=== PATIENT | female | born 1930 | race Caucasian/White ===

== ENCOUNTER → 2016-10-16 | Outpatient (CLI) | payer MEDICARE, BC | LOC: MW.CHFP 08:00 | PROVIDERS: ATTEND Student in an Organized Health Care Education/Training Program | DX: Z51.81 Encounter for therapeutic drug level monitoring (principal); Z79.01 Long term (current) use of anticoagulants; I48.91 Unspecified atrial fibrillation | CPT/HCPCS: 85610; 99211 ==

== ENCOUNTER → 2016-10-18 | Outpatient (CLI) | payer MEDICARE, BC | LOC: MW.CHORTHO 08:00 | PROVIDERS: ATTEND Physician Assistant | DX: M17.0 Bilateral primary osteoarthritis of knee (principal) | CPT/HCPCS: 20610-50; G0463; J1040 ==

== ENCOUNTER → 2016-11-15 | Outpatient (CLI) | payer MEDICARE, BC | LOC: MW.CHFP 08:00 | PROVIDERS: ATTEND Student in an Organized Health Care Education/Training Program | DX: Z51.81 Encounter for therapeutic drug level monitoring (principal); Z79.01 Long term (current) use of anticoagulants; I48.91 Unspecified atrial fibrillation | CPT/HCPCS: 85610; 99211 ==

== ENCOUNTER → 2016-12-06 | Outpatient (CLI) | payer MEDICARE, BC | LOC: MW.CHFP 08:00 | PROVIDERS: ATTEND Student in an Organized Health Care Education/Training Program | DX: Z51.81 Encounter for therapeutic drug level monitoring (principal); Z79.01 Long term (current) use of anticoagulants; I48.91 Unspecified atrial fibrillation | CPT/HCPCS: 85610; 99211 ==

== ENCOUNTER → 2016-12-18 | Outpatient (CLI) | payer MEDICARE, BC | LOC: MW.CHFP 14:17 | PROVIDERS: ATTEND Internal Medicine | DX: I48.2 Chronic atrial fibrillation (principal); I10 Essential (primary) hypertension; I48.91 Unspecified atrial fibrillation; M19.049 Primary osteoarthritis, unspecified hand; M17.10 Unilateral primary osteoarthritis, unspecified knee | CPT/HCPCS: 36415; 80053; 80061; 80162; 99214 ==

== ENCOUNTER 2018-10-28 13:49 | Inpatient (IN) | payer MEDICARE, BC ==
[2018-10-28] MEDS ORDERED: Sodium Chloride 0.9% 2.5 ML Syringe FLUSH PRN (13:51)
[2018-10-28] MEDS ORDERED: Sodium Chloride 0.9% 10 ML Syringe FLUSH PRN (13:51)
--- NOTE | 2018-10-28 14:05 | EDM.PDOC ---
ED HPI GENERAL MEDICAL PROBLEM - General Chief Complaint: Respiratory Problem Stated Complaint: SHORTNESS OF BREATH Time Seen by Provider: 10/28/18 13:54 Source of Information: Reports: Patient History Limitations: Reports: No Limitations - History of Present Illness INITIAL COMMENTS - FREE TEXT/NARRATIVE: HISTORY AND PHYSICAL: History of present illness: Patient is an 88-year-old female who presents to the emergency room with complaints of shortness of breath. Patient states that a week ago she thought she had a virus and went and saw [facility]. At that time S[facility] did a chest x-ray which was unremarkable according to patient. Patient states that since then she has been getting better until yesterday she notices that she felt more short of breath and the cough had returned. She states that she went to [facility] again today who had sent her over here. She states she now has a cough and feels short of breath. Patient denies any fever, chills, headache, change in vision, syncope or near syncope. Denies any chest pain. Denies any abdominal pain, nausea, vomiting, diarrhea, constipation or dysuria. Has not noted any blood in urine or stool. Patient has been eating and drinking appropriately. Patient has a past medical history of atrial fibrillation, congestive heart failure and hypertension. Review of systems: As per history of present illness and below otherwise all systems reviewed and negative. Past medical history: As per history of present illness and as reviewed below otherwise noncontributory. Surgical history: As per history of present illness and as reviewed below otherwise noncontributory. Social history: See social history for further information Family history: As per history of present illness and as reviewed below otherwise noncontributory. Physical exam: General: Patient is alert, oriented, and in no acute distress. She is lying comfortably on exam table. HEENT: Atraumatic, normocephalic, pupils equal and reactive bilaterally, negative for conjunctival pallor or scleral icterus, mucous membranes moist, TMs normal bilaterally, throat clear, neck supple, nontender, trachea midline. No drooling or trismus noted. No meningeal signs. No hot potato voice noted. Lungs: Fine expiratory crackles heard throughout all lung dickinson. Breath sounds equal bilaterally, chest nontender. Heart: S1S2, irregular rate and rhythm with grade 3 systolic ejection murmur best heard at the right upper sternal border. Abdomen: Soft, nondistended, nontender. Negative for masses or hepatosplenomegaly. Negative for costovertebral tenderness. Pelvis: Stable nontender. Genitourinary: Deferred. Rectal: Deferred. Skin: Intact, warm, dry. No lesions or rashes noted. Extremities: Atraumatic, negative for cords or calf pain. Neurovascular unremarkable. Neuro: Awake, alert, oriented. Cranial nerves II through XII unremarkable. Cerebellum unremarkable. Motor and sensory unremarkable throughout. Exam nonfocal. Notes: Upon patient arrival her oxygen saturation is 81% on room air. Respiratory therapy did place her on 3 L per nasal cannula and she is now 91%. Patient is currently on 2 L nasal cannula and stating at 93%. On lab work, patient does have hyponatremia. Dr. Tena was consulted on this patient and will admit to observation. Discussed this with patient and she is agreeable to plan of care without any questions or concerns at this time. Diagnostics: CBC, CMP, troponin, BNP, EKG, 2 view chest, d-dimer Therapeutics: Saline lock, DuoNeb Impression: Hypoxia Hyponatremia Plan: 1. Admit to observation. Definitive disposition and diagnosis as appropriate pending reevaluation and review of above. - Related Data Allergies Allergy/AdvReac Type Severity Reaction Status Date / Time enalapril maleate Allergy Rash Verified 10/28/18 13:56 [From Vasotec] enalaprilat dihydrate Allergy Rash Verified 10/28/18 13:56 [From Vasotec] Home Meds: Home Meds ALPRAZolam [ALPRAZolam XR] 1 mg PO BEDTIME PRN 02/16/14 [History] Digoxin 0.125 mg PO DAILY 02/16/14 [History] Losartan [Cozaar] 100 mg PO DAILY 02/16/14 [History] Warfarin [Coumadin] 5 mg PO ASDIRECTED 02/16/14 [History] amLODIPine Besylate [Amlodipine Besylate] 10 mg PO DAILY 02/16/14 [History] Metoprolol Tartrate [Lopressor] 50 mg PO BID #60 tablet 04/02/14 [Rx] Potassium Chloride [Klor-Con M20] 20 meq PO DAILY #30 tab.er 04/02/14 [Rx] Furosemide 20 mg PO DAILY 06/07/18 [History] Occuvite 1 tab PO DAILY 10/28/18 [History] Past Medical History Cardiovascular History: Reports: Afib, Heart Failure, Hypertension - Infectious Disease History Infectious Disease History: Reports: Chicken Pox, Measles, Mumps - Past Surgical History GI Surgical History: Reports: Appendectomy Female Surgical History: Reports: Section Social & Family History - Family History Family Medical History: Noncontributory - Tobacco Use Smoking Status *Q: Never Smoker - Recreational Drug Use Recreational Drug Use: No ED ROS GENERAL - Review of Systems Review Of Systems: ROS reveals no pertinent complaints other than HPI. ED EXAM, GENERAL - Physical Exam Exam: See Below (see dictation) Course - Vital Signs Last Recorded V/S: Last Vital Signs Temp 96.2 F 10/28/18 13:53 Pulse 75 10/28/18 13:53 Resp 20 10/28/18 13:53 BP 151/61 H 10/28/18 13:53 Pulse Ox 94 L 10/28/18 14:43 - Orders/Labs/Meds Orders: Active Orders 24 hr Category Date Time Status Admission Status [Patient Status] [ADT] Stat ADT 10/28/18 15:39 Active EKG Documentation Completion [RC] STAT Care 10/28/18 13:51 Active Oxygen Therapy, ED [RC] ASDIRECTED Care 10/28/18 14:06 Active RT Aerosol Therapy [RC] ASDIRECTED Care 10/28/18 14:07 Active Sodium Chloride 0.9% [Saline Flush] Med 10/28/18 13:51 Active 10 ml FLUSH ASDIRECTED PRN Sodium Chloride 0.9% [Saline Flush] Med 10/28/18 13:51 Active 2.5 ml FLUSH ASDIRECTED PRN Saline Lock Insert [OM.PC] Stat Oth 10/28/18 13:51 Ordered Medication Orders Sodium Chloride (Saline Flush) 10 ml FLUSH ASDIRECTED PRN PRN Reason: Keep Vein Open Sodium Chloride (Saline Flush) 2.5 ml FLUSH ASDIRECTED PRN PRN Reason: Keep Vein Open Labs: Laboratory Tests 10/28/18 10/28/18 10/28/18 Range/Units 14:08 14:08 14:08 WBC 8.11 (4.0-11.0) K/uL RBC 5.19 (4.30-5.90) M/uL Hgb 15.8 (12.0-16.0) g/dL Hct 43.4 (36.0-46.0) % MCV 83.6 (80.0-98.0) fL MCH 30.4 (27.0-32.0) pg MCHC 36.4 (31.0-37.0) g/dL RDW Std Deviation 44.2 (28.0-62.0) fl RDW Coeff of Dg 15 (11.0-15.0) % Plt Count 219 (150-400) K/uL MPV 10.10 (7.40-12.00) fL Neut % (Auto) 64.8 (48.0-80.0) % Lymph % (Auto) 24.4 (16.0-40.0) % [place] % (Auto) 9.7 (0.0-15.0) % Eos % (Auto) 0.9 (0.0-7.0) % Baso % (Auto) 0.2 (0.0-1.5) % Neut # (Auto) 5.3 (1.4-5.7) K/uL Lymph # (Auto) 2.0 (0.6-2.4) K/uL [place] # (Auto) 0.8 (0.0-0.8) K/uL Eos # (Auto) 0.1 (0.0-0.7) K/uL Baso # (Auto) 0.0 (0.0-0.1) K/uL Nucleated RBC % 0.0 /100WBC Nucleated RBCs # 0 K/uL D-Dimer, Quantitative (0.0-0.50) mg/L FEU Sodium 117 L* (136-145) mmol/L Potassium 4.6 (3.5-5.1) mmol/L Chloride 85 L (98-107) mmol/L Carbon Dioxide 27.1 (21.0-32.0) mmol/L BUN 13 (7.0-18.0) mg/dL Creatinine 0.8 (0.6-1.0) mg/dL Est Cr Clr Drug Dosing 44.58 mL/min Estimated GFR (MDRD) > 60.0 ml/min Glucose 136 H (74-106) mg/dL Calcium 8.8 (8.5-10.1) mg/dL Total Bilirubin 1.0 (0.2-1.0) mg/dL AST 28 (15-37) IU/L ALT 26 (14-63) IU/L Alkaline Phosphatase 99 (46-116) U/L Troponin I < 0.050 (0.000-0.056) ng/mL B-Natriuretic Peptide 244 H (<100) PG/ML Total Protein 6.6 (6.4-8.2) g/dL Albumin 3.5 (3.4-5.0) g/dL Globulin 3.1 (2.6-4.0) g/dL Albumin/Globulin Ratio 1.1 (0.9-1.6) 10/28/18 Range/Units 14:08 WBC (4.0-11.0) K/uL RBC (4.30-5.90) M/uL Hgb (12.0-16.0) g/dL Hct (36.0-46.0) % MCV (80.0-98.0) fL MCH (27.0-32.0) pg MCHC (31.0-37.0) g/dL RDW Std Deviation (28.0-62.0) fl RDW Coeff of Dg (11.0-15.0) % Plt Count (150-400) K/uL MPV (7.40-12.00) fL Neut % (Auto) (48.0-80.0) % Lymph % (Auto) (16.0-40.0) % [place] % (Auto) (0.0-15.0) % Eos % (Auto) (0.0-7.0) % Baso % (Auto) (0.0-1.5) % Neut # (Auto) (1.4-5.7) K/uL Lymph # (Auto) (0.6-2.4) K/uL [place] # (Auto) (0.0-0.8) K/uL Eos # (Auto) (0.0-0.7) K/uL Baso # (Auto) (0.0-0.1) K/uL Nucleated RBC % /100WBC Nucleated RBCs # K/uL D-Dimer, Quantitative 0.43 (0.0-0.50) mg/L FEU Sodium (136-145) mmol/L Potassium (3.5-5.1) mmol/L Chloride (98-107) mmol/L Carbon Dioxide (21.0-32.0) mmol/L BUN (7.0-18.0) mg/dL Creatinine (0.6-1.0) mg/dL Est Cr Clr Drug Dosing mL/min Estimated GFR (MDRD) ml/min Glucose (74-106) mg/dL Calcium (8.5-10.1) mg/dL Total Bilirubin (0.2-1.0) mg/dL AST (15-37) IU/L ALT (14-63) IU/L Alkaline Phosphatase (46-116) U/L Troponin I (0.000-0.056) ng/mL B-Natriuretic Peptide (<100) PG/ML Total Protein (6.4-8.2) g/dL Albumin (3.4-5.0) g/dL Globulin (2.6-4.0) g/dL Albumin/Globulin Ratio (0.9-1.6) Meds: Medications Generic Name Dose Route Start Last Admin Trade Name Freq PRN Reason Stop Dose Admin Sodium Chloride 10 ml 10/28/18 13:51 Saline Flush FLUSH ASDIRECTED PRN Keep Vein Open Sodium Chloride 2.5 ml 10/28/18 13:51 Saline Flush FLUSH ASDIRECTED PRN Keep Vein Open Discontinued Medications Generic Name Dose Route Start Last Admin Trade Name Freq PRN Reason Stop Dose Admin Albuterol/Ipratropium 3 ml 10/28/18 14:07 10/28/18 14:42 Duoneb 3.0-0.5 Mg/3 Ml NEB 10/28/18 14:08 3 ml ONETIME ONE Administration Departure - Departure Time of Disposition: 15:42 Disposition: Refer to Observation Clinical Impression: Hypoxia, Hyponatremia - Discharge Information Referrals: PCP,Unknown [Primary Care Provider] - Forms: ED Department Discharge - My Orders Last 24 Hours: My Active Orders 10/28/18 13:51 EKG Documentation Completion [RC] STAT Sodium Chloride 0.9% [Saline Flush] 10 ml FLUSH ASDIRECTED PRN Sodium Chloride 0.9% [Saline Flush] 2.5 ml FLUSH ASDIRECTED PRN Saline Lock Insert [OM.PC] Stat 10/28/18 14:06 Oxygen Therapy, ED [RC] ASDIRECTED 10/28/18 14:07 RT Aerosol Therapy [RC] ASDIRECTED 10/28/18 15:39 Admission Status [Patient Status] [ADT] Stat - Assessment/Plan Last 24 Hours: My Active Orders 10/28/18 13:51 EKG Documentation Completion [RC] STAT Sodium Chloride 0.9% [Saline Flush] 10 ml FLUSH ASDIRECTED PRN Sodium Chloride 0.9% [Saline Flush] 2.5 ml FLUSH ASDIRECTED PRN Saline Lock Insert [OM.PC] Stat 10/28/18 14:06 Oxygen Therapy, ED [RC] ASDIRECTED 10/28/18 14:07 RT Aerosol Therapy [RC] ASDIRECTED 10/28/18 15:39 Admission Status [Patient Status] [ADT] Stat
[2018-10-28] MEDS ORDERED: Albuterol/Ipratropium 3.0-0.5 MG/3 ML Neb Soln NEB ONE (14:07)
[2018-10-28 15:08] LABS: CHLORIDE,CL 85 mmol/L (98-107)
--- NOTE | 2018-10-28 15:15 | CR ---
EXAMINATION: Two-view chest (PA and Lateral views). HISTORY: Shortness of breath. Comparison: 10/23/2018, 05/01/2010. FINDINGS: The trachea is midline. The cardiomediastinal silhouette is stable. Heart is borderline in size. There is stable volume loss, interstitial prominence, atelectasis, and hyperinflation. A trace right pleural effusion is not excluded. Osseous structures appear osteopenic. IMPRESSION: 1. Possible trace right pleural effusion. 2. Chronic interstitial prominence, scarring, and hyperinflation.
[2018-10-28 15:29] LABS: SODIUM,NA 117 mmol/L (136-145)
[2018-10-28] MEDS ORDERED: Albuterol/Ipratropium 3.0-0.5 MG/3 ML Neb Soln NEB PRN (17:44)
--- NOTE | 2018-10-28 17:53 | PCM.HP ---
<Elaine,Pily - Last Filed: 10/28/18 17:59> H&P History of Present Illness - General Date of Service: 10/28/18 Admit Problem/Dx: Admission Diagnosis/Problem Admission Diagnosis/Problem Hypoxia - History of Present Illness Initial Comments - Free Text/Narative: The patient is a 88 year old female with past medical history of CHF, Afib, and HTN who was sent from her PCP office to the ER for shortness of breath. The patient had been seen by her PCP on 10/23/18 for similar complaints and at that time her CXR was clear. She returned today with worsening shortness of breath and cough. In the ER, her oxygen saturation was 81% on RA, it improved to 95% with 3 L via NC. Patient denies fever/chills, chest pain, orthopnea, hx of asthma/COPD. She does have some lower extremity edema which she states is at her baseline. She had a echo done in May 2018 which showed an EF of 55-60%, severely dilated RA/LA, mild aortic stenosis, and mitral/tricuspid regurgitation. She reports she doesn't follow with a financial rep. She denies any headache, vision changes, abdominal pain, nausea/vomiting/diarrhea, or burning with urination. In the ER, work up found a hyponatremia of 117, elevated BNP of 244, negative troponin and a CXR that showed possible right pleural effusion with chronic interstitial prominence ,scarring, and hyperinflation. In the ER, she was given a duoneb treatment which she reports helped her breathing. She denies history of hyponatremia, and looking back through old labs she runs in the mid 130s. - Related Data Allergies/Adverse Reactions: Allergies Allergy/AdvReac Type Severity Reaction Status Date / Time enalapril maleate Allergy Rash Verified 10/28/18 13:56 [From Vasotec] enalaprilat dihydrate Allergy Rash Verified 10/28/18 13:56 [From Vasotec] Home Medications: Home Meds ALPRAZolam [ALPRAZolam XR] 0.5 - 1 mg PO BEDTIME PRN 02/16/14 [History] Digoxin 0.125 mg PO DAILY 02/16/14 [History] Losartan [Cozaar] 100 mg PO DAILY 02/16/14 [History] Warfarin [Coumadin] 5 mg PO ASDIRECTED 02/16/14 [History] amLODIPine Besylate [Amlodipine Besylate] 10 mg PO DAILY 02/16/14 [History] Metoprolol Tartrate [Lopressor] 50 mg PO BID #60 tablet 04/02/14 [Rx] Potassium Chloride [Klor-Con M20] 20 meq PO DAILY #30 tab.er 04/02/14 [Rx] Furosemide 20 mg PO DAILY 06/07/18 [History] Calcium Carbonate [Calcium] 600 mg PO DAILY 10/28/18 [History] Multivitamin [Daily Multiple Vitamin] 1 each PO DAILY 10/28/18 [History] Occuvite 1 tab PO DAILY 10/28/18 [History] Dorzolamide HCl 10/29/18 [History] Omeprazole 20 mg PO ACBREAKFAST 10/29/18 [History] Timolol Maleate 10/29/18 [History] Past Medical History Cardiovascular History: Reports: Afib, Heart Failure, Hypertension Respiratory History: Reports: None Gastrointestinal History: Reports: None Genitourinary History: Reports: None Musculoskeletal History: Reports: None Neurological History: Reports: None Psychiatric History: Reports: None Endocrine/Metabolic History: Reports: None Hematologic History: Reports: None Immunologic History: Reports: None Oncologic (Cancer) History: Reports: None Dermatologic History: Reports: None - Infectious Disease History Infectious Disease History: Reports: Chicken Pox, Measles, Mumps - Past Surgical History GI Surgical History: Reports: Appendectomy Female Surgical History: Reports: Section Social & Family History - Family History Family Medical History: Noncontributory - Tobacco Use Smoking Status *Q: Never Smoker - Recreational Drug Use Recreational Drug Use: No H&P Review of Systems - Review of Systems: Review Of Systems: See Below General: Reports: No Symptoms HEENT: Reports: No Symptoms Pulmonary: Reports: Shortness of Breath, Cough Cardiovascular: Reports: Dyspnea on Exertion, Edema. Denies: Chest Pain, Orthopnea Gastrointestinal: Reports: No Symptoms Genitourinary: Reports: No Symptoms Musculoskeletal: Reports: No Symptoms Skin: Reports: No Symptoms Psychiatric: Reports: No Symptoms Neurological: Reports: No Symptoms Hematologic/Lymphatic: Reports: No Symptoms Immunologic: Reports: No Symptoms Exam - Exam Exam: See Below - Vital Signs Vital Signs: Last Vital Signs Temp 96.2 F 10/28/18 13:53 Pulse 75 10/28/18 13:53 Resp 20 03/26/19 13:53 BP 151/61 H 10/28/18 13:53 Pulse Ox 94 L 10/28/18 14:43 Weight: 58.513 kg - Exam Quality Assessment: Supplemental Oxygen General: Alert, Oriented, Cooperative HEENT: Conjunctiva Clear, EOMI, Mucosa Moist & [place], Posterior Pharynx Clear, Pupils Equal, Pupils Reactive Neck: Supple, Trachea Midline Lungs: Normal Respiratory Effort, Wheezing Cardiovascular: Irregular Rhythm, Systolic Murmur GI/Abdominal Exam: Normal Bowel Sounds, Soft, Non-Tender, No Distention Extremities: Pedal Edema Skin: Warm, Dry Neurological: Cranial Nerves Intact Neuro Extensive - Mental Status: Alert, Oriented x3 Psychiatric: Alert, Normal Affect, Normal Mood - Patient Data Lab Results Last 24 hrs: Laboratory Results - last 24 hr 10/28/18 10/28/18 10/28/18 Range/Units 14:08 14:08 14:08 WBC 8.11 (4.0-11.0) K/uL RBC 5.19 (4.30-5.90) M/uL Hgb 15.8 (12.0-16.0) g/dL Hct 43.4 (36.0-46.0) % MCV 83.6 (80.0-98.0) fL MCH 30.4 (27.0-32.0) pg MCHC 36.4 (31.0-37.0) g/dL RDW Std Deviation 44.2 (28.0-62.0) fl RDW Coeff of Dg 15 (11.0-15.0) % Plt Count 219 (150-400) K/uL MPV 10.10 (7.40-12.00) fL Neut % (Auto) 64.8 (48.0-80.0) % Lymph % (Auto) 24.4 (16.0-40.0) % [place] % (Auto) 9.7 (0.0-15.0) % Eos % (Auto) 0.9 (0.0-7.0) % Baso % (Auto) 0.2 (0.0-1.5) % Neut # (Auto) 5.3 (1.4-5.7) K/uL Lymph # (Auto) 2.0 (0.6-2.4) K/uL [place] # (Auto) 0.8 (0.0-0.8) K/uL Eos # (Auto) 0.1 (0.0-0.7) K/uL Baso # (Auto) 0.0 (0.0-0.1) K/uL Nucleated RBC % 0.0 /100WBC Nucleated RBCs # 0 K/uL D-Dimer, Quantitative (0.0-0.50) mg/L FEU Sodium 117 L* (136-145) mmol/L Potassium 4.6 (3.5-5.1) mmol/L Chloride 85 L (98-107) mmol/L Carbon Dioxide 27.1 (21.0-32.0) mmol/L BUN 13 (7.0-18.0) mg/dL Creatinine 0.8 (0.6-1.0) mg/dL Est Cr Clr Drug Dosing 44.58 mL/min Estimated GFR (MDRD) > 60.0 ml/min Glucose 136 H (74-106) mg/dL Calcium 8.8 (8.5-10.1) mg/dL Total Bilirubin 1.0 (0.2-1.0) mg/dL AST 28 (15-37) IU/L ALT 26 (14-63) IU/L Alkaline Phosphatase 99 (46-116) U/L Troponin I < 0.050 (0.000-0.056) ng/mL B-Natriuretic Peptide 244 H (<100) PG/ML Total Protein 6.6 (6.4-8.2) g/dL Albumin 3.5 (3.4-5.0) g/dL Globulin 3.1 (2.6-4.0) g/dL Albumin/Globulin Ratio 1.1 (0.9-1.6) 10/28/18 Range/Units 14:08 WBC (4.0-11.0) K/uL RBC (4.30-5.90) M/uL Hgb (12.0-16.0) g/dL Hct (36.0-46.0) % MCV (80.0-98.0) fL MCH (27.0-32.0) pg MCHC (31.0-37.0) g/dL RDW Std Deviation (28.0-62.0) fl RDW Coeff of Dg (11.0-15.0) % Plt Count (150-400) K/uL MPV (7.40-12.00) fL Neut % (Auto) (48.0-80.0) % Lymph % (Auto) (16.0-40.0) % [place] % (Auto) (0.0-15.0) % Eos % (Auto) (0.0-7.0) % Baso % (Auto) (0.0-1.5) % Neut # (Auto) (1.4-5.7) K/uL Lymph # (Auto) (0.6-2.4) K/uL [place] # (Auto) (0.0-0.8) K/uL Eos # (Auto) (0.0-0.7) K/uL Baso # (Auto) (0.0-0.1) K/uL Nucleated RBC % /100WBC Nucleated RBCs # K/uL D-Dimer, Quantitative 0.43 (0.0-0.50) mg/L FEU Sodium (136-145) mmol/L Potassium (3.5-5.1) mmol/L Chloride (98-107) mmol/L Carbon Dioxide (21.0-32.0) mmol/L BUN (7.0-18.0) mg/dL Creatinine (0.6-1.0) mg/dL Est Cr Clr Drug Dosing mL/min Estimated GFR (MDRD) ml/min Glucose (74-106) mg/dL Calcium (8.5-10.1) mg/dL Total Bilirubin (0.2-1.0) mg/dL AST (15-37) IU/L ALT (14-63) IU/L Alkaline Phosphatase (46-116) U/L Troponin I (0.000-0.056) ng/mL B-Natriuretic Peptide (<100) PG/ML Total Protein (6.4-8.2) g/dL Albumin (3.4-5.0) g/dL Globulin (2.6-4.0) g/dL Albumin/Globulin Ratio (0.9-1.6) Result Diagrams: 10/28/18 14:08 10/28/18 14:08 - Problem List (1) Afib, Atrial fibrillation SNOMED Code(s): 44815083 ICD Code: I48.91 - UNSPECIFIED ATRIAL FIBRILLATION Status: Chronic (2) CHF, Congestive heart failure SNOMED Code(s): 86007106 ICD Code: I50.9 - HEART FAILURE, UNSPECIFIED Status: Chronic (3) Hyponatremia SNOMED Code(s): 03300577 ICD Code: E87.1 - HYPO-OSMOLALITY AND HYPONATREMIA Status: Acute (4) Hypoxia SNOMED Code(s): 744493175 ICD Code: R09.02 - HYPOXEMIA Status: Acute (5) Hypertension SNOMED Code(s): 36147258 ICD Code: I10 - ESSENTIAL (PRIMARY) HYPERTENSION Status: Acute Problem List Initiated/Reviewed/Updated: Yes Orders Last 24hrs: Active Orders 24 hr Category Date Time Status Admission Status [Patient Status] [ADT] Stat ADT 10/28/18 15:39 Active EKG Documentation Completion [RC] STAT Care 10/28/18 13:51 Active Height and Weight [RC] DAILY Care 10/28/18 17:44 Ordered Intake and Output Strict [RC] ASDIRECTED Care 10/28/18 17:44 Ordered Oxygen Therapy, ED [RC] ASDIRECTED Care 10/28/18 14:06 Active RT Aerosol Therapy [RC] ASDIRECTED Care 10/28/18 14:07 Active RT Aerosol Therapy [RC] ASDIRECTED Care 10/28/18 17:45 Ordered Vital Signs [RC] PER UNIT ROUTINE Care 10/28/18 17:44 Ordered Heart Healthy Diet [DIET] Diet 10/28/18 Dinner Ordered Albuterol/Ipratropium [DuoNeb 3.0-0.5 MG/3 ML] Med 10/28/18 17:44 Ordered 3 ml NEB Q6HRRT PRN Azithromycin [Zithromax] 250 mg Med 10/28/18 17:45 Ordered Sodium Chloride 0.9% [Normal Saline] 250 ml IV Q24H Sodium Chloride 0.9% @ 75 MLS/HR(1,000ml) Med 10/28/18 17:45 Ordered Sodium Chloride 0.9% [Normal Saline] 1,000 ml IV ASDIRECTED methylPREDNISolone Sod Succ [Solu-MEDROL] Med 10/28/18 17:45 Ordered 125 mg IVPUSH Q12H Saline Lock Insert [OM.PC] Stat Oth 10/28/18 13:51 Ordered Resuscitation Status Stat Resus Stat 10/28/18 17:44 Ordered Assessment/Plan Comment:: 1. Admit for observation 2. Code Status-DNR/DNI 3. Vitals per routine 4. I/Os strict 5. Diet-cardiac 6. DVT- patient on warfarin 7. Hypoxia with wheezing-possible COPD exacerbation- will give IV steriods, duonebs, and start on Azithromycin. Patient will need PFTs as an outpatient once feeling better. 8. Hyponatremia- will give normal saline at 75 cc/hr. Will monitor closely for signs of overload. Daily Weights and strict I/Os 9. Chronic conditions- Afib, CHF, HTN- watch on tele and continue home meds. <Alex Tena - Last Filed: 10/29/18 09:11> H&P History of Present Illness - General Admit Problem/Dx: Admission Diagnosis/Problem Admission Diagnosis/Problem Hypoxia - History of Present Illness Initial Comments - Free Text/Narative: I have examined the patient independently of Pily Henry MD, resident. I have discussed the case with her. I have reviewed and agree with the plan of care as outlined by her. Please see orders. Exam - Vital Signs Vital Signs: Last Vital Signs Temp 36.6 C 10/29/18 08:00 Pulse 91 10/29/18 08:00 Resp 18 10/29/18 08:00 BP 134/64 10/29/18 08:00 Pulse Ox 96 10/29/18 08:00 - Patient Data Lab Results Last 24 hrs: Laboratory Results - last 24 hr 10/28/18 10/28/18 10/28/18 Range/Units 14:08 14:08 14:08 WBC 8.11 (4.0-11.0) K/uL RBC 5.19 (4.30-5.90) M/uL Hgb 15.8 (12.0-16.0) g/dL Hct 43.4 (36.0-46.0) % MCV 83.6 (80.0-98.0) fL MCH 30.4 (27.0-32.0) pg MCHC 36.4 (31.0-37.0) g/dL RDW Std Deviation 44.2 (28.0-62.0) fl RDW Coeff of Dg 15 (11.0-15.0) % Plt Count 219 (150-400) K/uL MPV 10.10 (7.40-12.00) fL Neut % (Auto) 64.8 (48.0-80.0) % Lymph % (Auto) 24.4 (16.0-40.0) % [place] % (Auto) 9.7 (0.0-15.0) % Eos % (Auto) 0.9 (0.0-7.0) % Baso % (Auto) 0.2 (0.0-1.5) % Neut # (Auto) 5.3 (1.4-5.7) K/uL Lymph # (Auto) 2.0 (0.6-2.4) K/uL [place] # (Auto) 0.8 (0.0-0.8) K/uL Eos # (Auto) 0.1 (0.0-0.7) K/uL Baso # (Auto) 0.0 (0.0-0.1) K/uL Nucleated RBC % 0.0 /100WBC Nucleated RBCs # 0 K/uL INR D-Dimer, Quantitative (0.0-0.50) mg/L FEU Sodium 117 L* (136-145) mmol/L Potassium 4.6 (3.5-5.1) mmol/L Chloride 85 L (98-107) mmol/L Carbon Dioxide 27.1 (21.0-32.0) mmol/L BUN 13 (7.0-18.0) mg/dL Creatinine 0.8 (0.6-1.0) mg/dL Est Cr Clr Drug Dosing 44.58 mL/min Estimated GFR (MDRD) > 60.0 ml/min Glucose 136 H (74-106) mg/dL Calcium 8.8 (8.5-10.1) mg/dL Total Bilirubin 1.0 (0.2-1.0) mg/dL AST 28 (15-37) IU/L ALT 26 (14-63) IU/L Alkaline Phosphatase 99 (46-116) U/L Troponin I < 0.050 (0.000-0.056) ng/mL B-Natriuretic Peptide 244 H (<100) PG/ML Total Protein 6.6 (6.4-8.2) g/dL Albumin 3.5 (3.4-5.0) g/dL Globulin 3.1 (2.6-4.0) g/dL Albumin/Globulin Ratio 1.1 (0.9-1.6) 10/28/18 10/29/18 10/29/18 Range/Units 14:08 05:58 05:58 WBC 3.45 L (4.0-11.0) K/uL RBC 5.15 (4.30-5.90) M/uL Hgb 15.4 (12.0-16.0) g/dL Hct 42.6 (36.0-46.0) % MCV 82.7 (80.0-98.0) fL MCH 29.9 (27.0-32.0) pg MCHC 36.2 (31.0-37.0) g/dL RDW Std Deviation 42.5 (28.0-62.0) fl RDW Coeff of Dg 14 (11.0-15.0) % Plt Count 220 (150-400) K/uL MPV 9.60 (7.40-12.00) fL Neut % (Auto) 77.7 (48.0-80.0) % Lymph % (Auto) 20.0 (16.0-40.0) % [place] % (Auto) 2.3 (0.0-15.0) % Eos % (Auto) 0.0 (0.0-7.0) % Baso % (Auto) 0.0 (0.0-1.5) % Neut # (Auto) 2.7 (1.4-5.7) K/uL Lymph # (Auto) 0.7 (0.6-2.4) K/uL [place] # (Auto) 0.1 (0.0-0.8) K/uL Eos # (Auto) 0.0 (0.0-0.7) K/uL Baso # (Auto) 0.0 (0.0-0.1) K/uL Nucleated RBC % 0.0 /100WBC Nucleated RBCs # 0 K/uL INR D-Dimer, Quantitative 0.43 (0.0-0.50) mg/L FEU Sodium 121 L (136-145) mmol/L Potassium 4.2 (3.5-5.1) mmol/L Chloride 88 L (98-107) mmol/L Carbon Dioxide 24.2 (21.0-32.0) mmol/L BUN 13 (7.0-18.0) mg/dL Creatinine 0.7 (0.6-1.0) mg/dL Est Cr Clr Drug Dosing 50.95 mL/min Estimated GFR (MDRD) > 60.0 ml/min Glucose 189 H (74-106) mg/dL Calcium 8.9 (8.5-10.1) mg/dL Total Bilirubin (0.2-1.0) mg/dL AST (15-37) IU/L ALT (14-63) IU/L Alkaline Phosphatase (46-116) U/L Troponin I (0.000-0.056) ng/mL B-Natriuretic Peptide (<100) PG/ML Total Protein (6.4-8.2) g/dL Albumin (3.4-5.0) g/dL Globulin (2.6-4.0) g/dL Albumin/Globulin Ratio (0.9-1.6) 10/29/18 Range/Units 05:58 WBC (4.0-11.0) K/uL RBC (4.30-5.90) M/uL Hgb (12.0-16.0) g/dL Hct (36.0-46.0) % MCV (80.0-98.0) fL MCH (27.0-32.0) pg MCHC (31.0-37.0) g/dL RDW Std Deviation (28.0-62.0) fl RDW Coeff of Dg (11.0-15.0) % Plt Count (150-400) K/uL MPV (7.40-12.00) fL Neut % (Auto) (48.0-80.0) % Lymph % (Auto) (16.0-40.0) % [place] % (Auto) (0.0-15.0) % Eos % (Auto) (0.0-7.0) % Baso % (Auto) (0.0-1.5) % Neut # (Auto) (1.4-5.7) K/uL Lymph # (Auto) (0.6-2.4) K/uL [place] # (Auto) (0.0-0.8) K/uL Eos # (Auto) (0.0-0.7) K/uL Baso # (Auto) (0.0-0.1) K/uL Nucleated RBC % /100WBC Nucleated RBCs # K/uL INR 2.00 D-Dimer, Quantitative (0.0-0.50) mg/L FEU Sodium (136-145) mmol/L Potassium (3.5-5.1) mmol/L Chloride (98-107) mmol/L Carbon Dioxide (21.0-32.0) mmol/L BUN (7.0-18.0) mg/dL Creatinine (0.6-1.0) mg/dL Est Cr Clr Drug Dosing mL/min Estimated GFR (MDRD) ml/min Glucose (74-106) mg/dL Calcium (8.5-10.1) mg/dL Total Bilirubin (0.2-1.0) mg/dL AST (15-37) IU/L ALT (14-63) IU/L Alkaline Phosphatase (46-116) U/L Troponin I (0.000-0.056) ng/mL B-Natriuretic Peptide (<100) PG/ML Total Protein (6.4-8.2) g/dL Albumin (3.4-5.0) g/dL Globulin (2.6-4.0) g/dL Albumin/Globulin Ratio (0.9-1.6) Result Diagrams: 10/29/18 05:58 10/29/18 05:58 Orders Last 24hrs: Active Orders 24 hr Category Date Time Status Admission Status [Patient Status] [ADT] Stat ADT 10/28/18 15:39 Active EKG Documentation Completion [RC] STAT Care 10/28/18 13:51 Active Height and Weight [RC] DAILY Care 10/28/18 17:44 Active Intake and Output Strict [RC] Q12H Care 10/28/18 17:44 Active Oxygen Therapy, ED [RC] ASDIRECTED Care 10/28/18 14:06 Active RT Aerosol Therapy [RC] ASDIRECTED Care 10/28/18 14:07 Active RT Aerosol Therapy [RC] ASDIRECTED Care 10/28/18 17:45 Active Telemetry Monitoring [Cardiac Monitoring] [RC] Q8H Care 10/28/18 17:56 Active Vital Signs [RC] PER UNIT ROUTINE Care 10/28/18 17:44 Active Heart Healthy Diet [DIET] Diet 10/28/18 Dinner Active ALPRAZolam [Xanax] Med 10/28/18 18:00 Active 0.5 mg PO BEDTIME PRN Acetaminophen [Tylenol] Med 10/28/18 20:35 Active 650 mg PO Q4H PRN Albuterol/Ipratropium [DuoNeb 3.0-0.5 MG/3 ML] Med 10/28/18 17:44 Active 3 ml NEB Q6HRRT PRN Azithromycin [Zithromax] 250 mg Med 10/28/18 18:00 Active Sodium Chloride 0.9% [Normal Saline] 250 ml IV Q24H Beta-Carotene(A) w/C & E/Min [Prosight] Med 10/29/18 09:00 Active 1 tab PO DAILY Calcium Carbonate [Oyster Shell Calcium] Med 10/29/18 09:00 Active 500 mg PO DAILY Digoxin [Lanoxin] Med 10/29/18 09:00 Active 125 mcg PO DAILY Losartan [Cozaar] Med 10/29/18 09:00 Active 100 mg PO DAILY Metoprolol Tartrate [Lopressor] Med 10/28/18 19:30 Active 50 mg PO BID@0900,1800 Multivitamins [Tab-A-Celestine] Med 10/29/18 09:00 Active 1 tab PO DAILY Potassium Chloride [Klor-Con M20] Med 10/29/18 09:00 Active 20 meq PO DAILY Sodium Chloride 0.9% [Normal Saline] 1,000 ml Med 10/28/18 17:45 Active IV ASDIRECTED Sodium Chloride 0.9% [Saline Flush] Med 10/28/18 13:51 Active 10 ml FLUSH ASDIRECTED PRN Sodium Chloride 0.9% [Saline Flush] Med 10/28/18 13:51 Active 2.5 ml FLUSH ASDIRECTED PRN Warfarin [Coumadin] Med 10/29/18 14:00 Active 2.5 mg PO DAILY@1400 amLODIPine [Norvasc] Med 10/29/18 09:00 Active 10 mg PO DAILY guaiFENesin [Robitussin] Med 10/28/18 20:36 Active 200 mg PO Q4H PRN methylPREDNISolone Sod Succ [Solu-MEDROL] Med 10/28/18 17:45 Active 125 mg IVPUSH Q12H Saline Lock Insert [OM.PC] Stat Oth 10/28/18 13:51 Ordered Resuscitation Status Stat Resus Stat 10/28/18 17:44 Ordered Medication Orders Acetaminophen (Tylenol) 650 mg PO Q4H PRN PRN Reason: Pain (mild 1-3) Last Admin: 10/29/18 04:49 Dose: 650 mg Albuterol/Ipratropium (Duoneb 3.0-0.5 Mg/3 Ml) 3 ml NEB Q6HRRT PRN PRN Reason: Wheezing Alprazolam (Xanax) 0.5 mg PO BEDTIME PRN PRN Reason: Anxiety Amlodipine Besylate (Norvasc) 10 mg PO DAILY [facility] Calcium Carbonate/Glycine (Oyster Shell Calcium) 500 mg PO DAILY [facility] Digoxin (Lanoxin) 125 mcg PO DAILY [facility] Guaifenesin (Robitussin) 200 mg PO Q4H PRN PRN Reason: Cough Azithromycin 250 mg/ Sodium (Chloride) 250 mls @ 250 mls/hr IV Q24H [facility] Last Admin: 10/28/18 19:23 Dose: 250 mls/hr Sodium Chloride (Normal Saline) 1,000 mls @ 75 mls/hr IV ASDIRECTED [facility] Last Admin: 10/29/18 08:40 Dose: 75 mls/hr Infusion: 10/29/18 08:40 Dose: 75 mls/hr Admin: 10/28/18 19:22 Dose: 75 mls/hr Losartan Potassium (Cozaar) 100 mg PO DAILY [facility] Methylprednisolone Sodium Succinate (Solu-Medrol) 125 mg IVPUSH Q12H [facility] Last Admin: 10/29/18 04:50 Dose: 125 mg Admin: 10/28/18 19:58 Dose: 125 mg Metoprolol Tartrate (Lopressor) 50 mg PO BID@0900,1800 [facility] Last Admin: 10/28/18 19:57 Dose: 50 mg Multivitamins/Minerals (Prosight) 1 tab PO DAILY [facility] Multivitamins/Minerals/Vitamin C (Tab-A-Celestine) 1 tab PO DAILY [facility] Potassium Chloride (Klor-Con M20) 20 meq PO DAILY [facility] Sodium Chloride (Saline Flush) 10 ml FLUSH ASDIRECTED PRN PRN Reason: Keep Vein Open Sodium Chloride (Saline Flush) 2.5 ml FLUSH ASDIRECTED PRN PRN Reason: Keep Vein Open Warfarin Sodium (Coumadin) 2.5 mg PO DAILY@1400 JENN
[2018-10-28] MEDS: Sodium Chloride 0.9% 1,000 ML IV SCH (19:22)
[2018-10-28] MEDS: Azithromycin 250 MG in Sodium Chloride 0.9% 250 ML IV SCH (19:23)
[2018-10-28] MEDS: Metoprolol Tartrate 50 MG Tab PO SCH (19:57)
[2018-10-28] MEDS: methylPREDNISolone Sodium Succinate 125 MG/2 ML SDV IVPUSH SCH (19:58)
[2018-10-28] MEDS ORDERED: guaiFENesin 100 MG/5 ML Soln 10 ML UD Cup PO PRN (20:36)
[2018-10-29] MEDS: Acetaminophen 325 MG Tab PO PRN ×2 (04:49→12:14)
[2018-10-29] MEDS: methylPREDNISolone Sodium Succinate 125 MG/2 ML SDV IVPUSH SCH ×2 (04:50→18:29)
[2018-10-29 06:19] LABS: CHLORIDE,CL 88 mmol/L (98-107); SODIUM,NA 121 mmol/L (136-145)
[2018-10-29] MEDS: Sodium Chloride 0.9% 1,000 ML IV SCH (08:40)
[2018-10-29] MEDS ORDERED: Beta-Carotene (Vitamin A) w/Vitamin C & E plus Minerals Tab PO SCH (09:00)
[2018-10-29] MEDS: amLODIPine 5 MG Tab PO SCH (09:22)
[2018-10-29] MEDS: Digoxin 125 MCG Tab PO SCH (09:23)
[2018-10-29] MEDS: Potassium Chloride 20 MEQ Tab.ER PO SCH (09:25)
[2018-10-29] MEDS: Losartan 50 MG Tab PO SCH (09:25)
[2018-10-29] MEDS: Metoprolol Tartrate 50 MG Tab PO SCH ×2 (09:26→18:30)
[2018-10-29] MEDS: Multivitamin Tab PO SCH (09:27)
[2018-10-29] MEDS: Calcium Carbonate 500 MG Tablet PO SCH (09:27)
--- NOTE | 2018-10-29 10:03 | PCM.PN ---
<Pily Henry - Last Filed: 10/29/18 09:59> - General Info Date of Service: 10/29/18 Subjective Update: The patient is a 88 year old female who was admitted for hypoxia and hyponatremia. She is still requiring 2 L of oxygen but reports she is feeling better. Her sodium improved from 117-121. She denies chest pain, abdominal pain, or nausea/vomiting. - Review of Systems General: Reports: No Symptoms HEENT: Reports: No Symptoms Pulmonary: Reports: Shortness of Breath Cardiovascular: Reports: No Symptoms Gastrointestinal: Reports: No Symptoms Genitourinary: Reports: No Symptoms Musculoskeletal: Reports: No Symptoms Skin: Reports: No Symptoms Neurological: Reports: No Symptoms Psychiatric: Reports: No Symptoms - Patient Data Vitals - Most Recent: Last Vital Signs Temp 98 F 10/29/18 08:00 Pulse 88 10/29/18 09:26 Resp 18 10/29/18 08:00 BP 134/64 10/29/18 09:26 Pulse Ox 96 10/29/18 08:00 Weight - Most Recent: 60.963 kg I&O - Last 24 Hours: Intake & Output 10/28/18 10/29/18 10/29/18 22:59 06:59 14:59 Intake Total 600 Output Total 600 Balance 0 Lab Results Last 24 Hours: Laboratory Results - last 24 hr 10/28/18 10/28/18 10/28/18 Range/Units 14:08 14:08 14:08 WBC 8.11 (4.0-11.0) K/uL RBC 5.19 (4.30-5.90) M/uL Hgb 15.8 (12.0-16.0) g/dL Hct 43.4 (36.0-46.0) % MCV 83.6 (80.0-98.0) fL MCH 30.4 (27.0-32.0) pg MCHC 36.4 (31.0-37.0) g/dL RDW Std Deviation 44.2 (28.0-62.0) fl RDW Coeff of Dg 15 (11.0-15.0) % Plt Count 219 (150-400) K/uL MPV 10.10 (7.40-12.00) fL Neut % (Auto) 64.8 (48.0-80.0) % Lymph % (Auto) 24.4 (16.0-40.0) % [place] % (Auto) 9.7 (0.0-15.0) % Eos % (Auto) 0.9 (0.0-7.0) % Baso % (Auto) 0.2 (0.0-1.5) % Neut # (Auto) 5.3 (1.4-5.7) K/uL Lymph # (Auto) 2.0 (0.6-2.4) K/uL [place] # (Auto) 0.8 (0.0-0.8) K/uL Eos # (Auto) 0.1 (0.0-0.7) K/uL Baso # (Auto) 0.0 (0.0-0.1) K/uL Nucleated RBC % 0.0 /100WBC Nucleated RBCs # 0 K/uL INR D-Dimer, Quantitative (0.0-0.50) mg/L FEU Sodium 117 L* (136-145) mmol/L Potassium 4.6 (3.5-5.1) mmol/L Chloride 85 L (98-107) mmol/L Carbon Dioxide 27.1 (21.0-32.0) mmol/L BUN 13 (7.0-18.0) mg/dL Creatinine 0.8 (0.6-1.0) mg/dL Est Cr Clr Drug Dosing 44.58 mL/min Estimated GFR (MDRD) > 60.0 ml/min Glucose 136 H (74-106) mg/dL Calcium 8.8 (8.5-10.1) mg/dL Total Bilirubin 1.0 (0.2-1.0) mg/dL AST 28 (15-37) IU/L ALT 26 (14-63) IU/L Alkaline Phosphatase 99 (46-116) U/L Troponin I < 0.050 (0.000-0.056) ng/mL B-Natriuretic Peptide 244 H (<100) PG/ML Total Protein 6.6 (6.4-8.2) g/dL Albumin 3.5 (3.4-5.0) g/dL Globulin 3.1 (2.6-4.0) g/dL Albumin/Globulin Ratio 1.1 (0.9-1.6) 03/10/29/18 10/29/18 Range/Units 14:08 05:58 05:58 WBC 3.45 L (4.0-11.0) K/uL RBC 5.15 (4.30-5.90) M/uL Hgb 15.4 (12.0-16.0) g/dL Hct 42.6 (36.0-46.0) % MCV 82.7 (80.0-98.0) fL MCH 29.9 (27.0-32.0) pg MCHC 36.2 (31.0-37.0) g/dL RDW Std Deviation 42.5 (28.0-62.0) fl RDW Coeff of Dg 14 (11.0-15.0) % Plt Count 220 (150-400) K/uL MPV 9.60 (7.40-12.00) fL Neut % (Auto) 77.7 (48.0-80.0) % Lymph % (Auto) 20.0 (16.0-40.0) % [place] % (Auto) 2.3 (0.0-15.0) % Eos % (Auto) 0.0 (0.0-7.0) % Baso % (Auto) 0.0 (0.0-1.5) % Neut # (Auto) 2.7 (1.4-5.7) K/uL Lymph # (Auto) 0.7 (0.6-2.4) K/uL [place] # (Auto) 0.1 (0.0-0.8) K/uL Eos # (Auto) 0.0 (0.0-0.7) K/uL Baso # (Auto) 0.0 (0.0-0.1) K/uL Nucleated RBC % 0.0 /100WBC Nucleated RBCs # 0 K/uL INR D-Dimer, Quantitative 0.43 (0.0-0.50) mg/L FEU Sodium 121 L (136-145) mmol/L Potassium 4.2 (3.5-5.1) mmol/L Chloride 88 L (98-107) mmol/L Carbon Dioxide 24.2 (21.0-32.0) mmol/L BUN 13 (7.0-18.0) mg/dL Creatinine 0.7 (0.6-1.0) mg/dL Est Cr Clr Drug Dosing 50.95 mL/min Estimated GFR (MDRD) > 60.0 ml/min Glucose 189 H (74-106) mg/dL Calcium 8.9 (8.5-10.1) mg/dL Total Bilirubin (0.2-1.0) mg/dL AST (15-37) IU/L ALT (14-63) IU/L Alkaline Phosphatase (46-116) U/L Troponin I (0.000-0.056) ng/mL B-Natriuretic Peptide (<100) PG/ML Total Protein (6.4-8.2) g/dL Albumin (3.4-5.0) g/dL Globulin (2.6-4.0) g/dL Albumin/Globulin Ratio (0.9-1.6) 10/29/18 Range/Units 05:58 WBC (4.0-11.0) K/uL RBC (4.30-5.90) M/uL Hgb (12.0-16.0) g/dL Hct (36.0-46.0) % MCV (80.0-98.0) fL MCH (27.0-32.0) pg MCHC (31.0-37.0) g/dL RDW Std Deviation (28.0-62.0) fl RDW Coeff of Dg (11.0-15.0) % Plt Count (150-400) K/uL MPV (7.40-12.00) fL Neut % (Auto) (48.0-80.0) % Lymph % (Auto) (16.0-40.0) % [place] % (Auto) (0.0-15.0) % Eos % (Auto) (0.0-7.0) % Baso % (Auto) (0.0-1.5) % Neut # (Auto) (1.4-5.7) K/uL Lymph # (Auto) (0.6-2.4) K/uL [place] # (Auto) (0.0-0.8) K/uL Eos # (Auto) (0.0-0.7) K/uL Baso # (Auto) (0.0-0.1) K/uL Nucleated RBC % /100WBC Nucleated RBCs # K/uL INR 2.00 D-Dimer, Quantitative (0.0-0.50) mg/L FEU Sodium (136-145) mmol/L Potassium (3.5-5.1) mmol/L Chloride (98-107) mmol/L Carbon Dioxide (21.0-32.0) mmol/L BUN (7.0-18.0) mg/dL Creatinine (0.6-1.0) mg/dL Est Cr Clr Drug Dosing mL/min Estimated GFR (MDRD) ml/min Glucose (74-106) mg/dL Calcium (8.5-10.1) mg/dL Total Bilirubin (0.2-1.0) mg/dL AST (15-37) IU/L ALT (14-63) IU/L Alkaline Phosphatase (46-116) U/L Troponin I (0.000-0.056) ng/mL B-Natriuretic Peptide (<100) PG/ML Total Protein (6.4-8.2) g/dL Albumin (3.4-5.0) g/dL Globulin (2.6-4.0) g/dL Albumin/Globulin Ratio (0.9-1.6) Med Orders - Current: Current Medications Acetaminophen (Tylenol) 650 mg PO Q4H PRN PRN Reason: Pain (mild 1-3) Last Admin: 10/29/18 04:49 Dose: 650 mg Albuterol/Ipratropium (Duoneb 3.0-0.5 Mg/3 Ml) 3 ml NEB Q6HRRT PRN PRN Reason: Wheezing Alprazolam (Xanax) 0.5 mg PO BEDTIME PRN PRN Reason: Anxiety Amlodipine Besylate (Norvasc) 10 mg PO DAILY [facility] Last Admin: 10/29/18 09:22 Dose: 10 mg Calcium Carbonate/Glycine (Oyster Shell Calcium) 500 mg PO DAILY [facility] Last Admin: 10/29/18 09:27 Dose: 500 mg Digoxin (Lanoxin) 125 mcg PO DAILY [facility] Last Admin: 10/29/18 09:23 Dose: 125 mcg Guaifenesin (Robitussin) 200 mg PO Q4H PRN PRN Reason: Cough Azithromycin 250 mg/ Sodium (Chloride) 250 mls @ 250 mls/hr IV Q24H [facility] Last Admin: 10/28/18 19:23 Dose: 250 mls/hr Sodium Chloride (Normal Saline) 1,000 mls @ 75 mls/hr IV ASDIRECTED [facility] Last Admin: 10/29/18 08:40 Dose: 75 mls/hr Losartan Potassium (Cozaar) 100 mg PO DAILY [facility] Last Admin: 10/29/18 09:25 Dose: 100 mg Methylprednisolone Sodium Succinate (Solu-Medrol) 125 mg IVPUSH Q12H [facility] Last Admin: 10/29/18 04:50 Dose: 125 mg Metoprolol Tartrate (Lopressor) 50 mg PO BID@0900,1800 [facility] Last Admin: 10/29/18 09:26 Dose: 50 mg Multivitamins/Minerals (Prosight) 1 tab PO DAILY [facility] Multivitamins/Minerals/Vitamin C (Tab-A-Celestine) 1 tab PO DAILY [facility] Last Admin: 10/29/18 09:27 Dose: 1 tab Potassium Chloride (Klor-Con M20) 20 meq PO DAILY [facility] Last Admin: 10/29/18 09:25 Dose: 20 meq Sodium Chloride (Saline Flush) 10 ml FLUSH ASDIRECTED PRN PRN Reason: Keep Vein Open Sodium Chloride (Saline Flush) 2.5 ml FLUSH ASDIRECTED PRN PRN Reason: Keep Vein Open Warfarin Sodium (Coumadin) 2.5 mg PO DAILY@1400 [facility] Discontinued Medications Albuterol/Ipratropium (Duoneb 3.0-0.5 Mg/3 Ml) 3 ml NEB ONETIME ONE Stop: 10/28/18 14:08 Last Admin: 10/28/18 14:42 Dose: 3 ml - Exam Quality Assessment: Supplemental Oxygen General: Alert, Oriented, Cooperative Lungs: Clear to Auscultation, Normal Respiratory Effort (improved from yesterday ) Cardiovascular: Irregular Rhythm GI/Abdominal Exam: Normal Bowel Sounds, Soft, Non-Tender, No Distention Extremities: Pedal Edema (same as yesterday) Skin: Warm, Dry Neurological: No New Focal Deficit Psy/Mental Status: Alert, Normal Affect, Normal Mood - Problem List & Annotations (1) Afib, Atrial fibrillation SNOMED Code(s): 37570502 Code(s): I48.91 - UNSPECIFIED ATRIAL FIBRILLATION Status: Chronic Current Visit: No (2) CHF, Congestive heart failure SNOMED Code(s): 08275789 Code(s): I50.9 - HEART FAILURE, UNSPECIFIED Status: Chronic Current Visit : No (3) Hyponatremia SNOMED Code(s): 01957225 Code(s): E87.1 - HYPO-OSMOLALITY AND HYPONATREMIA Status: Acute Current Visit: No (4) Hypoxia SNOMED Code(s): 245503898 Code(s): R09.02 - HYPOXEMIA Status: Acute Current Visit: No (5) Hypertension SNOMED Code(s): 89171251 Code(s): I10 - ESSENTIAL (PRIMARY) HYPERTENSION Status: Acute Current Visit: No - Problem List Review Problem List Initiated/Reviewed/Updated: Yes - My Orders Last 24 Hours: My Active Orders 10/28/18 17:44 Height and Weight [RC] DAILY Intake and Output Strict [RC] Q12H Vital Signs [RC] PER UNIT ROUTINE Albuterol/Ipratropium [DuoNeb 3.0-0.5 MG/3 ML] 3 ml NEB Q6HRRT PRN Resuscitation Status Stat 10/28/18 17:45 RT Aerosol Therapy [RC] ASDIRECTED Sodium Chloride 0.9% [Normal Saline] 1,000 ml IV ASDIRECTED methylPREDNISolone Sod Succ [Solu-MEDROL] 125 mg IVPUSH Q12H 10/28/18 18:00 ALPRAZolam [Xanax] 0.5 mg PO BEDTIME PRN Azithromycin [Zithromax] 250 mg Sodium Chloride 0.9% [Normal Saline] 250 ml IV Q24H 10/28/18 19:30 Metoprolol Tartrate [Lopressor] 50 mg PO BID@0900,1800 10/28/18 Dinner Heart Healthy Diet [DIET] 10/29/18 09:00 Beta-Carotene(A) w/C & E/Min [Prosight] 1 tab PO DAILY Calcium Carbonate [Oyster Shell Calcium] 500 mg PO DAILY Digoxin [Lanoxin] 125 mcg PO DAILY Losartan [Cozaar] 100 mg PO DAILY Multivitamins [Tab-A-Celestine] 1 tab PO DAILY Potassium Chloride [Klor-Con M20] 20 meq PO DAILY amLODIPine [Norvasc] 10 mg PO DAILY 10/29/18 14:00 Warfarin [Coumadin] 2.5 mg PO DAILY@1400 - Plan Plan:: 1. Hypoxia with wheezing-possible COPD exacerbation- patient sounds better on exam this morning, continue IV steriods, duonebs, and Azithromycin. Patient will need PFTs as an outpatient once feeling better. 2. Hyponatremia- improved from 117 to 121. Continue normal saline at 75 cc/hr. Will monitor closely for signs of overload. Daily Weights and strict I/Os 3. Chronic conditions- Afib, CHF, HTN- watch on tele and continue home meds. <MallikaAlex marte - Last Filed: 10/29/18 17:22> - General Info Subjective Update: Continue with gentle correction of the hyponatremia. I have examined the patient independently of Pily Henry MD, resident. I have discussed the case with her. I have reviewed and agree with the plan of care as outlined by her. Please see orders. - Patient Data Vitals - Most Recent: Last Vital Signs Temp 36.2 C 10/29/18 15:50 Pulse 83 10/29/18 15:50 Resp 16 10/29/18 15:50 BP 154/72 H 10/29/18 15:50 Pulse Ox 97 10/29/18 15:50 I&O - Last 24 Hours: Intake & Output 10/29/18 10/29/18 10/29/18 06:59 14:59 22:59 Intake Total 600 Output Total 600 Balance 0 Lab Results Last 24 Hours: Laboratory Results - last 24 hr 10/29/18 10/29/18 10/29/18 Range/Units 05:58 05:58 05:58 WBC 3.45 L (4.0-11.0) K/uL RBC 5.15 (4.30-5.90) M/uL Hgb 15.4 (12.0-16.0) g/dL Hct 42.6 (36.0-46.0) % MCV 82.7 (80.0-98.0) fL MCH 29.9 (27.0-32.0) pg MCHC 36.2 (31.0-37.0) g/dL RDW Std Deviation 42.5 (28.0-62.0) fl RDW Coeff of Dg 14 (11.0-15.0) % Plt Count 220 (150-400) K/uL MPV 9.60 (7.40-12.00) fL Neut % (Auto) 77.7 (48.0-80.0) % Lymph % (Auto) 20.0 (16.0-40.0) % [place] % (Auto) 2.3 (0.0-15.0) % Eos % (Auto) 0.0 (0.0-7.0) % Baso % (Auto) 0.0 (0.0-1.5) % Neut # (Auto) 2.7 (1.4-5.7) K/uL Lymph # (Auto) 0.7 (0.6-2.4) K/uL [place] # (Auto) 0.1 (0.0-0.8) K/uL Eos # (Auto) 0.0 (0.0-0.7) K/uL Baso # (Auto) 0.0 (0.0-0.1) K/uL Nucleated RBC % 0.0 /100WBC Nucleated RBCs # 0 K/uL INR 2.00 Sodium 121 L (136-145) mmol/L Potassium 4.2 (3.5-5.1) mmol/L Chloride 88 L (98-107) mmol/L Carbon Dioxide 24.2 (21.0-32.0) mmol/L BUN 13 (7.0-18.0) mg/dL Creatinine 0.7 (0.6-1.0) mg/dL Est Cr Clr Drug Dosing 50.95 mL/min Estimated GFR (MDRD) > 60.0 ml/min Glucose 189 H (74-106) mg/dL Calcium 8.9 (8.5-10.1) mg/dL Med Orders - Current: Current Medications Acetaminophen (Tylenol) 650 mg PO Q4H PRN PRN Reason: Pain (mild 1-3) Last Admin: 10/29/18 12:14 Dose: 650 mg Albuterol/Ipratropium (Duoneb 3.0-0.5 Mg/3 Ml) 3 ml NEB Q6HRRT PRN PRN Reason: Wheezing Alprazolam (Xanax) 0.5 mg PO BEDTIME PRN PRN Reason: Anxiety Amlodipine Besylate (Norvasc) 10 mg PO DAILY [facility] Last Admin: 10/29/18 09:22 Dose: 10 mg Calcium Carbonate/Glycine (Oyster Shell Calcium) 500 mg PO DAILY [facility] Last Admin: 10/29/18 09:27 Dose: 500 mg Digoxin (Lanoxin) 125 mcg PO DAILY [facility] Last Admin: 10/29/18 09:23 Dose: 125 mcg Guaifenesin (Robitussin) 200 mg PO Q4H PRN PRN Reason: Cough Azithromycin 250 mg/ Sodium (Chloride) 250 mls @ 250 mls/hr IV Q24H [facility] Last Admin: 10/28/18 19:23 Dose: 250 mls/hr Sodium Chloride (Normal Saline) 1,000 mls @ 75 mls/hr IV ASDIRECTED [facility] Last Admin: 10/29/18 08:40 Dose: 75 mls/hr Losartan Potassium (Cozaar) 100 mg PO DAILY [facility] Last Admin: 10/29/18 09:25 Dose: 100 mg Methylprednisolone Sodium Succinate (Solu-Medrol) 125 mg IVPUSH Q12H [facility] Last Admin: 10/29/18 04:50 Dose: 125 mg Metoprolol Tartrate (Lopressor) 50 mg PO BID@0900,1800 [facility] Last Admin: 10/29/18 09:26 Dose: 50 mg Multivitamins/Minerals (Prosight) 1 tab PO DAILY@1800 [facility] Multivitamins/Minerals/Vitamin C (Tab-A-Celestine) 1 tab PO DAILY [facility] Last Admin: 10/29/18 09:27 Dose: 1 tab Potassium Chloride (Klor-Con M20) 20 meq PO DAILY [facility] Last Admin: 10/29/18 09:25 Dose: 20 meq Sodium Chloride (Saline Flush) 10 ml FLUSH ASDIRECTED PRN PRN Reason: Keep Vein Open Sodium Chloride (Saline Flush) 2.5 ml FLUSH ASDIRECTED PRN PRN Reason: Keep Vein Open Warfarin Sodium (Coumadin) 2.5 mg PO DAILY@1400 [facility] Last Admin: 10/29/18 15:14 Dose: 2.5 mg Discontinued Medications Albuterol/Ipratropium (Duoneb 3.0-0.5 Mg/3 Ml) 3 ml NEB ONETIME ONE Stop: 10/28/18 14:08 Last Admin: 10/28/18 14:42 Dose: 3 ml Multivitamins/Minerals (Prosight) 1 tab PO DAILY [facility] Last Admin: 10/29/18 16:50 Dose: Not Given - My Orders Last 24 Hours: My Active Orders 10/28/18 17:56 Telemetry Monitoring [Cardiac Monitoring] [RC] Q8H 10/28/18 20:35 Acetaminophen [Tylenol] 650 mg PO Q4H PRN 10/28/18 20:36 guaiFENesin [Robitussin] 200 mg PO Q4H PRN
[2018-10-29] MEDS: Warfarin 2.5 MG Tab PO SCH (15:14)
[2018-10-29] MEDS: Beta-Carotene (Vitamin A) w/Vitamin C & E plus Minerals Tab PO SCH (18:31)
[2018-10-29] MEDS: Azithromycin 250 MG in Sodium Chloride 0.9% 250 ML IV SCH (18:32)
[2018-10-29] MEDS: ALPRAZolam 0.5 MG Tab PO PRN (20:46)
[2018-10-30 05:19] LABS: CHLORIDE,CL 91 mmol/L (98-107); SODIUM,NA 124 mmol/L (136-145)
[2018-10-30] MEDS: methylPREDNISolone Sodium Succinate 125 MG/2 ML SDV IVPUSH SCH ×2 (06:45→17:44)
[2018-10-30] MEDS: Digoxin 125 MCG Tab PO SCH (08:38)
[2018-10-30] MEDS: Calcium Carbonate 500 MG Tablet PO SCH (08:38)
[2018-10-30] MEDS: Metoprolol Tartrate 50 MG Tab PO SCH ×2 (08:39→17:41)
[2018-10-30] MEDS: Losartan 50 MG Tab PO SCH (08:40)
[2018-10-30] MEDS: Multivitamin Tab PO SCH (08:40)
[2018-10-30] MEDS: amLODIPine 5 MG Tab PO SCH (08:41)
[2018-10-30] MEDS: Potassium Chloride 20 MEQ Tab.ER PO SCH (08:42)
--- NOTE | 2018-10-30 09:34 | PCM.PN ---
<Pily Henry - Last Filed: 10/30/18 09:36> - General Info Date of Service: 10/30/18 Subjective Update: Patient reports her breathing has improved. She is down to 1 L via NC and reports she doesn't get short of breath when walking to the bathroom anymore. Her legs are more edematous today. She denies problems eating or drinking. - Review of Systems General: Reports: No Symptoms HEENT: Reports: No Symptoms Pulmonary: Reports: No Symptoms Cardiovascular: Reports: Edema. Denies: Chest Pain Gastrointestinal: Reports: No Symptoms Genitourinary: Reports: No Symptoms Musculoskeletal: Reports: No Symptoms Skin: Reports: No Symptoms Neurological: Reports: No Symptoms Psychiatric: Reports: No Symptoms - Patient Data Vitals - Most Recent: Last Vital Signs Temp 97.2 F 10/30/18 08:00 Pulse 89 10/30/18 08:39 Resp 18 10/30/18 08:00 BP 163/72 H 10/30/18 08:41 Pulse Ox 94 L 10/30/18 08:00 Weight - Most Recent: 62.46 kg I&O - Last 24 Hours: Intake & Output 10/29/18 10/30/18 10/30/18 22:59 06:59 14:59 Intake Total 350 300 Output Total 450 1300 Balance -100 -1000 Lab Results Last 24 Hours: Laboratory Results - last 24 hr 10/30/18 10/30/18 Range/Units 04:43 04:43 WBC 10.50 (4.0-11.0) K/uL RBC 4.55 (4.30-5.90) M/uL Hgb 13.6 (12.0-16.0) g/dL Hct 37.7 (36.0-46.0) % MCV 82.9 (80.0-98.0) fL MCH 29.9 (27.0-32.0) pg MCHC 36.1 (31.0-37.0) g/dL RDW Std Deviation 43.7 (28.0-62.0) fl RDW Coeff of Dg 15 (11.0-15.0) % Plt Count 199 (150-400) K/uL MPV 9.50 (7.40-12.00) fL Neut % (Auto) 87.4 H (48.0-80.0) % Lymph % (Auto) 8.6 L (16.0-40.0) % [place] % (Auto) 4.0 (0.0-15.0) % Eos % (Auto) 0.0 (0.0-7.0) % Baso % (Auto) 0.0 (0.0-1.5) % Neut # (Auto) 9.2 H (1.4-5.7) K/uL Lymph # (Auto) 0.9 (0.6-2.4) K/uL [place] # (Auto) 0.4 (0.0-0.8) K/uL Eos # (Auto) 0.0 (0.0-0.7) K/uL Baso # (Auto) 0.0 (0.0-0.1) K/uL Nucleated RBC % 0.0 /100WBC Nucleated RBCs # 0 K/uL Sodium 124 L (136-145) mmol/L Potassium 4.1 (3.5-5.1) mmol/L Chloride 91 L (98-107) mmol/L Carbon Dioxide 26.2 (21.0-32.0) mmol/L BUN 16 (7.0-18.0) mg/dL Creatinine 0.7 (0.6-1.0) mg/dL Est Cr Clr Drug Dosing 50.95 mL/min Estimated GFR (MDRD) > 60.0 ml/min Glucose 145 H (74-106) mg/dL Calcium 8.6 (8.5-10.1) mg/dL Med Orders - Current: Current Medications Acetaminophen (Tylenol) 650 mg PO Q4H PRN PRN Reason: Pain (mild 1-3) Last Admin: 10/29/18 12:14 Dose: 650 mg Albuterol/Ipratropium (Duoneb 3.0-0.5 Mg/3 Ml) 3 ml NEB Q6HRRT PRN PRN Reason: Wheezing Last Admin: 10/29/18 18:03 Dose: 3 ml Alprazolam (Xanax) 0.5 mg PO BEDTIME PRN PRN Reason: Anxiety Last Admin: 10/29/18 20:46 Dose: 0.5 mg Amlodipine Besylate (Norvasc) 10 mg PO DAILY [facility] Last Admin: 10/30/18 08:41 Dose: 10 mg Calcium Carbonate/Glycine (Oyster Shell Calcium) 500 mg PO DAILY [facility] Last Admin: 10/30/18 08:38 Dose: 500 mg Digoxin (Lanoxin) 125 mcg PO DAILY [facility] Last Admin: 10/30/18 08:38 Dose: 125 mcg Guaifenesin (Robitussin) 200 mg PO Q4H PRN PRN Reason: Cough Azithromycin 250 mg/ Sodium (Chloride) 250 mls @ 250 mls/hr IV Q24H [facility] Last Admin: 10/29/18 18:32 Dose: 250 mls/hr Losartan Potassium (Cozaar) 100 mg PO DAILY [facility] Last Admin: 10/30/18 08:40 Dose: 100 mg Methylprednisolone Sodium Succinate (Solu-Medrol) 125 mg IVPUSH Q12H [facility] Last Admin: 10/30/18 06:45 Dose: 125 mg Metoprolol Tartrate (Lopressor) 50 mg PO BID@0900,1800 [facility] Last Admin: 10/30/18 08:39 Dose: 50 mg Multivitamins/Minerals (Prosight) 1 tab PO DAILY@1800 [facility] Last Admin: 10/29/18 18:31 Dose: 1 tab Multivitamins/Minerals/Vitamin C (Tab-A-Celestine) 1 tab PO DAILY [facility] Last Admin: 10/30/18 08:40 Dose: 1 tab Timolol Maleate 1 (Applic) 0 each EYEBOTH DAILY [facility] Potassium Chloride (Klor-Con M20) 20 meq PO DAILY [facility] Last Admin: 10/30/18 08:42 Dose: 20 meq Sodium Chloride (Saline Flush) 10 ml FLUSH ASDIRECTED PRN PRN Reason: Keep Vein Open Sodium Chloride (Saline Flush) 2.5 ml FLUSH ASDIRECTED PRN PRN Reason: Keep Vein Open Warfarin Sodium (Coumadin) 2.5 mg PO DAILY@1400 [facility] Last Admin: 10/29/18 15:14 Dose: 2.5 mg Discontinued Medications Albuterol/Ipratropium (Duoneb 3.0-0.5 Mg/3 Ml) 3 ml NEB ONETIME ONE Stop: 10/28/18 14:08 Last Admin: 10/28/18 14:42 Dose: 3 ml Sodium Chloride (Normal Saline) 1,000 mls @ 75 mls/hr IV ASDIRECTED [facility] Last Admin: 10/29/18 08:40 Dose: 75 mls/hr Multivitamins/Minerals (Prosight) 1 tab PO DAILY [facility] Last Admin: 10/29/18 16:50 Dose: Not Given - Exam General: Alert, Oriented, Cooperative HEENT: Pupils Equal, Pupils Reactive, EOMI, Mucous Membr. Moist/[place] Lungs: Clear to Auscultation, Normal Respiratory Effort Cardiovascular: Regular Rate, Irregular Rhythm GI/Abdominal Exam: Normal Bowel Sounds, Soft, Non-Tender, No Distention Extremities: Pedal Edema Skin: Warm, Dry, Intact Neurological: No New Focal Deficit Psy/Mental Status: Alert, Normal Affect, Normal Mood - Problem List & Annotations (1) Afib, Atrial fibrillation SNOMED Code(s): 73216214 Code(s): I48.91 - UNSPECIFIED ATRIAL FIBRILLATION Status: Chronic Current Visit: No (2) CHF, Congestive heart failure SNOMED Code(s): 80747160 Code(s): I50.9 - HEART FAILURE, UNSPECIFIED Status: Chronic Current Visit : No (3) Hyponatremia SNOMED Code(s): 77022978 Code(s): E87.1 - HYPO-OSMOLALITY AND HYPONATREMIA Status: Acute Current Visit: No (4) Hypoxia SNOMED Code(s): 374745792 Code(s): R09.02 - HYPOXEMIA Status: Acute Current Visit: No (5) Hypertension SNOMED Code(s): 21922198 Code(s): I10 - ESSENTIAL (PRIMARY) HYPERTENSION Status: Acute Current Visit: No - Problem List Review Problem List Initiated/Reviewed/Updated: Yes - My Orders Last 24 Hours: My Active Orders 10/29/18 09:00 Calcium Carbonate [Oyster Shell Calcium] 500 mg PO DAILY Digoxin [Lanoxin] 125 mcg PO DAILY Losartan [Cozaar] 100 mg PO DAILY Multivitamins [Tab-A-Celestine] 1 tab PO DAILY Potassium Chloride [Klor-Con M20] 20 meq PO DAILY amLODIPine [Norvasc] 10 mg PO DAILY 10/29/18 14:00 Warfarin [Coumadin] 2.5 mg PO DAILY@1400 10/29/18 15:53 Communication Order [RC] ROUTINE 10/29/18 18:00 Beta-Carotene(A) w/C & E/Min [Prosight] 1 tab PO DAILY@1800 10/30/18 09:00 Patient's Own Medication [Ptom] 0 each EYEBOTH DAILY 10/30/18 09:31 Patient Status [ADT] Routine 10/31/18 05:11 BASIC METABOLIC PANEL,BMP [CHEM] AM CBC WITH AUTO DIFF [HEME] AM 11/01/18 05:11 BASIC METABOLIC PANEL,BMP [CHEM] AM CBC WITH AUTO DIFF [HEME] AM - Plan Plan:: 1. Hypoxia with wheezing-possible COPD exacerbation- patient sounds better on exam this morning, continue IV steriods, duonebs, and Azithromycin. Patient will need PFTs as an outpatient once feeling better. 2. Hyponatremia- improved from 121 to 124. Will stop fluids as she has more edema in her legs today. 3. Chronic conditions- Afib, CHF, HTN- watch on tele and continue home meds. Will switch to inpatient status. <Alex Tena - Last Filed: 10/30/18 12:55> - General Info Subjective Update: I have examined the patient independently of Pily Henry MD, spanish medical interpreter. I have discussed the case with her. I have reviewed and agree with the plan of care as outlined by her. Please see orders. - Patient Data Vitals - Most Recent: Last Vital Signs Temp 36.0 C 10/30/18 11:42 Pulse 72 10/30/18 11:42 Resp 16 10/30/18 11:42 BP 129/64 10/30/18 11:42 Pulse Ox 96 10/30/18 11:42 I&O - Last 24 Hours: Intake & Output 10/29/18 10/30/18 10/30/18 22:59 06:59 14:59 Intake Total 698 114 3037 Output Total 450 1300 Balance -100 -1000 1558 Lab Results Last 24 Hours: Laboratory Results - last 24 hr 10/30/18 10/30/18 Range/Units 04:43 04:43 WBC 10.50 (4.0-11.0) K/uL RBC 4.55 (4.30-5.90) M/uL Hgb 13.6 (12.0-16.0) g/dL Hct 37.7 (36.0-46.0) % MCV 82.9 (80.0-98.0) fL MCH 29.9 (27.0-32.0) pg MCHC 36.1 (31.0-37.0) g/dL RDW Std Deviation 43.7 (28.0-62.0) fl RDW Coeff of Dg 15 (11.0-15.0) % Plt Count 199 (150-400) K/uL MPV 9.50 (7.40-12.00) fL Neut % (Auto) 87.4 H (48.0-80.0) % Lymph % (Auto) 8.6 L (16.0-40.0) % [place] % (Auto) 4.0 (0.0-15.0) % Eos % (Auto) 0.0 (0.0-7.0) % Baso % (Auto) 0.0 (0.0-1.5) % Neut # (Auto) 9.2 H (1.4-5.7) K/uL Lymph # (Auto) 0.9 (0.6-2.4) K/uL [place] # (Auto) 0.4 (0.0-0.8) K/uL Eos # (Auto) 0.0 (0.0-0.7) K/uL Baso # (Auto) 0.0 (0.0-0.1) K/uL Nucleated RBC % 0.0 /100WBC Nucleated RBCs # 0 K/uL Sodium 124 L (136-145) mmol/L Potassium 4.1 (3.5-5.1) mmol/L Chloride 91 L (98-107) mmol/L Carbon Dioxide 26.2 (21.0-32.0) mmol/L BUN 16 (7.0-18.0) mg/dL Creatinine 0.7 (0.6-1.0) mg/dL Est Cr Clr Drug Dosing 50.95 mL/min Estimated GFR (MDRD) > 60.0 ml/min Glucose 145 H (74-106) mg/dL Calcium 8.6 (8.5-10.1) mg/dL Med Orders - Current: Current Medications Acetaminophen (Tylenol) 650 mg PO Q4H PRN PRN Reason: Pain (mild 1-3) Last Admin: 10/29/18 12:14 Dose: 650 mg Albuterol/Ipratropium (Duoneb 3.0-0.5 Mg/3 Ml) 3 ml NEB Q6HRRT PRN PRN Reason: Wheezing Last Admin: 10/29/18 18:03 Dose: 3 ml Alprazolam (Xanax) 0.5 mg PO BEDTIME PRN PRN Reason: Anxiety Last Admin: 10/29/18 20:46 Dose: 0.5 mg Amlodipine Besylate (Norvasc) 10 mg PO DAILY [facility] Last Admin: 10/30/18 08:41 Dose: 10 mg Calcium Carbonate/Glycine (Oyster Shell Calcium) 500 mg PO DAILY [facility] Last Admin: 10/30/18 08:38 Dose: 500 mg Digoxin (Lanoxin) 125 mcg PO DAILY [facility] Last Admin: 10/30/18 08:38 Dose: 125 mcg Guaifenesin (Robitussin) 200 mg PO Q4H PRN PRN Reason: Cough Azithromycin 250 mg/ Sodium (Chloride) 250 mls @ 250 mls/hr IV Q24H [facility] Last Admin: 10/29/18 18:32 Dose: 250 mls/hr Losartan Potassium (Cozaar) 100 mg PO DAILY [facility] Last Admin: 10/30/18 08:40 Dose: 100 mg Methylprednisolone Sodium Succinate (Solu-Medrol) 125 mg IVPUSH Q12H [facility] Last Admin: 10/30/18 06:45 Dose: 125 mg Metoprolol Tartrate (Lopressor) 50 mg PO BID@0900,1800 [facility] Last Admin: 10/30/18 08:39 Dose: 50 mg Multivitamins/Minerals (Prosight) 1 tab PO DAILY@1800 [facility] Last Admin: 10/29/18 18:31 Dose: 1 tab Multivitamins/Minerals/Vitamin C (Tab-A-Celestine) 1 tab PO DAILY [facility] Last Admin: 10/30/18 08:40 Dose: 1 tab Timolol Maleate 1 (Applic) 0 each EYEBOTH DAILY [facility] Last Admin: 10/30/18 10:08 Dose: 1 each Potassium Chloride (Klor-Con M20) 20 meq PO DAILY [facility] Last Admin: 10/30/18 08:42 Dose: 20 meq Sodium Chloride (Saline Flush) 10 ml FLUSH ASDIRECTED PRN PRN Reason: Keep Vein Open Sodium Chloride (Saline Flush) 2.5 ml FLUSH ASDIRECTED PRN PRN Reason: Keep Vein Open Warfarin Sodium (Coumadin) 2.5 mg PO DAILY@1400 [facility] Last Admin: 10/29/18 15:14 Dose: 2.5 mg Discontinued Medications Albuterol/Ipratropium (Duoneb 3.0-0.5 Mg/3 Ml) 3 ml NEB ONETIME ONE Stop: 10/28/18 14:08 Last Admin: 10/28/18 14:42 Dose: 3 ml Sodium Chloride (Normal Saline) 1,000 mls @ 75 mls/hr IV ASDIRECTED [facility] Last Admin: 10/29/18 08:40 Dose: 75 mls/hr Multivitamins/Minerals (Prosight) 1 tab PO DAILY [facility] Last Admin: 10/29/18 16:50 Dose: Not Given
[2018-10-30] MEDS: TIMOLOL MALEATE EYEBOTH SCH (10:08)
[2018-10-30] MEDS: Warfarin 2.5 MG Tab PO SCH (14:17)
[2018-10-30] MEDS: Beta-Carotene (Vitamin A) w/Vitamin C & E plus Minerals Tab PO SCH (17:41)
[2018-10-30] MEDS: Azithromycin 250 MG in Sodium Chloride 0.9% 250 ML IV SCH (17:43)
[2018-10-30] MEDS: ALPRAZolam 0.5 MG Tab PO PRN (20:59)
[2018-10-31 05:22] LABS: CHLORIDE,CL 93 mmol/L (98-107); SODIUM,NA 126 mmol/L (136-145)
[2018-10-31] MEDS: methylPREDNISolone Sodium Succinate 125 MG/2 ML SDV IVPUSH SCH ×2 (05:48→09:45)
--- NOTE | 2018-10-31 08:16 | PCM.PN ---
<Pily Henry - Last Filed: 10/31/18 08:10> - General Info Date of Service: 10/31/18 Subjective Update: The patient reports improvement in breathing and is now on room air. Her hyponatremia is improving. Her edema in her legs is improving. She denies trouble eating, drinking, or going to the bathroom. She denies chest pain, shortness of breath, or abdominal pain. - Review of Systems General: Reports: No Symptoms HEENT: Reports: No Symptoms Pulmonary: Reports: No Symptoms Cardiovascular: Reports: Edema Gastrointestinal: Reports: No Symptoms Genitourinary: Reports: No Symptoms Musculoskeletal: Reports: No Symptoms Skin: Reports: No Symptoms Neurological: Reports: No Symptoms Psychiatric: Reports: No Symptoms - Patient Data Vitals - Most Recent: Last Vital Signs Temp 97.7 F 10/31/18 04:00 Pulse 79 10/31/18 04:00 Resp 16 10/31/18 04:00 BP 117/75 10/31/18 04:00 Pulse Ox 92 L 10/31/18 04:00 Weight - Most Recent: 58 kg I&O - Last 24 Hours: Intake & Output 10/30/18 10/31/18 10/31/18 22:59 06:59 14:59 Intake Total 790 1060 Output Total 500 1100 Balance 290 -40 Lab Results Last 24 Hours: Laboratory Results - last 24 hr 10/31/18 10/31/18 Range/Units 04:50 04:50 WBC 10.60 (4.0-11.0) K/uL RBC 4.87 (4.30-5.90) M/uL Hgb 14.9 (12.0-16.0) g/dL Hct 40.8 (36.0-46.0) % MCV 83.8 (80.0-98.0) fL MCH 30.6 (27.0-32.0) pg MCHC 36.5 (31.0-37.0) g/dL RDW Std Deviation 46.0 (28.0-62.0) fl RDW Coeff of Dg 15 (11.0-15.0) % Plt Count 230 (150-400) K/uL MPV 9.60 (7.40-12.00) fL Neut % (Auto) 89.3 H (48.0-80.0) % Lymph % (Auto) 6.5 L (16.0-40.0) % [place] % (Auto) 4.2 (0.0-15.0) % Eos % (Auto) 0.0 (0.0-7.0) % Baso % (Auto) 0.0 (0.0-1.5) % Neut # (Auto) 9.5 H (1.4-5.7) K/uL Lymph # (Auto) 0.7 (0.6-2.4) K/uL [place] # (Auto) 0.4 (0.0-0.8) K/uL Eos # (Auto) 0.0 (0.0-0.7) K/uL Baso # (Auto) 0.0 (0.0-0.1) K/uL Nucleated RBC % 0.0 /100WBC Nucleated RBCs # 0 K/uL Sodium 126 L (136-145) mmol/L Potassium 4.3 (3.5-5.1) mmol/L Chloride 93 L (98-107) mmol/L Carbon Dioxide 26.6 (21.0-32.0) mmol/L BUN 17 (7.0-18.0) mg/dL Creatinine 0.6 (0.6-1.0) mg/dL Est Cr Clr Drug Dosing 59.44 mL/min Estimated GFR (MDRD) > 60.0 ml/min Glucose 137 H (74-106) mg/dL Calcium 9.0 (8.5-10.1) mg/dL Med Orders - Current: Current Medications Acetaminophen (Tylenol) 650 mg PO Q4H PRN PRN Reason: Pain (mild 1-3) Last Admin: 10/29/18 12:14 Dose: 650 mg Albuterol/Ipratropium (Duoneb 3.0-0.5 Mg/3 Ml) 3 ml NEB Q6HRRT PRN PRN Reason: Wheezing Last Admin: 10/29/18 18:03 Dose: 3 ml Alprazolam (Xanax) 0.5 mg PO BEDTIME PRN PRN Reason: Anxiety Last Admin: 10/30/18 20:59 Dose: 0.5 mg Amlodipine Besylate (Norvasc) 10 mg PO DAILY [facility] Last Admin: 10/30/18 08:41 Dose: 10 mg Benzonatate (Tessalon Perles) 100 mg PO QID PRN PRN Reason: Cough Calcium Carbonate/Glycine (Oyster Shell Calcium) 500 mg PO DAILY [facility] Last Admin: 10/30/18 08:38 Dose: 500 mg Digoxin (Lanoxin) 125 mcg PO DAILY [facility] Last Admin: 10/30/18 08:38 Dose: 125 mcg Guaifenesin (Robitussin) 200 mg PO Q4H PRN PRN Reason: Cough Last Admin: 10/30/18 14:18 Dose: 200 mg Azithromycin 250 mg/ Sodium (Chloride) 250 mls @ 250 mls/hr IV Q24H [facility] Last Admin: 10/30/18 17:43 Dose: 250 mls/hr Losartan Potassium (Cozaar) 100 mg PO DAILY [facility] Last Admin: 10/30/18 08:40 Dose: 100 mg Methylprednisolone Sodium Succinate (Solu-Medrol) 125 mg IVPUSH Q12H [facility] Last Admin: 10/31/18 05:48 Dose: 125 mg Metoprolol Tartrate (Lopressor) 50 mg PO BID@0900,1800 [facility] Last Admin: 10/30/18 17:41 Dose: 50 mg Multivitamins/Minerals (Prosight) 1 tab PO DAILY@1800 [facility] Last Admin: 10/30/18 17:41 Dose: 1 tab Multivitamins/Minerals/Vitamin C (Tab-A-Celestine) 1 tab PO DAILY [facility] Last Admin: 10/30/18 08:40 Dose: 1 tab Timolol Maleate 1 (Applic) 0 each EYEBOTH DAILY [facility] Last Admin: 10/30/18 10:08 Dose: 1 each Potassium Chloride (Klor-Con M20) 20 meq PO DAILY [facility] Last Admin: 10/30/18 08:42 Dose: 20 meq Sodium Chloride (Saline Flush) 10 ml FLUSH ASDIRECTED PRN PRN Reason: Keep Vein Open Sodium Chloride (Saline Flush) 2.5 ml FLUSH ASDIRECTED PRN PRN Reason: Keep Vein Open Warfarin Sodium (Coumadin) 2.5 mg PO DAILY@1400 [facility] Last Admin: 10/30/18 14:17 Dose: 2.5 mg Discontinued Medications Albuterol/Ipratropium (Duoneb 3.0-0.5 Mg/3 Ml) 3 ml NEB ONETIME ONE Stop: 10/28/18 14:08 Last Admin: 10/28/18 14:42 Dose: 3 ml Sodium Chloride (Normal Saline) 1,000 mls @ 75 mls/hr IV ASDIRECTED [facility] Last Admin: 10/29/18 08:40 Dose: 75 mls/hr Multivitamins/Minerals (Prosight) 1 tab PO DAILY [facility] Last Admin: 10/29/18 16:50 Dose: Not Given - Exam General: Alert, Oriented, Cooperative Lungs: Clear to Auscultation, Normal Respiratory Effort Cardiovascular: Irregular Rhythm, Murmurs GI/Abdominal Exam: Normal Bowel Sounds, Soft, Non-Tender, No Distention Extremities: Pedal Edema (improved) Skin: Warm, Dry Neurological: No New Focal Deficit Psy/Mental Status: Alert, Normal Affect, Normal Mood - Problem List & Annotations (1) Afib, Atrial fibrillation SNOMED Code(s): 58322353 Code(s): I48.91 - UNSPECIFIED ATRIAL FIBRILLATION Status: Chronic Current Visit: No (2) CHF, Congestive heart failure SNOMED Code(s): 98667019 Code(s): I50.9 - HEART FAILURE, UNSPECIFIED Status: Chronic Current Visit : No (3) Hyponatremia SNOMED Code(s): 30179643 Code(s): E87.1 - HYPO-OSMOLALITY AND HYPONATREMIA Status: Acute Current Visit: No (4) Hypoxia SNOMED Code(s): 964760337 Code(s): R09.02 - HYPOXEMIA Status: Acute Current Visit: No (5) Hypertension SNOMED Code(s): 71132100 Code(s): I10 - ESSENTIAL (PRIMARY) HYPERTENSION Status: Acute Current Visit: No - Problem List Review Problem List Initiated/Reviewed/Updated: Yes - My Orders Last 24 Hours: My Active Orders 10/30/18 09:00 Patient's Own Medication [Ptom] 0 each EYEBOTH DAILY 10/30/18 09:31 Patient Status [ADT] Routine 10/30/18 14:19 Benzonatate [Tessalon Perles] 100 mg PO QID PRN 11/01/18 05:11 BASIC METABOLIC PANEL,BMP [CHEM] AM CBC WITH AUTO DIFF [HEME] AM - Plan Plan:: 1. Hypoxia with wheezing-possible COPD exacerbation- resolved, on room air, will space out IV steroids and continue duonebs, and Azithromycin. Patient will need PFTs as an outpatient once feeling better. 2. Hyponatremia- improved from 124 to 126. 3. Chronic conditions- Afib, CHF, HTN- watch on tele and continue home meds. <Alex Tena - Last Filed: 10/31/18 09:12> - General Info Subjective Update: I have examined the patient independently of Pily Henry MD, resident. I have discussed the case with her. I have reviewed and agree with the plan of care as outlined by her. Please see orders. - Patient Data Vitals - Most Recent: Last Vital Signs Temp 36.5 C 10/31/18 04:00 Pulse 79 10/31/18 04:00 Resp 16 10/31/18 04:00 BP 117/75 10/31/18 04:00 Pulse Ox 92 L 10/31/18 04:00 I&O - Last 24 Hours: Intake & Output 10/30/18 10/31/18 10/31/18 22:59 06:59 14:59 Intake Total 790 1060 Output Total 500 1100 Balance 290 -40 Lab Results Last 24 Hours: Laboratory Results - last 24 hr 10/31/18 10/31/18 Range/Units 04:50 04:50 WBC 10.60 (4.0-11.0) K/uL RBC 4.87 (4.30-5.90) M/uL Hgb 14.9 (12.0-16.0) g/dL Hct 40.8 (36.0-46.0) % MCV 83.8 (80.0-98.0) fL MCH 30.6 (27.0-32.0) pg MCHC 36.5 (31.0-37.0) g/dL RDW Std Deviation 46.0 (28.0-62.0) fl RDW Coeff of Dg 15 (11.0-15.0) % Plt Count 230 (150-400) K/uL MPV 9.60 (7.40-12.00) fL Neut % (Auto) 89.3 H (48.0-80.0) % Lymph % (Auto) 6.5 L (16.0-40.0) % [place] % (Auto) 4.2 (0.0-15.0) % Eos % (Auto) 0.0 (0.0-7.0) % Baso % (Auto) 0.0 (0.0-1.5) % Neut # (Auto) 9.5 H (1.4-5.7) K/uL Lymph # (Auto) 0.7 (0.6-2.4) K/uL [place] # (Auto) 0.4 (0.0-0.8) K/uL Eos # (Auto) 0.0 (0.0-0.7) K/uL Baso # (Auto) 0.0 (0.0-0.1) K/uL Nucleated RBC % 0.0 /100WBC Nucleated RBCs # 0 K/uL Sodium 126 L (136-145) mmol/L Potassium 4.3 (3.5-5.1) mmol/L Chloride 93 L (98-107) mmol/L Carbon Dioxide 26.6 (21.0-32.0) mmol/L BUN 17 (7.0-18.0) mg/dL Creatinine 0.6 (0.6-1.0) mg/dL Est Cr Clr Drug Dosing 59.44 mL/min Estimated GFR (MDRD) > 60.0 ml/min Glucose 137 H (74-106) mg/dL Calcium 9.0 (8.5-10.1) mg/dL Med Orders - Current: Current Medications Acetaminophen (Tylenol) 650 mg PO Q4H PRN PRN Reason: Pain (mild 1-3) Last Admin: 10/29/18 12:14 Dose: 650 mg Albuterol/Ipratropium (Duoneb 3.0-0.5 Mg/3 Ml) 3 ml NEB Q6HRRT PRN PRN Reason: Wheezing Last Admin: 10/29/18 18:03 Dose: 3 ml Alprazolam (Xanax) 0.5 mg PO BEDTIME PRN PRN Reason: Anxiety Last Admin: 10/30/18 20:59 Dose: 0.5 mg Amlodipine Besylate (Norvasc) 10 mg PO DAILY [facility] Last Admin: 10/30/18 08:41 Dose: 10 mg Benzonatate (Tessalon Perles) 100 mg PO QID PRN PRN Reason: Cough Calcium Carbonate/Glycine (Oyster Shell Calcium) 500 mg PO DAILY [facility] Last Admin: 10/30/18 08:38 Dose: 500 mg Digoxin (Lanoxin) 125 mcg PO DAILY [facility] Last Admin: 10/30/18 08:38 Dose: 125 mcg Guaifenesin (Robitussin) 200 mg PO Q4H PRN PRN Reason: Cough Last Admin: 10/30/18 14:18 Dose: 200 mg Azithromycin 250 mg/ Sodium (Chloride) 250 mls @ 250 mls/hr IV Q24H [facility] Last Admin: 10/30/18 17:43 Dose: 250 mls/hr Losartan Potassium (Cozaar) 100 mg PO DAILY [facility] Last Admin: 10/30/18 08:40 Dose: 100 mg Methylprednisolone Sodium Succinate (Solu-Medrol) 125 mg IVPUSH DAILY [facility] Metoprolol Tartrate (Lopressor) 50 mg PO BID@0900,1800 [facility] Last Admin: 10/30/18 17:41 Dose: 50 mg Multivitamins/Minerals (Prosight) 1 tab PO DAILY@1800 [facility] Last Admin: 10/30/18 17:41 Dose: 1 tab Multivitamins/Minerals/Vitamin C (Tab-A-Celestine) 1 tab PO DAILY [facility] Last Admin: 10/30/18 08:40 Dose: 1 tab Timolol Maleate 1 (Applic) 0 each EYEBOTH DAILY [facility] Last Admin: 10/30/18 10:08 Dose: 1 each Potassium Chloride (Klor-Con M20) 20 meq PO DAILY [facility] Last Admin: 10/30/18 08:42 Dose: 20 meq Sodium Chloride (Saline Flush) 10 ml FLUSH ASDIRECTED PRN PRN Reason: Keep Vein Open Sodium Chloride (Saline Flush) 2.5 ml FLUSH ASDIRECTED PRN PRN Reason: Keep Vein Open Warfarin Sodium (Coumadin) 2.5 mg PO DAILY@1400 [facility] Last Admin: 10/30/18 14:17 Dose: 2.5 mg Discontinued Medications Albuterol/Ipratropium (Duoneb 3.0-0.5 Mg/3 Ml) 3 ml NEB ONETIME ONE Stop: 10/28/18 14:08 Last Admin: 10/28/18 14:42 Dose: 3 ml Sodium Chloride (Normal Saline) 1,000 mls @ 75 mls/hr IV ASDIRECTED [facility] Last Admin: 10/29/18 08:40 Dose: 75 mls/hr Methylprednisolone Sodium Succinate (Solu-Medrol) 125 mg IVPUSH Q12H [facility] Last Admin: 10/31/18 05:48 Dose: 125 mg Multivitamins/Minerals (Prosight) 1 tab PO DAILY [facility] Last Admin: 10/29/18 16:50 Dose: Not Given - My Orders Last 24 Hours: My Active Orders 10/31/18 08:45 INR,PT,PROTHROMBIN TIME [COAG] Routine
[2018-10-31] MEDS: Digoxin 125 MCG Tab PO SCH (09:42)
[2018-10-31] MEDS: Multivitamin Tab PO SCH (09:43)
[2018-10-31] MEDS: Potassium Chloride 20 MEQ Tab.ER PO SCH (09:43)
[2018-10-31] MEDS: Metoprolol Tartrate 50 MG Tab PO SCH ×2 (09:44→18:28)
[2018-10-31] MEDS: amLODIPine 5 MG Tab PO SCH (09:44)
[2018-10-31] MEDS: Losartan 50 MG Tab PO SCH (09:44)
[2018-10-31] MEDS: Calcium Carbonate 500 MG Tablet PO SCH (09:46)
[2018-10-31] MEDS: TIMOLOL MALEATE EYEBOTH SCH (09:47)
[2018-10-31] MEDS: Warfarin 2.5 MG Tab PO SCH (13:44)
[2018-10-31] MEDS: Benzonatate 100 MG Cap PO PRN ×2 (13:48→21:03)
[2018-10-31] MEDS ORDERED: Glycerin Pediatric 1.2 GM Supp RECTAL PRN (18:00)
[2018-10-31] MEDS: Beta-Carotene (Vitamin A) w/Vitamin C & E plus Minerals Tab PO SCH (18:28)
[2018-10-31] MEDS: Azithromycin 250 MG in Sodium Chloride 0.9% 250 ML IV SCH (18:28)
[2018-10-31] MEDS: ALPRAZolam 0.5 MG Tab PO PRN (21:03)
[2018-11-01 06:33] LABS: CHLORIDE,CL 94 mmol/L (98-107); SODIUM,NA 127 mmol/L (136-145)
[2018-11-01] MEDS: methylPREDNISolone Sodium Succinate 125 MG/2 ML SDV IVPUSH SCH (09:17)
[2018-11-01] MEDS: TIMOLOL MALEATE EYEBOTH SCH (09:18)
--- NOTE | 2018-11-01 09:19 | PCM.DCSUM1 ---
<Pily Henry - Last Filed: 11/01/18 09:38> Discharge Summary - Hospital Course HPI Initial Comments: Admission Date: 10/28/18 Discharge Date: 11/01/18 Admission Diagnosis: 1. Hypoxia and wheezing possibly related to COPD exacerbation 2. Hyponatremia 3. Chronic conditions- CHF, Afib, and HTN Discharge Diagnosis: 1. Hypoxia and wheezing possibly related to COPD exacerbation- resolved 2. Hyponatremia-improved 3. Chronic conditions- CHF, Afib, and HTN, bilateral knee osteoarthritis 4. Weakness and deconditioning Procedures: None Consults: None Hospital Course: The patient is a 88 year old female with past medical history of CHF, Afib, HTN, and bilateral knee osteoarthritis who was originally seen in her PCP's office for shortness of breath and found to be satting at 81% on room air. She was taken to the ER, where she was placed on 3 L of oxygen and her oxygen saturation improved to 95%. Work up found hyponatremia of 117, no white count, kidney function within normal limits, negative troponin, elevated BNP of 244, and CXR showed possible pleural effusion on the right but chronic interstitial prominence, scarring and hyperinflation. She had an echo done in May 2018, which showed an EF of 55-60%. She was admitted to the medical surgical floor. For her hypoxia and wheezing she was treated like a COPD exacerbation with IV steroids that were spaced out over her stay, azithromycin, and duoneb treatments. She was encouraged to use the incentive spirometer while admitted. Over the course of her admission, she was weaned off oxygen and satting above 90% on room air. She will likely need PFTs as an outpatient. We will leave this up to the PCP at the patient's outpatient follow up appt. For her hyponatremia, she was given gently hydrated with normal saline due to her history of CHF and her sodium levels improved. After 2 days, the fluids were discontinued due to lower extremity swelling. Her sodium continued to improve on its own and by time of discharge it was up from 117 at admission to 127. She wore ana hose and elevated her feet and her edema improved. Her Lasix was held during admission. Her PCP should check a sodium level as an outpatient and he can decide to restart her lasix. The patient was kept on her other home meds for her chronic conditions and watched on telemetry without any significant events. By day of discharge the patient stated she was ready to go home but would feel more comfortable with a walker at home and home health. The patient used a walker while admitted for her bilateral knee osteoarthritis and weakness due to hospitalization. The patient would benefit for home health as she is homebound, is unsteady on her feet, and needs a walker to ambulate safely. She also has weakness and deconditioning due to her hospitalization. She will require PT for strengthening due to weakness from recent hospitalization and deconditioning to to disease process, gait instability and high fall risk. She will require OT for a home safety evaluation for functional safety in the home. She should have a RN monitor her lower extremity swelling and oxygen saturation. Dr. Sung will continue to follow the patient for home health once discharged from the hospital. Disposition: Home with home health Discharge Condition: vitals stable, tolerating oral diet, ambulating with walker , symptom improvement, hyponatremia-improved Discharge Instructions: usual diet as tolerated, activity as tolerated, use walker when ambulating, take medications as prescribe but hold lasix until seen by primary care, home health to follow. Symptoms to report to physician include fever/chills, chest pain, shortness of breath, abdominal pain, erythema , discharge/drainage, or not improving as expected. Discharge Medications: ALPRAZolam [ALPRAZolam XR] 0.5 - 1 mg PO BEDTIME PRN Digoxin 0.125 mg PO DAILY Losartan [Cozaar] 100 mg PO DAILY Warfarin [Coumadin] 5 mg PO ASDIRECTED amLODIPine Besylate [Amlodipine Besylate] 10 mg PO DAILY Metoprolol Tartrate [Lopressor] 50 mg PO BID Potassium Chloride [Klor-Con M20] 20 meq PO DAILY Calcium Carbonate [Calcium] 600 mg PO DAILY Multivitamin [Daily Multiple Vitamin] 1 each PO DAILY Occuvite 1 tab PO DAILY Dorzolamide HCl Omeprazole 20 mg PO ACBREAKFAST Timolol Maleate 1 applic EYEBOTH DAILY Azithromycin [Zithromax] 250 mg PO DAILY 2 Days predniSONE [Prednisone] 40 mg PO DAILY 2 Days Follow-up: 1. PCP- Dr. Sung- recheck sodium level, restart lasix as appropriate, possible outpatient PFTs at your discretion - Discharge Data Discharge Date: 11/01/18 Discharge Disposition: Home, W Home Health Agency 06 Condition: Stable - Discharge Diagnosis/Problem(s) (1) Afib, Atrial fibrillation SNOMED Code(s): 04256042 ICD Code: I48.91 - UNSPECIFIED ATRIAL FIBRILLATION Status: Chronic Current Visit: No (2) CHF, Congestive heart failure SNOMED Code(s): 67766937 ICD Code: I50.9 - HEART FAILURE, UNSPECIFIED Status: Chronic Current Visit: No (3) Hyponatremia SNOMED Code(s): 48898661 ICD Code: E87.1 - HYPO-OSMOLALITY AND HYPONATREMIA Status: Acute Current Visit: No (4) Hypoxia SNOMED Code(s): 045177536 ICD Code: R09.02 - HYPOXEMIA Status: Acute Current Visit: No (5) Hypertension SNOMED Code(s): 38346790 ICD Code: I10 - ESSENTIAL (PRIMARY) HYPERTENSION Status: Acute Current Visit: No - Patient Summary/Data Consults: Consultations 11/01/18 08:15 Consult to Home Health [CONS] Routine - Discharge Plan Prescriptions/Med Rec: Azithromycin [Zithromax] 250 mg PO DAILY 2 Days #2 tab predniSONE [Prednisone] 40 mg PO DAILY 2 Days #4 tablet Home Medications: Home Meds ALPRAZolam [ALPRAZolam XR] 0.5 - 1 mg PO BEDTIME PRN 02/16/14 [History] Digoxin 0.125 mg PO DAILY 02/16/14 [History] Losartan [Cozaar] 100 mg PO DAILY 02/16/14 [History] Warfarin [Coumadin] 5 mg PO ASDIRECTED 02/16/14 [History] amLODIPine Besylate [Amlodipine Besylate] 10 mg PO DAILY 02/16/14 [History] Metoprolol Tartrate [Lopressor] 50 mg PO BID #60 tablet 04/02/14 [Rx] Potassium Chloride [Klor-Con M20] 20 meq PO DAILY #30 tab.er 04/02/14 [Rx] Calcium Carbonate [Calcium] 600 mg PO DAILY 10/28/18 [History] Multivitamin [Daily Multiple Vitamin] 1 each PO DAILY 10/28/18 [History] Occuvite 1 tab PO DAILY 10/28/18 [History] Dorzolamide HCl 10/29/18 [History] Omeprazole 20 mg PO ACBREAKFAST 10/29/18 [History] Timolol Maleate 1 applic EYEBOTH DAILY 10/29/18 [History] Azithromycin [Zithromax] 250 mg PO DAILY 2 Days #2 tab 11/01/18 [Rx] predniSONE [Prednisone] 40 mg PO DAILY 2 Days #4 tablet 11/01/18 [Rx] Referrals: Mg Sung MD [Physician] - 11/05/18 9:00 am - Discharge Summary/Plan Comment DC Time >30 min.: No - Patient Data Vitals - Most Recent: Last Vital Signs Temp 97.7 F 11/01/18 07:57 Pulse 92 11/01/18 07:57 Resp 12 11/01/18 07:57 BP 142/71 H 11/01/18 07:57 Pulse Ox 91 L 11/01/18 07:57 Weight - Most Recent: 61.87 kg I&O - Last 24 hours: Intake & Output 10/31/18 11/01/18 11/01/18 22:59 06:59 14:59 Intake Total 2990 500 Output Total 1600 1000 Balance 1390 -500 Lab Results - Last 24 hrs: Laboratory Results - last 24 hr 10/31/18 11/01/18 11/01/18 Range/Units 08:45 06:01 06:01 WBC 9.94 (4.0-11.0) K/uL RBC 4.94 (4.30-5.90) M/uL Hgb 14.9 (12.0-16.0) g/dL Hct 41.6 (36.0-46.0) % MCV 84.2 (80.0-98.0) fL MCH 30.2 (27.0-32.0) pg MCHC 35.8 (31.0-37.0) g/dL RDW Std Deviation 46.7 (28.0-62.0) fl RDW Coeff of Dg 15 (11.0-15.0) % Plt Count 230 (150-400) K/uL MPV 9.50 (7.40-12.00) fL Neut % (Auto) 81.7 H (48.0-80.0) % Lymph % (Auto) 8.0 L (16.0-40.0) % Whitman % (Auto) 10.3 (0.0-15.0) % Eos % (Auto) 0.0 (0.0-7.0) % Baso % (Auto) 0.0 (0.0-1.5) % Neut # (Auto) 8.1 H (1.4-5.7) K/uL Lymph # (Auto) 0.8 (0.6-2.4) K/uL Whitman # (Auto) 1.0 H (0.0-0.8) K/uL Eos # (Auto) 0.0 (0.0-0.7) K/uL Baso # (Auto) 0.0 (0.0-0.1) K/uL Nucleated RBC % 0.0 /100WBC Nucleated RBCs # 0 K/uL INR 2.15 Sodium 127 L (136-145) mmol/L Potassium 4.4 (3.5-5.1) mmol/L Chloride 94 L (98-107) mmol/L Carbon Dioxide 28.6 (21.0-32.0) mmol/L BUN 24 H (7.0-18.0) mg/dL Creatinine 0.7 (0.6-1.0) mg/dL Est Cr Clr Drug Dosing 50.95 mL/min Estimated GFR (MDRD) > 60.0 ml/min Glucose 128 H (74-106) mg/dL Calcium 8.9 (8.5-10.1) mg/dL 11/01/18 Range/Units 07:48 WBC (4.0-11.0) K/uL RBC (4.30-5.90) M/uL Hgb (12.0-16.0) g/dL Hct (36.0-46.0) % MCV (80.0-98.0) fL MCH (27.0-32.0) pg MCHC (31.0-37.0) g/dL RDW Std Deviation (28.0-62.0) fl RDW Coeff of Dg (11.0-15.0) % Plt Count (150-400) K/uL MPV (7.40-12.00) fL Neut % (Auto) (48.0-80.0) % Lymph % (Auto) (16.0-40.0) % Whitman % (Auto) (0.0-15.0) % Eos % (Auto) (0.0-7.0) % Baso % (Auto) (0.0-1.5) % Neut # (Auto) (1.4-5.7) K/uL Lymph # (Auto) (0.6-2.4) K/uL Whitman # (Auto) (0.0-0.8) K/uL Eos # (Auto) (0.0-0.7) K/uL Baso # (Auto) (0.0-0.1) K/uL Nucleated RBC % /100WBC Nucleated RBCs # K/uL INR 2.66 Sodium (136-145) mmol/L Potassium (3.5-5.1) mmol/L Chloride (98-107) mmol/L Carbon Dioxide (21.0-32.0) mmol/L BUN (7.0-18.0) mg/dL Creatinine (0.6-1.0) mg/dL Est Cr Clr Drug Dosing mL/min Estimated GFR (MDRD) ml/min Glucose (74-106) mg/dL Calcium (8.5-10.1) mg/dL Med Orders - Current: Current Medications Acetaminophen (Tylenol) 650 mg PO Q4H PRN PRN Reason: Pain (mild 1-3) Last Admin: 10/29/18 12:14 Dose: 650 mg Albuterol/Ipratropium (Duoneb 3.0-0.5 Mg/3 Ml) 3 ml NEB Q6HRRT PRN PRN Reason: Wheezing Last Admin: 10/29/18 18:03 Dose: 3 ml Alprazolam (Xanax) 0.5 mg PO BEDTIME PRN PRN Reason: Anxiety Last Admin: 10/31/18 21:03 Dose: 0.5 mg Amlodipine Besylate (Norvasc) 10 mg PO DAILY [facility] Last Admin: 10/31/18 09:44 Dose: 10 mg Benzonatate (Tessalon Perles) 100 mg PO QID PRN PRN Reason: Cough Last Admin: 10/31/18 21:03 Dose: 100 mg Calcium Carbonate/Glycine (Oyster Shell Calcium) 500 mg PO DAILY [facility] Last Admin: 10/31/18 09:46 Dose: 500 mg Digoxin (Lanoxin) 125 mcg PO DAILY [facility] Last Admin: 10/31/18 09:42 Dose: 125 mcg Glycerin (Sani-Supp Pediatric) 1.5 gm RECTAL ONETIME PRN PRN Reason: Constipation Guaifenesin (Robitussin) 200 mg PO Q4H PRN PRN Reason: Cough Last Admin: 10/30/18 14:18 Dose: 200 mg Azithromycin 250 mg/ Sodium (Chloride) 250 mls @ 250 mls/hr IV Q24H [facility] Last Admin: 10/31/18 18:28 Dose: 250 mls/hr Losartan Potassium (Cozaar) 100 mg PO DAILY [facility] Last Admin: 10/31/18 09:44 Dose: 100 mg Methylprednisolone Sodium Succinate (Solu-Medrol) 125 mg IVPUSH DAILY [facility] Last Admin: 11/01/18 09:17 Dose: 125 mg Metoprolol Tartrate (Lopressor) 50 mg PO BID@0900,1800 [facility] Last Admin: 10/31/18 18:28 Dose: 50 mg Multivitamins/Minerals (Prosight) 1 tab PO DAILY@1800 [facility] Last Admin: 10/31/18 18:28 Dose: 1 tab Multivitamins/Minerals/Vitamin C (Tab-A-Celestine) 1 tab PO DAILY [facility] Last Admin: 10/31/18 09:43 Dose: 1 tab Timolol Maleate 1 (Applic) 0 each EYEBOTH DAILY [facility] Last Admin: 11/01/18 09:18 Dose: 1 each Potassium Chloride (Klor-Con M20) 20 meq PO DAILY [facility] Last Admin: 10/31/18 09:43 Dose: 20 meq Sodium Chloride (Saline Flush) 10 ml FLUSH ASDIRECTED PRN PRN Reason: Keep Vein Open Sodium Chloride (Saline Flush) 2.5 ml FLUSH ASDIRECTED PRN PRN Reason: Keep Vein Open Warfarin Sodium (Coumadin) 2.5 mg PO DAILY@1400 [facility] Last Admin: 10/31/18 13:44 Dose: 2.5 mg Discontinued Medications Albuterol/Ipratropium (Duoneb 3.0-0.5 Mg/3 Ml) 3 ml NEB ONETIME ONE Stop: 10/28/18 14:08 Last Admin: 10/28/18 14:42 Dose: 3 ml Sodium Chloride (Normal Saline) 1,000 mls @ 75 mls/hr IV ASDIRECTED [facility] Last Admin: 10/29/18 08:40 Dose: 75 mls/hr Methylprednisolone Sodium Succinate (Solu-Medrol) 125 mg IVPUSH Q12H [facility] Last Admin: 10/31/18 05:48 Dose: 125 mg Multivitamins/Minerals (Prosight) 1 tab PO DAILY [facility] Last Admin: 10/29/18 16:50 Dose: Not Given <MallikaAlex marte - Last Filed: 11/01/18 10:40> Discharge Summary - Hospital Course HPI Initial Comments: I have examined the patient independently of Pily Henry DO, senior medical transcriptionist. I have discussed the case with her. I have reviewed and agree with the plan of care as outlined by her. Follow-up with PCP. Please see orders. - Patient Summary/Data Consults: Consultations 11/01/18 08:15 Consult to Home Health [CONS] Routine - Patient Data Vitals - Most Recent: Last Vital Signs Temp 36.5 C 11/01/18 07:57 Pulse 85 11/01/18 09:24 Resp 12 11/01/18 07:57 BP 139/71 11/01/18 09:25 Pulse Ox 91 L 11/01/18 07:57 I&O - Last 24 hours: Intake & Output 10/31/18 11/01/18 11/01/18 22:59 06:59 14:59 Intake Total 2990 500 Output Total 1600 1000 Balance 1390 -500 Lab Results - Last 24 hrs: Laboratory Results - last 24 hr 11/01/18 11/01/18 11/01/18 Range/Units 06:01 06:01 07:48 WBC 9.94 (4.0-11.0) K/uL RBC 4.94 (4.30-5.90) M/uL Hgb 14.9 (12.0-16.0) g/dL Hct 41.6 (36.0-46.0) % MCV 84.2 (80.0-98.0) fL MCH 30.2 (27.0-32.0) pg MCHC 35.8 (31.0-37.0) g/dL RDW Std Deviation 46.7 (28.0-62.0) fl RDW Coeff of Dg 15 (11.0-15.0) % Plt Count 230 (150-400) K/uL MPV 9.50 (7.40-12.00) fL Neut % (Auto) 81.7 H (48.0-80.0) % Lymph % (Auto) 8.0 L (16.0-40.0) % Whitman % (Auto) 10.3 (0.0-15.0) % Eos % (Auto) 0.0 (0.0-7.0) % Baso % (Auto) 0.0 (0.0-1.5) % Neut # (Auto) 8.1 H (1.4-5.7) K/uL Lymph # (Auto) 0.8 (0.6-2.4) K/uL Whitman # (Auto) 1.0 H (0.0-0.8) K/uL Eos # (Auto) 0.0 (0.0-0.7) K/uL Baso # (Auto) 0.0 (0.0-0.1) K/uL Nucleated RBC % 0.0 /100WBC Nucleated RBCs # 0 K/uL INR 2.66 Sodium 127 L (136-145) mmol/L Potassium 4.4 (3.5-5.1) mmol/L Chloride 94 L (98-107) mmol/L Carbon Dioxide 28.6 (21.0-32.0) mmol/L BUN 24 H (7.0-18.0) mg/dL Creatinine 0.7 (0.6-1.0) mg/dL Est Cr Clr Drug Dosing 50.95 mL/min Estimated GFR (MDRD) > 60.0 ml/min Glucose 128 H (74-106) mg/dL Calcium 8.9 (8.5-10.1) mg/dL Med Orders - Current: Current Medications Acetaminophen (Tylenol) 650 mg PO Q4H PRN PRN Reason: Pain (mild 1-3) Last Admin: 10/29/18 12:14 Dose: 650 mg Albuterol/Ipratropium (Duoneb 3.0-0.5 Mg/3 Ml) 3 ml NEB Q6HRRT PRN PRN Reason: Wheezing Last Admin: 10/29/18 18:03 Dose: 3 ml Alprazolam (Xanax) 0.5 mg PO BEDTIME PRN PRN Reason: Anxiety Last Admin: 10/31/18 21:03 Dose: 0.5 mg Amlodipine Besylate (Norvasc) 10 mg PO DAILY [facility] Last Admin: 11/01/18 09:24 Dose: 10 mg Benzonatate (Tessalon Perles) 100 mg PO QID PRN PRN Reason: Cough Last Admin: 10/31/18 21:03 Dose: 100 mg Calcium Carbonate/Glycine (Oyster Shell Calcium) 500 mg PO DAILY [facility] Last Admin: 11/01/18 09:23 Dose: 500 mg Digoxin (Lanoxin) 125 mcg PO DAILY [facility] Last Admin: 11/01/18 09:23 Dose: 125 mcg Glycerin (Sani-Supp Pediatric) 1.5 gm RECTAL ONETIME PRN PRN Reason: Constipation Guaifenesin (Robitussin) 200 mg PO Q4H PRN PRN Reason: Cough Last Admin: 10/30/18 14:18 Dose: 200 mg Azithromycin 250 mg/ Sodium (Chloride) 250 mls @ 250 mls/hr IV Q24H [facility] Last Admin: 10/31/18 18:28 Dose: 250 mls/hr Losartan Potassium (Cozaar) 100 mg PO DAILY [facility] Last Admin: 11/01/18 09:25 Dose: 100 mg Methylprednisolone Sodium Succinate (Solu-Medrol) 125 mg IVPUSH DAILY [facility] Last Admin: 11/01/18 09:17 Dose: 125 mg Metoprolol Tartrate (Lopressor) 50 mg PO BID@0900,1800 [facility] Last Admin: 11/01/18 09:24 Dose: 50 mg Multivitamins/Minerals (Prosight) 1 tab PO DAILY@1800 [facility] Last Admin: 10/31/18 18:28 Dose: 1 tab Multivitamins/Minerals/Vitamin C (Tab-A-Celestine) 1 tab PO DAILY [facility] Last Admin: 11/01/18 09:22 Dose: 1 tab Timolol Maleate 1 (Applic) 0 each EYEBOTH DAILY [facility] Last Admin: 11/01/18 09:18 Dose: 1 each Potassium Chloride (Klor-Con M20) 20 meq PO DAILY [facility] Last Admin: 11/01/18 09:22 Dose: 20 meq Sodium Chloride (Saline Flush) 10 ml FLUSH ASDIRECTED PRN PRN Reason: Keep Vein Open Sodium Chloride (Saline Flush) 2.5 ml FLUSH ASDIRECTED PRN PRN Reason: Keep Vein Open Warfarin Sodium (Coumadin) 2.5 mg PO DAILY@1400 [facility] Last Admin: 10/31/18 13:44 Dose: 2.5 mg Discontinued Medications Albuterol/Ipratropium (Duoneb 3.0-0.5 Mg/3 Ml) 3 ml NEB ONETIME ONE Stop: 10/28/18 14:08 Last Admin: 10/28/18 14:42 Dose: 3 ml Sodium Chloride (Normal Saline) 1,000 mls @ 75 mls/hr IV ASDIRECTED [facility] Last Admin: 10/29/18 08:40 Dose: 75 mls/hr Methylprednisolone Sodium Succinate (Solu-Medrol) 125 mg IVPUSH Q12H [facility] Last Admin: 10/31/18 05:48 Dose: 125 mg Multivitamins/Minerals (Prosight) 1 tab PO DAILY [facility] Last Admin: 10/29/18 16:50 Dose: Not Given
[2018-11-01] MEDS: Potassium Chloride 20 MEQ Tab.ER PO SCH (09:22)
[2018-11-01] MEDS: Multivitamin Tab PO SCH (09:22)
[2018-11-01] MEDS: Calcium Carbonate 500 MG Tablet PO SCH (09:23)
[2018-11-01] MEDS: Digoxin 125 MCG Tab PO SCH (09:23)
[2018-11-01 09:24] VITALS: BP 139/71
[2018-11-01] MEDS: Metoprolol Tartrate 50 MG Tab PO SCH (09:24)
[2018-11-01] MEDS: amLODIPine 5 MG Tab PO SCH (09:24)
[2018-11-01] MEDS: Losartan 50 MG Tab PO SCH (09:25)
== END 2018-11-01 13:15 | disposition home health service (06) | DRG 191 ==
LOC: MW.ED 13:49 → MW.MS 17:48 → OBSVTOIN 10-30 09:31 → MW.MS 10-30 09:32
PROVIDERS: ADMIT Internal Medicine; ATTEND Internal Medicine
DX: J44.1 Chronic obstructive pulmonary disease with (acute) exacerbation (principal); E87.1 Hypo-osmolality and hyponatremia; R09.02 Hypoxemia; I50.9 Heart failure, unspecified; I11.0 Hypertensive heart disease with heart failure; I48.91 Unspecified atrial fibrillation; M17.0 Bilateral primary osteoarthritis of knee; Z88.8 Allergy status to other drugs, medicaments and biological substances; Z79.01 Long term (current) use of anticoagulants; R05 Cough; R06.02 Shortness of breath; Z79.899 Other long term (current) drug therapy; Z98.891 History of uterine scar from previous surgery; Z66 Do not resuscitate
CPT/HCPCS: 36415 ×3; 71046; 80048 ×2; 80053; 83880; 84484; 85025 ×3; 85379; 85610; 93005; 94640 ×2; 99285; A9270 ×21; J0456 ×2; J2930 ×4; J7040 ×2; J7050 ×2; J7620-GY

== ENCOUNTER 2020-03-12 15:40 | Inpatient (IN) | payer MEDICARE, BC ==
[2020-03-12] MEDS ORDERED: Sodium Chloride 0.9% 2.5 ML Syringe FLUSH PRN (15:49)
[2020-03-12] MEDS ORDERED: Sodium Chloride 0.9% 10 ML Syringe FLUSH PRN (15:49)
--- NOTE | 2020-03-12 15:54 | EDM.PDOC ---
<Breezy Miller - Last Filed: 03/12/20 17:55> ED HPI GENERAL MEDICAL PROBLEM - General Chief Complaint: Skin Complaint Stated Complaint: CHF, SOB Time Seen by Provider: 03/12/20 15:41 - Related Data Allergies Allergy/AdvReac Type Severity Reaction Status Date / Time enalapril maleate Allergy Rash Verified 03/12/20 15:57 [From Vasotec] enalaprilat dihydrate Allergy Rash Verified 03/12/20 15:57 [From Vasotec] Sulfa (Sulfonamide Allergy Other Verified 03/12/20 15:57 Antibiotics) Home Meds: Home Meds ALPRAZolam [Xanax XR] 1 mg PO BEDTIME 03/12/20 [History] Calcium Carbonate [Calcium] 1 tab PO DAILY 03/12/20 [History] Digoxin [Lanoxin] 125 mcg PO DAILY 03/12/20 [History] Dorzolamide HCl/Pf [Dorzolamide 2% Eye Drop] 1 drop EYEBOTH ASDIRECTED 03/12/20 [History] Furosemide 20 mg PO DAILY 03/12/20 [History] Losartan [Cozaar] 100 mg PO DAILY 03/12/20 [History] Lutein/Minerals/Vit A,C & E [Ocuvite] 1 tab PO DAILY 03/12/20 [History] Metoprolol Succinate 50 mg PO DAILY 03/12/20 [History] Multivitamin [Multi-Vitamin Daily] 1 tab PO DAILY 03/12/20 [History] Potassium Chloride 20 meq PO DAILY 03/12/20 [History] Prednisolone Acetate/Pf [Prednisolone Acet 1% Eye Drop] 1 drop EYEBOTH BID 03/12/20 [History] Warfarin [Coumadin] 0.5 tab PO ASDIRECTED 03/12/20 [History] amLODIPine [Norvasc] 10 mg PO DAILY 03/12/20 [History] Departure - Departure Disposition: Admitted As Inpatient 67 Clinical Impression: Hyponatremia, History of atrial fibrillation, Pleural effusion due to CHF (congestive heart failure) UTI (urinary tract infection) Qualifiers: Urinary tract infection type: acute cystitis Hematuria presence: with hematuria Qualified Code(s): N30.01 - Acute cystitis with hematuria - Discharge Information Referrals: PCP,None [Primary Care Provider] - Forms: ED Department Discharge <Deidra Galeana - Last Filed: 03/12/20 19:35> ED HPI GENERAL MEDICAL PROBLEM - General Source of Information: Reports: Patient History Limitations: Reports: No Limitations - History of Present Illness INITIAL COMMENTS - FREE TEXT/NARRATIVE: HISTORY AND PHYSICAL: History of present illness: Patient is an 89-year-old female who presents to the emergency room with complaints of fluid retention and shortness of breath. She reports that she has a history of congestive heart failure and does take a daily Lasix. She noticed she was becoming increasingly short of breath and having lower extremity pitting edema to bilateral lower extremities. She did contact her primary care provider who stated she could take an extra Lasix. She does occasionally check her oxygen saturation at home, typically runs in the mid 90s and today was running in the 70s. Patient states she presented to the ER as she was concerned that she may require IV Lasix/diuresis. Past medical history of atrial fibrillation (currently on warfarin), hypertension, and asthma. Does not require any home oxygen. Patient denies any fever, chills, headache, change in vision, syncope or near syncope. Denies any chest pain, back pain or cough. Denies any abdominal pain, nausea, vomiting, diarrhea, constipation or dysuria. She does have history of urinary retention and states it takes her awhile to empty her bladder, has seen Chetan for this concern - no new concerns with urinary issues today. Has not noted any blood in urine or stool. Patient has been eating and drinking appropriately. Review of systems: As per history of present illness and below otherwise all systems reviewed and negative. Past medical history: As per history of present illness and as reviewed below otherwise noncontributory. Surgical history: As per history of present illness and as reviewed below otherwise noncontributory. Social history: See social history for further information Family history: As per history of present illness and as reviewed below otherwise noncontributory. Physical exam: General: Well developed and well-nourished 89-year-old female. Alert and cari ented. Nontoxic-appearing and in no acute distress. HEENT: Atraumatic, normocephalic, pupils equal and reactive bilaterally, negative for conjunctival pallor or scleral icterus, mucous membranes moist, TMs normal bilaterally, throat clear, neck supple, nontender, trachea midline. No drooling or trismus noted. No meningeal signs. No hot potato voice noted. Lungs: Diminished with poor air exchange (right greater than left), no rhonchi or rales noted, chest nontender. Heart: S1S2, regular rate and rhythm without overt murmur Abdomen: Soft, nondistended, nontender. Negative for masses or hepatos plenomegaly. Negative for costovertebral tenderness. Skin: Intact, warm, dry. No lesions or rashes noted. Hematologic: No petechiae or purpra. Mucosa appropriate color and normal nail bed color and refill. Extremities: Atraumatic, moves all extremities per self without difficulty or deficits, negative for cords or calf pain. +2 pitting edema to lower extremities bilaterally. Neurovascular unremarkable. Neuro: Awake, alert, oriented. Cranial nerves II through XII unremarkable. Cerebellum unremarkable. Motor and sensory unremarkable throughout. Exam nonfocal. Notes: Dr Miller was involved in this patients care and has evaluated patient. Patient CBC is unremarkable. Chemistry does show sodium of 125, chloride of 91. I do note that in previous CMP's her sodium does intermittently run lower. Since urine does show a bladder infection, although this is contaminated. We will give her Macrobid p.o. D-dimer is elevated at 0.93, she is on Coumadin and is therapeutic. We will do a CT of the chest to make sure there is no other abnormalities/PE. CT of the chest shows no PE. Moderate right and left pleural effusions. Scattered areas of groundglass opacities with area of interlobular s eptal thickening, likely related to interstitial pulmonary edema. Biatrial cardiac enlargement. Septum of findings suggest congestive heart failure. Multiple mildly enlarged mediastinal lymph nodes, nonspecific, compared to CT of 2019. There is also a large hiatal hernia which is similar to a prior CT. Patient's vital signs remained stable. Dr Diego, the hospitalist was consulted on this case. She is agreeable to keeping patient for inpatient admission with telemetry. Patient was made aware. She is agreeable to plan of care. On reassessment she continues to be stable and vital signs are within normal limits. Diagnostics: CBC, CMP, Troponin, EKG, CXR, INR, COVID Therapeutics: Lasix IV, Macrobid Impression: Pleural effusion Hyponatremia UTI CHF exacerbation History of Atrial fib Plan: Inpatient admission to [facility] with telemetry Definitive disposition and diagnosis as appropriate pending reevaluation and review of above. Past Medical History HEENT History: Reports: Glaucoma, Impaired Vision Cardiovascular History: Reports: Afib, Heart Failure, Hypertension Respiratory History: Reports: None Gastrointestinal History: Reports: None Genitourinary History: Reports: None Musculoskeletal History: Reports: None Neurological History: Reports: None Psychiatric History: Reports: None Endocrine/Metabolic History: Reports: None Hematologic History: Reports: None Immunologic History: Reports: None Oncologic (Cancer) History: Reports: None Other Oncologic History: 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 Dermatologic History: Reports: None - Infectious Disease History Infectious Disease History: Reports: Chicken Pox, Measles, Mumps - Past Surgical History GI Surgical History: Reports: Appendectomy Female Surgical History: Reports: Section Social & Family History - Family History Family Medical History: Noncontributory - Caffeine Use Caffeine Use: Reports: None ED ROS GENERAL - Review of Systems Review Of Systems: Comprehensive ROS is negative, except as noted in HPI. ED EXAM, SKIN/RASH Exam: See Below (See dictation) Course - Vital Signs Last Recorded V/S: Last Vital Signs Temp 97.1 F 03/12/20 15:47 Pulse 73 03/12/20 18:56 Resp 15 03/12/20 18:56 BP 121/77 03/12/20 18:56 Pulse Ox 98 03/12/20 18:56 - Orders/Labs/Meds Orders: Active Orders 24 hr Category Date Time Status Cardiac Monitoring [RC] . DIRECTED Care 03/12/20 15:49 Active EKG Documentation Completion [RC] STAT Care 03/12/20 15:48 Active EKG Documentation Completion [RC] STAT Care 03/12/20 15:59 Active CULTURE URINE [RM] Stat Lab 03/12/20 16:42 Received Sodium Chloride 0.9% [Saline Flush] Med 03/12/20 15:49 Active 10 ml FLUSH ASDIRECTED PRN Sodium Chloride 0.9% [Saline Flush] Med 03/12/20 15:49 Active 2.5 ml FLUSH ASDIRECTED PRN Saline Lock Insert [OM.PC] Stat Oth 03/12/20 15:49 Ordered Medication Orders Sodium Chloride (Saline Flush) 10 ml FLUSH ASDIRECTED PRN PRN Reason: Keep Vein Open Last Admin: 03/12/20 16:25 Dose: 10 ml Documented by: J CARLOS Sodium Chloride (Saline Flush) 2.5 ml FLUSH ASDIRECTED PRN PRN Reason: Keep Vein Open Last Admin: 03/12/20 16:25 Dose: 2.5 ml Documented by: J CARLOS Labs: Laboratory Tests 03/12/20 03/12/20 03/12/20 Range/Units 15:49 15:49 15:49 WBC 6.68 (4.0-11.0) K/uL RBC 4.75 (4.30-5.90) M/uL Hgb 14.2 (12.0-16.0) g/dL Hct 41.0 (36.0-46.0) % MCV 86.3 (80.0-98.0) fL MCH 29.9 (27.0-32.0) pg MCHC 34.6 (31.0-37.0) g/dL RDW Std Deviation 49.6 (28.0-62.0) fl RDW Coeff of Dg 16 H (11.0-15.0) % Plt Count 222 (150-400) K/uL MPV 9.60 (7.40-12.00) fL Neut % (Auto) 61.2 (48.0-80.0) % Lymph % (Auto) 20.8 (16.0-40.0) % Vilas % (Auto) 15.0 (0.0-15.0) % Eos % (Auto) 2.1 (0.0-7.0) % Baso % (Auto) 0.9 (0.0-1.5) % Neut # (Auto) 4.1 (1.4-5.7) K/uL Lymph # (Auto) 1.4 (0.6-2.4) K/uL Vilas # (Auto) 1.0 H (0.0-0.8) K/uL Eos # (Auto) 0.1 (0.0-0.7) K/uL Baso # (Auto) 0.1 (0.0-0.1) K/uL Nucleated RBC % 0.0 /100WBC Nucleated RBCs # 0 K/uL INR D-Dimer, Quantitative 0.93 H (0.0-0.50) mg/L FEU Sodium 125 L (136-145) mmol/L Potassium 4.7 (3.5-5.1) mmol/L Chloride 91 L (98-107) mmol/L Carbon Dioxide 28.2 (21.0-32.0) mmol/L BUN 11 (7.0-18.0) mg/dL Creatinine 0.8 (0.6-1.0) mg/dL Est Cr Clr Drug Dosing 41.97 mL/min Estimated GFR (MDRD) > 60.0 ml/min Glucose 101 (74-106) mg/dL Calcium 8.7 (8.5-10.1) mg/dL Total Bilirubin 1.6 H (0.2-1.0) mg/dL AST 27 (15-37) IU/L ALT 21 (14-63) IU/L Alkaline Phosphatase 131 H (46-116) U/L Troponin I < 0.050 (0.000-0.056) ng/mL B-Natriuretic Peptide (<100) PG/ML Total Protein 7.2 (6.4-8.2) g/dL Albumin 3.9 (3.4-5.0) g/dL Globulin 3.3 (2.6-4.0) g/dL Albumin/Globulin Ratio 1.2 (0.9-1.6) Urine Color Urine Appearance Urine pH (5.0-8.0) Ur Specific Beacon (1.001-1.035) Urine Protein (NEGATIVE) mg/dL Urine Glucose (UA) (NEGATIVE) mg/dL Urine Ketones (NEGATIVE) mg/dL Urine Occult Blood (NEGATIVE) Urine Nitrite (NEGATIVE) Urine Bilirubin (NEGATIVE) Urine Urobilinogen (<2.0) EU/dL Ur Leukocyte Esterase (NEGATIVE) Urine RBC (0-2/HPF) Urine WBC (0-5/HPF) Ur Epithelial Cells (NONE-FEW) Urine Bacteria (NEGATIVE) COVID-19 ([facility]) (NEGATIVE) 03/12/20 03/12/20 03/12/20 Range/Units 15:49 15:49 16:35 WBC (4.0-11.0) K/uL RBC (4.30-5.90) M/uL Hgb (12.0-16.0) g/dL Hct (36.0-46.0) % MCV (80.0-98.0) fL MCH (27.0-32.0) pg MCHC (31.0-37.0) g/dL RDW Std Deviation (28.0-62.0) fl RDW Coeff of Dg (11.0-15.0) % Plt Count (150-400) K/uL MPV (7.40-12.00) fL Neut % (Auto) (48.0-80.0) % Lymph % (Auto) (16.0-40.0) % Vilas % (Auto) (0.0-15.0) % Eos % (Auto) (0.0-7.0) % Baso % (Auto) (0.0-1.5) % Neut # (Auto) (1.4-5.7) K/uL Lymph # (Auto) (0.6-2.4) K/uL Vilas # (Auto) (0.0-0.8) K/uL Eos # (Auto) (0.0-0.7) K/uL Baso # (Auto) (0.0-0.1) K/uL Nucleated RBC % /100WBC Nucleated RBCs # K/uL INR 3.16 D-Dimer, Quantitative (0.0-0.50) mg/L FEU Sodium (136-145) mmol/L Potassium (3.5-5.1) mmol/L Chloride (98-107) mmol/L Carbon Dioxide (21.0-32.0) mmol/L BUN (7.0-18.0) mg/dL Creatinine (0.6-1.0) mg/dL Est Cr Clr Drug Dosing mL/min Estimated GFR (MDRD) ml/min Glucose (74-106) mg/dL Calcium (8.5-10.1) mg/dL Total Bilirubin (0.2-1.0) mg/dL AST (15-37) IU/L ALT (14-63) IU/L Alkaline Phosphatase (46-116) U/L Troponin I (0.000-0.056) ng/mL B-Natriuretic Peptide 431 H (<100) PG/ML Total Protein (6.4-8.2) g/dL Albumin (3.4-5.0) g/dL Globulin (2.6-4.0) g/dL Albumin/Globulin Ratio (0.9-1.6) Urine Color Urine Appearance Urine pH (5.0-8.0) Ur Specific Beacon (1.001-1.035) Urine Protein (NEGATIVE) mg/dL Urine Glucose (UA) (NEGATIVE) mg/dL Urine Ketones (NEGATIVE) mg/dL Urine Occult Blood (NEGATIVE) Urine Nitrite (NEGATIVE) Urine Bilirubin (NEGATIVE) Urine Urobilinogen (<2.0) EU/dL Ur Leukocyte Esterase (NEGATIVE) Urine RBC (0-2/HPF) Urine WBC (0-5/HPF) Ur Epithelial Cells (NONE-FEW) Urine Bacteria (NEGATIVE) COVID-19 ([facility]) NEGATIVE (NEGATIVE) 03/12/20 Range/Units 16:42 WBC (4.0-11.0) K/uL RBC (4.30-5.90) M/uL Hgb (12.0-16.0) g/dL Hct (36.0-46.0) % MCV (80.0-98.0) fL MCH (27.0-32.0) pg MCHC (31.0-37.0) g/dL RDW Std Deviation (28.0-62.0) fl RDW Coeff of Dg (11.0-15.0) % Plt Count (150-400) K/uL MPV (7.40-12.00) fL Neut % (Auto) (48.0-80.0) % Lymph % (Auto) (16.0-40.0) % Vilas % (Auto) (0.0-15.0) % Eos % (Auto) (0.0-7.0) % Baso % (Auto) (0.0-1.5) % Neut # (Auto) (1.4-5.7) K/uL Lymph # (Auto) (0.6-2.4) K/uL Vilas # (Auto) (0.0-0.8) K/uL Eos # (Auto) (0.0-0.7) K/uL Baso # (Auto) (0.0-0.1) K/uL Nucleated RBC % /100WBC Nucleated RBCs # K/uL INR D-Dimer, Quantitative (0.0-0.50) mg/L FEU Sodium (136-145) mmol/L Potassium (3.5-5.1) mmol/L Chloride (98-107) mmol/L Carbon Dioxide (21.0-32.0) mmol/L BUN (7.0-18.0) mg/dL Creatinine (0.6-1.0) mg/dL Est Cr Clr Drug Dosing mL/min Estimated GFR (MDRD) ml/min Glucose (74-106) mg/dL Calcium (8.5-10.1) mg/dL Total Bilirubin (0.2-1.0) mg/dL AST (15-37) IU/L ALT (14-63) IU/L Alkaline Phosphatase (46-116) U/L Troponin I (0.000-0.056) ng/mL B-Natriuretic Peptide (<100) PG/ML Total Protein (6.4-8.2) g/dL Albumin (3.4-5.0) g/dL Globulin (2.6-4.0) g/dL Albumin/Globulin Ratio (0.9-1.6) Urine Color YELLOW Urine Appearance SLT CLOUDY Urine pH 5.5 (5.0-8.0) Ur Specific Beacon 1.010 (1.001-1.035) Urine Protein TRACE H (NEGATIVE) mg/dL Urine Glucose (UA) NEGATIVE (NEGATIVE) mg/dL Urine Ketones NEGATIVE (NEGATIVE) mg/dL Urine Occult Blood TRACE-INTACT H (NEGATIVE) Urine Nitrite NEGATIVE (NEGATIVE) Urine Bilirubin NEGATIVE (NEGATIVE) Urine Urobilinogen 0.2 (<2.0) EU/dL Ur Leukocyte Esterase MODERATE H (NEGATIVE) Urine RBC 0-3 (0-2/HPF) Urine WBC 15-25 (0-5/HPF) Ur Epithelial Cells FEW (NONE-FEW) Urine Bacteria FEW (NEGATIVE) COVID-19 ([facility]) (NEGATIVE) Meds: Medications Generic Name Dose Route Start Last Admin Trade Name Freq PRN Reason Stop Dose Admin Sodium Chloride 10 ml 03/12/20 15:49 03/12/20 16:25 Saline Flush FLUSH 10 ml ASDIRECTED PRN Administration Keep Vein Open Sodium Chloride 2.5 ml 03/12/20 15:49 03/12/20 16:25 Saline Flush FLUSH 2.5 ml ASDIRECTED PRN Administration Keep Vein Open Discontinued Medications Generic Name Dose Route Start Last Admin Trade Name Freq PRN Reason Stop Dose Admin Furosemide 40 mg 03/12/20 19:14 03/12/20 19:19 Lasix IVPUSH 03/12/20 19:15 40 mg NOW ONE Administration Iopamidol 50 ml 03/12/20 18:05 03/12/20 18:06 Isovue Multipack-370 (76%) IVPUSH 03/12/20 18:06 50 ml ONETIME ONE Administration Nitrofurantoin Macrocrystals 100 mg 03/12/20 19:17 Macrobid PO 03/12/20 19:18 ONETIME ONE Departure - Departure Time of Disposition: 19:31 Sepsis Event Note (ED) - Evaluation Sepsis Screening Result: No Definite Risk - Focused Exam Vital Signs: Vital Signs Temp Pulse Resp BP Pulse Ox 03/12/20 18:56 73 15 121/77 98 03/12/20 16:52 73 18 143/63 H 97 03/12/20 15:47 97.1 F 75 19 152/75 H 72 L - My Orders Last 24 Hours: My Active Orders 03/12/20 15:48 EKG Documentation Completion [RC] STAT 03/12/20 15:49 Cardiac Monitoring [RC] . DIRECTED Sodium Chloride 0.9% [Saline Flush] 10 ml FLUSH ASDIRECTED PRN Sodium Chloride 0.9% [Saline Flush] 2.5 ml FLUSH ASDIRECTED PRN Saline Lock Insert [OM.PC] Stat 03/12/20 15:59 EKG Documentation Completion [RC] STAT 03/12/20 16:42 CULTURE URINE [RM] Stat - Assessment/Plan Last 24 Hours: My Active Orders 03/12/20 15:48 EKG Documentation Completion [RC] STAT 03/12/20 15:49 Cardiac Monitoring [RC] . DIRECTED Sodium Chloride 0.9% [Saline Flush] 10 ml FLUSH ASDIRECTED PRN Sodium Chloride 0.9% [Saline Flush] 2.5 ml FLUSH ASDIRECTED PRN Saline Lock Insert [OM.PC] Stat 03/12/20 15:59 EKG Documentation Completion [RC] STAT 03/12/20 16:42 CULTURE URINE [RM] Stat
[2020-03-12 16:26] LABS: BLOOD UREA NITROGEN,BUN 11 mg/dL (7.0-18.0); CARBON DIOXIDE,CO2 28.2 mmol/L (21.0-32.0); CHLORIDE,CL 91 mmol/L (98-107); GLUCOSE RANDOM 101 mg/dL (74-106); POTASSIUM,K 4.7 mmol/L (3.5-5.1); SODIUM,NA 125 mmol/L (136-145)
--- NOTE | 2020-03-12 16:52 | CR ---
INDICATION: Shortness of breath TECHNIQUE: Chest 1 view. COMPARISON: Chest radiograph 06/03/2019 FINDINGS/IMPRESSION: Cardiovascular and mediastinum: Stable cardiomegaly. Atherosclerotic calcification at the aortic arch. Lungs and pleural space: Small bilateral pleural effusions. Patchy opacities at both lung bases, may be related to subsegmental atelectasis, although underlying consolidation cannot be excluded. This appearance is similar to radiograph of 05/07/2019. No pulmonary edema. Bones and soft tissues: No acute findings. Dictated by Tori Peters MD @ 03/12/2020 4:50:21 PM Dictated by: Tori Peters MD @ 03/12/2020 16:50:46 (Electronically Signed)
[2020-03-12] MEDS ORDERED: Iopamidol 755 MG/ML 200 ML Multipack Bottle IVPUSH ONE (18:05)
--- NOTE | 2020-03-12 18:12 | PCM.SN.2 ---
- Free Text/Narrative Note: Patient was presented to be by the mid-level provider, who sees patients independently as a licensed independent practitioner by [facility] and [facility] law. Up until the point that my assistance was requested, the mid-level provider has been solely and independently caring for this patient and they are responsible for all aspects of care including performing the history and physical, formulating medical decision making, ordering medications, and ordering and evaluating testing. I have personally and independently seen and evaluated the patient at bedside and, if available, have spoken with the with the family. I agree with the history, physical, medical decision making, and plan of treatment as documented by the mid-level provider. I have performed the medical decision making for this patient, including assessing the results of all diagnostic testing and I have instructed the mid-level provider to document the results and carry through with the treatment plan that I deemed appropriate. The final completed note is the responsibility of the mid-level provider. If needed, any other comments, a focused physical examination, or my own medical decision making are documented below. 89-year-old female the past medical history of systolic congestive heart failure, atrial fibrillation on warfarin, hypertension presented the emergency department with shortness of breath and worsening lower extremity edema. Noted to be hypoxic to the low 70s on initial triage. Normalized with nasal cannula oxygen. 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 INR therapeutic level, troponin negative, BNP moderately elevated 431. Chest x-ray read as clear. D-dimer elevated at 0.93, will obtain CT pulmonary angiogram. I personally reviewed the CT pulmonary angiogram, showing no large PE but patient does have large bilateral pleural effusions. Radiology read pending at time of shift change. Verbal signout given to Dr. Ortega, patient will be admitted to the hospital for dyspnea, anticipate this is due to a systolic heart failure exacerbation. Will order IV diuresis.
[2020-03-12] MEDS ORDERED: Furosemide 40 MG/4 ML VIAL IVPUSH ONE (19:14)
[2020-03-12] MEDS ORDERED: Nitrofurantoin Monohydrate/Macrocrystalline 100 MG Cap PO ONE (19:17)
--- NOTE | 2020-03-12 19:24 | CT ---
INDICATION: Concern for pulmonary embolism, shortness of breath. TECHNIQUE: CT chest pulmonary angiogram acquired following the administration of 50 mL Isovue 370 IV contrast. COMPARISON: CT chest 06/03/2019. Chest radiograph 03/12/2020. FINDINGS: Cardiovascular structures: No pulmonary embolism. Heart size is normal. There is biatrial enlargement. Coronary artery calcifications. No pericardial effusion. Thoracic aorta is normal in caliber, with atherosclerotic calcifications. Mediastinum and ethel: Multiple mildly enlarged mediastinal lymph nodes, similar to the prior CT of 2019. No hilar lymphadenopathy. Lungs: Moderate right and small left pleural effusions with bibasilar atelectasis. There are bilateral, scattered areas of ground-glass opacities with areas of interlobular septal thickening. No focal consolidation. Mild biapical pleural parenchymal scarring, stable. Chest wall and axilla: No mass or adenopathy. Bones: Within normal limits for age. Upper abdomen: There is a large hiatal hernia containing the majority of the stomach and a portion of colon, similar to the prior CT. Partially visualized exophytic cyst in the upper pole of the right kidney. IMPRESSION: 1. No pulmonary embolism. 2. Moderate right and small left pleural effusions. Scattered areas of ground-glass opacities with areas of interlobular septal thickening, likely related to interstitial pulmonary edema. Biatrial cardiac enlargement. Spectrum of findings suggests congestive heart failure. 3. Multiple mildly enlarged mediastinal lymph nodes, nonspecific, similar to CT of 2019. 4. Large hiatal hernia, similar to the prior CT. Dictated by Tori Peters MD @ 03/12/2020 7:23:22 PM Please note that all CT scans at this facility use dose modulation, iterative reconstruction, and/or weight-based dosing when appropriate to reduce radiation dose to as low as reasonably achievable. Dictated by: Tori Peters MD @ 03/12/2020 19:23:28 (Electronically Signed)
[2020-03-12] MEDS ORDERED: Albuterol/Ipratropium 3.0-0.5 MG/3 ML Neb Soln NEB PRN (19:59)
[2020-03-12] MEDS ORDERED: Ondansetron 4 MG/2 ML SDV IVPUSH PRN (19:59)
[2020-03-12] MEDS ORDERED: Warfarin 5 MG Tab PO SCH (20:15)
[2020-03-12] MEDS ORDERED: DORZOLAMIDE HCL EYEBOTH SCH (20:15)
[2020-03-12] MEDS ORDERED: Furosemide 40 MG/4 ML VIAL IVPUSH SCH (20:15)
--- NOTE | 2020-03-12 20:16 | PCM.HP.2 ---
H&P History of Present Illness - General Date of Service: 03/12/20 Admit Problem/Dx: Admission Diagnosis/Problem Admission Diagnosis/Problem CHF, Congestive heart failure - History of Present Illness Initial Comments - Free Text/Narative: Patient is an 89-year-old female with Past medical history of atrial fibril lation (currently on warfarin), hypertension, and asthma, chronic back pain. Does not require any home oxygen. who presents to the emergency room with complaints of fluid retention and shortness of breath. She noticed she was becoming increasingly short of breath and having lower extremity pitting edema to bilateral lower extremities. Her primary care provider recommended to take extra Lasix but her symptoms didn't improve. She does occasionally check her oxygen saturation at home, typically runs in the mid 90s and today was running in the 70s. Patient denies any fever, chills, headache, change in vision, syncope or near syncope. Denies any chest pain, back pain or cough. Denies any abdominal pain, nausea, vomiting, diarrhea, constipation or dysuria. She does have history of urinary retentio has been seen by [facility] for this concern - no new concerns with urinary issues today. Has not noted any blood in urine or stool. Patient has been eating and drinking appropriately. in the ER CTA chest was done which showed moderate right and small pleural effusion. She was requrinf oxygen of 3-4 lts to maintain her oxygenation.She was also hyponatremic to 125, received IV Lasix in ER and patient was admitted for further management - Related Data Allergies/Adverse Reactions: Allergies Allergy/AdvReac Type Severity Reaction Status Date / Time enalapril maleate Allergy Rash Verified 03/12/20 21:38 [From Vasotec] enalaprilat dihydrate Allergy Rash Verified 03/12/20 21:38 [From Vasotec] Sulfa (Sulfonamide Allergy Other Verified 03/12/20 21:38 Antibiotics) Home Medications: Home Meds ALPRAZolam [Xanax XR] 1 mg PO BEDTIME 03/12/20 [History] Calcium Carbonate [Calcium] 1 tab PO DAILY 03/12/20 [History] Digoxin [Lanoxin] 125 mcg PO DAILY 03/12/20 [History] Dorzolamide HCl/Pf [Dorzolamide 2% Eye Drop] 1 drop EYEBOTH ASDIRECTED 03/12/20 [History] Furosemide 20 mg PO DAILY 03/12/20 [History] Losartan [Cozaar] 100 mg PO DAILY 03/12/20 [History] Lutein/Minerals/Vit A,C & E [Ocuvite] 1 tab PO DAILY 03/12/20 [History] Multivitamin [Multi-Vitamin Daily] 1 tab PO DAILY 03/12/20 [History] Potassium Chloride 20 meq PO DAILY 03/12/20 [History] Prednisolone Acetate/Pf [Prednisolone Acet 1% Eye Drop] 1 drop EYEBOTH BID 03/12/20 [History] amLODIPine [Norvasc] 10 mg PO DAILY 03/12/20 [History] Metoprolol Tartrate 50 mg PO BID 03/13/20 [History] Warfarin [Coumadin] 2.5 mg PO SUMOWEFR03/13/20 [History] Warfarin [Coumadin] 5 mg PO TU 03/13/20 [History] Past Medical History HEENT History: Reports: Glaucoma, Impaired Vision Cardiovascular History: Reports: Afib, Heart Failure, Hypertension Respiratory History: Reports: None Gastrointestinal History: Reports: None Genitourinary History: Reports: None [employer] History: Reports: None Musculoskeletal History: Reports: None Neurological History: Reports: None Psychiatric History: Reports: None Endocrine/Metabolic History: Reports: None Hematologic History: Reports: None Immunologic History: Reports: None Oncologic (Cancer) History: Reports: None Other Oncologic History: 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 Dermatologic History: Reports: None - Infectious Disease History Infectious Disease History: Reports: Chicken Pox, Measles, Mumps - Past Surgical History GI Surgical History: Reports: Appendectomy Female Surgical History: Reports: Section Social & Family History - Family History Family Medical History: Noncontributory - Tobacco Use Smoking Status *Q: Never Smoker Second Hand Smoke Exposure: No - Caffeine Use Caffeine Use: Reports: None - Recreational Drug Use Recreational Drug Use: No H&P Review of Systems - Review of Systems: Review Of Systems: See Below General: Denies: Fever, Chills, Malaise Pulmonary: Reports: Shortness of Breath. Denies: Wheezing, Pleuritic Chest Pain, Cough, Sputum, Hemoptysis Cardiovascular: Reports: Dyspnea on Exertion, Orthopnea, Edema. Denies: Chest Pain, Palpitations, PND, Lightheadedness Gastrointestinal: Denies: Abdominal Pain, Anorexia, Black Stool, Bloody Stool, Distension Genitourinary: Reports: Urgency, Retention (chronic). Denies: Dysuria, Frequency, Burning Musculoskeletal: Denies: Neck Pain, Shoulder Pain, Arm Pain Skin: Denies: Cyanosis, Jaundice, Mottled Psychiatric: Denies: Confusion, Depression, Mood Lability Exam - Exam Exam: See Below - Vital Signs Vital Signs: Last Vital Signs Temp 36.2 C 03/12/20 15:47 Pulse 80 03/12/20 19:26 Resp 15 03/12/20 19:26 BP 147/63 H 03/12/20 19:26 Pulse Ox 96 03/12/20 19:26 Weight: 61 kg - Exam Quality Assessment: Supplemental Oxygen General: Alert, Oriented Neck: Supple, Trachea Midline Lungs: Normal Respiratory Effort, Decreased Breath Sounds, Crackles. No: Clear to Auscultation Cardiovascular: Regular Rate, Regular Rhythm Back Exam: Normal Inspection, Decreased Range of Motion. No: Paraspinal Tenderness, Vertebral Tenderness Extremities: Non-Tender, Pedal Edema. No: No Pedal Edema, Joint Swelling, Arm Pain - Patient Data Lab Results Last 24 hrs: Laboratory Results - last 24 hr 03/12/20 03/12/20 03/12/20 Range/Units 15:49 15:49 15:49 WBC 6.68 (4.0-11.0) K/uL RBC 4.75 (4.30-5.90) M/uL Hgb 14.2 (12.0-16.0) g/dL Hct 41.0 (36.0-46.0) % MCV 86.3 (80.0-98.0) fL MCH 29.9 (27.0-32.0) pg MCHC 34.6 (31.0-37.0) g/dL RDW Std Deviation 49.6 (28.0-62.0) fl RDW Coeff of Dg 16 H (11.0-15.0) % Plt Count 222 (150-400) K/uL MPV 9.60 (7.40-12.00) fL Neut % (Auto) 61.2 (48.0-80.0) % Lymph % (Auto) 20.8 (16.0-40.0) % [place] % (Auto) 15.0 (0.0-15.0) % Eos % (Auto) 2.1 (0.0-7.0) % Baso % (Auto) 0.9 (0.0-1.5) % Neut # (Auto) 4.1 (1.4-5.7) K/uL Lymph # (Auto) 1.4 (0.6-2.4) K/uL [place] # (Auto) 1.0 H (0.0-0.8) K/uL Eos # (Auto) 0.1 (0.0-0.7) K/uL Baso # (Auto) 0.1 (0.0-0.1) K/uL Nucleated RBC % 0.0 /100WBC Nucleated RBCs # 0 K/uL INR D-Dimer, Quantitative 0.93 H (0.0-0.50) mg/L FEU Sodium 125 L (136-145) mmol/L Potassium 4.7 (3.5-5.1) mmol/L Chloride 91 L (98-107) mmol/L Carbon Dioxide 28.2 (21.0-32.0) mmol/L BUN 11 (7.0-18.0) mg/dL Creatinine 0.8 (0.6-1.0) mg/dL Est Cr Clr Drug Dosing 41.97 mL/min Estimated GFR (MDRD) > 60.0 ml/min Glucose 101 (74-106) mg/dL Calcium 8.7 (8.5-10.1) mg/dL Total Bilirubin 1.6 H (0.2-1.0) mg/dL AST 27 (15-37) IU/L ALT 21 (14-63) IU/L Alkaline Phosphatase 131 H (46-116) U/L Troponin I < 0.050 (0.000-0.056) ng/mL B-Natriuretic Peptide (<100) PG/ML Total Protein 7.2 (6.4-8.2) g/dL Albumin 3.9 (3.4-5.0) g/dL Globulin 3.3 (2.6-4.0) g/dL Albumin/Globulin Ratio 1.2 (0.9-1.6) Urine Color Urine Appearance Urine pH (5.0-8.0) Ur Specific [place] (1.001-1.035) Urine Protein (NEGATIVE) mg/dL Urine Glucose (UA) (NEGATIVE) mg/dL Urine Ketones (NEGATIVE) mg/dL Urine Occult Blood (NEGATIVE) Urine Nitrite (NEGATIVE) Urine Bilirubin (NEGATIVE) Urine Urobilinogen (<2.0) EU/dL Ur Leukocyte Esterase (NEGATIVE) Urine RBC (0-2/HPF) Urine WBC (0-5/HPF) Ur Epithelial Cells (NONE-FEW) Urine Bacteria (NEGATIVE) COVID-19 ([facility]) (NEGATIVE) 03/12/20 03/12/20 03/12/20 Range/Units 15:49 15:49 16:35 WBC (4.0-11.0) K/uL RBC (4.30-5.90) M/uL Hgb (12.0-16.0) g/dL Hct (36.0-46.0) % MCV (80.0-98.0) fL MCH (27.0-32.0) pg MCHC (31.0-37.0) g/dL RDW Std Deviation (28.0-62.0) fl RDW Coeff of Dg (11.0-15.0) % Plt Count (150-400) K/uL MPV (7.40-12.00) fL Neut % (Auto) (48.0-80.0) % Lymph % (Auto) (16.0-40.0) % [place] % (Auto) (0.0-15.0) % Eos % (Auto) (0.0-7.0) % Baso % (Auto) (0.0-1.5) % Neut # (Auto) (1.4-5.7) K/uL Lymph # (Auto) (0.6-2.4) K/uL [place] # (Auto) (0.0-0.8) K/uL Eos # (Auto) (0.0-0.7) K/uL Baso # (Auto) (0.0-0.1) K/uL Nucleated RBC % /100WBC Nucleated RBCs # K/uL INR 3.16 D-Dimer, Quantitative (0.0-0.50) mg/L FEU Sodium (136-145) mmol/L Potassium (3.5-5.1) mmol/L Chloride (98-107) mmol/L Carbon Dioxide (21.0-32.0) mmol/L BUN (7.0-18.0) mg/dL Creatinine (0.6-1.0) mg/dL Est Cr Clr Drug Dosing mL/min Estimated GFR (MDRD) ml/min Glucose (74-106) mg/dL Calcium (8.5-10.1) mg/dL Total Bilirubin (0.2-1.0) mg/dL AST (15-37) IU/L ALT (14-63) IU/L Alkaline Phosphatase (46-116) U/L Troponin I (0.000-0.056) ng/mL B-Natriuretic Peptide 431 H (<100) PG/ML Total Protein (6.4-8.2) g/dL Albumin (3.4-5.0) g/dL Globulin (2.6-4.0) g/dL Albumin/Globulin Ratio (0.9-1.6) Urine Color Urine Appearance Urine pH (5.0-8.0) Ur Specific [place] (1.001-1.035) Urine Protein (NEGATIVE) mg/dL Urine Glucose (UA) (NEGATIVE) mg/dL Urine Ketones (NEGATIVE) mg/dL Urine Occult Blood (NEGATIVE) Urine Nitrite (NEGATIVE) Urine Bilirubin (NEGATIVE) Urine Urobilinogen (<2.0) EU/dL Ur Leukocyte Esterase (NEGATIVE) Urine RBC (0-2/HPF) Urine WBC (0-5/HPF) Ur Epithelial Cells (NONE-FEW) Urine Bacteria (NEGATIVE) COVID-19 ([facility]) NEGATIVE (NEGATIVE) 03/12/20 Range/Units 16:42 WBC (4.0-11.0) K/uL RBC (4.30-5.90) M/uL Hgb (12.0-16.0) g/dL Hct (36.0-46.0) % MCV (80.0-98.0) fL MCH (27.0-32.0) pg MCHC (31.0-37.0) g/dL RDW Std Deviation (28.0-62.0) fl RDW Coeff of Dg (11.0-15.0) % Plt Count (150-400) K/uL MPV (7.40-12.00) fL Neut % (Auto) (48.0-80.0) % Lymph % (Auto) (16.0-40.0) % [place] % (Auto) (0.0-15.0) % Eos % (Auto) (0.0-7.0) % Baso % (Auto) (0.0-1.5) % Neut # (Auto) (1.4-5.7) K/uL Lymph # (Auto) (0.6-2.4) K/uL [place] # (Auto) (0.0-0.8) K/uL Eos # (Auto) (0.0-0.7) K/uL Baso # (Auto) (0.0-0.1) K/uL Nucleated RBC % /100WBC Nucleated RBCs # K/uL INR D-Dimer, Quantitative (0.0-0.50) mg/L FEU Sodium (136-145) mmol/L Potassium (3.5-5.1) mmol/L Chloride (98-107) mmol/L Carbon Dioxide (21.0-32.0) mmol/L BUN (7.0-18.0) mg/dL Creatinine (0.6-1.0) mg/dL Est Cr Clr Drug Dosing mL/min Estimated GFR (MDRD) ml/min Glucose (74-106) mg/dL Calcium (8.5-10.1) mg/dL Total Bilirubin (0.2-1.0) mg/dL AST (15-37) IU/L ALT (14-63) IU/L Alkaline Phosphatase (46-116) U/L Troponin I (0.000-0.056) ng/mL B-Natriuretic Peptide (<100) PG/ML Total Protein (6.4-8.2) g/dL Albumin (3.4-5.0) g/dL Globulin (2.6-4.0) g/dL Albumin/Globulin Ratio (0.9-1.6) Urine Color YELLOW Urine Appearance SLT CLOUDY Urine pH 5.5 (5.0-8.0) Ur Specific [place] 1.010 (1.001-1.035) Urine Protein TRACE H (NEGATIVE) mg/dL Urine Glucose (UA) NEGATIVE (NEGATIVE) mg/dL Urine Ketones NEGATIVE (NEGATIVE) mg/dL Urine Occult Blood TRACE-INTACT H (NEGATIVE) Urine Nitrite NEGATIVE (NEGATIVE) Urine Bilirubin NEGATIVE (NEGATIVE) Urine Urobilinogen 0.2 (<2.0) EU/dL Ur Leukocyte Esterase MODERATE H (NEGATIVE) Urine RBC 0-3 (0-2/HPF) Urine WBC 15-25 (0-5/HPF) Ur Epithelial Cells FEW (NONE-FEW) Urine Bacteria FEW (NEGATIVE) COVID-19 ([facility]) (NEGATIVE) Result Diagrams: 03/13/20 06:00 03/13/20 06:00 Sepsis Event Note - Evaluation Sepsis Screening Result: No Definite Risk - Focused Exam Vital Signs: Vital Signs Temp Pulse Resp BP Pulse Ox 03/12/20 19:26 80 15 147/63 H 96 03/12/20 18:56 73 15 121/77 98 03/12/20 16:52 73 18 143/63 H 97 03/12/20 15:47 36.2 C 75 19 152/75 H 72 L Date Exam was Performed: 03/13/20 Time Exam was Performed: 11:38 - Problem List (1) Acute CHF (congestive heart failure) SNOMED Code(s): 29439391 ICD Code: I50.9 - HEART FAILURE, UNSPECIFIED Status: Acute Current Visit: Yes (2) History of atrial fibrillation SNOMED Code(s): 960724573 ICD Code: Z86.79 - PERSONAL HISTORY OF OTHER DISEASES OF THE CIRCULATORY SYST EM Status: Acute Current Visit: Yes (3) Hyponatremia SNOMED Code(s): 65907441 ICD Code: E87.1 - HYPO-OSMOLALITY AND HYPONATREMIA Status: Acute Current Visit: Yes (4) Pleural effusion due to CHF (congestive heart failure) SNOMED Code(s): 49943896 ICD Code: I50.9 - HEART FAILURE, UNSPECIFIED Status: Acute Current Visit: Yes (5) Hypertension SNOMED Code(s): 53886061 ICD Code: I10 - ESSENTIAL (PRIMARY) HYPERTENSION Status: Acute Current Visit: No (6) Afib, Atrial fibrillation SNOMED Code(s): 21988234 ICD Code: I48.91 - UNSPECIFIED ATRIAL FIBRILLATION Status: Chronic Current Visit: No (7) Hypoxic SNOMED Code(s): 917564526 ICD Code: R09.02 - HYPOXEMIA Status: Acute Current Visit: Yes (8) Back pain SNOMED Code(s): 060363720 ICD Code: M54.9 - DORSALGIA, UNSPECIFIED Status: Acute Current Visit: Yes Problem List Initiated/Reviewed/Updated: Yes Orders Last 24hrs: Active Orders 24 hr Category Date Time Status Admission Status [Patient Status] [ADT] Stat ADT 03/12/20 19:30 Active Ambulate [RC] ASDIRECTED Care 03/12/20 19:59 Active Antiembolic Devices [RC] PER UNIT ROUTINE Care 03/12/20 20:01 Active Cardiac Monitoring [RC] . DIRECTED Care 03/12/20 15:49 Active EKG Documentation Completion [RC] STAT Care 03/12/20 15:48 Active EKG Documentation Completion [RC] STAT Care 03/12/20 15:59 Active Oxygen Therapy [RC] PRN Care 03/12/20 19:59 Active RT Aerosol Therapy [RC] ASDIRECTED Care 03/12/20 20:02 Active VTE/DVT Education [RC] PER UNIT ROUTINE Care 03/12/20 19:59 Active Vital Signs [RC] Q4H Care 03/12/20 19:59 Active Heart Healthy Diet [DIET] Diet 03/12/20 Dinner Active Echo Comp wo Cont [US] Routine Exams 03/12/20 20:04 Ordered CULTURE URINE [RM] Stat Lab 03/12/20 16:42 Received INR,PT,PROTHROMBIN TIME [COAG] AM Lab 03/13/20 05:11 Ordered INR,PT,PROTHROMBIN TIME [COAG] AM Lab 03/14/20 05:11 Ordered INR,PT,PROTHROMBIN TIME [COAG] AM Lab 03/15/20 05:11 Ordered SODIUM,URINE RANDOM [URCHEM] Routine Lab 03/12/20 19:58 Ordered ALPRAZolam [Xanax XR] Med 03/12/20 21:00 Ordered 1 mg PO BEDTIME Acetaminophen [Tylenol] Med 03/12/20 19:59 Active 650 mg PO Q4H PRN Albuterol/Ipratropium [DuoNeb 3.0-0.5 MG/3 ML] Med 03/12/20 19:59 Active 3 ml NEB Q4HRRT PRN Calcium Carbonate [Calcium] Med 03/13/20 09:00 Ordered 1 tab PO DAILY Digoxin [Lanoxin] Med 03/13/20 09:00 Ordered 125 mcg PO DAILY Dorzolamide HCl/Pf [Dorzolamide 2% Eye Drop] Med 03/12/20 20:15 Ordered 1 drop EYEBOTH ASDIRECTED Furosemide [Lasix] Med 03/13/20 03:00 Ordered 40 mg IVPUSH Q8H Losartan Med 03/13/20 09:00 Ordered 100 mg PO DAILY Metoprolol Succinate [Toprol XL] Med 03/13/20 09:00 Ordered 50 mg PO DAILY Nitrofurantoin [place]/Macrocryst [Macrobid] Med 03/12/20 21:00 Ordered 100 mg PO BID Ondansetron [Zofran] Med 03/12/20 19:59 Active 4 mg IVPUSH Q4H PRN Prednisolone Acetate/Pf [Prednisolone Acet 1% Eye Drop] Med 03/12/20 21:00 Ordered 1 drop EYEBOTH BID Sodium Chloride 0.9% [Saline Flush] Med 03/12/20 15:49 Active 10 ml FLUSH ASDIRECTED PRN Sodium Chloride 0.9% [Saline Flush] Med 03/12/20 15:49 Active 2.5 ml FLUSH ASDIRECTED PRN Warfarin [Coumadin] Med 03/12/20 20:15 Ordered See Dose Instructions PO .Pharmacy To Dose amLODIPine [Norvasc] Med 03/13/20 09:00 Ordered 10 mg PO DAILY Saline Lock Insert [OM.PC] Stat Oth 03/12/20 15:49 Ordered Sequential Compression Device [OM.PC] Per Unit Routine Oth 03/12/20 20:00 Ordered Medication Orders Acetaminophen (Tylenol) 650 mg PO Q4H PRN PRN Reason: Pain (Mild 1-3)/fever Albuterol/Ipratropium (Duoneb 3.0-0.5 Mg/3 Ml) 3 ml NEB Q4HRRT PRN PRN Reason: Shortness Of Breath/wheezing Amlodipine Besylate (Norvasc) 10 mg PO DAILY [facility] Digoxin (Lanoxin) 125 mcg PO DAILY [facility] Furosemide (Lasix) 40 mg IVPUSH Q8H [facility] Metoprolol Succinate (Toprol Xl) 50 mg PO DAILY [facility] Nitrofurantoin Macrocrystals (Macrobid) 100 mg PO BID [facility]AM Non-Formulary Medication (Alprazolam [Xanax Xr]) 1 mg PO BEDTIME [facility]AM Non-Formulary Medication (Calcium Carbonate [Calcium]) 1 tab PO DAILY [facility] Non-Formulary Medication (Dorzolamide Hcl/Pf [Dorzolamide 2% Eye Drop]) 1 drop EYEBOTH ASDIRECTED [facility] Non-Formulary Medication (Losartan) 100 mg PO DAILY [facility] Non-Formulary Medication (Prednisolone Acetate/Pf [Prednisolone Acet 1% Eye Drop]) 1 drop EYEBOTH BID [facility] Ondansetron HCl (Zofran) 4 mg IVPUSH Q4H PRN PRN Reason: Nausea/Vomiting Sodium Chloride (Saline Flush) 10 ml FLUSH ASDIRECTED PRN PRN Reason: Keep Vein Open Last Admin: 03/12/20 16:25 Dose: 10 ml Documented by: J CARLOS Sodium Chloride (Saline Flush) 2.5 ml FLUSH ASDIRECTED PRN PRN Reason: Keep Vein Open Last Admin: 03/12/20 16:25 Dose: 2.5 ml Documented by: J CARLOS Warfarin Sodium (Coumadin) 0 mg PO .Pharmacy To Dose [facility] Assessment/Plan Comment:: 89 y/o F admitted for Acute CHF exacerbation and pleural effusions resulting in hypoxic respiratory failure cont oxygenation via NC to maintain pulse oxy of 92% cont IV lasix 40mg q8H Monitor and replete electrolytes as needed cont tele monitoring obatin 2D echo DuoNebs Lidocaine patch for back pain Tylenol as needed cont home meds
[2020-03-12] MEDS ORDERED: Non-Formulary Medication 1 Each (Prednisolone Acetate/Pf [Prednisolone Acet 1% Eye Drop] 1 EYEBOTH SCH (21:00)
[2020-03-12] MEDS ORDERED: ALPRAZOLAM 1 MG PO SCH (21:00)
[2020-03-12] MEDS: Nitrofurantoin Monohydrate/Macrocrystalline 100 MG Cap PO SCH (21:30)
[2020-03-12] MEDS: Acetaminophen 325 MG Tab PO PRN (22:14)
[2020-03-12] MEDS ORDERED: Diazepam 2 MG Tab PO ONE (23:37)
[2020-03-12] MEDS ORDERED: Warfarin Sliding Scale PO SCH (23:45)
[2020-03-12] MEDS ORDERED: TIMOLOL EYEBOTH ONE (23:45)
[2020-03-12] MEDS ORDERED: DORZOLAMIDE EYEBOTH ONE (23:45)
[2020-03-13] MEDS: Metoprolol Succinate 25 MG Tab.ER PO SCH ×3 (00:05→21:08)
[2020-03-13] MEDS: Furosemide 40 MG/4 ML VIAL IVPUSH SCH ×3 (02:57→19:13)
[2020-03-13 06:42] LABS: BLOOD UREA NITROGEN,BUN 11 mg/dL (7.0-18.0); CARBON DIOXIDE,CO2 32.7 mmol/L (21.0-32.0); CHLORIDE,CL 90 mmol/L (98-107); GLUCOSE RANDOM 95 mg/dL (74-106); POTASSIUM,K 3.6 mmol/L (3.5-5.1); SODIUM,NA 128 mmol/L (136-145)
[2020-03-13] MEDS: Acetaminophen 325 MG Tab PO PRN ×3 (08:53→21:06)
[2020-03-13] MEDS ORDERED: Dorzolamide/Timolol 2%-0.5% Ophth Soln 10 ML Bottle EYEBOTH ONE (09:00)
[2020-03-13] MEDS ORDERED: Metoprolol Succinate 50 MG Tab.ER PO SCH (09:00)
[2020-03-13] MEDS: Losartan 50 MG Tab PO SCH (09:08)
[2020-03-13] MEDS: Calcium Carbonate 500 MG Tablet PO SCH (09:10)
[2020-03-13] MEDS: Nitrofurantoin Monohydrate/Macrocrystalline 100 MG Cap PO SCH ×2 (09:10→21:01)
[2020-03-13] MEDS: Digoxin 125 MCG Tab PO SCH (09:11)
[2020-03-13] MEDS: prednisoLONE Acetate 1% Ophth Susp 5 ML Bottle**OWN MED EYEBOTH SCH ×2 (09:14→21:50)
[2020-03-13] MEDS: amLODIPine 5 MG Tab PO SCH (09:34)
[2020-03-13] MEDS ORDERED: Potassium Chloride 20 MEQ Tab.ER PO ONE (09:35)
[2020-03-13] MEDS ORDERED: Magnesium Sulfate (4.06 MEQ/ML) 5 GM/10 ML SDV IV ONE (09:42)
[2020-03-13] MEDS ORDERED: Magnesium Sulfate/Water 4 GM in Premix Bag 1 BAG IV ONE (10:00)
--- NOTE | 2020-03-13 11:52 | PCM.PN ---
- General Info Date of Service: 03/13/20 Admission Dx/Problem (Free Text): Admission Diagnosis/Problem Admission Diagnosis/Problem CHF, Congestive heart failure Subjective Update: seen this am , sititng on chair, c/o back pain, states the hospital bed possible flared her back pain, breathing is better - Review of Systems General: Denies: Fever, Weakness Pulmonary: Reports: Shortness of Breath. Denies: Pleuritic Chest Pain, Cough, Sputum Cardiovascular: Reports: Dyspnea on Exertion, Orthopnea. Denies: Chest Pain, Palpitations Gastrointestinal: Denies: Abdominal Pain, Constipation, Decreased Appetite Genitourinary: Denies: Dysuria, Frequency, Burning Musculoskeletal: Reports: Back Pain. Denies: Neck Pain, Shoulder Pain, Leg Pain - Patient Data Vitals - Most Recent: Last Vital Signs Temp 35.8 C L 03/13/20 08:00 Pulse 80 03/13/20 09:11 Resp 15 03/13/20 08:00 BP 146/65 H 03/13/20 09:34 Pulse Ox 96 03/13/20 08:00 Weight - Most Recent: 61 kg I&O - Last 24 Hours: Intake & Output 03/12/20 03/13/20 03/13/20 22:59 06:59 14:59 Intake Total 300 Output Total 1950 Balance -1650 Lab Results Last 24 Hours: Laboratory Results - last 24 hr 03/12/20 03/12/20 03/12/20 Range/Units 15:49 15:49 15:49 WBC 6.68 (4.0-11.0) K/uL RBC 4.75 (4.30-5.90) M/uL Hgb 14.2 (12.0-16.0) g/dL Hct 41.0 (36.0-46.0) % MCV 86.3 (80.0-98.0) fL MCH 29.9 (27.0-32.0) pg MCHC 34.6 (31.0-37.0) g/dL RDW Std Deviation 49.6 (28.0-62.0) fl RDW Coeff of Dg 16 H (11.0-15.0) % Plt Count 222 (150-400) K/uL MPV 9.60 (7.40-12.00) fL Neut % (Auto) 61.2 (48.0-80.0) % Lymph % (Auto) 20.8 (16.0-40.0) % Ness % (Auto) 15.0 (0.0-15.0) % Eos % (Auto) 2.1 (0.0-7.0) % Baso % (Auto) 0.9 (0.0-1.5) % Neut # (Auto) 4.1 (1.4-5.7) K/uL Lymph # (Auto) 1.4 (0.6-2.4) K/uL Ness # (Auto) 1.0 H (0.0-0.8) K/uL Eos # (Auto) 0.1 (0.0-0.7) K/uL Baso # (Auto) 0.1 (0.0-0.1) K/uL Nucleated RBC % 0.0 /100WBC Nucleated RBCs # 0 K/uL INR D-Dimer, Quantitative 0.93 H (0.0-0.50) mg/L FEU Sodium 125 L (136-145) mmol/L Potassium 4.7 (3.5-5.1) mmol/L Chloride 91 L (98-107) mmol/L Carbon Dioxide 28.2 (21.0-32.0) mmol/L BUN 11 (7.0-18.0) mg/dL Creatinine 0.8 (0.6-1.0) mg/dL Est Cr Clr Drug Dosing 41.97 mL/min Estimated GFR (MDRD) > 60.0 ml/min Glucose 101 (74-106) mg/dL Calcium 8.7 (8.5-10.1) mg/dL Phosphorus (2.6-4.7) mg/dL Magnesium (1.8-2.4) mg/dL Total Bilirubin 1.6 H (0.2-1.0) mg/dL AST 27 (15-37) IU/L ALT 21 (14-63) IU/L Alkaline Phosphatase 131 H (46-116) U/L Troponin I < 0.050 (0.000-0.056) ng/mL B-Natriuretic Peptide (<100) PG/ML Total Protein 7.2 (6.4-8.2) g/dL Albumin 3.9 (3.4-5.0) g/dL Globulin 3.3 (2.6-4.0) g/dL Albumin/Globulin Ratio 1.2 (0.9-1.6) Urine Color Urine Appearance Urine pH (5.0-8.0) Ur Specific [place] (1.001-1.035) Urine Protein (NEGATIVE) mg/dL Urine Glucose (UA) (NEGATIVE) mg/dL Urine Ketones (NEGATIVE) mg/dL Urine Occult Blood (NEGATIVE) Urine Nitrite (NEGATIVE) Urine Bilirubin (NEGATIVE) Urine Urobilinogen (<2.0) EU/dL Ur Leukocyte Esterase (NEGATIVE) Urine RBC (0-2/HPF) Urine WBC (0-5/HPF) Ur Epithelial Cells (NONE-FEW) Urine Bacteria (NEGATIVE) Ur Random Sodium (40.0-220.0) mmol/L COVID-19 ([facility]) (NEGATIVE) 03/12/20 03/12/20 03/12/20 Range/Units 15:49 15:49 15:49 WBC (4.0-11.0) K/uL RBC (4.30-5.90) M/uL Hgb (12.0-16.0) g/dL Hct (36.0-46.0) % MCV (80.0-98.0) fL MCH (27.0-32.0) pg MCHC (31.0-37.0) g/dL RDW Std Deviation (28.0-62.0) fl RDW Coeff of Dg (11.0-15.0) % Plt Count (150-400) K/uL MPV (7.40-12.00) fL Neut % (Auto) (48.0-80.0) % Lymph % (Auto) (16.0-40.0) % Ness % (Auto) (0.0-15.0) % Eos % (Auto) (0.0-7.0) % Baso % (Auto) (0.0-1.5) % Neut # (Auto) (1.4-5.7) K/uL Lymph # (Auto) (0.6-2.4) K/uL Ness # (Auto) (0.0-0.8) K/uL Eos # (Auto) (0.0-0.7) K/uL Baso # (Auto) (0.0-0.1) K/uL Nucleated RBC % /100WBC Nucleated RBCs # K/uL INR 3.16 D-Dimer, Quantitative (0.0-0.50) mg/L FEU Sodium (136-145) mmol/L Potassium (3.5-5.1) mmol/L Chloride (98-107) mmol/L Carbon Dioxide (21.0-32.0) mmol/L BUN (7.0-18.0) mg/dL Creatinine (0.6-1.0) mg/dL Est Cr Clr Drug Dosing mL/min Estimated GFR (MDRD) ml/min Glucose (74-106) mg/dL Calcium (8.5-10.1) mg/dL Phosphorus 4.1 (2.6-4.7) mg/dL Magnesium 1.6 L (1.8-2.4) mg/dL Total Bilirubin (0.2-1.0) mg/dL AST (15-37) IU/L ALT (14-63) IU/L Alkaline Phosphatase (46-116) U/L Troponin I (0.000-0.056) ng/mL B-Natriuretic Peptide 431 H (<100) PG/ML Total Protein (6.4-8.2) g/dL Albumin (3.4-5.0) g/dL Globulin (2.6-4.0) g/dL Albumin/Globulin Ratio (0.9-1.6) Urine Color Urine Appearance Urine pH (5.0-8.0) Ur Specific [place] (1.001-1.035) Urine Protein (NEGATIVE) mg/dL Urine Glucose (UA) (NEGATIVE) mg/dL Urine Ketones (NEGATIVE) mg/dL Urine Occult Blood (NEGATIVE) Urine Nitrite (NEGATIVE) Urine Bilirubin (NEGATIVE) Urine Urobilinogen (<2.0) EU/dL Ur Leukocyte Esterase (NEGATIVE) Urine RBC (0-2/HPF) Urine WBC (0-5/HPF) Ur Epithelial Cells (NONE-FEW) Urine Bacteria (NEGATIVE) Ur Random Sodium (40.0-220.0) mmol/L COVID-19 ([facility]) (NEGATIVE) 03/12/20 03/12/20 03/12/20 Range/Units 16:35 16:42 16:43 WBC (4.0-11.0) K/uL RBC (4.30-5.90) M/uL Hgb (12.0-16.0) g/dL Hct (36.0-46.0) % MCV (80.0-98.0) fL MCH (27.0-32.0) pg MCHC (31.0-37.0) g/dL RDW Std Deviation (28.0-62.0) fl RDW Coeff of Dg (11.0-15.0) % Plt Count (150-400) K/uL MPV (7.40-12.00) fL Neut % (Auto) (48.0-80.0) % Lymph % (Auto) (16.0-40.0) % Ness % (Auto) (0.0-15.0) % Eos % (Auto) (0.0-7.0) % Baso % (Auto) (0.0-1.5) % Neut # (Auto) (1.4-5.7) K/uL Lymph # (Auto) (0.6-2.4) K/uL Ness # (Auto) (0.0-0.8) K/uL Eos # (Auto) (0.0-0.7) K/uL Baso # (Auto) (0.0-0.1) K/uL Nucleated RBC % /100WBC Nucleated RBCs # K/uL INR D-Dimer, Quantitative (0.0-0.50) mg/L FEU Sodium (136-145) mmol/L Potassium (3.5-5.1) mmol/L Chloride (98-107) mmol/L Carbon Dioxide (21.0-32.0) mmol/L BUN (7.0-18.0) mg/dL Creatinine (0.6-1.0) mg/dL Est Cr Clr Drug Dosing mL/min Estimated GFR (MDRD) ml/min Glucose (74-106) mg/dL Calcium (8.5-10.1) mg/dL Phosphorus (2.6-4.7) mg/dL Magnesium (1.8-2.4) mg/dL Total Bilirubin (0.2-1.0) mg/dL AST (15-37) IU/L ALT (14-63) IU/L Alkaline Phosphatase (46-116) U/L Troponin I (0.000-0.056) ng/mL B-Natriuretic Peptide (<100) PG/ML Total Protein (6.4-8.2) g/dL Albumin (3.4-5.0) g/dL Globulin (2.6-4.0) g/dL Albumin/Globulin Ratio (0.9-1.6) Urine Color YELLOW Urine Appearance SLT CLOUDY Urine pH 5.5 (5.0-8.0) Ur Specific [place] 1.010 (1.001-1.035) Urine Protein TRACE H (NEGATIVE) mg/dL Urine Glucose (UA) NEGATIVE (NEGATIVE) mg/dL Urine Ketones NEGATIVE (NEGATIVE) mg/dL Urine Occult Blood TRACE-INTACT H (NEGATIVE) Urine Nitrite NEGATIVE (NEGATIVE) Urine Bilirubin NEGATIVE (NEGATIVE) Urine Urobilinogen 0.2 (<2.0) EU/dL Ur Leukocyte Esterase MODERATE H (NEGATIVE) Urine RBC 0-3 (0-2/HPF) Urine WBC 15-25 (0-5/HPF) Ur Epithelial Cells FEW (NONE-FEW) Urine Bacteria FEW (NEGATIVE) Ur Random Sodium 81.0 (40.0-220.0) mmol/L COVID-19 ([facility]) NEGATIVE (NEGATIVE) 03/13/20 03/13/20 03/13/20 Range/Units 06:00 06:00 06:00 WBC 6.27 (4.0-11.0) K/uL RBC 4.80 (4.30-5.90) M/uL Hgb 14.8 (12.0-16.0) g/dL Hct 40.9 (36.0-46.0) % MCV 85.2 (80.0-98.0) fL MCH 30.8 (27.0-32.0) pg MCHC 36.2 (31.0-37.0) g/dL RDW Std Deviation 45.3 (28.0-62.0) fl RDW Coeff of Dg 16 H (11.0-15.0) % Plt Count 201 (150-400) K/uL MPV 9.50 (7.40-12.00) fL Neut % (Auto) 66.8 (48.0-80.0) % Lymph % (Auto) 16.1 (16.0-40.0) % Ness % (Auto) 15.3 H (0.0-15.0) % Eos % (Auto) 1.3 (0.0-7.0) % Baso % (Auto) 0.5 (0.0-1.5) % Neut # (Auto) 4.2 (1.4-5.7) K/uL Lymph # (Auto) 1.0 (0.6-2.4) K/uL Ness # (Auto) 1.0 H (0.0-0.8) K/uL Eos # (Auto) 0.1 (0.0-0.7) K/uL Baso # (Auto) 0.0 (0.0-0.1) K/uL Nucleated RBC % /100WBC Nucleated RBCs # K/uL INR 2.59 D-Dimer, Quantitative (0.0-0.50) mg/L FEU Sodium 128 L (136-145) mmol/L Potassium 3.6 (3.5-5.1) mmol/L Chloride 90 L (98-107) mmol/L Carbon Dioxide 32.7 H (21.0-32.0) mmol/L BUN 11 (7.0-18.0) mg/dL Creatinine 0.8 (0.6-1.0) mg/dL Est Cr Clr Drug Dosing 45.50 mL/min Estimated GFR (MDRD) > 60.0 ml/min Glucose 95 (74-106) mg/dL Calcium 9.0 (8.5-10.1) mg/dL Phosphorus 3.9 (2.6-4.7) mg/dL Magnesium 1.6 L (1.8-2.4) mg/dL Total Bilirubin 1.8 H (0.2-1.0) mg/dL AST 24 (15-37) IU/L ALT 19 (14-63) IU/L Alkaline Phosphatase 131 H (46-116) U/L Troponin I (0.000-0.056) ng/mL B-Natriuretic Peptide (<100) PG/ML Total Protein 7.2 (6.4-8.2) g/dL Albumin 4.0 (3.4-5.0) g/dL Globulin 3.2 (2.6-4.0) g/dL Albumin/Globulin Ratio 1.3 (0.9-1.6) Urine Color Urine Appearance Urine pH (5.0-8.0) Ur Specific [place] (1.001-1.035) Urine Protein (NEGATIVE) mg/dL Urine Glucose (UA) (NEGATIVE) mg/dL Urine Ketones (NEGATIVE) mg/dL Urine Occult Blood (NEGATIVE) Urine Nitrite (NEGATIVE) Urine Bilirubin (NEGATIVE) Urine Urobilinogen (<2.0) EU/dL Ur Leukocyte Esterase (NEGATIVE) Urine RBC (0-2/HPF) Urine WBC (0-5/HPF) Ur Epithelial Cells (NONE-FEW) Urine Bacteria (NEGATIVE) Ur Random Sodium (40.0-220.0) mmol/L COVID-19 ([facility]) (NEGATIVE) Med Orders - Current: Current Medications Acetaminophen (Tylenol) 650 mg PO Q4H PRN PRN Reason: Pain (Mild 1-3)/fever Last Admin: 03/13/20 08:53 Dose: 650 mg Documented by: Albuterol/Ipratropium (Duoneb 3.0-0.5 Mg/3 Ml) 3 ml NEB Q4HRRT PRN PRN Reason: Shortness Of Breath/wheezing Amlodipine Besylate (Norvasc) 10 mg PO DAILY [facility] Last Admin: 03/13/20 09:34 Dose: 10 mg Documented by: Calcium Carbonate/Glycine (Oyster Shell Calcium) 500 mg PO DAILY [facility] Last Admin: 03/13/20 09:10 Dose: 500 mg Documented by: Digoxin (Lanoxin) 125 mcg PO DAILY [facility] Last Admin: 03/13/20 09:11 Dose: 125 mcg Documented by: Dorzolamide/Timolol (Cosopt 2%-0.5% Ophth Soln) 1 ml EYEBOTH DAILY [facility] Furosemide (Lasix) 40 mg IVPUSH Q8H [facility] Last Admin: 03/13/20 10:24 Dose: 40 mg Documented by: Magnesium Sulfate 4 gm/ Premix 100 mls @ 50 mls/hr IV ONETIME ONE Stop: 03/13/20 11:59 Last Admin: 03/13/20 10:03 Dose: 50 mls/hr Documented by: Lidocaine (Lidoderm 5%) 700 mg TRDERM Q24H [facility] Losartan Potassium (Cozaar) 100 mg PO DAILY [facility] Last Admin: 03/13/20 09:08 Dose: 100 mg Documented by: Metoprolol Succinate (Toprol Xl) 50 mg PO BID [facility] Last Admin: 03/13/20 09:05 Dose: 50 mg Documented by: Nitrofurantoin Macrocrystals (Macrobid) 100 mg PO BID [facility] Last Admin: 03/13/20 09:10 Dose: 100 mg Documented by: Ondansetron HCl (Zofran) 4 mg IVPUSH Q4H PRN PRN Reason: Nausea/Vomiting Prednisolone Acetate (Pred Forte 1% Ophth Susp) 0 ml EYEBOTH BID [facility] Last Admin: 03/13/20 09:14 Dose: 1 drop Documented by: Sodium Chloride (Saline Flush) 10 ml FLUSH ASDIRECTED PRN PRN Reason: Keep Vein Open Last Admin: 03/12/20 16:25 Dose: 10 ml Documented by: Sodium Chloride (Saline Flush) 2.5 ml FLUSH ASDIRECTED PRN PRN Reason: Keep Vein Open Last Admin: 03/12/20 16:25 Dose: 2.5 ml Documented by: Warfarin Sodium (Coumadin Sliding Scale) 0 each PO 1400 [facility] Warfarin Sodium (Coumadin) 2.5 mg PO 03/13/20@1400 [facility] Stop: 03/13/20 14:01 Discontinued Medications Diazepam (Valium) 2 mg PO BEDTIME ONE Stop: 03/12/20 23:38 Last Admin: 03/12/20 23:59 Dose: 2 mg Documented by: Dorzolamide/Timolol (Cosopt 2%-0.5% Ophth Soln) 0 ml EYEBOTH ONETIME ONE Stop: 03/12/20 23:46 Last Admin: 03/13/20 00:04 Dose: Not Given Documented by: Furosemide (Lasix) 40 mg IVPUSH NOW ONE Stop: 03/12/20 19:15 Last Admin: 03/12/20 19:19 Dose: 40 mg Documented by: Furosemide (Lasix) 40 mg IVPUSH Q8H [facility] Iopamidol (Isovue Multipack-370 (76%)) 50 ml IVPUSH ONETIME ONE Stop: 03/12/20 18:06 Last Admin: 03/12/20 18:06 Dose: 50 ml Documented by: Metoprolol Succinate (Toprol Xl) 50 mg PO DAILY [facility] Nitrofurantoin Macrocrystals (Macrobid) 100 mg PO ONETIME ONE Stop: 03/12/20 19:18 Last Admin: 03/12/20 19:25 Dose: 100 mg Documented by: Non-Formulary Medication (Alprazolam [Xanax Xr]) 1 mg PO BEDTIME [facility] Last Admin: 03/13/20 03:42 Dose: Not Given Documented by: Non-Formulary Medication (Dorzolamide Hcl/Pf [Dorzolamide 2% Eye Drop]) 1 drop EYEBOTH ASDIRECTED [facility] Non-Formulary Medication (Prednisolone Acetate/Pf [Prednisolone Acet 1% Eye Rigoberto p]) 1 drop EYEBOTH BID [facility] Last Admin: 03/13/20 03:42 Dose: Not Given Documented by: Potassium Chloride (Klor-Con M20) 40 meq PO ONETIME ONE Stop: 03/13/20 09:36 Last Admin: 03/13/20 10:01 Dose: 40 meq Documented by: Warfarin Sodium (Coumadin Sliding Scale) 1 each PO .RX TO DOSE ADAM - Exam Quality Assessment: Supplemental Oxygen General: Alert, Oriented Neck: Supple Lungs: Clear to Auscultation, Decreased Breath Sounds, Crackles GI/Abdominal Exam: Normal Bowel Sounds, Soft Back Exam: Normal Inspection, Decreased Range of Motion, Paraspinal Tenderness. No: Vertebral Tenderness Extremities: Pedal Edema. No: No Pedal Edema, Leg Pain, Mottled, Pallor Sepsis Event Note - Evaluation Sepsis Screening Result: No Definite Risk - Focused Exam Vital Signs: Vital Signs Temp Pulse Pulse Resp BP BP Pulse Ox 03/13/20 09:34 146/65 H 03/13/20 09:11 80 03/13/20 09:08 146/65 H 03/13/20 09:05 80 146/65 H 03/13/20 08:00 35.8 C L 83 15 146/65 H 96 03/13/20 05:00 35.9 C L 78 15 133/61 96 03/13/20 01:32 68 115/58 L 96 03/13/20 01:29 03/13/20 00:09 36.1 C 79 139/84 95 03/13/20 00:05 72 139/84 Pulse Ox 03/13/20 09:34 03/13/20 09:11 03/13/20 09:08 03/13/20 09:05 03/13/20 08:00 03/13/20 05:00 03/13/20 01:32 03/13/20 01:29 96 03/13/20 00:09 03/13/20 00:05 Date Exam was Performed: 03/13/20 Time Exam was Performed: 11:50 - Problem List & Annotations (1) Acute CHF (congestive heart failure) SNOMED Code(s): 85500022 Code(s): I50.9 - HEART FAILURE, UNSPECIFIED Status: Acute Current Visit: Yes (2) History of atrial fibrillation SNOMED Code(s): 853506616 Code(s): Z86.79 - PERSONAL HISTORY OF OTHER DISEASES OF THE CIRCULATORY SYSTEM Status: Acute Current Visit: Yes (3) Hyponatremia SNOMED Code(s): 82465867 Code(s): E87.1 - HYPO-OSMOLALITY AND HYPONATREMIA Status: Acute Current Visit: Yes (4) Pleural effusion due to CHF (congestive heart failure) SNOMED Code(s): 33637910 Code(s): I50.9 - HEART FAILURE, UNSPECIFIED Status: Acute Current Visit: Yes (5) Hypertension SNOMED Code(s): 80393658 Code(s): I10 - ESSENTIAL (PRIMARY) HYPERTENSION Status: Acute Current Visit: No (6) Afib, Atrial fibrillation SNOMED Code(s): 19607267 Code(s): I48.91 - UNSPECIFIED ATRIAL FIBRILLATION Status: Chronic Current Visit: No (7) Hypoxic SNOMED Code(s): 533327186 Code(s): R09.02 - HYPOXEMIA Status: Acute Current Visit: Yes (8) Back pain SNOMED Code(s): 251324689 Code(s): M54.9 - DORSALGIA, UNSPECIFIED Status: Acute Current Visit: Yes - Problem List Review Problem List Initiated/Reviewed/Updated: Yes - My Orders Last 24 Hours: My Active Orders 03/12/20 Dinner Heart Healthy Diet [DIET] 03/12/20 19:42 Telemetry Monitoring [Cardiac Monitoring] [RC] . DIRECTED 03/12/20 19:59 Ambulate [RC] ASDIRECTED Oxygen Therapy [RC] PRN VTE/DVT Education [RC] PER UNIT ROUTINE Vital Signs [RC] Q4H Acetaminophen [Tylenol] 650 mg PO Q4H PRN Albuterol/Ipratropium [DuoNeb 3.0-0.5 MG/3 ML] 3 ml NEB Q4HRRT PRN Ondansetron [Zofran] 4 mg IVPUSH Q4H PRN 03/12/20 20:00 Sequential Compression Device [OM.PC] Per Unit Routine 03/12/20 20:01 Antiembolic Devices [RC] PER UNIT ROUTINE 03/12/20 20:02 RT Aerosol Therapy [RC] ASDIRECTED 03/12/20 20:04 Echo Comp wo Cont [US] Routine 03/12/20 20:17 Incentive Spirometry [RT Incentive Spirometry] [RC] Q2HWA 03/12/20 21:00 Nitrofurantoin Ness/Macrocryst [Macrobid] 100 mg PO BID 03/12/20 22:36 Resuscitation Status Routine 03/12/20 23:45 Metoprolol Succinate [Toprol XL] 50 mg PO BID 03/13/20 03:00 Furosemide [Lasix] 40 mg IVPUSH Q8H 03/13/20 09:00 Calcium Carbonate [Oyster Shell Calcium] 500 mg PO DAILY Digoxin [Lanoxin] 125 mcg PO DAILY Losartan [Cozaar] 100 mg PO DAILY amLODIPine [Norvasc] 10 mg PO DAILY prednisoLONE acetate [Pred Forte 1% Ophth Susp] 0 ml EYEBOTH BID 03/13/20 10:00 Magnesium Sulfate/Water [Magnesium Sulfate in Water Premix] 4 gm Premix Bag 1 bag IV ONETIME 03/13/20 11:30 Lidocaine 5% [Lidoderm 5%] 700 mg TRDERM Q24H 03/13/20 14:00 Warfarin Sliding Scale [Coumadin Sliding Scale] 0 each PO 1400 Warfarin [Coumadin] 2.5 mg PO 03/13/20@1400 03/14/20 05:11 INR,PT,PROTHROMBIN TIME [COAG] AM 03/14/20 09:00 Dorzolamide/Timolol [Cosopt 2%-0.5% Ophth Soln] 1 ml EYEBOTH DAILY 03/15/20 05:11 INR,PT,PROTHROMBIN TIME [COAG] AM - Plan Plan:: 89 y/o F admitted for Acute CHF exacerbation and pleural effusions resulting in hypoxic respiratory failure cont oxygenation via NC to maintain pulse oxy of 92% cont IV lasix 40mg q8H Monitor and replete electrolytes as needed cont tele monitoring obtain 2D echo DuoNebs as needed Lidocaine patch for back pain Tylenol as needed cont home meds
[2020-03-13] MEDS: Lidocaine 5% 700 MG Patch TRDERM SCH (12:25)
[2020-03-13] MEDS: Dorzolamide/Timolol 2%-0.5% Ophth Soln 10 ML Bottle EYEBOTH SCH (12:51)
[2020-03-13] MEDS ORDERED: Warfarin 2.5 MG Tab PO SCH (14:00)
[2020-03-13] MEDS: Warfarin Sliding Scale PO SCH (14:38)
[2020-03-14] MEDS: Oxybutynin 5 MG Tab PO SCH ×3 (00:02→20:59)
[2020-03-14] MEDS: Furosemide 40 MG/4 ML VIAL IVPUSH SCH ×3 (03:33→18:37)
[2020-03-14] MEDS: Nitrofurantoin Monohydrate/Macrocrystalline 100 MG Cap PO SCH ×2 (09:49→20:59)
[2020-03-14] MEDS: Calcium Carbonate 500 MG Tablet PO SCH (09:51)
[2020-03-14] MEDS: Losartan 50 MG Tab PO SCH (09:52)
[2020-03-14] MEDS: amLODIPine 5 MG Tab PO SCH (09:53)
[2020-03-14] MEDS: Metoprolol Tartrate 50 MG Tab PO SCH ×2 (09:58→20:59)
[2020-03-14] MEDS: Digoxin 125 MCG Tab PO SCH (09:58)
[2020-03-14] MEDS: Dorzolamide/Timolol 2%-0.5% Ophth Soln 10 ML Bottle EYEBOTH SCH (10:06)
[2020-03-14] MEDS: prednisoLONE Acetate 1% Ophth Susp 5 ML Bottle**OWN MED EYEBOTH SCH ×2 (10:08→21:00)
[2020-03-14] MEDS: Lidocaine 5% 700 MG Patch TRDERM SCH (11:01)
--- NOTE | 2020-03-14 11:14 | PCM.PN ---
- General Info Date of Service: 03/14/20 Admission Dx/Problem (Free Text): CHF exacerbation Subjective Update: Reports feeling improved today and she was peeing a lot. Denies chest pain. Dyspnea much improved, off oxygen with rest. Needs oxygen with activity. Functional Status: Reports: Pain Controlled, Tolerating Diet, Ambulating, Urinating - Review of Systems General: Reports: No Symptoms. Denies: Fatigue, Malaise Pulmonary: Denies: No Symptoms Cardiovascular: Reports: Dyspnea on Exertion, Edema (improved). Denies: Chest Pain, Palpitations Gastrointestinal: Reports: No Symptoms. Denies: Abdominal Pain, Nausea, Vomiting Genitourinary: Reports: No Symptoms. Denies: Dysuria, Frequency, Burning Musculoskeletal: Reports: No Symptoms Skin: Reports: No Symptoms Neurological: Reports: No Symptoms Psychiatric: Reports: No Symptoms - Patient Data Vitals - Most Recent: Last Vital Signs Temp 97.5 F 03/14/20 08:00 Pulse 68 03/14/20 09:58 Resp 16 03/14/20 08:00 BP 121/64 03/14/20 09:58 Pulse Ox 95 03/14/20 08:00 Weight - Most Recent: 55.52 kg I&O - Last 24 Hours: Intake & Output 03/13/20 03/14/20 03/14/20 22:59 06:59 14:59 Intake Total 450 400 Output Total 2600 2100 Balance -2150 -1700 Lab Results Last 24 Hours: Laboratory Results - last 24 hr 03/14/20 03/14/20 03/14/20 Range/Units 05:40 06:18 06:18 WBC 6.24 (4.0-11.0) K/uL RBC 4.95 (4.30-5.90) M/uL Hgb 14.9 (12.0-16.0) g/dL Hct 41.0 (36.0-46.0) % MCV 82.8 (80.0-98.0) fL MCH 30.1 (27.0-32.0) pg MCHC 36.3 (31.0-37.0) g/dL RDW Std Deviation 45.1 (28.0-62.0) fl RDW Coeff of Dg 15 (11.0-15.0) % Plt Count 205 (150-400) K/uL MPV 9.80 (7.40-12.00) fL Neut % (Auto) 66.6 (48.0-80.0) % Lymph % (Auto) 16.3 (16.0-40.0) % [place] % (Auto) 14.9 (0.0-15.0) % Eos % (Auto) 1.9 (0.0-7.0) % Baso % (Auto) 0.3 (0.0-1.5) % Neut # (Auto) 4.2 (1.4-5.7) K/uL Lymph # (Auto) 1.0 (0.6-2.4) K/uL [place] # (Auto) 0.9 H (0.0-0.8) K/uL Eos # (Auto) 0.1 (0.0-0.7) K/uL Baso # (Auto) 0.0 (0.0-0.1) K/uL INR 2.71 Sodium 127 L (136-145) mmol/L Potassium 4.0 (3.5-5.1) mmol/L Chloride 90 L (98-107) mmol/L Carbon Dioxide 33.0 H (21.0-32.0) mmol/L BUN 13 (7.0-18.0) mg/dL Creatinine 0.9 (0.6-1.0) mg/dL Est Cr Clr Drug Dosing 37.87 mL/min Estimated GFR (MDRD) 59.1 ml/min Glucose 81 (74-106) mg/dL Calcium 8.7 (8.5-10.1) mg/dL Phosphorus 3.6 (2.6-4.7) mg/dL Magnesium 2.1 (1.8-2.4) mg/dL Armando Results Last 24 Hours: Microbiology 03/12/20 16:42 Urine Culture - Final Urine, Clean Catch MIXED YA >100,000 CFU/ML Med Orders - Current: Current Medications Acetaminophen (Tylenol) 650 mg PO Q4H PRN PRN Reason: Pain (Mild 1-3)/fever Last Admin: 03/13/20 21:06 Dose: 650 mg Documented by: Albuterol/Ipratropium (Duoneb 3.0-0.5 Mg/3 Ml) 3 ml NEB Q4HRRT PRN PRN Reason: Shortness Of Breath/wheezing Amlodipine Besylate (Norvasc) 10 mg PO DAILY [facility] Last Admin: 03/14/20 09:53 Dose: 10 mg Documented by: Calcium Carbonate/Glycine (Oyster Shell Calcium) 500 mg PO DAILY [facility] Last Admin: 03/14/20 09:51 Dose: 500 mg Documented by: Digoxin (Lanoxin) 125 mcg PO DAILY [facility] Last Admin: 03/14/20 09:58 Dose: 125 mcg Documented by: Dorzolamide/Timolol (Cosopt 2%-0.5% Ophth Soln) 1 ml EYEBOTH DAILY [facility] Last Admin: 03/14/20 10:06 Dose: 1 drop Documented by: Furosemide (Lasix) 40 mg IVPUSH Q8H [facility] Last Admin: 03/14/20 10:58 Dose: 40 mg Documented by: Lidocaine (Lidoderm 5%) 700 mg TRDERM Q24H [facility] Last Admin: 03/14/20 11:01 Dose: 700 mg Documented by: Losartan Potassium (Cozaar) 100 mg PO DAILY [facility] Last Admin: 03/14/20 09:52 Dose: 100 mg Documented by: Metoprolol Tartrate (Lopressor) 50 mg PO BID [facility] Last Admin: 03/14/20 09:58 Dose: 50 mg Documented by: Nitrofurantoin Macrocrystals (Macrobid) 100 mg PO BID [facility] Last Admin: 03/14/20 09:49 Dose: 100 mg Documented by: Ondansetron HCl (Zofran) 4 mg IVPUSH Q4H PRN PRN Reason: Nausea/Vomiting Oxybutynin Chloride (Oxybutynin) 5 mg PO BID [facility] Last Admin: 03/14/20 09:51 Dose: 5 mg Documented by: Prednisolone Acetate (Pred Forte 1% Ophth Susp) 0 ml EYEBOTH BID [facility] Last Admin: 03/14/20 10:08 Dose: 1 drop Documented by: Sodium Chloride (Saline Flush) 10 ml FLUSH ASDIRECTED PRN PRN Reason: Keep Vein Open Last Admin: 03/12/20 16:25 Dose: 10 ml Documented by: Sodium Chloride (Saline Flush) 2.5 ml FLUSH ASDIRECTED PRN PRN Reason: Keep Vein Open Last Admin: 03/12/20 16:25 Dose: 2.5 ml Documented by: Warfarin Sodium (Coumadin Sliding Scale) 0 each PO 1400 [facility] Last Admin: 03/13/20 14:38 Dose: Not Given Documented by: Warfarin Sodium (Coumadin) 2.5 mg PO 03/14/20@1400 [facility] Stop: 03/14/20 14:01 Discontinued Medications Diazepam (Valium) 2 mg PO BEDTIME ONE Stop: 03/12/20 23:38 Last Admin: 03/12/20 23:59 Dose: 2 mg Documented by: Dorzolamide/Timolol (Cosopt 2%-0.5% Ophth Soln) 0 ml EYEBOTH ONETIME ONE Stop: 03/12/20 23:46 Last Admin: 03/13/20 00:04 Dose: Not Given Documented by: Furosemide (Lasix) 40 mg IVPUSH NOW ONE Stop: 03/12/20 19:15 Last Admin: 03/12/20 19:19 Dose: 40 mg Documented by: Furosemide (Lasix) 40 mg IVPUSH Q8H [facility] Magnesium Sulfate 4 gm/ Premix 100 mls @ 50 mls/hr IV ONETIME ONE Stop: 03/13/20 11:59 Last Admin: 03/13/20 10:03 Dose: 50 mls/hr Documented by: Iopamidol (Isovue Multipack-370 (76%)) 50 ml IVPUSH ONETIME ONE Stop: 03/12/20 18:06 Last Admin: 03/12/20 18:06 Dose: 50 ml Documented by: Metoprolol Succinate (Toprol Xl) 50 mg PO DAILY [facility] Metoprolol Succinate (Toprol Xl) 50 mg PO BID [facility] Last Admin: 03/13/20 21:08 Dose: 50 mg Documented by: Nitrofurantoin Macrocrystals (Macrobid) 100 mg PO ONETIME ONE Stop: 03/12/20 19:18 Last Admin: 03/12/20 19:25 Dose: 100 mg Documented by: Non-Formulary Medication (Alprazolam [Xanax Xr]) 1 mg PO BEDTIME [facility] Last Admin: 03/13/20 03:42 Dose: Not Given Documented by: Non-Formulary Medication (Dorzolamide Hcl/Pf [Dorzolamide 2% Eye Drop]) 1 drop EYEBOTH ASDIRECTED [facility] Non-Formulary Medication (Prednisolone Acetate/Pf [Prednisolone Acet 1% Eye Drop]) 1 drop EYEBOTH BID [facility] Last Admin: 03/13/20 03:42 Dose: Not Given Documented by: Potassium Chloride (Klor-Con M20) 40 meq PO ONETIME ONE Stop: 03/13/20 09:36 Last Admin: 03/13/20 10:01 Dose: 40 meq Documented by: Warfarin Sodium (Coumadin Sliding Scale) 1 each PO .RX TO DOSE [facility] Warfarin Sodium (Coumadin) 2.5 mg PO 03/13/20@1400 [facility] Stop: 03/13/20 14:01 Last Admin: 03/13/20 15:20 Dose: 2.5 mg Documented by: - Exam Quality Assessment: Supplemental Oxygen, DVT Prophylaxis General: Alert, Oriented Lungs: Crackles Cardiovascular: Regular Rate, Irregular Rhythm, Murmurs GI/Abdominal Exam: Normal Bowel Sounds, Soft, Non-Tender Back Exam: Normal Inspection, Full Range of Motion Extremities: Normal Inspection, Normal Range of Motion, Pedal Edema (+1 pitting BLE, much improved) Neurological: No New Focal Deficit Psy/Mental Status: Alert, Normal Affect Sepsis Event Note - Evaluation Sepsis Screening Result: No Definite Risk - Focused Exam Vital Signs: Vital Signs Temp Pulse Pulse Resp BP BP Pulse Ox 03/14/20 09:58 68 121/64 03/14/20 09:53 121/64 03/14/20 09:52 121/64 03/14/20 08:00 97.5 F 77 16 121/64 95 03/14/20 03:40 98.6 F 73 16 120/68 95 03/14/20 00:02 97.5 F 78 16 138/71 93 L 03/13/20 23:45 Pulse Ox 03/14/20 09:58 03/14/20 09:53 03/14/20 09:52 03/14/20 08:00 03/14/20 03:40 03/14/20 00:02 03/13/20 23:45 92 L Date Exam was Performed: 03/14/20 Time Exam was Performed: 12:38 - Problem List & Annotations (1) Acute CHF (congestive heart failure) SNOMED Code(s): 61960511 Code(s): I50.9 - HEART FAILURE, UNSPECIFIED Status: Acute Current Visit: Yes Qualifiers: Heart failure type: diastolic Qualified Code(s): I50.31 - Acute diastolic (congestive) heart failure (2) Hyponatremia SNOMED Code(s): 12561467 Code(s): E87.1 - HYPO-OSMOLALITY AND HYPONATREMIA Status: Acute Current Visit: Yes (3) History of atrial fibrillation SNOMED Code(s): 948859094 Code(s): Z86.79 - PERSONAL HISTORY OF OTHER DISEASES OF THE CIRCULATORY SYSTEM Status: Chronic Current Visit: Yes (4) Hypoxic SNOMED Code(s): 198484841 Code(s): R09.02 - HYPOXEMIA Status: Acute Current Visit: Yes (5) Pleural effusion due to CHF (congestive heart failure) SNOMED Code(s): 64226956 Code(s): I50.9 - HEART FAILURE, UNSPECIFIED Status: Acute Current Visit: Yes (6) UTI (urinary tract infection) SNOMED Code(s): 53942832 Code(s): N39.0 - URINARY TRACT INFECTION, SITE NOT SPECIFIED Status: Acute Current Visit: Yes Qualifiers: Urinary tract infection type: acute cystitis Hematuria presence: with hematuria Qualified Code(s): N30.01 - Acute cystitis with hematuria (7) Hypertension SNOMED Code(s): 66910344 Code(s): I10 - ESSENTIAL (PRIMARY) HYPERTENSION Status: Chronic Current Visit: No (8) Acute respiratory failure with hypoxia SNOMED Code(s): 88332755, 088295173 Code(s): J96.01 - ACUTE RESPIRATORY FAILURE WITH HYPOXIA Status: Acute Current Visit: Yes (9) Anticoagulant long-term use SNOMED Code(s): 748170112 Code(s): Z79.01 - HALFWAY (CURRENT) USE OF ANTICOAGULANTS Status: Acute Current Visit: Yes - Problem List Review Problem List Initiated/Reviewed/Updated: Yes - My Orders Last 24 Hours: My Active Orders 03/14/20 09:42 Communication Order [RC] PER UNIT ROUTINE - Plan Plan:: This 89 y/o F admitted for Acute CHF exacerbation and pleural effusions resulting in hypoxic respiratory failure 1. Acute Diastolic CHF exacerbation - Diuresing nicely - Continue Lasix 40 mg IV TID - Strict I/O, daily weights, 1.5 L FR - cont oxygenation via NC to maintain pulse oxy of 90%, sating well without O2 at rest, but with activity dipped to 80s. Will likely need oxygen as outpatient. - Telemetry - ECHO returned with moderate aortic stenosis, EF 65%, RV size enlarged with severely elevated pressures at 65.8 mmHg. Which is a change from previous ECHOs. 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 2. Atrial fibrillation - Continue Digoxin and Metoprolol - INR in therapeutic range, Continue Coumadin 3. HTN: - Stable, continue Amlodipine and Cozaar 4. Back pain: - Lidocaine patch 5. UTI: - UC returned with mixed ya >100,000 - Continue Macrobid for 5 days total course then stop VTE prophylaxis: Warfarin Dispo: 1-2 more days. Did discuss care with daughter in law Abel at request of patient. Abel would let the sons know.
[2020-03-14] MEDS ORDERED: Warfarin 2.5 MG Tab PO SCH ×2 (14:00)
[2020-03-14] MEDS: Warfarin Sliding Scale PO SCH (14:08)
[2020-03-14] MEDS: Acetaminophen 325 MG Tab PO PRN ×2 (15:51→21:00)
[2020-03-15] MEDS: Furosemide 40 MG/4 ML VIAL IVPUSH SCH ×2 (03:48→11:20)
[2020-03-15 08:30] LABS: CARBON DIOXIDE,CO2 30.9 mmol/L (21.0-32.0); POTASSIUM,K 3.7 mmol/L (3.5-5.1)
[2020-03-15] MEDS: Digoxin 125 MCG Tab PO SCH (08:34)
[2020-03-15] MEDS: amLODIPine 5 MG Tab PO SCH (08:34)
[2020-03-15] MEDS: Losartan 50 MG Tab PO SCH (08:34)
[2020-03-15] MEDS: Oxybutynin 5 MG Tab PO SCH (08:35)
[2020-03-15] MEDS: Nitrofurantoin Monohydrate/Macrocrystalline 100 MG Cap PO SCH (08:36)
[2020-03-15] MEDS: Metoprolol Tartrate 50 MG Tab PO SCH (08:36)
[2020-03-15] MEDS: Calcium Carbonate 500 MG Tablet PO SCH (08:36)
[2020-03-15] MEDS: Dorzolamide/Timolol 2%-0.5% Ophth Soln 10 ML Bottle EYEBOTH SCH (08:44)
[2020-03-15] MEDS: prednisoLONE Acetate 1% Ophth Susp 5 ML Bottle**OWN MED EYEBOTH SCH (08:45)
[2020-03-15] MEDS ORDERED: Calcium Carbonate 500 MG Tab.Chew PO PRN (10:05)
[2020-03-15] MEDS: Lidocaine 5% 700 MG Patch TRDERM SCH (11:20)
[2020-03-15 12:36] VITALS: BP 109/58; PULSE 60
--- NOTE | 2020-03-15 12:57 | ECHO ---
EXAM DATE: 03/12/20 PATIENT'S AGE: 89 The ECHO report has been scanned into [employer] and can be seen in this patient's EMR (Electronic Medical Record) under the REPORTS section. The report has also been scanned into PACS. DES
--- NOTE | 2020-03-15 13:04 | PCM.DCSUM1 ---
Discharge Summary - Hospital Course Brief History: Patient is an 89-year-old female with Past medical history of atrial fibrillation (currently on warfarin), hypertension, and asthma, chronic back pain. Does not require any home oxygen. who presents to the emergency room with complaints of fluid retention and shortness of breath. She noticed she was becoming increasingly short of breath and having lower extremity pitting edema to bilateral lower extremities. Her primary care provider recommended to take extra Lasix but her symptoms didn't improve. She does occasionally check her oxygen saturation at home, typically runs in the mid 90s and today was running in the 70s. Patient denies any fever, chills, headache, change in vision, syncope or near syncope. Denies any chest pain, back pain or cough. Denies any abdominal pain, nausea, vomiting, diarrhea, constipation or dysuria. She does have history of urinary retentio has been seen by Chetan for this concern - no new concerns with urinary issues today. Has not noted any blood in urine or stool. Patient has been eating and drinking appropriately. in the ER CTA chest was done which showed moderate right and small pleural effusion. She was requrinf oxygen of 3-4 lts to maintain her oxygenation.She was also hyponatremic to 125, received IV Lasix in ER and patient was admitted for further management Diagnosis: Stroke: No - Discharge Data Discharge Date: 03/15/20 Discharge Disposition: Home, W Home Health Agency 06 Condition: Good - Referral to Home Health Date of Face to Face Encounter: 03/15/20 Reason for Homebound Status: Clarissa is homebound unable to drive herself to appointments. She is in need of caregiver to bring her to appointments and to leave the house. She is also in need of an assistive device for ambulation due to unsteady gait and shortness of breath. Primary Care Physician: PCP None Skilled Need: Clarissa is in need of longterm care to evaluate and monitor CHF symptoms. This includes monitoring blood pressure, oxygen saturations and daily weights. She would also benefit from monitoring of new medications, including increase in Lasix and Oxybutinin for overactive bladder symptoms. She is in need of PT to evaluate and treat for unsteady gait and deconditioning related to recent hospitalization. - Discharge Diagnosis/Problem(s) (1) Acute CHF (congestive heart failure) SNOMED Code(s): 19109366 ICD Code: I50.9 - HEART FAILURE, UNSPECIFIED Status: Acute Current Visit: Yes Qualifiers: Heart failure type: diastolic Qualified Code(s): I50.31 - Acute diastolic (congestive) heart failure (2) Hyponatremia SNOMED Code(s): 83397874 ICD Code: E87.1 - HYPO-OSMOLALITY AND HYPONATREMIA Status: Acute Current Visit: Yes (3) History of atrial fibrillation SNOMED Code(s): 462315256 ICD Code: Z86.79 - PERSONAL HISTORY OF OTHER DISEASES OF THE CIRCULATORY SYSTEM Status: Chronic Current Visit: Yes (4) Hypoxic SNOMED Code(s): 123299248 ICD Code: R09.02 - HYPOXEMIA Status: Acute Current Visit: Yes (5) Pleural effusion due to CHF (congestive heart failure) SNOMED Code(s): 25939236 ICD Code: I50.9 - HEART FAILURE, UNSPECIFIED Status: Acute Current Visit: Yes (6) UTI (urinary tract infection) SNOMED Code(s): 24442711 ICD Code: N39.0 - URINARY TRACT INFECTION, SITE NOT SPECIFIED Status: Acute Current Visit: Yes Qualifiers: Urinary tract infection type: acute cystitis Hematuria presence: with hematuria Qualified Code(s): N30.01 - Acute cystitis with hematuria (7) Hypertension SNOMED Code(s): 78930485 ICD Code: I10 - ESSENTIAL (PRIMARY) HYPERTENSION Status: Chronic Current Visit: No (8) Acute respiratory failure with hypoxia SNOMED Code(s): 85948396, 076686395 ICD Code: J96.01 - ACUTE RESPIRATORY FAILURE WITH HYPOXIA Status: Acute Current Visit: Yes (9) Anticoagulant long-term use SNOMED Code(s): 920811668 ICD Code: Z79.01 - COAL GETTER (CURRENT) USE OF ANTICOAGULANTS Status: Acute Current Visit: Yes - Patient Summary/Data Hospital Course: Admitting diagnoses: Acute hypoxic respiratory failure CHF UTI Chronic pleural effusion R Discharge Diagnoses: Acute on chronic respiratory failure- resolved Hypoxia Diastolic CHF Aortic stenosis UTI Chronic pleural effusion R Other pmh: HTN Afib Anticoagulation with Coumadin HLD Clarissa was admitted secondary to dyspnea, hypoxia and CHF exacerbation. She was noted to have pleural effusion, which was stable since May. She was admitted for diuresis. She was give Lasix 60 mg TID for 2 days, she diuresed well with removal of 5 L fluid in that time from. Leg edema improved significantly as well as breathing. She remains on 2 L NC, which she reports previously she has needed some oxygen when she is discharged. She was noted to be satting 85% on RA at rest, placed on 2 L NC and sats improved to mid 90s. She will be prescribed oxygen per nasal canula at home. she is in need of portable oxygen as she is up ambulating within her home. Lasix dose at home will be changed to 40 mg BID. ECHO results revealed EF stable, 60-65%, RV size mildly enlarged with severely elevated pressures at 65.8. Aortic stenosis also noted, gradient shows 11, but report states this may be a underestimate and aortic stenosis may be more moderate in severity. SHe remains in atrial fib, but rates controlled on current regimen on medications. She is feeling improved today. Hyponatremia has been stable and likely related to CHF. During her stay she was also noted to have mild UTI, Macrobid was started. UC returned Mixed ya. Will send home with 2 more days of Macrobid to complete 5 day course. She was also started on Oxybutinin for overactive bladder symptoms, she did see an improvement. Will keep this at 5 mg BID for now, PCP may change if needed or stop if no longer effective. She will be discharged home today. Continue all current medications, with noted increase in lasix. She will have follow up with Dr Cheney, Cardiology and her PCP Dr Sung in 1 week. She is to monitor weight at home and monitor salt and fluid intake as well. Discharge information and treatment plan discussed with Abel, daughter in law per patient request. We did discuss potential for thoracentesis, but with the chronic pleural effusion it may be helpful for only a short time. She can discuss this with PCP and have this arranged as outpatient. She is to return to ED or clinic if concerns should arise. Home Health consult arranged. - Patient Instructions Diet: Heart Healthy Diet, Low Sodium Fluid Restriction: 2000 mL Activity: As Tolerated Driving: Do Not Drive Showering/Bathing: May Shower Notify Provider of: Fever, Increased Pain, Swelling and Redness, Drainage, Nausea and/or Vomiting Other/Special Instructions: Weigh yourself daily, if you notice a 3 lb increase in one day or 5 lbs increase in 1 week notify your doctor or prefinish operator. Watch for increase shortness of breath as well, this may be a sign you are retaining fluid. - Discharge Plan *PRESCRIPTION DRUG MONITORING PROGRAM REVIEWED*: Not Applicable *COPY OF PRESCRIPTION DRUG MONITORING REPORT IN PATIENT KARL: Not Applicable Prescriptions/Med Rec: Furosemide 40 mg PO BID #60 tablet Nitrofurantoin Mcculloch/Macrocryst [Nitrofurantoin Mcculloch-MCR] 100 mg PO BID #4 cap Oxybutynin 5 mg PO BID #60 tablet Home Medications: Home Meds ALPRAZolam [Xanax XR] 1 mg PO BEDTIME 03/12/20 [History] Calcium Carbonate [Calcium] 1 tab PO DAILY 03/12/20 [History] Digoxin [Lanoxin] 125 mcg PO DAILY 03/12/20 [History] Dorzolamide HCl/Pf [Dorzolamide 2% Eye Drop] 1 drop EYEBOTH ASDIRECTED 03/12/20 [History] Losartan [Cozaar] 100 mg PO DAILY 03/12/20 [History] Lutein/Minerals/Vit A,C & E [Ocuvite] 1 tab PO DAILY 03/12/20 [History] Multivitamin [Multi-Vitamin Daily] 1 tab PO DAILY 03/12/20 [History] Potassium Chloride 20 meq PO DAILY 03/12/20 [History] Prednisolone Acetate/Pf [Prednisolone Acet 1% Eye Drop] 1 drop EYEBOTH BID 03/12/20 [History] amLODIPine [Norvasc] 10 mg PO DAILY 03/12/20 [History] Metoprolol Tartrate 50 mg PO BID 03/13/20 [History] Warfarin [[facility]madin] [facility] 03/13[facility] [History] Warfarin [Coumadin] 5 mg PO TU 03/13/20 [History] Furosemide 40 mg PO BID #60 tablet 03/15/20 [Rx] Nitrofurantoin Mcculloch/Macrocryst [Nitrofurantoin Mcculloch-MCR] 100 mg PO BID #4 cap 03/15/20 [Rx] Oxybutynin 5 mg PO BID #60 tablet 03/15/20 [Rx] Oxygen Therapy Mode: Nasal Cannula Oxygen Flow Rate (L/min): 2 Maintain SpO2% greater than: 90 Patient Handouts: Furosemide tablets, Aortic Valve Stenosis, Nitrofurantoin tablets or capsules, Oxybutynin tablets, Heart Failure, Self Care, [id number], Urinary Tract Infection, Adult, [id number] Referrals: Kai Cheney MD [Physician] - 03/24/20 4:00 pm Mg Sung MD [Physician] - 03/28/20 3:00 pm (Please arrive 15 minutes early to your appointment. Also, please bring your insurance cards, identification and your own facemask to your appointment.) - Discharge Summary/Plan Comment DC Time >30 min.: No - Patient Data Vitals - Most Recent: Last Vital Signs Temp 97.1 F 03/15/20 12:00 Pulse 60 03/15/20 12:00 Resp 16 03/15/20 12:00 BP 109/58 L 03/15/20 12:00 Pulse Ox 95 03/15/20 12:00 Weight - Most Recent: 54.922 kg I&O - Last 24 hours: Intake & Output 03/14/20 03/15/20 03/15/20 22:59 06:59 14:59 Intake Total 740 350 Output Total 1550 1100 Balance -810 -750 Lab Results - Last 24 hrs: Laboratory Results - last 24 hr 03/15/20 03/15/20 03/15/20 Range/Units 06:22 06:22 06:22 WBC 5.44 (4.0-11.0) K/uL RBC 4.51 (4.30-5.90) M/uL Hgb 13.8 (12.0-16.0) g/dL Hct 37.9 (36.0-46.0) % MCV 84.0 (80.0-98.0) fL MCH 30.6 (27.0-32.0) pg MCHC 36.4 (31.0-37.0) g/dL RDW Std Deviation 44.8 (28.0-62.0) fl RDW Coeff of Dg 15 (11.0-15.0) % Plt Count 201 (150-400) K/uL MPV 9.80 (7.40-12.00) fL Neut % (Auto) 59.5 (48.0-80.0) % Lymph % (Auto) 18.9 (16.0-40.0) % Mcculloch % (Auto) 18.8 H (0.0-15.0) % Eos % (Auto) 2.2 (0.0-7.0) % Baso % (Auto) 0.6 (0.0-1.5) % Neut # (Auto) 3.2 (1.4-5.7) K/uL Lymph # (Auto) 1.0 (0.6-2.4) K/uL Mcculloch # (Auto) 1.0 H (0.0-0.8) K/uL Eos # (Auto) 0.1 (0.0-0.7) K/uL Baso # (Auto) 0.0 (0.0-0.1) K/uL INR 2.35 Sodium 125 L (136-145) mmol/L Potassium 3.7 (3.5-5.1) mmol/L Chloride 88 L (98-107) mmol/L Carbon Dioxide 30.9 (21.0-32.0) mmol/L BUN 16 (7.0-18.0) mg/dL Creatinine 0.9 (0.6-1.0) mg/dL Est Cr Clr Drug Dosing 37.46 mL/min Estimated GFR (MDRD) 59.1 ml/min Glucose 80 (74-106) mg/dL Calcium 8.5 (8.5-10.1) mg/dL PRADIP Results - Last 24 hrs: Microbiology 03/12/20 16:42 Urine Culture - Final Urine, Clean Catch MIXED YA >100,000 CFU/ML Med Orders - Current: Current Medications Acetaminophen (Tylenol) 650 mg PO Q4H PRN PRN Reason: Pain (Mild 1-3)/fever Last Admin: 03/14/20 21:00 Dose: 650 mg Documented by: Albuterol/Ipratropium (Duoneb 3.0-0.5 Mg/3 Ml) 3 ml NEB Q4HRRT PRN PRN Reason: Shortness Of Breath/wheezing Amlodipine Besylate (Norvasc) 10 mg PO DAILY [facility] Last Admin: 03/15/20 08:34 Dose: 10 mg Documented by: Calcium Carbonate/Glycine (Oyster Shell Calcium) 500 mg PO DAILY [facility] Last Admin: 03/15/20 08:36 Dose: 500 mg Documented by: Calcium Carbonate/Glycine (Tums) 1,000 mg PO Q2HR PRN PRN Reason: Indigestion Digoxin (Lanoxin) 125 mcg PO DAILY [facility] Last Admin: 03/15/20 08:34 Dose: 125 mcg Documented by: Dorzolamide/Timolol (Cosopt 2%-0.5% Ophth Soln) 1 ml EYEBOTH DAILY [facility] Last Admin: 03/15/20 08:44 Dose: 1 drop Documented by: Furosemide (Lasix) 40 mg IVPUSH Q8H [facility] Last Admin: 03/15/20 11:20 Dose: 40 mg Documented by: Lidocaine (Lidoderm 5%) 700 mg TRDERM Q24H [facility] Last Admin: 03/15/20 11:20 Dose: 700 mg Documented by: Losartan Potassium (Cozaar) 100 mg PO DAILY [facility] Last Admin: 03/15/20 08:34 Dose: 100 mg Documented by: Metoprolol Tartrate (Lopressor) 50 mg PO BID [facility] Last Admin: 03/15/20 08:36 Dose: 50 mg Documented by: Nitrofurantoin Macrocrystals (Macrobid) 100 mg PO BID [facility] Last Admin: 03/15/20 08:36 Dose: 100 mg Documented by: Ondansetron HCl (Zofran) 4 mg IVPUSH Q4H PRN PRN Reason: Nausea/Vomiting Oxybutynin Chloride (Oxybutynin) 5 mg PO BID [facility] Last Admin: 03/15/20 08:35 Dose: 5 mg Documented by: Prednisolone Acetate (Pred Forte 1% Ophth Susp) 0 ml EYEBOTH BID [facility] Last Admin: 03/15/20 08:45 Dose: 1 drop Documented by: Sodium Chloride (Saline Flush) 10 ml FLUSH ASDIRECTED PRN PRN Reason: Keep Vein Open Last Admin: 03/12/20 16:25 Dose: 10 ml Documented by: Sodium Chloride (Saline Flush) 2.5 ml FLUSH ASDIRECTED PRN PRN Reason: Keep Vein Open Last Admin: 03/12/20 16:25 Dose: 2.5 ml Documented by: Warfarin Sodium (Coumadin Sliding Scale) 0 each PO 1400 [facility] Last Admin: 03/14/20 14:08 Dose: Not Given Documented by: Warfarin Sodium (Coumadin) 5 mg PO 03/15/20@1400 [facility] Stop: 03/15/20 14:01 Discontinued Medications Diazepam (Valium) 2 mg PO BEDTIME ONE Stop: 03/12/20 23:38 Last Admin: 03/12/20 23:59 Dose: 2 mg Documented by: Dorzolamide/Timolol (Cosopt 2%-0.5% Ophth Soln) 0 ml EYEBOTH ONETIME ONE Stop: 03/12/20 23:46 Last Admin: 03/13/20 00:04 Dose: Not Given Documented by: Furosemide (Lasix) 40 mg IVPUSH NOW ONE Stop: 03/12/20 19:15 Last Admin: 03/12/20 19:19 Dose: 40 mg Documented by: Furosemide (Lasix) 40 mg IVPUSH Q8H [facility] Magnesium Sulfate 4 gm/ Premix 100 mls @ 50 mls/hr IV ONETIME ONE Stop: 03/13/20 11:59 Last Admin: 03/13/20 10:03 Dose: 50 mls/hr Documented by: Iopamidol (Isovue Multipack-370 (76%)) 50 ml IVPUSH ONETIME ONE Stop: 03/12/20 18:06 Last Admin: 03/12/20 18:06 Dose: 50 ml Documented by: Metoprolol Succinate (Toprol Xl) 50 mg PO DAILY [facility] Metoprolol Succinate (Toprol Xl) 50 mg PO BID [facility] Last Admin: 03/13/20 21:08 Dose: 50 mg Documented by: Nitrofurantoin Macrocrystals (Macrobid) 100 mg PO ONETIME ONE Stop: 03/12/20 19:18 Last Admin: 03/12/20 19:25 Dose: 100 mg Documented by: Non-Formulary Medication (Alprazolam [Xanax Xr]) 1 mg PO BEDTIME [facility] Last Admin: 03/13/20 03:42 Dose: Not Given Documented by: Non-Formulary Medication (Dorzolamide Hcl/Pf [Dorzolamide 2% Eye Drop]) 1 drop EYEBOTH ASDIRECTED [facility] Non-Formulary Medication (Prednisolone Acetate/Pf [Prednisolone Acet 1% Eye Drop]) 1 drop EYEBOTH BID [facility] Last Admin: 03/13/20 03:42 Dose: Not Given Documented by: Potassium Chloride (Klor-Con M20) 40 meq PO ONETIME ONE Stop: 03/13/20 09:36 Last Admin: 03/13/20 10:01 Dose: 40 meq Documented by: Warfarin Sodium (Coumadin Sliding Scale) 1 each PO .RX TO DOSE [facility] Warfarin Sodium (Coumadin) 2.5 mg PO 03/13/20@1400 [facility] Stop: 03/13/20 14:01 Last Admin: 03/13/20 15:20 Dose: 2.5 mg Documented by: Warfarin Sodium (Coumadin) 2.5 mg PO 03/14/20@1400 [facility] Stop: 03/14/20 14:01 Last Admin: 03/14/20 14:52 Dose: 2.5 mg Documented by: Warfarin Sodium (Coumadin) 2.5 mg PO 03/14/20@1400 [facility] Stop: 03/14/20 14:01 Last Admin: 03/14/20 14:57 Dose: Not Given Documented by: - Exam Quality Assessment: Reports: Supplemental Oxygen General: Reports: Alert, Oriented, Cooperative, No Acute Distress Lungs: Reports: Normal Respiratory Effort, Crackles (fine to R base) Cardiovascular: Reports: Regular Rate, Irregular Rhythm, Murmurs (grade 3 systolic) GI/Abdominal Exam: Normal Bowel Sounds, Soft, Non-Tender Back Exam: Reports: Normal Inspection, Full Range of Motion Extremities: Normal Inspection, Normal Range of Motion, Non-Tender, Pedal Edema (+1 non pitting much improved.) Wound/Incisions: Reports: Healing Well Neurological: Reports: No New Focal Deficit Psy/Mental Status: Reports: Alert, Normal Affect, Normal Mood
[2020-03-15] MEDS ORDERED: Warfarin 5 MG Tab PO SCH (14:00)
[2020-03-15] MEDS: Warfarin Sliding Scale PO SCH (14:57)
== END 2020-03-15 15:35 | disposition home health service (06) | DRG 291 ==
LOC: MW.ED 15:40 → MW.MS 19:30
PROVIDERS: ADMIT Student in an Organized Health Care Education/Training Program; ATTEND Student in an Organized Health Care Education/Training Program
DX: I11.0 Hypertensive heart disease with heart failure (principal); J96.21 Acute and chronic respiratory failure with hypoxia; E87.1 Hypo-osmolality and hyponatremia; I50.9 Heart failure, unspecified; N30.01 Acute cystitis with hematuria; H40.9 Unspecified glaucoma; J91.8 Pleural effusion in other conditions classified elsewhere; I35.0 Nonrheumatic aortic (valve) stenosis; Z20.828 Contact with and (suspected) exposure to other viral communicable diseases; I50.33 Acute on chronic diastolic (congestive) heart failure; I48.91 Unspecified atrial fibrillation; J45.909 Unspecified asthma, uncomplicated; G89.29 Other chronic pain; M54.9 Dorsalgia, unspecified; E78.5 Hyperlipidemia, unspecified; H54.7 Unspecified visual loss; Z86.79 Personal history of other diseases of the circulatory system; Z79.01 Long term (current) use of anticoagulants; Z79.899 Other long term (current) drug therapy; Z88.8 Allergy status to other drugs, medicaments and biological substances; Z88.2 Allergy status to sulfonamides; Z85.828 Personal history of other malignant neoplasm of skin; Z90.49 Acquired absence of other specified parts of digestive tract
CPT/HCPCS: 36415; 71045; 71275; 80053; 81001; 81003; 83735; 83880; 84100; 84300; 84484; 85025; 85379; 85610; 87086; 93005; 96374; 99285; A9270; J1940; Q9967; U0002; 80048; 93306; 99283; J3475

== ENCOUNTER 2020-10-25 15:21 | Inpatient (IN) | payer MEDICARE, BC ==
[2020-10-25] MEDS ORDERED: Sodium Chloride 0.9% 2.5 ML Syringe FLUSH PRN (15:44)
[2020-10-25] MEDS ORDERED: Sodium Chloride 0.9% 10 ML Syringe FLUSH PRN (15:44)
--- NOTE | 2020-10-25 15:59 | EDM.PDOC ---
ED HPI GENERAL MEDICAL PROBLEM - General Chief Complaint: Genitourinary Problem Stated Complaint: POSSIBLE UTI SYMPTOMS Time Seen by Provider: 10/25/20 15:25 Source of Information: Reports: Patient History Limitations: Reports: No Limitations - History of Present Illness INITIAL COMMENTS - FREE TEXT/NARRATIVE: HISTORY AND PHYSICAL: History of present illness: Patient is an 89-year-old female who presents emergency room today with concern of possible urinary tract infection and weakness x4 days. Patient states that she has had an increase in urinary frequency and states that she has little urine output when she does go to the bathroom. Patient states that she does have a history of frequent urinary tract infections and this is typically how she feels with prior urinary tract infections. Patient states that she has also had generalized weakness and is having difficulty with ambulation starting today. Patient states that she just before coming to the emergency room, tried to stand up and had to slowly lower herself down as she was so weak. Patient states she has a history of congestive heart failure and atrial fibrillation as well as frequent urinary tract infections. Patient states that she was on antibiotics 1 month ago for urinary tract infection. Patient states that she also had increased her Lasix dose over the weekend thinking that it could be related to her congestive heart failure but states that she did not have any increase in swelling or any other symptoms. Patient denies any shortness of breath. Patient denies fever, chills, chest pain, shortness of breath, or cough. Denies headache, neck stiff ness, change in vision, syncope, or near syncope. Denies nausea, vomiting, abdominal pain, diarrhea, constipation, or dysuria. Has not noted any blood in urine or stool. Patient has been eating and drinking appropriately. Review of systems: As per history of present illness and below otherwise all systems reviewed and negative. Past medical history: As per history of present illness and as reviewed below otherwise noncontributory. Surgical history: As per history of present illness and as reviewed below otherwise noncontributory. Social history: See social history for further information Family history: As per history of present illness and as reviewed below otherwise noncontributory. Physical exam: General: Patient is alert, oriented, and in no acute distress. Patient sitting comfortably on exam table. 81% on RA, otherwise vitals stable and reviewed by me. Placed on 4LNC immediately upon arrival and now 94%. Requires 1 assist with transfers due to weakness. HEENT: Atraumatic, normocephalic, pupils equal and reactive bilaterally, negative for conjunctival pallor or scleral icterus, mucous membranes moist, TMs normal bilaterally, throat clear, neck supple, nontender, trachea midline. No drooling or trismus noted. No meningeal signs. No hot potato voice noted. Lungs: Patient speaking clearly without breathlessness, no wheezing or stridor, no accessory muscle use or respiratory distress. Clear to auscultation, breath sounds equal bilaterally, chest nontender. Heart: S1S2, regular rate and rhythm with systolic ejection murmur best heard at the RUSB. No JVD. Abdomen: Soft, nondistended, nontender. Negative for masses or hepatosplenomegaly. Negative for costovertebral tenderness. Pelvis: Stable nontender. Genitourinary: Deferred. Rectal: Deferred. Skin: Intact, warm, dry. No lesions or rashes noted. Extremities: No edema. Atraumatic, negative for cords or calf pain. Neurovascular unremarkable. Neuro: Awake, alert, oriented. Cranial nerves II through XII unremarkable. Cerebellum unremarkable. Motor and sensory unremarkable throughout. Exam nonfocal. Notes: Upon arrival to the ED, patient is tired and pale appearing with O2 82% on RA. Placed on 4L NC and 95% otherwise breathing comfortably. BP is soft upon arrival 90s/50s. She is weak with ambulation and does require 1 assist for transfers; a ccording to patient is new today as she usually is independent in transfers. Will perform routine labwork, including cardiac labwork, BNP, UA. Patient DNR/DNI which verified with patient and son. Upon reevaluation of patient, able to wean O2 to 2L NC and 96%. BP improved 130s/80. Patient has significant leukocytosis of 23.62. Blood cultures initiated. Lactate of 3. Will empirically start antibiotics for presumed sepsis. Patient unable to leave a urine sample at this time. Patient does have an elevated ddimer 1.81; troponin 0.233. CMP shows creatine of 2 and BUN of 33 which appears new from prior labwork on file. GFR is 23.5 which is low for contrast study. All risks vs benefits had with patient of performing Ang CT with GFR low and expresses understanding and agreeable to imaging. Dr. Mark seals verbally involved in decision to perform Ang CT despite GFR. Patient currently receiving IV fluids to assist with contrast processing. BNP is 1200 which is higher than patients baseline on past labwork suggestive of acute CHF exacerbation. Patient offered straight catheterization for urine sample as she is still unable to leave a sample. She is agreeable. UA suggestive of acute cystitis. Extensive conversation about goals of care discussed with patient and her son at bedside at patient does want to be DNR/DNI, Recommended transfer to a higher level facility due to elevated troponin and concern for ACS and recommendation for cardiology evaluation as our facility does not have cardiology. Patient declines transfer. All risks vs benefits discussed with patient and expresses understanding. Dr. Miranda consulted on patient and will admit to inpatient on telemetry. He would like an abd/pelvic ct w/o contrast performed. Diagnostics: EKG, CBC, CMP, UA, BNP, CXR, Trop, Ddimer, COVID19, Ang CT, urine culture, blood cultures x 2, lactate, VBG, PT/INR, PTT Therapeutics: O2, NS, ASA, Meropenem, Vancomycin Impression: Urosepsis Acute on chronic congestive heart failure exacerbation Elevated troponin Hypoxia Acute kidney injury Plan: Admit to inpatient to [facility] on telemetry Definitive disposition and diagnosis as appropriate pending reevaluation and review of above. - Related Data Allergies Allergy/AdvReac Type Severity Reaction Status Date / Time enalapril maleate Allergy Rash Verified 10/25/20 15:36 [From Vasotec] enalaprilat dihydrate Allergy Rash Verified 10/25/20 15:36 [From Vasotec] Sulfa (Sulfonamide Allergy Other Verified 10/25/20 15:36 Antibiotics) Home Meds: Home Meds ALPRAZolam [Xanax XR] 1 mg PO BEDTIME 03/12/20 [History] Calcium Carbonate [Calcium] 1 tab PO DAILY 03/12/20 [History] Digoxin [Lanoxin] 125 mcg PO DAILY 03/12/20 [History] Losartan [Cozaar] 100 mg PO DAILY 03/12/20 [History] Lutein/Minerals/Vit A,C & E [Ocuvite] 1 tab PO DAILY 03/12/20 [History] Multivitamin [Multi-Vitamin Daily] 1 tab PO DAILY 03/12/20 [History] Potassium Chloride 20 meq PO DAILY PRN 03/12/20 [History] Prednisolone Acetate/Pf [Prednisolone Acet 1% Eye Drop] 1 drop EYEBOTH BID 03/12/20 [History] amLODIPine [Norvasc] 10 mg PO DAILY 03/12/20 [History] Metoprolol Tartrate 50 mg PO BID 03/13/20 [History] Warfarin [Coumadin] 2.5 mg PO SUMOWETHFRSA 03/13/20 [History] Warfarin [Coumadin] 5 mg PO TU 03/13/20 [History] Oxybutynin 5 mg PO BID #60 tablet 03/15/20 [Rx] Dorzolamide/Timolol [Dorzolomide-Timolol Eye Drops] 1 drop EYEBOTH ACBREAKFAST 10/25/20 [History] Furosemide 40 mg PO DAILY 10/25/20 [History] Sertraline [Zoloft] 25 mg PO DAILY 10/25/20 [History] Past Medical History HEENT History: Reports: Glaucoma, Impaired Vision Cardiovascular History: Reports: Afib, Heart Failure, Hypertension Respiratory History: Reports: None Gastrointestinal History: Reports: None Genitourinary History: Reports: None DOCK HAND History: Reports: None Musculoskeletal History: Reports: None Neurological History: Reports: None Psychiatric History: Reports: None Endocrine/Metabolic History: Reports: None Hematologic History: Reports: None Immunologic History: Reports: None Oncologic (Cancer) History: Reports: None Other Oncologic History: 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 Dermatologic History: Reports: None - Infectious Disease History Infectious Disease History: Reports: Chicken Pox, Measles, Mumps - Past Surgical History Head Surgeries/Procedures: Reports: None HEENT Surgical History: Reports: None Cardiovascular Surgical History: Reports: None Respiratory Surgical History: Reports: None GI Surgical History: Reports: Appendectomy Female Surgical History: Reports: Section Endocrine Surgical History: Reports: None Neurological Surgical History: Reports: None Musculoskeletal Surgical History: Reports: None Oncologic Surgical History: Reports: None Dermatological Surgical History: Reports: None Social & Family History - Family History Family Medical History: No Pertinent Family History - Tobacco Use Tobacco Use Status *Q: Never Tobacco User - Caffeine Use Caffeine Use: Reports: None - Recreational Drug Use Recreational Drug Use: No ED ROS GENERAL - Review of Systems Review Of Systems: Comprehensive ROS is negative, except as noted in HPI. ED EXAM, GENERAL - Physical Exam Exam: See Below (see dictation) Course - Vital Signs Last Recorded V/S: Last Vital Signs Temp 97.9 F 10/25/20 18:44 Pulse 90 10/25/20 21:02 Resp 22 H 10/25/20 21:02 BP 101/48 L 10/25/20 21:02 Pulse Ox 95 10/25/20 21:02 - Orders/Labs/Meds Orders: Active Orders 24 hr Category Date Time Status Cardiac Monitoring [RC] . DIRECTED Care 10/25/20 15:44 Active EKG Documentation Completion [RC] STAT Care 10/25/20 15:44 Active CULTURE BLOOD [BC] Stat Lab 10/25/20 17:48 Received CULTURE BLOOD [BC] Stat Lab 10/25/20 17:53 Results CULTURE URINE [RM] Stat Lab 10/25/20 17:40 Received Sodium Chloride 0.9% [Saline Flush] Med 10/25/20 15:44 Active 10 ml FLUSH ASDIRECTED PRN Sodium Chloride 0.9% [Saline Flush] Med 10/25/20 15:44 Active 2.5 ml FLUSH ASDIRECTED PRN Blood Culture x2 Reflex Set [OM.PC] Stat Oth 10/25/20 16:59 Ordered Saline Lock Insert [OM.PC] Stat Oth 10/25/20 15:44 Ordered Medication Orders Sodium Chloride (Sodium Chloride 0.9% 10 Ml Syringe) 10 ml FLUSH ASDIRECTED PRN PRN Reason: Keep Vein Open Last Admin: 10/25/20 16:24 Dose: 10 ml Documented by: ÓSCAR Sodium Chloride (Sodium Chloride 0.9% 2.5 Ml Syringe) 2.5 ml FLUSH ASDIRECTED PRN PRN Reason: Keep Vein Open Last Admin: 10/25/20 16:24 Dose: 2.5 ml Documented by: ÓSCAR Labs: Laboratory Tests 10/25/20 10/25/20 10/25/20 Range/Units 16:20 16:20 16:20 WBC 23.62 H (4.0-11.0) K/uL RBC 4.19 L (4.30-5.90) M/uL Hgb 13.0 (12.0-16.0) g/dL Hct 37.8 (36.0-46.0) % MCV 90.2 (80.0-98.0) fL MCH 31.0 (27.0-32.0) pg MCHC 34.4 (31.0-37.0) g/dL RDW Std Deviation 49.0 (28.0-62.0) fl RDW Coeff of Dg 15 (11.0-15.0) % Plt Count 183 (150-400) K/uL MPV 10.50 (7.40-12.00) fL Neut % (Auto) 89.3 H (48.0-80.0) % Lymph % (Auto) 3.9 L (16.0-40.0) % [place] % (Auto) 6.7 (0.0-15.0) % Eos % (Auto) 0.0 (0.0-7.0) % Baso % (Auto) 0.1 (0.0-1.5) % Neut # (Auto) 21.1 H (1.4-5.7) K/uL Lymph # (Auto) 0.9 (0.6-2.4) K/uL [place] # (Auto) 1.6 H (0.0-0.8) K/uL Eos # (Auto) 0.0 (0.0-0.7) K/uL Baso # (Auto) 0.0 (0.0-0.1) K/uL Nucleated RBC % 0.0 /100WBC Nucleated RBCs # 0 K/uL INR APTT (18.6-31.3) SEC D-Dimer, Quantitative 1.81 H (0.0-0.50) mg/L FEU VBG pH (7.31-7.41) VBG pCO2 (35-45) mmHG VBG pO2 (30-40) mmHG VBG HCO3 (22-30) mEq/L VBG Total CO2 (41-51) mmol/L VBG Base Excess (-3.0-3.0) Lactate (0.20-2.00) mmol/L Sodium 127 L (136-145) mmol/L Potassium 4.2 (3.5-5.1) mmol/L Chloride 92 L (98-107) mmol/L Carbon Dioxide 27.4 (21.0-32.0) mmol/L BUN 33 H (7.0-18.0) mg/dL Creatinine 2.0 H (0.6-1.0) mg/dL Est Cr Clr Drug Dosing 15.08 mL/min Estimated GFR (MDRD) 23.5 ml/min Glucose 166 H (74-106) mg/dL Calcium 8.8 (8.5-10.1) mg/dL Total Bilirubin 1.9 H (0.2-1.0) mg/dL AST 36 (15-37) IU/L ALT 27 (14-63) IU/L Alkaline Phosphatase 119 H (46-116) U/L Troponin I 0.233 H* (0.000-0.056) ng/mL B-Natriuretic Peptide (<100) PG/ML Total Protein 6.2 L (6.4-8.2) g/dL Albumin 2.9 L (3.4-5.0) g/dL Globulin 3.3 (2.6-4.0) g/dL Albumin/Globulin Ratio 0.9 (0.9-1.6) Urine Color Urine Appearance Urine pH (5.0-8.0) Ur Specific [place] (1.001-1.035) Urine Protein (NEGATIVE) mg/dL Urine Glucose (UA) (NEGATIVE) mg/dL Urine Ketones (NEGATIVE) mg/dL Urine Occult Blood (NEGATIVE) Urine Nitrite (NEGATIVE) Urine Bilirubin (NEGATIVE) Urine Urobilinogen (<2.0) EU/dL Ur Leukocyte Esterase (NEGATIVE) Urine RBC (0-2/HPF) Urine WBC (0-5/HPF) Ur Epithelial Cells (NONE-FEW) Urine Bacteria (NEGATIVE) Influenza Type A RNA (NEGATIVE) Influenza Type B RNA (NEGATIVE) SARS-CoV-2 RNA (ACOSTA) (NEGATIVE) 10/25/20 10/25/20 10/25/20 Range/Units 16:20 16:20 16:24 WBC (4.0-11.0) K/uL RBC (4.30-5.90) M/uL Hgb (12.0-16.0) g/dL Hct (36.0-46.0) % MCV (80.0-98.0) fL MCH (27.0-32.0) pg MCHC (31.0-37.0) g/dL RDW Std Deviation (28.0-62.0) fl RDW Coeff of Dg (11.0-15.0) % Plt Count (150-400) K/uL MPV (7.40-12.00) fL Neut % (Auto) (48.0-80.0) % Lymph % (Auto) (16.0-40.0) % [place] % (Auto) (0.0-15.0) % Eos % (Auto) (0.0-7.0) % Baso % (Auto) (0.0-1.5) % Neut # (Auto) (1.4-5.7) K/uL Lymph # (Auto) (0.6-2.4) K/uL [place] # (Auto) (0.0-0.8) K/uL Eos # (Auto) (0.0-0.7) K/uL Baso # (Auto) (0.0-0.1) K/uL Nucleated RBC % /100WBC Nucleated RBCs # K/uL INR 3.28 APTT 42.4 H (18.6-31.3) SEC D-Dimer, Quantitative (0.0-0.50) mg/L FEU VBG pH (7.31-7.41) VBG pCO2 (35-45) mmHG VBG pO2 (30-40) mmHG VBG HCO3 (22-30) mEq/L VBG Total CO2 (41-51) mmol/L VBG Base Excess (-3.0-3.0) Lactate (0.20-2.00) mmol/L Sodium (136-145) mmol/L Potassium (3.5-5.1) mmol/L Chloride (98-107) mmol/L Carbon Dioxide (21.0-32.0) mmol/L BUN (7.0-18.0) mg/dL Creatinine (0.6-1.0) mg/dL Est Cr Clr Drug Dosing mL/min Estimated GFR (MDRD) ml/min Glucose (74-106) mg/dL Calcium (8.5-10.1) mg/dL Total Bilirubin (0.2-1.0) mg/dL AST (15-37) IU/L ALT (14-63) IU/L Alkaline Phosphatase (46-116) U/L Troponin I (0.000-0.056) ng/mL B-Natriuretic Peptide 1238 H (<100) PG/ML Total Protein (6.4-8.2) g/dL Albumin (3.4-5.0) g/dL Globulin (2.6-4.0) g/dL Albumin/Globulin Ratio (0.9-1.6) Urine Color Urine Appearance Urine pH (5.0-8.0) Ur Specific [place] (1.001-1.035) Urine Protein (NEGATIVE) mg/dL Urine Glucose (UA) (NEGATIVE) mg/dL Urine Ketones (NEGATIVE) mg/dL Urine Occult Blood (NEGATIVE) Urine Nitrite (NEGATIVE) Urine Bilirubin (NEGATIVE) Urine Urobilinogen (<2.0) EU/dL Ur Leukocyte Esterase (NEGATIVE) Urine RBC (0-2/HPF) Urine WBC (0-5/HPF) Ur Epithelial Cells (NONE-FEW) Urine Bacteria (NEGATIVE) Influenza Type A RNA NEGATIVE (NEGATIVE) Influenza Type B RNA NEGATIVE (NEGATIVE) SARS-CoV-2 RNA (ACOSTA) NEGATIVE (NEGATIVE) 10/25/20 10/25/20 10/25/20 Range/Units 17:40 17:53 17:53 WBC (4.0-11.0) K/uL RBC (4.30-5.90) M/uL Hgb (12.0-16.0) g/dL Hct (36.0-46.0) % MCV (80.0-98.0) fL MCH (27.0-32.0) pg MCHC (31.0-37.0) g/dL RDW Std Deviation (28.0-62.0) fl RDW Coeff of Dg (11.0-15.0) % Plt Count (150-400) K/uL MPV (7.40-12.00) fL Neut % (Auto) (48.0-80.0) % Lymph % (Auto) (16.0-40.0) % [place] % (Auto) (0.0-15.0) % Eos % (Auto) (0.0-7.0) % Baso % (Auto) (0.0-1.5) % Neut # (Auto) (1.4-5.7) K/uL Lymph # (Auto) (0.6-2.4) K/uL [place] # (Auto) (0.0-0.8) K/uL Eos # (Auto) (0.0-0.7) K/uL Baso # (Auto) (0.0-0.1) K/uL Nucleated RBC % /100WBC Nucleated RBCs # K/uL INR APTT (18.6-31.3) SEC D-Dimer, Quantitative (0.0-0.50) mg/L FEU VBG pH 7.37 (7.31-7.41) VBG pCO2 42 (35-45) mmHG VBG pO2 33 (30-40) mmHG VBG HCO3 25 (22-30) mEq/L VBG Total CO2 22 L (41-51) mmol/L VBG Base Excess -0.9 (-3.0-3.0) Lactate 3.0 H* (0.20-2.00) mmol/L Sodium (136-145) mmol/L Potassium (3.5-5.1) mmol/L Chloride (98-107) mmol/L Carbon Dioxide (21.0-32.0) mmol/L BUN (7.0-18.0) mg/dL Creatinine (0.6-1.0) mg/dL Est Cr Clr Drug Dosing mL/min Estimated GFR (MDRD) ml/min Glucose (74-106) mg/dL Calcium (8.5-10.1) mg/dL Total Bilirubin (0.2-1.0) mg/dL AST (15-37) IU/L ALT (14-63) IU/L Alkaline Phosphatase (46-116) U/L Troponin I (0.000-0.056) ng/mL B-Natriuretic Peptide (<100) PG/ML Total Protein (6.4-8.2) g/dL Albumin (3.4-5.0) g/dL Globulin (2.6-4.0) g/dL Albumin/Globulin Ratio (0.9-1.6) Urine Color YELLOW Urine Appearance SLT CLOUDY Urine pH 6.0 (5.0-8.0) Ur Specific [place] 1.020 (1.001-1.035) Urine Protein 100 H (NEGATIVE) mg/dL Urine Glucose (UA) NEGATIVE (NEGATIVE) mg/dL Urine Ketones NEGATIVE (NEGATIVE) mg/dL Urine Occult Blood LARGE H (NEGATIVE) Urine Nitrite NEGATIVE (NEGATIVE) Urine Bilirubin NEGATIVE (NEGATIVE) Urine Urobilinogen 0.2 (<2.0) EU/dL Ur Leukocyte Esterase LARGE H (NEGATIVE) Urine RBC 1-5 (0-2/HPF) Urine WBC TO NUMEROUS TO COUNT H (0-5/HPF) Ur Epithelial Cells RARE (NONE-FEW) Urine Bacteria 3+ H (NEGATIVE) Influenza Type A RNA (NEGATIVE) Influenza Type B RNA (NEGATIVE) SARS-CoV-2 RNA ([facility]OST[facility]) (NEGATIVE) Meds: Medications Generic Name Dose Route Start Last Admin Trade Name Freq PRN Reason Stop Dose Admin Sodium Chloride 10 ml 10/25/20 15:44 10/25/20 16:24 Sodium Chloride 0.9% 10 Ml Syringe FLUSH 10 ml ASDIRECTED PRN Administration Keep Vein Open Sodium Chloride 2.5 ml 10/25/20 15:44 10/25/20 16:24 Sodium Chloride 0.9% 2.5 Ml Syringe FLUSH 2.5 ml ASDIRECTED PRN Administration Keep Vein Open Discontinued Medications Generic Name Dose Route Start Last Admin Trade Name Amorq PRN Reason Stop Dose Admin Aspirin 324 mg 10/25/20 17:18 10/25/20 17:41 Aspirin 81 Mg Tab.Chew PO 10/25/20 17:19 324 mg ONETIME ONE Administration Furosemide 20 mg 10/25/20 19:45 10/25/20 20:33 Furosemide 40 Mg/4 Ml Vial IVPUSH 10/25/20 19:46 Not Given NOW ONE Sodium Chloride 1,000 mls @ 999 mls/hr 10/25/20 17:00 10/25/20 17:41 Normal Saline IV 10/25/20 18:00 999 mls/hr STAT ONE Administration Meropenem 1 gm/ Sodium 100 mls @ 200 mls/hr 10/25/20 17:03 10/25/20 17:42 Chloride IV 10/25/20 17:32 Not Given ONETIME ONE Vancomycin HCl 1 gm/ Sodium 250 mls @ 166 mls/hr 10/25/20 17:03 10/25/20 17:41 Chloride IV 10/25/20 18:33 166 mls/hr ONETIME ONE Administration Meropenem/Sodium Chloride 1 gm 50 mls @ 100 mls/hr 10/25/20 17:28 10/25/20 17:41 / Premix IV 10/25/20 17:32 100 mls/hr ONETIME ONE Administration Iodixanol 85 ml 10/25/20 18:41 10/25/20 18:43 Iodixanol 652 Mg/Ml 100 Ml Bottle IVPUSH 10/25/20 18:42 85 ml ONETIME ONE Administration Departure - Departure Time of Disposition: 20:04 Disposition: Admitted As Inpatient 67 Clinical Impression: Hypoxia, Elevated troponin Sepsis Qualifiers: Sepsis type: sepsis due to unspecified organism Sepsis acute organ dysfunction status: with acute organ dysfunction Severe sepsis acute organ dysfunction type: acute renal failure Acute renal failure type: unspecified Severe sepsis shock status: unspecified Qualified Code(s): A41.9 - Sepsis, unspecified organism Urinary tract infection Qualifiers: Urinary tract infection type: acute cystitis Hematuria presence: with hematuria Qualified Code(s): N30.01 - Acute cystitis with hematuria Acute on chronic congestive heart failure Qualifiers: Heart failure type: unspecified Qualified Code(s): I50.9 - Heart failure, unspecified - Discharge Information Sepsis Event Note (ED) - Evaluation Sepsis Screening Result: No Definite Risk - Focused Exam Vital Signs: Vital Signs Temp Pulse Resp BP Pulse Ox 10/25/20 19:48 87 22 H 141/67 H 94 L 10/25/20 19:22 95 24 H 136/76 95 10/25/20 18:44 97.9 F 86 17 148/74 H 93 L 10/25/20 17:28 70 17 114/63 96 10/25/20 16:27 77 17 91/46 L 97 10/25/20 15:38 97.0 F 79 15 98/49 L 94 L - My Orders Last 24 Hours: My Active Orders 10/25/20 15:44 Cardiac Monitoring [RC] . DIRECTED EKG Documentation Completion [RC] STAT Sodium Chloride 0.9% [Saline Flush] 10 ml FLUSH ASDIRECTED PRN Sodium Chloride 0.9% [Saline Flush] 2.5 ml FLUSH ASDIRECTED PRN Saline Lock Insert [OM.PC] Stat 10/25/20 16:59 Blood Culture x2 Reflex Set [OM.PC] Stat 10/25/20 17:40 CULTURE URINE [RM] Stat 10/25/20 17:48 CULTURE BLOOD [BC] Stat 10/25/20 17:53 CULTURE BLOOD [BC] Stat - Assessment/Plan Last 24 Hours: My Active Orders 10/25/20 15:44 Cardiac Monitoring [RC] . DIRECTED EKG Documentation Completion [RC] STAT Sodium Chloride 0.9% [Saline Flush] 10 ml FLUSH ASDIRECTED PRN Sodium Chloride 0.9% [Saline Flush] 2.5 ml FLUSH ASDIRECTED PRN Saline Lock Insert [OM.PC] Stat 10/25/20 16:59 Blood Culture x2 Reflex Set [OM.PC] Stat 10/25/20 17:40 CULTURE URINE [RM] Stat 10/25/20 17:48 CULTURE BLOOD [BC] Stat 10/25/20 17:53 CULTURE BLOOD [BC] Stat
--- NOTE | 2020-10-25 16:13 | PCM.EKG ---
#1 Interpretation EKG Date: 10/25/20 Time: 16:10 Rhythm: A-Fib Rate (Beats/Min): 69 ST-T: Normal
--- NOTE | 2020-10-25 16:36 | CR ---
INDICATION: Hypoxia TECHNIQUE: Portable upright AP view of the chest COMPARISON: PA and lateral chest radiographs 03/23/2020 FINDINGS/IMPRESSION: 1. Air-filled bowel loops projecting over the right lung base are secondary to diaphragmatic elevation or presence of a large hiatal hernia. 2. Mild right lung base atelectasis. A small right pleural effusion may also be present. 3. No appreciable left pleural effusion. No pneumothorax. Nonenlarged cardiac silhouette. 4. Levoconvex lumbar spinal curvature partially visualized. The thoracic osseous structures are grossly unremarkable. Dictated by Kieran Wills MD @ Oct 25 2020 4:29PM Signed by Dr. Kieran Wills @ Oct 25 2020 4:33PM
[2020-10-25 16:59] LABS: CARBON DIOXIDE,CO2 27.4 mmol/L (21.0-32.0); POTASSIUM,K 4.2 mmol/L (3.5-5.1)
[2020-10-25] MEDS ORDERED: Sodium Chloride 0.9% 1,000 ML IV ONE (17:00)
[2020-10-25] MEDS ORDERED: Meropenem 1 GM in Sodium Chloride 0.9% 100 ML IV ONE (17:03)
[2020-10-25 17:12] LABS: CORONAVIRUS COVID-19 NAA NEGATIVE (NEGATIVE); INFLUENZA A NAA NEGATIVE (NEGATIVE); INFLUENZA B NAA NEGATIVE (NEGATIVE)
[2020-10-25] MEDS ORDERED: Aspirin 81 MG Tab.Chew PO ONE (17:18)
[2020-10-25] MEDS ORDERED: Meropenem Premix 1 GM in Premix Bag 1 BAG IV ONE (17:28)
[2020-10-25] MEDS ORDERED: Iodixanol 652 MG/ML 100 ML Bottle IVPUSH ONE (18:41)
--- NOTE | 2020-10-25 19:31 | CT ---
INDICATION: Shortness of breath. Elevated D-dimer. TECHNIQUE: CT chest PE was acquired with 85 cc Visipaque 320 IV contrast. COMPARISON: March 12, 2020. FINDINGS: Heart and vasculature: Contrast opacification of the pulmonary arterial tree is adequate. No sign of pulmonary embolism. Cardiomegaly is present. Great vessels are normal in caliber.Coronary artery atherosclerosis is present. Lungs and pleural: There is diffuse interlobular septal thickening. Elevation of the right diaphragm and large hiatal hernia are causing compressive atelectasis of the right lower lobe. Small right side pleural effusion is present. Left lung and pleural space are clear. No pneumothorax. Lymph nodes/mediastinum: No mediastinal, hilar, or axillary adenopathy. Thyroid gland is normal. Chest wall: No masses. Upper abdomen: Normal. Bones: Unremarkable for age. IMPRESSION: 1. No pulmonary embolism. 2. Moderate diffuse interlobular septal thickening suggesting fluid overload or CHF without overt edema. 3. Compressive atelectasis favored over infiltrate in the right lower lobe. There is also a small right pleural effusion. However, these findings have improved compared to the prior study. 4. Persistent large hiatal hernia and elevation of the right diaphragm. Please note that all CT scans at this facility use dose modulation, iterative reconstruction, and/or weight-based dosing when appropriate to reduce radiation dose to as low as reasonably achievable. Dictated by Ronald Johnson MD @ Oct 25 2020 7:22PM Signed by Dr. Ronald Johnson @ Oct 25 2020 7:29PM
[2020-10-25] MEDS ORDERED: Furosemide 40 MG/4 ML VIAL IVPUSH ONE (19:45)
--- NOTE | 2020-10-25 20:53 | CT ---
Indication: Abdominal pain, weakness Technique: Noncontrast CT abdomen and pelvis Please note that all CT scans at this facility use dose modulation, iterative reconstruction, and/or weight-based dosing when appropriate to reduce radiation dose to as low as reasonably achievable. Comparison: CT PE study earlier today Findings: Elevation right hemidiaphragm. Right lower lobe parenchymal densities. Left lower lobe atelectasis. The stomach is shifted to the right side of the abdomen. Wall thickening of the distal stomach noted. No gastric outlet obstruction. Hepatomegaly, mild. Liver measures 17 centimeters in craniocaudad dimension. Gallbladder distended with Phrygian cap. No calcified gallstones or biliary obstruction. Right ovarian cyst may be present measuring 2 centimeters. Uterus is atrophied. Sigmoid diverticulosis. No diverticulitis or bowel obstruction. No free air. No excess pelvic free fluid. The bladder is distended with some filling defects in the mid portion. However, this may be artifactual related to mixing artifact. No acute fracture. No suspicious adenopathy. There is a fecalith within the cecum. Residual intravenous contrast is present within the kidneys with a somewhat mottled pattern related to contrast phase. Normal excretion of contrast into the collecting systems and ureters. No hydronephrosis. Adrenal glands are normal. No pancreatic mass. No splenomegaly. Impression: Extensive sigmoid diverticulosis without diverticulitis. Mild hepatomegaly. Distended gallbladder without biliary obstruction or calcified gallstones. No hydronephrosis. Mottled pattern regarding the right renal parenchyma, likely due to contrast phase. Possible filling defect versus mixing artifact in the bladder. Renal bladder ultrasound may be helpful for further evaluation. Cardiomegaly. Small right pleural effusion. Bilateral lower lobe parenchymal densities, atelectasis versus infiltrates. Please note that all CT scans at this facility use dose modulation, iterative reconstruction, and/or weight-based dosing when appropriate to reduce radiation dose to as low as reasonably achievable. Dictated by Nadir Louise MD @ Oct 25 2020 8:38PM Signed by Dr. Nadir Louise @ Oct 25 2020 8:52PM
[2020-10-25] MEDS ORDERED: Meropenem Premix 50 ML IV SCH (22:45)
--- NOTE | 2020-10-25 23:15 | PCM.HP.2 ---
H&P History of Present Illness - General Date of Service: 10/25/20 Admit Problem/Dx: Admission Diagnosis/Problem Admission Diagnosis/Problem Sepsis - History of Present Illness Initial Comments - Free Text/Narative: 89 yo female with pmh of atrial fibrillation, CHF, HTN, and asthma who presented to the ED with several day history of fevers, chills, malaise, myalgias and urinary frecquency. Patient thought she had a UTI. She denies any chest pain or shortness of breath. In the ED she was noted to by hypoxic requiring 5 L NC to keep sats above 90%. Her blood pressure was in the 90s systolic. CT angio of chest was suggestive of fluid overload. PAtient was given 1 liter of NS, vancomycin, meropenem, and lasix in the ED. Patient's blood pressure and oxygenation did improve and patient reported feeling better. - Related Data Allergies/Adverse Reactions: Allergies Allergy/AdvReac Type Severity Reaction Status Date / Time enalapril maleate Allergy Rash Verified 10/26/20 06:16 [From Vasotec] enalaprilat dihydrate Allergy Rash Verified 10/26/20 06:16 [From Vasotec] Sulfa (Sulfonamide Allergy Other Verified 10/26/20 06:16 Antibiotics) Home Medications: Home Meds ALPRAZolam [Xanax XR] 1 mg PO BEDTIME 03/12/20 [History] Calcium Carbonate [Calcium] 1 tab PO DAILY 03/12/20 [History] Digoxin [Lanoxin] 125 mcg PO DAILY 03/12/20 [History] Losartan [Cozaar] 100 mg PO DAILY 03/12/20 [History] Lutein/Minerals/Vit A,C & E [Ocuvite] 1 tab PO DAILY 03/12/20 [History] Multivitamin [Multi-Vitamin Daily] 1 tab PO DAILY 03/12/20 [History] Potassium Chloride 20 meq PO DAILY PRN 03/12/20 [History] Prednisolone Acetate/Pf [Prednisolone Acet 1% Eye Drop] 1 drop EYEBOTH BID 03/12/20 [History] amLODIPine [Norvasc] 10 mg PO DAILY 03/12/20 [History] Metoprolol Tartrate 50 mg PO BID 03/13/20 [History] Warfarin [Coumadin] 2.5 mg PO SUMOWETHFRSA 03/13/20 [History] Warfarin [Coumadin] 5 mg PO TU 03/13/20 [History] Oxybutynin 5 mg PO BID #60 tablet 03/15/20 [Rx] Dorzolamide/Timolol [Dorzolomide-Timolol Eye Drops] 1 drop EYEBOTH ACBREAKFAST 10/25/20 [History] Furosemide 40 mg PO DAILY 10/25/20 [History] Sertraline [Zoloft] 25 mg PO DAILY 10/25/20 [History] Past Medical History HEENT History: Reports: Glaucoma, Impaired Vision Cardiovascular History: Reports: Afib, Heart Failure, Hypertension Respiratory History: Reports: None Gastrointestinal History: Reports: None Genitourinary History: Reports: None 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 Musculoskeletal History: Reports: None Neurological History: Reports: None Psychiatric History: Reports: None Endocrine/Metabolic History: Reports: None Hematologic History: Reports: None Immunologic History: Reports: None Oncologic (Cancer) History: Reports: None Other Oncologic History: 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 Dermatologic History: Reports: None - Infectious Disease History Infectious Disease History: Reports: Chicken Pox, Measles, Mumps - Past Surgical History Head Surgeries/Procedures: Reports: None HEENT Surgical History: Reports: None Cardiovascular Surgical History: Reports: None Respiratory Surgical History: Reports: None GI Surgical History: Reports: Appendectomy Female Surgical History: Reports: Section Endocrine Surgical History: Reports: None Neurological Surgical History: Reports: None Musculoskeletal Surgical History: Reports: None Oncologic Surgical History: Reports: None Dermatological Surgical History: Reports: None Social & Family History - Family History Family Medical History: No Pertinent Family History - Tobacco Use Tobacco Use Status *Q: Never Tobacco User Second Hand Smoke Exposure: No - Caffeine Use Caffeine Use: Reports: None - Recreational Drug Use Recreational Drug Use: No H&P Review of Systems - Review of Systems: Review Of Systems: Comprehensive ROS is negative, except as noted in HPI. Exam - Exam Exam: See Below - Vital Signs Vital Signs: Last Vital Signs Temp 36.6 C 10/25/20 18:44 Pulse 90 10/25/20 21:02 Resp 22 H 10/25/20 21:02 BP 101/48 L 10/25/20 21:02 Pulse Ox 95 10/25/20 21:02 Weight: 55.021 kg - Exam General: Alert, Oriented HEENT: Mucosa Moist & [place] Neck: Supple Lungs: Decreased Breath Sounds Cardiovascular: Regular Rate, Regular Rhythm GI/Abdominal Exam: Soft, Non-Tender, No Distention Extremities: Non-Tender, No Pedal Edema Skin: Warm, Dry, Intact - Patient Data Lab Results Last 24 hrs: Laboratory Results - last 24 hr 10/25/20 10/25/20 10/25/20 Range/Units 16:20 16:20 16:20 WBC 23.62 H (4.0-11.0) K/uL RBC 4.19 L (4.30-5.90) M/uL Hgb 13.0 (12.0-16.0) g/dL Hct 37.8 (36.0-46.0) % MCV 90.2 (80.0-98.0) fL MCH 31.0 (27.0-32.0) pg MCHC 34.4 (31.0-37.0) g/dL RDW Std Deviation 49.0 (28.0-62.0) fl RDW Coeff of Dg 15 (11.0-15.0) % Plt Count 183 (150-400) K/uL MPV 10.50 (7.40-12.00) fL Neut % (Auto) 89.3 H (48.0-80.0) % Lymph % (Auto) 3.9 L (16.0-40.0) % Gulf % (Auto) 6.7 (0.0-15.0) % Eos % (Auto) 0.0 (0.0-7.0) % Baso % (Auto) 0.1 (0.0-1.5) % Neut # (Auto) 21.1 H (1.4-5.7) K/uL Lymph # (Auto) 0.9 (0.6-2.4) K/uL Gulf # (Auto) 1.6 H (0.0-0.8) K/uL Eos # (Auto) 0.0 (0.0-0.7) K/uL Baso # (Auto) 0.0 (0.0-0.1) K/uL Nucleated RBC % 0.0 /100WBC Nucleated RBCs # 0 K/uL INR APTT (18.6-31.3) SEC D-Dimer, Quantitative 1.81 H (0.0-0.50) mg/L FEU VBG pH (7.31-7.41) VBG pCO2 (35-45) mmHG VBG pO2 (30-40) mmHG VBG HCO3 (22-30) mEq/L VBG Total CO2 (41-51) mmol/L VBG Base Excess (-3.0-3.0) Lactate (0.20-2.00) mmol/L Sodium 127 L (136-145) mmol/L Potassium 4.2 (3.5-5.1) mmol/L Chloride 92 L (98-107) mmol/L Carbon Dioxide 27.4 (21.0-32.0) mmol/L BUN 33 H (7.0-18.0) mg/dL Creatinine 2.0 H (0.6-1.0) mg/dL Est Cr Clr Drug Dosing 15.08 mL/min Estimated GFR (MDRD) 23.5 ml/min Glucose 166 H (74-106) mg/dL Calcium 8.8 (8.5-10.1) mg/dL Total Bilirubin 1.9 H (0.2-1.0) mg/dL AST 36 (15-37) IU/L ALT 27 (14-63) IU/L Alkaline Phosphatase 119 H (46-116) U/L Troponin I 0.233 H* (0.000-0.056) ng/mL B-Natriuretic Peptide (<100) PG/ML Total Protein 6.2 L (6.4-8.2) g/dL Albumin 2.9 L (3.4-5.0) g/dL Globulin 3.3 (2.6-4.0) g/dL Albumin/Globulin Ratio 0.9 (0.9-1.6) Urine Color Urine Appearance Urine pH (5.0-8.0) Ur Specific [place] (1.001-1.035) Urine Protein (NEGATIVE) mg/dL Urine Glucose (UA) (NEGATIVE) mg/dL Urine Ketones (NEGATIVE) mg/dL Urine Occult Blood (NEGATIVE) Urine Nitrite (NEGATIVE) Urine Bilirubin (NEGATIVE) Urine Urobilinogen (<2.0) EU/dL Ur Leukocyte Esterase (NEGATIVE) Urine RBC (0-2/HPF) Urine WBC (0-5/HPF) Ur Epithelial Cells (NONE-FEW) Urine Bacteria (NEGATIVE) Influenza Type A RNA (NEGATIVE) Influenza Type B RNA (NEGATIVE) SARS-CoV-2 RNA (ACOSTA) (NEGATIVE) 10/25/20 10/25/20 10/25/20 Range/Units 16:20 16:20 16:24 WBC (4.0-11.0) K/uL RBC (4.30-5.90) M/uL Hgb (12.0-16.0) g/dL Hct (36.0-46.0) % MCV (80.0-98.0) fL MCH (27.0-32.0) pg MCHC (31.0-37.0) g/dL RDW Std Deviation (28.0-62.0) fl RDW Coeff of Dg (11.0-15.0) % Plt Count (150-400) K/uL MPV (7.40-12.00) fL Neut % (Auto) (48.0-80.0) % Lymph % (Auto) (16.0-40.0) % Gulf % (Auto) (0.0-15.0) % Eos % (Auto) (0.0-7.0) % Baso % (Auto) (0.0-1.5) % Neut # (Auto) (1.4-5.7) K/uL Lymph # (Auto) (0.6-2.4) K/uL Gulf # (Auto) (0.0-0.8) K/uL Eos # (Auto) (0.0-0.7) K/uL Baso # (Auto) (0.0-0.1) K/uL Nucleated RBC % /100WBC Nucleated RBCs # K/uL INR 3.28 APTT 42.4 H (18.6-31.3) SEC D-Dimer, Quantitative (0.0-0.50) mg/L FEU VBG pH (7.31-7.41) VBG pCO2 (35-45) mmHG VBG pO2 (30-40) mmHG VBG HCO3 (22-30) mEq/L VBG Total CO2 (41-51) mmol/L VBG Base Excess (-3.0-3.0) Lactate (0.20-2.00) mmol/L Sodium (136-145) mmol/L Potassium (3.5-5.1) mmol/L Chloride (98-107) mmol/L Carbon Dioxide (21.0-32.0) mmol/L BUN (7.0-18.0) mg/dL Creatinine (0.6-1.0) mg/dL Est Cr Clr Drug Dosing mL/min Estimated GFR (MDRD) ml/min Glucose (74-106) mg/dL Calcium (8.5-10.1) mg/dL Total Bilirubin (0.2-1.0) mg/dL AST (15-37) IU/L ALT (14-63) IU/L Alkaline Phosphatase (46-116) U/L Troponin I (0.000-0.056) ng/mL B-Natriuretic Peptide 1238 H (<100) PG/ML Total Protein (6.4-8.2) g/dL Albumin (3.4-5.0) g/dL Globulin (2.6-4.0) g/dL Albumin/Globulin Ratio (0.9-1.6) Urine Color Urine Appearance Urine pH (5.0-8.0) Ur Specific [place] (1.001-1.035) Urine Protein (NEGATIVE) mg/dL Urine Glucose (UA) (NEGATIVE) mg/dL Urine Ketones (NEGATIVE) mg/dL Urine Occult Blood (NEGATIVE) Urine Nitrite (NEGATIVE) Urine Bilirubin (NEGATIVE) Urine Urobilinogen (<2.0) EU/dL Ur Leukocyte Esterase (NEGATIVE) Urine RBC (0-2/HPF) Urine WBC (0-5/HPF) Ur Epithelial Cells (NONE-FEW) Urine Bacteria (NEGATIVE) Influenza Type A RNA NEGATIVE (NEGATIVE) Influenza Type B RNA NEGATIVE (NEGATIVE) SARS-CoV-2 RNA (ACOSTA) NEGATIVE (NEGATIVE) 10/25/20 10/25/20 10/25/20 Range/Units 17:40 17:53 17:53 WBC (4.0-11.0) K/uL RBC (4.30-5.90) M/uL Hgb (12.0-16.0) g/dL Hct (36.0-46.0) % MCV (80.0-98.0) fL MCH (27.0-32.0) pg MCHC (31.0-37.0) g/dL RDW Std Deviation (28.0-62.0) fl RDW Coeff of Gd (11.0-15.0) % Plt Count (150-400) K/uL MPV (7.40-12.00) fL Neut % (Auto) (48.0-80.0) % Lymph % (Auto) (16.0-40.0) % Gulf % (Auto) (0.0-15.0) % Eos % (Auto) (0.0-7.0) % Baso % (Auto) (0.0-1.5) % Neut # (Auto) (1.4-5.7) K/uL Lymph # (Auto) (0.6-2.4) K/uL Gulf # (Auto) (0.0-0.8) K/uL Eos # (Auto) (0.0-0.7) K/uL Baso # (Auto) (0.0-0.1) K/uL Nucleated RBC % /100WBC Nucleated RBCs # K/uL INR APTT (18.6-31.3) SEC D-Dimer, Quantitative (0.0-0.50) mg/L FEU VBG pH 7.37 (7.31-7.41) VBG pCO2 42 (35-45) mmHG VBG pO2 33 (30-40) mmHG VBG HCO3 25 (22-30) mEq/L VBG Total CO2 22 L (41-51) mmol/L VBG Base Excess -0.9 (-3.0-3.0) Lactate 3.0 H* (0.20-2.00) mmol/L Sodium (136-145) mmol/L Potassium (3.5-5.1) mmol/L Chloride (98-107) mmol/L Carbon Dioxide (21.0-32.0) mmol/L BUN (7.0-18.0) mg/dL Creatinine (0.6-1.0) mg/dL Est Cr Clr Drug Dosing mL/min Estimated GFR (MDRD) ml/min Glucose (74-106) mg/dL Calcium (8.5-10.1) mg/dL Total Bilirubin (0.2-1.0) mg/dL AST (15-37) IU/L ALT (14-63) IU/L Alkaline Phosphatase (46-116) U/L Troponin I (0.000-0.056) ng/mL B-Natriuretic Peptide (<100) PG/ML Total Protein (6.4-8.2) g/dL Albumin (3.4-5.0) g/dL Globulin (2.6-4.0) g/dL Albumin/Globulin Ratio (0.9-1.6) Urine Color YELLOW Urine Appearance SLT CLOUDY Urine pH 6.0 (5.0-8.0) Ur Specific [place] 1.020 (1.001-1.035) Urine Protein 100 H (NEGATIVE) mg/dL Urine Glucose (UA) NEGATIVE (NEGATIVE) mg/dL Urine Ketones NEGATIVE (NEGATIVE) mg/dL Urine Occult Blood LARGE H (NEGATIVE) Urine Nitrite NEGATIVE (NEGATIVE) Urine Bilirubin NEGATIVE (NEGATIVE) Urine Urobilinogen 0.2 (<2.0) EU/dL Ur Leukocyte Esterase LARGE H (NEGATIVE) Urine RBC 1-5 (0-2/HPF) Urine WBC TO NUMEROUS TO COUNT H (0-5/HPF) Ur Epithelial Cells RARE (NONE-FEW) Urine Bacteria 3+ H (NEGATIVE) Influenza Type A RNA (NEGATIVE) Influenza Type B RNA (NEGATIVE) SARS-CoV-2 RNA (ACOSTA) (NEGATIVE) 10/25/20 10/25/20 Range/Units 22:12 22:12 WBC (4.0-11.0) K/uL RBC (4.30-5.90) M/uL Hgb (12.0-16.0) g/dL Hct (36.0-46.0) % MCV (80.0-98.0) fL MCH (27.0-32.0) pg MCHC (31.0-37.0) g/dL RDW Std Deviation (28.0-62.0) fl RDW Coeff of Dg (11.0-15.0) % Plt Count (150-400) K/uL MPV (7.40-12.00) fL Neut % (Auto) (48.0-80.0) % Lymph % (Auto) (16.0-40.0) % Gulf % (Auto) (0.0-15.0) % Eos % (Auto) (0.0-7.0) % Baso % (Auto) (0.0-1.5) % Neut # (Auto) (1.4-5.7) K/uL Lymph # (Auto) (0.6-2.4) K/uL Gulf # (Auto) (0.0-0.8) K/uL Eos # (Auto) (0.0-0.7) K/uL Baso # (Auto) (0.0-0.1) K/uL Nucleated RBC % /100WBC Nucleated RBCs # K/uL INR APTT (18.6-31.3) SEC D-Dimer, Quantitative (0.0-0.50) mg/L FEU VBG pH (7.31-7.41) VBG pCO2 (35-45) mmHG VBG pO2 (30-40) mmHG VBG HCO3 (22-30) mEq/L VBG Total CO2 (41-51) mmol/L VBG Base Excess (-3.0-3.0) Lactate 2.2 H* (0.20-2.00) mmol/L Sodium (136-145) mmol/L Potassium (3.5-5.1) mmol/L Chloride (98-107) mmol/L Carbon Dioxide (21.0-32.0) mmol/L BUN (7.0-18.0) mg/dL Creatinine (0.6-1.0) mg/dL Est Cr Clr Drug Dosing mL/min Estimated GFR (MDRD) ml/min Glucose (74-106) mg/dL Calcium (8.5-10.1) mg/dL Total Bilirubin (0.2-1.0) mg/dL AST (15-37) IU/L ALT (14-63) IU/L Alkaline Phosphatase (46-116) U/L Troponin I 0.290 H* (0.000-0.056) ng/mL B-Natriuretic Peptide (<100) PG/ML Total Protein (6.4-8.2) g/dL Albumin (3.4-5.0) g/dL Globulin (2.6-4.0) g/dL Albumin/Globulin Ratio (0.9-1.6) Urine Color Urine Appearance Urine pH (5.0-8.0) Ur Specific [place] (1.001-1.035) Urine Protein (NEGATIVE) mg/dL Urine Glucose (UA) (NEGATIVE) mg/dL Urine Ketones (NEGATIVE) mg/dL Urine Occult Blood (NEGATIVE) Urine Nitrite (NEGATIVE) Urine Bilirubin (NEGATIVE) Urine Urobilinogen (<2.0) EU/dL Ur Leukocyte Esterase (NEGATIVE) Urine RBC (0-2/HPF) Urine WBC (0-5/HPF) Ur Epithelial Cells (NONE-FEW) Urine Bacteria (NEGATIVE) Influenza Type A RNA (NEGATIVE) Influenza Type B RNA (NEGATIVE) SARS-CoV-2 RNA (ACOSAT) (NEGATIVE) Result Diagrams: 10/27/20 04:45 10/27/20 04:45 Armando Results Last 24 hrs: Microbiology 10/25/20 17:53 Anaerobic Blood Culture - Final Blood - Venous - Lab Draw Sepsis Event Note - Evaluation Sepsis Screening Result: No Definite Risk - Focused Exam Vital Signs: Vital Signs Temp Pulse Resp BP Pulse Ox 10/25/20 21:02 90 22 H 101/48 L 95 10/25/20 19:48 87 22 H 141/67 H 94 L 10/25/20 19:22 95 24 H 136/76 95 10/25/20 18:44 36.6 C 86 17 148/74 H 93 L 10/25/20 17:28 70 17 114/63 96 10/25/20 16:27 77 17 91/46 L 97 10/25/20 15:38 36.1 C 79 15 98/49 L 94 L Problem List Initiated/Reviewed/Updated: Yes Orders Last 24hrs: Active Orders 24 hr Category Date Time Status Admission Status [Patient Status] [ADT] Stat ADT 10/25/20 19:56 Active Antiembolic Devices [RC] PER UNIT ROUTINE Care 10/25/20 23:12 Ordered Cardiac Monitoring [RC] . DIRECTED Care 10/25/20 15:44 Active EKG Documentation Completion [RC] STAT Care 10/25/20 15:44 Active Oxygen Therapy [RC] PRN Care 10/25/20 23:11 Ordered Telemetry Monitoring [Cardiac Monitoring] [RC] . Care 10/25/20 21:15 Active DIRECTED Up ad Tamela [RC] ASDIRECTED Care 10/25/20 23:11 Ordered VTE/DVT Education [RC] PER UNIT ROUTINE Care 10/25/20 23:11 Ordered Vital Signs [RC] Q4H Care 10/25/20 23:11 Ordered Regular Diet [DIET] Diet 10/26/20 Breakfast Active CBC WITH AUTO DIFF [HEME] AM Lab 10/26/20 05:11 Ordered COMPREHENSIVE METABOLIC PN,CMP [CHEM] AM Lab 10/26/20 05:11 Ordered CULTURE BLOOD [BC] Stat Lab 10/25/20 17:48 Received CULTURE BLOOD [BC] Stat Lab 10/25/20 17:53 Results CULTURE URINE [RM] Stat Lab 10/25/20 17:40 Received INR,PT,PROTHROMBIN TIME [COAG] Routine Lab 10/25/20 22:43 Ordered LACTIC ACID,WHOLE BLOOD [BG] Q6H Lab 10/26/20 04:00 Ordered LACTIC ACID,WHOLE BLOOD [BG] Q6H Lab 10/26/20 10:00 Ordered TROPONIN I [CHEM] Q6H Lab 10/26/20 04:36 Ordered VANCOMYCIN RANDOM [CHEM] Timed Lab 10/27/20 17:30 Ordered Meropenem [Merrem] 1 gm Med 10/25/20 22:45 Pending Sodium Chloride 0.9% [Normal Saline] 100 ml IV Q8H Pharmacy to Dose - Vancomycin Med 10/25/20 22:45 Ordered 1 dose .XX ASDIRECTED Sodium Chloride 0.9% [Saline Flush] Med 10/25/20 15:44 Active 10 ml FLUSH ASDIRECTED PRN Sodium Chloride 0.9% [Saline Flush] Med 10/25/20 15:44 Active 2.5 ml FLUSH ASDIRECTED PRN Blood Culture x2 Reflex Set [OM.PC] Stat Oth 10/25/20 16:59 Ordered Saline Lock Insert [OM.PC] Stat Oth 10/25/20 15:44 Ordered Sequential Compression Device [OM.PC] Per Unit Routine Oth 10/25/20 23:11 Ordered Resuscitation Status Routine Resus Stat 10/25/20 23:11 Ordered Medication Orders Meropenem 1 gm/ Sodium (Chloride) 100 mls @ 200 mls/hr IV Q8H ADAM Sodium Chloride (Sodium Chloride 0.9% 10 Ml Syringe) 10 ml FLUSH ASDIRECTED PRN PRN Reason: Keep Vein Open Last Admin: 10/25/20 16:24 Dose: 10 ml Documented by: ÓSCAR Sodium Chloride (Sodium Chloride 0.9% 2.5 Ml Syringe) 2.5 ml FLUSH ASDIRECTED PRN PRN Reason: Keep Vein Open Last Admin: 10/25/20 16:24 Dose: 2.5 ml Documented by: ÓSCAR Vancomycin HCl (Pharmacy To Dose - Vancomycin) 1 dose .XX ASDIRECTED [facility] Assessment/Plan Comment:: 89 yo female admitted for UTI with sepsis, CHF exacerbation and acute kidney injury. Sepsis: patient was given a liter bolus in the ED, will continue source control with antibiotics, and trend lactic acid Acute hypoxic respiratory failure: continue supplemental oxygen a 2 L NC UTI: will continue vancomycin and meropenem. Patient has history of ESBL E. coli, cultures pending. CHF: CT suggestive of fluid overload, will be careful with fluid resuscitation during treatment of sepsis. patient did receive Lasix in ED. elevated troponin likely due to increased demand from infection. Acute kidney injury: creatinine is 2.0, will avoid nephrotoxic agents
[2020-10-26] MEDS ORDERED: Meropenem Premix 50 ML IV SCH (00:30)
[2020-10-26 04:46] LABS: CARBON DIOXIDE,CO2 25.3 mmol/L (21.0-32.0); POTASSIUM,K 4.9 mmol/L (3.5-5.1)
[2020-10-26] MEDS ORDERED: Potassium Chloride 20 MEQ Tab.ER PO PRN (10:51)
[2020-10-26] MEDS: Metoprolol Tartrate 50 MG Tab PO SCH ×2 (10:55→20:42)
--- NOTE | 2020-10-26 11:00 | PCM.PN ---
- General Info Date of Service: 10/26/20 Subjective Update: Patient states she feels fine this morning. Patient denies fever, chills, nausea, vomiting, chest pain, shortness of breath, abdominal pain, flank pain, back pain. - Review of Systems General: Denies: Fever, Chills Pulmonary: Denies: Shortness of Breath, Cough Cardiovascular: Denies: Chest Pain Gastrointestinal: Denies: Abdominal Pain, Nausea Genitourinary: Denies: Dysuria Neurological: Denies: Confusion, Dizziness - Patient Data Vitals - Most Recent: Last Vital Signs Temp 99.3 F 10/26/20 07:55 Pulse 109 H 10/26/20 07:55 Resp 18 10/26/20 07:55 BP 118/66 10/26/20 07:55 Pulse Ox 92 L 10/26/20 07:55 Weight - Most Recent: 121 lb 4.8 oz I&O - Last 24 Hours: Intake & Output 10/25/20 10/26/20 10/26/20 22:59 06:59 14:59 Intake Total 240 Output Total 250 Balance -10 Lab Results Last 24 Hours: Laboratory Results - last 24 hr 10/25/20 10/25/20 10/25/20 Range/Units 16:20 16:20 16:20 WBC 23.62 H (4.0-11.0) K/uL RBC 4.19 L (4.30-5.90) M/uL Hgb 13.0 (12.0-16.0) g/dL Hct 37.8 (36.0-46.0) % MCV 90.2 (80.0-98.0) fL MCH 31.0 (27.0-32.0) pg MCHC 34.4 (31.0-37.0) g/dL RDW Std Deviation 49.0 (28.0-62.0) fl RDW Coeff of Dg 15 (11.0-15.0) % Plt Count 183 (150-400) K/uL MPV 10.50 (7.40-12.00) fL Neut % (Auto) 89.3 H (48.0-80.0) % Lymph % (Auto) 3.9 L (16.0-40.0) % [place] % (Auto) 6.7 (0.0-15.0) % Eos % (Auto) 0.0 (0.0-7.0) % Baso % (Auto) 0.1 (0.0-1.5) % Neut # (Auto) 21.1 H (1.4-5.7) K/uL Lymph # (Auto) 0.9 (0.6-2.4) K/uL [place] # (Auto) 1.6 H (0.0-0.8) K/uL Eos # (Auto) 0.0 (0.0-0.7) K/uL Baso # (Auto) 0.0 (0.0-0.1) K/uL Nucleated RBC % 0.0 /100WBC Nucleated RBCs # 0 K/uL INR APTT (18.6-31.3) SEC D-Dimer, Quantitative 1.81 H (0.0-0.50) mg/L FEU VBG pH (7.31-7.41) VBG pCO2 (35-45) mmHG VBG pO2 (30-40) mmHG VBG HCO3 (22-30) mEq/L VBG Total CO2 (41-51) mmol/L VBG Base Excess (-3.0-3.0) Lactate (0.20-2.00) mmol/L Sodium 127 L (136-145) mmol/L Potassium 4.2 (3.5-5.1) mmol/L Chloride 92 L (98-107) mmol/L Carbon Dioxide 27.4 (21.0-32.0) mmol/L BUN 33 H (7.0-18.0) mg/dL Creatinine 2.0 H (0.6-1.0) mg/dL Est Cr Clr Drug Dosing 15.08 mL/min Estimated GFR (MDRD) 23.5 ml/min Glucose 166 H (74-106) mg/dL Calcium 8.8 (8.5-10.1) mg/dL Total Bilirubin 1.9 H (0.2-1.0) mg/dL AST 36 (15-37) IU/L ALT 27 (14-63) IU/L Alkaline Phosphatase 119 H (46-116) U/L Troponin I 0.233 H* (0.000-0.056) ng/mL B-Natriuretic Peptide (<100) PG/ML Total Protein 6.2 L (6.4-8.2) g/dL Albumin 2.9 L (3.4-5.0) g/dL Globulin 3.3 (2.6-4.0) g/dL Albumin/Globulin Ratio 0.9 (0.9-1.6) Urine Color Urine Appearance Urine pH (5.0-8.0) Ur Specific [place] (1.001-1.035) Urine Protein (NEGATIVE) mg/dL Urine Glucose (UA) (NEGATIVE) mg/dL Urine Ketones (NEGATIVE) mg/dL Urine Occult Blood (NEGATIVE) Urine Nitrite (NEGATIVE) Urine Bilirubin (NEGATIVE) Urine Urobilinogen (<2.0) EU/dL Ur Leukocyte Esterase (NEGATIVE) Urine RBC (0-2/HPF) Urine WBC (0-5/HPF) Ur Epithelial Cells (NONE-FEW) Urine Bacteria (NEGATIVE) Digoxin (0.9-2.0) ng/mL Influenza Type A RNA (NEGATIVE) Influenza Type B RNA (NEGATIVE) SARS-CoV-2 RNA ([facility]) (NEGATIVE) 10/25/20 10/25/20 10/25/20 Range/Units 16:20 16:20 16:24 WBC (4.0-11.0) K/uL RBC (4.30-5.90) M/uL Hgb (12.0-16.0) g/dL Hct (36.0-46.0) % MCV (80.0-98.0) fL MCH (27.0-32.0) pg MCHC (31.0-37.0) g/dL RDW Std Deviation (28.0-62.0) fl RDW Coeff of Dg (11.0-15.0) % Plt Count (150-400) K/uL MPV (7.40-12.00) fL Neut % (Auto) (48.0-80.0) % Lymph % (Auto) (16.0-40.0) % [place] % (Auto) (0.0-15.0) % Eos % (Auto) (0.0-7.0) % Baso % (Auto) (0.0-1.5) % Neut # (Auto) (1.4-5.7) K/uL Lymph # (Auto) (0.6-2.4) K/uL [place] # (Auto) (0.0-0.8) K/uL Eos # (Auto) (0.0-0.7) K/uL Baso # (Auto) (0.0-0.1) K/uL Nucleated RBC % /100WBC Nucleated RBCs # K/uL INR 3.28 APTT 42.4 H (18.6-31.3) SEC D-Dimer, Quantitative (0.0-0.50) mg/L FEU VBG pH (7.31-7.41) VBG pCO2 (35-45) mmHG VBG pO2 (30-40) mmHG VBG HCO3 (22-30) mEq/L VBG Total CO2 (41-51) mmol/L VBG Base Excess (-3.0-3.0) Lactate (0.20-2.00) mmol/L Sodium (136-145) mmol/L Potassium (3.5-5.1) mmol/L Chloride (98-107) mmol/L Carbon Dioxide (21.0-32.0) mmol/L BUN (7.0-18.0) mg/dL Creatinine (0.6-1.0) mg/dL Est Cr Clr Drug Dosing mL/min Estimated GFR (MDRD) ml/min Glucose (74-106) mg/dL Calcium (8.5-10.1) mg/dL Total Bilirubin (0.2-1.0) mg/dL AST (15-37) IU/L ALT (14-63) IU/L Alkaline Phosphatase (46-116) U/L Troponin I (0.000-0.056) ng/mL B-Natriuretic Peptide 1238 H (<100) PG/ML Total Protein (6.4-8.2) g/dL Albumin (3.4-5.0) g/dL Globulin (2.6-4.0) g/dL Albumin/Globulin Ratio (0.9-1.6) Urine Color Urine Appearance Urine pH (5.0-8.0) Ur Specific [place] (1.001-1.035) Urine Protein (NEGATIVE) mg/dL Urine Glucose (UA) (NEGATIVE) mg/dL Urine Ketones (NEGATIVE) mg/dL Urine Occult Blood (NEGATIVE) Urine Nitrite (NEGATIVE) Urine Bilirubin (NEGATIVE) Urine Urobilinogen (<2.0) EU/dL Ur Leukocyte Esterase (NEGATIVE) Urine RBC (0-2/HPF) Urine WBC (0-5/HPF) Ur Epithelial Cells (NONE-FEW) Urine Bacteria (NEGATIVE) Digoxin (0.9-2.0) ng/mL Influenza Type A RNA NEGATIVE (NEGATIVE) Influenza Type B RNA NEGATIVE (NEGATIVE) SARS-CoV-2 RNA ([facility]) NEGATIVE (NEGATIVE) 10/25/20 10/25/20 10/25/20 Range/Units 17:40 17:53 17:53 WBC (4.0-11.0) K/uL RBC (4.30-5.90) M/uL Hgb (12.0-16.0) g/dL Hct (36.0-46.0) % MCV (80.0-98.0) fL MCH (27.0-32.0) pg MCHC (31.0-37.0) g/dL RDW Std Deviation (28.0-62.0) fl RDW Coeff of Dg (11.0-15.0) % Plt Count (150-400) K/uL MPV (7.40-12.00) fL Neut % (Auto) (48.0-80.0) % Lymph % (Auto) (16.0-40.0) % [place] % (Auto) (0.0-15.0) % Eos % (Auto) (0.0-7.0) % Baso % (Auto) (0.0-1.5) % Neut # (Auto) (1.4-5.7) K/uL Lymph # (Auto) (0.6-2.4) K/uL [place] # (Auto) (0.0-0.8) K/uL Eos # (Auto) (0.0-0.7) K/uL Baso # (Auto) (0.0-0.1) K/uL Nucleated RBC % /100WBC Nucleated RBCs # K/uL INR APTT (18.6-31.3) SEC D-Dimer, Quantitative (0.0-0.50) mg/L FEU VBG pH 7.37 (7.31-7.41) VBG pCO2 42 (35-45) mmHG VBG pO2 33 (30-40) mmHG VBG HCO3 25 (22-30) mEq/L VBG Total CO2 22 L (41-51) mmol/L VBG Base Excess -0.9 (-3.0-3.0) Lactate 3.0 H* (0.20-2.00) mmol/L Sodium (136-145) mmol/L Potassium (3.5-5.1) mmol/L Chloride (98-107) mmol/L Carbon Dioxide (21.0-32.0) mmol/L BUN (7.0-18.0) mg/dL Creatinine (0.6-1.0) mg/dL Est Cr Clr Drug Dosing mL/min Estimated GFR (MDRD) ml/min Glucose (74-106) mg/dL Calcium (8.5-10.1) mg/dL Total Bilirubin (0.2-1.0) mg/dL AST (15-37) IU/L ALT (14-63) IU/L Alkaline Phosphatase (46-116) U/L Troponin I (0.000-0.056) ng/mL B-Natriuretic Peptide (<100) PG/ML Total Protein (6.4-8.2) g/dL Albumin (3.4-5.0) g/dL Globulin (2.6-4.0) g/dL Albumin/Globulin Ratio (0.9-1.6) Urine Color YELLOW Urine Appearance SLT CLOUDY Urine pH 6.0 (5.0-8.0) Ur Specific [place] 1.020 (1.001-1.035) Urine Protein 100 H (NEGATIVE) mg/dL Urine Glucose (UA) NEGATIVE (NEGATIVE) mg/dL Urine Ketones NEGATIVE (NEGATIVE) mg/dL Urine Occult Blood LARGE H (NEGATIVE) Urine Nitrite NEGATIVE (NEGATIVE) Urine Bilirubin NEGATIVE (NEGATIVE) Urine Urobilinogen 0.2 (<2.0) EU/dL Ur Leukocyte Esterase LARGE H (NEGATIVE) Urine RBC 1-5 (0-2/HPF) Urine WBC TO NUMEROUS TO COUNT H (0-5/HPF) Ur Epithelial Cells RARE (NONE-FEW) Urine Bacteria 3+ H (NEGATIVE) Digoxin (0.9-2.0) ng/mL Influenza Type A RNA (NEGATIVE) Influenza Type B RNA (NEGATIVE) SARS-CoV-2 RNA ([facility]) (NEGATIVE) 10/25/20 10/25/20 10/25/20 Range/Units 22:12 22:12 23:18 WBC (4.0-11.0) K/uL RBC (4.30-5.90) M/uL Hgb (12.0-16.0) g/dL Hct (36.0-46.0) % MCV (80.0-98.0) fL MCH (27.0-32.0) pg MCHC (31.0-37.0) g/dL RDW Std Deviation (28.0-62.0) fl RDW Coeff of Dg (11.0-15.0) % Plt Count (150-400) K/uL MPV (7.40-12.00) fL Neut % (Auto) (48.0-80.0) % Lymph % (Auto) (16.0-40.0) % [place] % (Auto) (0.0-15.0) % Eos % (Auto) (0.0-7.0) % Baso % (Auto) (0.0-1.5) % Neut # (Auto) (1.4-5.7) K/uL Lymph # (Auto) (0.6-2.4) K/uL [place] # (Auto) (0.0-0.8) K/uL Eos # (Auto) (0.0-0.7) K/uL Baso # (Auto) (0.0-0.1) K/uL Nucleated RBC % /100WBC Nucleated RBCs # K/uL INR 3.98 APTT (18.6-31.3) SEC D-Dimer, Quantitative (0.0-0.50) mg/L FEU VBG pH (7.31-7.41) VBG pCO2 (35-45) mmHG VBG pO2 (30-40) mmHG VBG HCO3 (22-30) mEq/L VBG Total CO2 (41-51) mmol/L VBG Base Excess (-3.0-3.0) Lactate 2.2 H* (0.20-2.00) mmol/L Sodium (136-145) mmol/L Potassium (3.5-5.1) mmol/L Chloride (98-107) mmol/L Carbon Dioxide (21.0-32.0) mmol/L BUN (7.0-18.0) mg/dL Creatinine (0.6-1.0) mg/dL Est Cr Clr Drug Dosing mL/min Estimated GFR (MDRD) ml/min Glucose (74-106) mg/dL Calcium (8.5-10.1) mg/dL Total Bilirubin (0.2-1.0) mg/dL AST (15-37) IU/L ALT (14-63) IU/L Alkaline Phosphatase (46-116) U/L Troponin I 0.290 H* (0.000-0.056) ng/mL B-Natriuretic Peptide (<100) PG/ML Total Protein (6.4-8.2) g/dL Albumin (3.4-5.0) g/dL Globulin (2.6-4.0) g/dL Albumin/Globulin Ratio (0.9-1.6) Urine Color Urine Appearance Urine pH (5.0-8.0) Ur Specific [place] (1.001-1.035) Urine Protein (NEGATIVE) mg/dL Urine Glucose (UA) (NEGATIVE) mg/dL Urine Ketones (NEGATIVE) mg/dL Urine Occult Blood (NEGATIVE) Urine Nitrite (NEGATIVE) Urine Bilirubin (NEGATIVE) Urine Urobilinogen (<2.0) EU/dL Ur Leukocyte Esterase (NEGATIVE) Urine RBC (0-2/HPF) Urine WBC (0-5/HPF) Ur Epithelial Cells (NONE-FEW) Urine Bacteria (NEGATIVE) Digoxin (0.9-2.0) ng/mL Influenza Type A RNA (NEGATIVE) Influenza Type B RNA (NEGATIVE) SARS-CoV-2 RNA ([facility]) (NEGATIVE) 10/26/20 10/26/20 10/26/20 Range/Units 04:15 04:15 04:15 WBC 24.96 H (4.0-11.0) K/uL RBC 4.12 L (4.30-5.90) M/uL Hgb 13.1 (12.0-16.0) g/dL Hct 36.8 (36.0-46.0) % MCV 89.3 (80.0-98.0) fL MCH 31.8 (27.0-32.0) pg MCHC 35.6 (31.0-37.0) g/dL RDW Std Deviation 47.3 (28.0-62.0) fl RDW Coeff of Dg 15 (11.0-15.0) % Plt Count 170 (150-400) K/uL MPV 10.20 (7.40-12.00) fL Neut % (Auto) 90.9 H (48.0-80.0) % Lymph % (Auto) 4.0 L (16.0-40.0) % [place] % (Auto) 5.0 (0.0-15.0) % Eos % (Auto) 0.0 (0.0-7.0) % Baso % (Auto) 0.1 (0.0-1.5) % Neut # (Auto) 22.7 H (1.4-5.7) K/uL Lymph # (Auto) 1.0 (0.6-2.4) K/uL [place] # (Auto) 1.2 H (0.0-0.8) K/uL Eos # (Auto) 0.0 (0.0-0.7) K/uL Baso # (Auto) 0.0 (0.0-0.1) K/uL Nucleated RBC % 0.0 /100WBC Nucleated RBCs # 0 K/uL INR APTT (18.6-31.3) SEC D-Dimer, Quantitative (0.0-0.50) mg/L FEU VBG pH (7.31-7.41) VBG pCO2 (35-45) mmHG VBG pO2 (30-40) mmHG VBG HCO3 (22-30) mEq/L VBG Total CO2 (41-51) mmol/L VBG Base Excess (-3.0-3.0) Lactate 1.5 (0.20-2.00) mmol/L Sodium (136-145) mmol/L Potassium (3.5-5.1) mmol/L Chloride (98-107) mmol/L Carbon Dioxide (21.0-32.0) mmol/L BUN (7.0-18.0) mg/dL Creatinine (0.6-1.0) mg/dL Est Cr Clr Drug Dosing mL/min Estimated GFR (MDRD) ml/min Glucose (74-106) mg/dL Calcium (8.5-10.1) mg/dL Total Bilirubin (0.2-1.0) mg/dL AST (15-37) IU/L ALT (14-63) IU/L Alkaline Phosphatase (46-116) U/L Troponin I 0.259 H* (0.000-0.056) ng/mL B-Natriuretic Peptide (<100) PG/ML Total Protein (6.4-8.2) g/dL Albumin (3.4-5.0) g/dL Globulin (2.6-4.0) g/dL Albumin/Globulin Ratio (0.9-1.6) Urine Color Urine Appearance Urine pH (5.0-8.0) Ur Specific [place] (1.001-1.035) Urine Protein (NEGATIVE) mg/dL Urine Glucose (UA) (NEGATIVE) mg/dL Urine Ketones (NEGATIVE) mg/dL Urine Occult Blood (NEGATIVE) Urine Nitrite (NEGATIVE) Urine Bilirubin (NEGATIVE) Urine Urobilinogen (<2.0) EU/dL Ur Leukocyte Esterase (NEGATIVE) Urine RBC (0-2/HPF) Urine WBC (0-5/HPF) Ur Epithelial Cells (NONE-FEW) Urine Bacteria (NEGATIVE) Digoxin (0.9-2.0) ng/mL Influenza Type A RNA (NEGATIVE) Influenza Type B RNA (NEGATIVE) SARS-CoV-2 RNA ([facility]) (NEGATIVE) 10/26/20 10/26/20 Range/Units 04:15 04:15 WBC (4.0-11.0) K/uL RBC (4.30-5.90) M/uL Hgb (12.0-16.0) g/dL Hct (36.0-46.0) % MCV (80.0-98.0) fL MCH (27.0-32.0) pg MCHC (31.0-37.0) g/dL RDW Std Deviation (28.0-62.0) fl RDW Coeff of Dg (11.0-15.0) % Plt Count (150-400) K/uL MPV (7.40-12.00) fL Neut % (Auto) (48.0-80.0) % Lymph % (Auto) (16.0-40.0) % [place] % (Auto) (0.0-15.0) % Eos % (Auto) (0.0-7.0) % Baso % (Auto) (0.0-1.5) % Neut # (Auto) (1.4-5.7) K/uL Lymph # (Auto) (0.6-2.4) K/uL [place] # (Auto) (0.0-0.8) K/uL Eos # (Auto) (0.0-0.7) K/uL Baso # (Auto) (0.0-0.1) K/uL Nucleated RBC % /100WBC Nucleated RBCs # K/uL INR APTT (18.6-31.3) SEC D-Dimer, Quantitative (0.0-0.50) mg/L FEU VBG pH (7.31-7.41) VBG pCO2 (35-45) mmHG VBG pO2 (30-40) mmHG VBG HCO3 (22-30) mEq/L VBG Total CO2 (41-51) mmol/L VBG Base Excess (-3.0-3.0) Lactate (0.20-2.00) mmol/L Sodium 130 L (136-145) mmol/L Potassium 4.9 (3.5-5.1) mmol/L Chloride 95 L (98-107) mmol/L Carbon Dioxide 25.3 (21.0-32.0) mmol/L BUN 33 H (7.0-18.0) mg/dL Creatinine 1.7 H (0.6-1.0) mg/dL Est Cr Clr Drug Dosing 19.49 mL/min Estimated GFR (MDRD) 28.3 ml/min Glucose 94 (74-106) mg/dL Calcium 8.4 L (8.5-10.1) mg/dL Total Bilirubin 1.6 H (0.2-1.0) mg/dL AST 41 H (15-37) IU/L ALT 31 (14-63) IU/L Alkaline Phosphatase 141 H (46-116) U/L Troponin I (0.000-0.056) ng/mL B-Natriuretic Peptide (<100) PG/ML Total Protein 5.9 L (6.4-8.2) g/dL Albumin 2.7 L (3.4-5.0) g/dL Globulin 3.2 (2.6-4.0) g/dL Albumin/Globulin Ratio 0.8 L (0.9-1.6) Urine Color Urine Appearance Urine pH (5.0-8.0) Ur Specific [place] (1.001-1.035) Urine Protein (NEGATIVE) mg/dL Urine Glucose (UA) (NEGATIVE) mg/dL Urine Ketones (NEGATIVE) mg/dL Urine Occult Blood (NEGATIVE) Urine Nitrite (NEGATIVE) Urine Bilirubin (NEGATIVE) Urine Urobilinogen (<2.0) EU/dL Ur Leukocyte Esterase (NEGATIVE) Urine RBC (0-2/HPF) Urine WBC (0-5/HPF) Ur Epithelial Cells (NONE-FEW) Urine Bacteria (NEGATIVE) Digoxin 1.8 (0.9-2.0) ng/mL Influenza Type A RNA (NEGATIVE) Influenza Type B RNA (NEGATIVE) SARS-CoV-2 RNA ([facility]) (NEGATIVE) Armando Results Last 24 Hours: Microbiology 10/25/20 17:40 Urine Culture - Preliminary Urine, Catheterized 10/25/20 17:53 Aerobic Blood Culture - Preliminary Blood - Venous - Lab Draw Anaerobic Blood Culture - Final 10/25/20 17:48 Aerobic Blood Culture - Preliminary Blood - Venous Anaerobic Blood Culture - Preliminary Med Orders - Current: Current Medications Acetaminophen (Acetaminophen 325 Mg Tab) 650 mg PO Q6H PRN PRN Reason: Pain Digoxin (Digoxin 125 Mcg Tab) 125 mcg PO DAILY [facility] Meropenem/Sodium Chloride (Meropenem In Ns 1 Gm/50 Ml) 50 mls @ 100 mls/hr IV Q12H [facility] Metoprolol Tartrate (Metoprolol Tartrate 50 Mg Tab) 50 mg PO BID [facility] Non-Formulary Medication (Prednisolone Acetate/Pf [Prednisolone Acet 1% Eye Drop]) 1 drop EYEBOTH BID [facility] Non-Formulary Medication (Potassium Chloride [Potassium Chloride]) 20 meq PO DAILY PRN PRN Reason: WITH LASIX Sertraline HCl (Sertraline 25 Mg Tab) 25 mg PO DAILY [facility] Sodium Chloride (Sodium Chloride 0.9% 10 Ml Syringe) 10 ml FLUSH ASDIRECTED PRN PRN Reason: Keep Vein Open Last Admin: 10/25/20 16:24 Dose: 10 ml Documented by: Sodium Chloride (Sodium Chloride 0.9% 2.5 Ml Syringe) 2.5 ml FLUSH ASDIRECTED PRN PRN Reason: Keep Vein Open Last Admin: 10/25/20 16:24 Dose: 2.5 ml Documented by: Vancomycin HCl (Pharmacy To Dose - Vancomycin) 1 dose .XX ASDIRECTED [facility] Discontinued Medications Aspirin (Aspirin 81 Mg Tab.Chew) 324 mg PO ONETIME ONE Stop: 10/25/20 17:19 Last Admin: 10/25/20 17:41 Dose: 324 mg Documented by: Furosemide (Furosemide 40 Mg/4 Ml Vial) 20 mg IVPUSH NOW ONE Stop: 10/25/20 19:46 Last Admin: 10/25/20 20:33 Dose: Not Given Documented by: Sodium Chloride (Normal Saline) 1,000 mls @ 999 mls/hr IV STAT ONE Stop: 10/25/20 18:00 Last Admin: 10/25/20 17:41 Dose: 999 mls/hr Documented by: Meropenem 1 gm/ Sodium (Chloride) 100 mls @ 200 mls/hr IV ONETIME ONE Stop: 10/25/20 17:32 Last Admin: 10/25/20 17:42 Dose: Not Given Documented by: Vancomycin HCl 1 gm/ Sodium (Chloride) 250 mls @ 166 mls/hr IV ONETIME ONE Stop: 10/25/20 18:33 Last Admin: 10/25/20 17:41 Dose: 166 mls/hr Documented by: Meropenem/Sodium Chloride 1 gm (/ Premix) 50 mls @ 100 mls/hr IV ONETIME ONE Stop: 10/25/20 17:32 Last Admin: 10/25/20 17:41 Dose: 100 mls/hr Documented by: Meropenem/Sodium Chloride (Meropenem In Ns 1 Gm/50 Ml) 50 mls @ 100 mls/hr IV Q8H [facility] Last Admin: 10/26/20 00:41 Dose: Not Given Documented by: Meropenem/Sodium Chloride (Meropenem In Ns 1 Gm/50 Ml) 50 mls @ 100 mls/hr IV Q8H [facility] Last Admin: 10/26/20 00:30 Dose: 100 mls/hr Documented by: Iodixanol (Iodixanol 652 Mg/Ml 100 Ml Bottle) 85 ml IVPUSH ONETIME ONE Stop: 10/25/20 18:42 Last Admin: 10/25/20 18:43 Dose: 85 ml Documented by: - Exam General: Alert, Oriented Lungs: Clear to Auscultation, Normal Respiratory Effort Cardiovascular: Regular Rate, Irregular Rhythm GI/Abdominal Exam: Normal Bowel Sounds, Soft, Non-Tender Back Exam: No: CVA Tenderness (L), CVA Tenderness (R) Extremities: No Pedal Edema Psy/Mental Status: Alert - Patient Data Lab Results Last 24 hrs: Laboratory Results - last 24 hr 10/25/20 10/25/20 10/25/20 Range/Units 16:20 16:20 16:20 WBC 23.62 H (4.0-11.0) K/uL RBC 4.19 L (4.30-5.90) M/uL Hgb 13.0 (12.0-16.0) g/dL Hct 37.8 (36.0-46.0) % MCV 90.2 (80.0-98.0) fL MCH 31.0 (27.0-32.0) pg MCHC 34.4 (31.0-37.0) g/dL RDW Std Deviation 49.0 (28.0-62.0) fl RDW Coeff of Dg 15 (11.0-15.0) % Plt Count 183 (150-400) K/uL MPV 10.50 (7.40-12.00) fL Neut % (Auto) 89.3 H (48.0-80.0) % Lymph % (Auto) 3.9 L (16.0-40.0) % [place] % (Auto) 6.7 (0.0-15.0) % Eos % (Auto) 0.0 (0.0-7.0) % Baso % (Auto) 0.1 (0.0-1.5) % Neut # (Auto) 21.1 H (1.4-5.7) K/uL Lymph # (Auto) 0.9 (0.6-2.4) K/uL [place] # (Auto) 1.6 H (0.0-0.8) K/uL Eos # (Auto) 0.0 (0.0-0.7) K/uL Baso # (Auto) 0.0 (0.0-0.1) K/uL Nucleated RBC % 0.0 /100WBC Nucleated RBCs # 0 K/uL INR APTT (18.6-31.3) SEC D-Dimer, Quantitative 1.81 H (0.0-0.50) mg/L FEU VBG pH (7.31-7.41) VBG pCO2 (35-45) mmHG VBG pO2 (30-40) mmHG VBG HCO3 (22-30) mEq/L VBG Total CO2 (41-51) mmol/L VBG Base Excess (-3.0-3.0) Lactate (0.20-2.00) mmol/L Sodium 127 L (136-145) mmol/L Potassium 4.2 (3.5-5.1) mmol/L Chloride 92 L (98-107) mmol/L Carbon Dioxide 27.4 (21.0-32.0) mmol/L BUN 33 H (7.0-18.0) mg/dL Creatinine 2.0 H (0.6-1.0) mg/dL Est Cr Clr Drug Dosing 15.08 mL/min Estimated GFR (MDRD) 23.5 ml/min Glucose 166 H (74-106) mg/dL Calcium 8.8 (8.5-10.1) mg/dL Total Bilirubin 1.9 H (0.2-1.0) mg/dL AST 36 (15-37) IU/L ALT 27 (14-63) IU/L Alkaline Phosphatase 119 H (46-116) U/L Troponin I 0.233 H* (0.000-0.056) ng/mL B-Natriuretic Peptide (<100) PG/ML Total Protein 6.2 L (6.4-8.2) g/dL Albumin 2.9 L (3.4-5.0) g/dL Globulin 3.3 (2.6-4.0) g/dL Albumin/Globulin Ratio 0.9 (0.9-1.6) Urine Color Urine Appearance Urine pH (5.0-8.0) Ur Specific [place] (1.001-1.035) Urine Protein (NEGATIVE) mg/dL Urine Glucose (UA) (NEGATIVE) mg/dL Urine Ketones (NEGATIVE) mg/dL Urine Occult Blood (NEGATIVE) Urine Nitrite (NEGATIVE) Urine Bilirubin (NEGATIVE) Urine Urobilinogen (<2.0) EU/dL Ur Leukocyte Esterase (NEGATIVE) Urine RBC (0-2/HPF) Urine WBC (0-5/HPF) Ur Epithelial Cells (NONE-FEW) Urine Bacteria (NEGATIVE) Digoxin (0.9-2.0) ng/mL Influenza Type A RNA (NEGATIVE) Influenza Type B RNA (NEGATIVE) SARS-CoV-2 RNA ([facility]) (NEGATIVE) 10/25/20 10/25/20 10/25/20 Range/Units 16:20 16:20 16:24 WBC (4.0-11.0) K/uL RBC (4.30-5.90) M/uL Hgb (12.0-16.0) g/dL Hct (36.0-46.0) % MCV (80.0-98.0) fL MCH (27.0-32.0) pg MCHC (31.0-37.0) g/dL RDW Std Deviation (28.0-62.0) fl RDW Coeff of Dg (11.0-15.0) % Plt Count (150-400) K/uL MPV (7.40-12.00) fL Neut % (Auto) (48.0-80.0) % Lymph % (Auto) (16.0-40.0) % [place] % (Auto) (0.0-15.0) % Eos % (Auto) (0.0-7.0) % Baso % (Auto) (0.0-1.5) % Neut # (Auto) (1.4-5.7) K/uL Lymph # (Auto) (0.6-2.4) K/uL [place] # (Auto) (0.0-0.8) K/uL Eos # (Auto) (0.0-0.7) K/uL Baso # (Auto) (0.0-0.1) K/uL Nucleated RBC % /100WBC Nucleated RBCs # K/uL INR 3.28 APTT 42.4 H (18.6-31.3) SEC D-Dimer, Quantitative (0.0-0.50) mg/L FEU VBG pH (7.31-7.41) VBG pCO2 (35-45) mmHG VBG pO2 (30-40) mmHG VBG HCO3 (22-30) mEq/L VBG Total CO2 (41-51) mmol/L VBG Base Excess (-3.0-3.0) Lactate (0.20-2.00) mmol/L Sodium (136-145) mmol/L Potassium (3.5-5.1) mmol/L Chloride (98-107) mmol/L Carbon Dioxide (21.0-32.0) mmol/L BUN (7.0-18.0) mg/dL Creatinine (0.6-1.0) mg/dL Est Cr Clr Drug Dosing mL/min Estimated GFR (MDRD) ml/min Glucose (74-106) mg/dL Calcium (8.5-10.1) mg/dL Total Bilirubin (0.2-1.0) mg/dL AST (15-37) IU/L ALT (14-63) IU/L Alkaline Phosphatase (46-116) U/L Troponin I (0.000-0.056) ng/mL B-Natriuretic Peptide 1238 H (<100) PG/ML Total Protein (6.4-8.2) g/dL Albumin (3.4-5.0) g/dL Globulin (2.6-4.0) g/dL Albumin/Globulin Ratio (0.9-1.6) Urine Color Urine Appearance Urine pH (5.0-8.0) Ur Specific [place] (1.001-1.035) Urine Protein (NEGATIVE) mg/dL Urine Glucose (UA) (NEGATIVE) mg/dL Urine Ketones (NEGATIVE) mg/dL Urine Occult Blood (NEGATIVE) Urine Nitrite (NEGATIVE) Urine Bilirubin (NEGATIVE) Urine Urobilinogen (<2.0) EU/dL Ur Leukocyte Esterase (NEGATIVE) Urine RBC (0-2/HPF) Urine WBC (0-5/HPF) Ur Epithelial Cells (NONE-FEW) Urine Bacteria (NEGATIVE) Digoxin (0.9-2.0) ng/mL Influenza Type A RNA NEGATIVE (NEGATIVE) Influenza Type B RNA NEGATIVE (NEGATIVE) SARS-CoV-2 RNA ([facility]) NEGATIVE (NEGATIVE) 10/25/20 10/25/20 10/25/20 Range/Units 17:40 17:53 17:53 WBC (4.0-11.0) K/uL RBC (4.30-5.90) M/uL Hgb (12.0-16.0) g/dL Hct (36.0-46.0) % MCV (80.0-98.0) fL MCH (27.0-32.0) pg MCHC (31.0-37.0) g/dL RDW Std Deviation (28.0-62.0) fl RDW Coeff of Dg (11.0-15.0) % Plt Count (150-400) K/uL MPV (7.40-12.00) fL Neut % (Auto) (48.0-80.0) % Lymph % (Auto) (16.0-40.0) % [place] % (Auto) (0.0-15.0) % Eos % (Auto) (0.0-7.0) % Baso % (Auto) (0.0-1.5) % Neut # (Auto) (1.4-5.7) K/uL Lymph # (Auto) (0.6-2.4) K/uL [place] # (Auto) (0.0-0.8) K/uL Eos # (Auto) (0.0-0.7) K/uL Baso # (Auto) (0.0-0.1) K/uL Nucleated RBC % /100WBC Nucleated RBCs # K/uL INR APTT (18.6-31.3) SEC D-Dimer, Quantitative (0.0-0.50) mg/L FEU VBG pH 7.37 (7.31-7.41) VBG pCO2 42 (35-45) mmHG VBG pO2 33 (30-40) mmHG VBG HCO3 25 (22-30) mEq/L VBG Total CO2 22 L (41-51) mmol/L VBG Base Excess -0.9 (-3.0-3.0) Lactate 3.0 H* (0.20-2.00) mmol/L Sodium (136-145) mmol/L Potassium (3.5-5.1) mmol/L Chloride (98-107) mmol/L Carbon Dioxide (21.0-32.0) mmol/L BUN (7.0-18.0) mg/dL Creatinine (0.6-1.0) mg/dL Est Cr Clr Drug Dosing mL/min Estimated GFR (MDRD) ml/min Glucose (74-106) mg/dL Calcium (8.5-10.1) mg/dL Total Bilirubin (0.2-1.0) mg/dL AST (15-37) IU/L ALT (14-63) IU/L Alkaline Phosphatase (46-116) U/L Troponin I (0.000-0.056) ng/mL B-Natriuretic Peptide (<100) PG/ML Total Protein (6.4-8.2) g/dL Albumin (3.4-5.0) g/dL Globulin (2.6-4.0) g/dL Albumin/Globulin Ratio (0.9-1.6) Urine Color YELLOW Urine Appearance SLT CLOUDY Urine pH 6.0 (5.0-8.0) Ur Specific [place] 1.020 (1.001-1.035) Urine Protein 100 H (NEGATIVE) mg/dL Urine Glucose (UA) NEGATIVE (NEGATIVE) mg/dL Urine Ketones NEGATIVE (NEGATIVE) mg/dL Urine Occult Blood LARGE H (NEGATIVE) Urine Nitrite NEGATIVE (NEGATIVE) Urine Bilirubin NEGATIVE (NEGATIVE) Urine Urobilinogen 0.2 (<2.0) EU/dL Ur Leukocyte Esterase LARGE H (NEGATIVE) Urine RBC 1-5 (0-2/HPF) Urine WBC TO NUMEROUS TO COUNT H (0-5/HPF) Ur Epithelial Cells RARE (NONE-FEW) Urine Bacteria 3+ H (NEGATIVE) Digoxin (0.9-2.0) ng/mL Influenza Type A RNA (NEGATIVE) Influenza Type B RNA (NEGATIVE) SARS-CoV-2 RNA ([facility]) (NEGATIVE) 10/25/20 10/25/20 10/25/20 Range/Units 22:12 22:12 23:18 WBC (4.0-11.0) K/uL RBC (4.30-5.90) M/uL Hgb (12.0-16.0) g/dL Hct (36.0-46.0) % MCV (80.0-98.0) fL MCH (27.0-32.0) pg MCHC (31.0-37.0) g/dL RDW Std Deviation (28.0-62.0) fl RDW Coeff of Dg (11.0-15.0) % Plt Count (150-400) K/uL MPV (7.40-12.00) fL Neut % (Auto) (48.0-80.0) % Lymph % (Auto) (16.0-40.0) % [place] % (Auto) (0.0-15.0) % Eos % (Auto) (0.0-7.0) % Baso % (Auto) (0.0-1.5) % Neut # (Auto) (1.4-5.7) K/uL Lymph # (Auto) (0.6-2.4) K/uL [place] # (Auto) (0.0-0.8) K/uL Eos # (Auto) (0.0-0.7) K/uL Baso # (Auto) (0.0-0.1) K/uL Nucleated RBC % /100WBC Nucleated RBCs # K/uL INR 3.98 APTT (18.6-31.3) SEC D-Dimer, Quantitative (0.0-0.50) mg/L FEU VBG pH (7.31-7.41) VBG pCO2 (35-45) mmHG VBG pO2 (30-40) mmHG VBG HCO3 (22-30) mEq/L VBG Total CO2 (41-51) mmol/L VBG Base Excess (-3.0-3.0) Lactate 2.2 H* (0.20-2.00) mmol/L Sodium (136-145) mmol/L Potassium (3.5-5.1) mmol/L Chloride (98-107) mmol/L Carbon Dioxide (21.0-32.0) mmol/L BUN (7.0-18.0) mg/dL Creatinine (0.6-1.0) mg/dL Est Cr Clr Drug Dosing mL/min Estimated GFR (MDRD) ml/min Glucose (74-106) mg/dL Calcium (8.5-10.1) mg/dL Total Bilirubin (0.2-1.0) mg/dL AST (15-37) IU/L ALT (14-63) IU/L Alkaline Phosphatase (46-116) U/L Troponin I 0.290 H* (0.000-0.056) ng/mL B-Natriuretic Peptide (<100) PG/ML Total Protein (6.4-8.2) g/dL Albumin (3.4-5.0) g/dL Globulin (2.6-4.0) g/dL Albumin/Globulin Ratio (0.9-1.6) Urine Color Urine Appearance Urine pH (5.0-8.0) Ur Specific [place] (1.001-1.035) Urine Protein (NEGATIVE) mg/dL Urine Glucose (UA) (NEGATIVE) mg/dL Urine Ketones (NEGATIVE) mg/dL Urine Occult Blood (NEGATIVE) Urine Nitrite (NEGATIVE) Urine Bilirubin (NEGATIVE) Urine Urobilinogen (<2.0) EU/dL Ur Leukocyte Esterase (NEGATIVE) Urine RBC (0-2/HPF) Urine WBC (0-5/HPF) Ur Epithelial Cells (NONE-FEW) Urine Bacteria (NEGATIVE) Digoxin (0.9-2.0) ng/mL Influenza Type A RNA (NEGATIVE) Influenza Type B RNA (NEGATIVE) SARS-CoV-2 RNA ([facility]) (NEGATIVE) 10/26/20 10/26/20 10/26/20 Range/Units 04:15 04:15 04:15 WBC 24.96 H (4.0-11.0) K/uL RBC 4.12 L (4.30-5.90) M/uL Hgb 13.1 (12.0-16.0) g/dL Hct 36.8 (36.0-46.0) % MCV 89.3 (80.0-98.0) fL MCH 31.8 (27.0-32.0) pg MCHC 35.6 (31.0-37.0) g/dL RDW Std Deviation 47.3 (28.0-62.0) fl RDW Coeff of Dg 15 (11.0-15.0) % Plt Count 170 (150-400) K/uL MPV 10.20 (7.40-12.00) fL Neut % (Auto) 90.9 H (48.0-80.0) % Lymph % (Auto) 4.0 L (16.0-40.0) % [place] % (Auto) 5.0 (0.0-15.0) % Eos % (Auto) 0.0 (0.0-7.0) % Baso % (Auto) 0.1 (0.0-1.5) % Neut # (Auto) 22.7 H (1.4-5.7) K/uL Lymph # (Auto) 1.0 (0.6-2.4) K/uL [place] # (Auto) 1.2 H (0.0-0.8) K/uL Eos # (Auto) 0.0 (0.0-0.7) K/uL Baso # (Auto) 0.0 (0.0-0.1) K/uL Nucleated RBC % 0.0 /100WBC Nucleated RBCs # 0 K/uL INR APTT (18.6-31.3) SEC D-Dimer, Quantitative (0.0-0.50) mg/L FEU VBG pH (7.31-7.41) VBG pCO2 (35-45) mmHG VBG pO2 (30-40) mmHG VBG HCO3 (22-30) mEq/L VBG Total CO2 (41-51) mmol/L VBG Base Excess (-3.0-3.0) Lactate 1.5 (0.20-2.00) mmol/L Sodium (136-145) mmol/L Potassium (3.5-5.1) mmol/L Chloride (98-107) mmol/L Carbon Dioxide (21.0-32.0) mmol/L BUN (7.0-18.0) mg/dL Creatinine (0.6-1.0) mg/dL Est Cr Clr Drug Dosing mL/min Estimated GFR (MDRD) ml/min Glucose (74-106) mg/dL Calcium (8.5-10.1) mg/dL Total Bilirubin (0.2-1.0) mg/dL AST (15-37) IU/L ALT (14-63) IU/L Alkaline Phosphatase (46-116) U/L Troponin I 0.259 H* (0.000-0.056) ng/mL B-Natriuretic Peptide (<100) PG/ML Total Protein (6.4-8.2) g/dL Albumin (3.4-5.0) g/dL Globulin (2.6-4.0) g/dL Albumin/Globulin Ratio (0.9-1.6) Urine Color Urine Appearance Urine pH (5.0-8.0) Ur Specific [place] (1.001-1.035) Urine Protein (NEGATIVE) mg/dL Urine Glucose (UA) (NEGATIVE) mg/dL Urine Ketones (NEGATIVE) mg/dL Urine Occult Blood (NEGATIVE) Urine Nitrite (NEGATIVE) Urine Bilirubin (NEGATIVE) Urine Urobilinogen (<2.0) EU/dL Ur Leukocyte Esterase (NEGATIVE) Urine RBC (0-2/HPF) Urine WBC (0-5/HPF) Ur Epithelial Cells (NONE-FEW) Urine Bacteria (NEGATIVE) Digoxin (0.9-2.0) ng/mL Influenza Type A RNA (NEGATIVE) Influenza Type B RNA (NEGATIVE) SARS-CoV-2 RNA ([facility]) (NEGATIVE) 10/26/20 10/26/20 Range/Units 04:15 04:15 WBC (4.0-11.0) K/uL RBC (4.30-5.90) M/uL Hgb (12.0-16.0) g/dL Hct (36.0-46.0) % MCV (80.0-98.0) fL MCH (27.0-32.0) pg MCHC (31.0-37.0) g/dL RDW Std Deviation (28.0-62.0) fl RDW Coeff of Dg (11.0-15.0) % Plt Count (150-400) K/uL MPV (7.40-12.00) fL Neut % (Auto) (48.0-80.0) % Lymph % (Auto) (16.0-40.0) % [place] % (Auto) (0.0-15.0) % Eos % (Auto) (0.0-7.0) % Baso % (Auto) (0.0-1.5) % Neut # (Auto) (1.4-5.7) K/uL Lymph # (Auto) (0.6-2.4) K/uL [place] # (Auto) (0.0-0.8) K/uL Eos # (Auto) (0.0-0.7) K/uL Baso # (Auto) (0.0-0.1) K/uL Nucleated RBC % /100WBC Nucleated RBCs # K/uL INR APTT (18.6-31.3) SEC D-Dimer, Quantitative (0.0-0.50) mg/L FEU VBG pH (7.31-7.41) VBG pCO2 (35-45) mmHG VBG pO2 (30-40) mmHG VBG HCO3 (22-30) mEq/L VBG Total CO2 (41-51) mmol/L VBG Base Excess (-3.0-3.0) Lactate (0.20-2.00) mmol/L Sodium 130 L (136-145) mmol/L Potassium 4.9 (3.5-5.1) mmol/L Chloride 95 L (98-107) mmol/L Carbon Dioxide 25.3 (21.0-32.0) mmol/L BUN 33 H (7.0-18.0) mg/dL Creatinine 1.7 H (0.6-1.0) mg/dL Est Cr Clr Drug Dosing 19.49 mL/min Estimated GFR (MDRD) 28.3 ml/min Glucose 94 (74-106) mg/dL Calcium 8.4 L (8.5-10.1) mg/dL Total Bilirubin 1.6 H (0.2-1.0) mg/dL AST 41 H (15-37) IU/L ALT 31 (14-63) IU/L Alkaline Phosphatase 141 H (46-116) U/L Troponin I (0.000-0.056) ng/mL B-Natriuretic Peptide (<100) PG/ML Total Protein 5.9 L (6.4-8.2) g/dL Albumin 2.7 L (3.4-5.0) g/dL Globulin 3.2 (2.6-4.0) g/dL Albumin/Globulin Ratio 0.8 L (0.9-1.6) Urine Color Urine Appearance Urine pH (5.0-8.0) Ur Specific [place] (1.001-1.035) Urine Protein (NEGATIVE) mg/dL Urine Glucose (UA) (NEGATIVE) mg/dL Urine Ketones (NEGATIVE) mg/dL Urine Occult Blood (NEGATIVE) Urine Nitrite (NEGATIVE) Urine Bilirubin (NEGATIVE) Urine Urobilinogen (<2.0) EU/dL Ur Leukocyte Esterase (NEGATIVE) Urine RBC (0-2/HPF) Urine WBC (0-5/HPF) Ur Epithelial Cells (NONE-FEW) Urine Bacteria (NEGATIVE) Digoxin 1.8 (0.9-2.0) ng/mL Influenza Type A RNA (NEGATIVE) Influenza Type B RNA (NEGATIVE) SARS-CoV-2 RNA ([facility]) (NEGATIVE) Result Diagrams: 10/26/20 04:15 10/26/20 04:15 Armando Results Last 24 hrs: Microbiology 10/25/20 17:40 Urine Culture - Preliminary Urine, Catheterized 10/25/20 17:53 Aerobic Blood Culture - Preliminary Blood - Venous - Lab Draw Anaerobic Blood Culture - Final 10/25/20 17:48 Aerobic Blood Culture - Preliminary Blood - Venous Anaerobic Blood Culture - Preliminary Sepsis Event Note - Evaluation Sepsis Screening Result: No Definite Risk - Focused Exam Vital Signs: Vital Signs Temp Pulse Resp BP Pulse Ox Pulse Ox 10/26/20 07:55 99.3 F 109 H 18 118/66 92 L 10/26/20 04:00 99.2 F 92 19 121/62 94 L 10/26/20 00:00 89 20 111/64 94 L 10/25/20 23:11 94 L 10/25/20 23:00 97.7 F 82 19 107/53 L 94 L - Problem List & Annotations (1) Palliative care status SNOMED Code(s): 402370289 Code(s): Z51.5 - ENCOUNTER FOR PALLIATIVE CARE Status: Acute Current Visit: Yes (2) Acute on chronic congestive heart failure SNOMED Code(s): 880204744, 33477507750819 Code(s): I50.9 - HEART FAILURE, UNSPECIFIED Status: Acute Current Visit: Yes Qualifiers: Heart failure type: unspecified Qualified Code(s): I50.9 - Heart failure, unspecified (3) Sepsis SNOMED Code(s): 80452605 Code(s): A41.9 - SEPSIS, UNSPECIFIED ORGANISM Status: Acute Current Visit: Yes Qualifiers: Sepsis type: sepsis due to unspecified organism Sepsis acute organ dysfunction status: with acute organ dysfunction Severe sepsis acute organ dysfunction type: acute renal failure Acute renal failure type: unspecified Severe sepsis shock status: unspecified Qualified Code(s): A41.9 - Sepsis, unspecified organism; R65.20 - Severe sepsis without septic shock; N17.9 - Acute kidney failure, unspecified (4) Acute CHF (congestive heart failure) SNOMED Code(s): 44389589 Code(s): I50.9 - HEART FAILURE, UNSPECIFIED Status: Acute Current Visit: No Qualifiers: Heart failure type: diastolic Qualified Code(s): I50.31 - Acute diastolic (congestive) heart failure (5) Acute respiratory failure with hypoxia SNOMED Code(s): 00612796, 038789421 Code(s): J96.01 - ACUTE RESPIRATORY FAILURE WITH HYPOXIA Status: Acute Current Visit: No (6) Anticoagulant long-term use SNOMED Code(s): 588829432 Code(s): Z79.01 - JAIL (CURRENT) USE OF ANTICOAGULANTS Status: Acute Current Visit: No (7) Hypoxia SNOMED Code(s): 460793603 Code(s): R09.02 - HYPOXEMIA Status: Acute Current Visit: No (8) UTI, Urinary tract infectious disease SNOMED Code(s): 44290183 Code(s): N39.0 - URINARY TRACT INFECTION, SITE NOT SPECIFIED Status: Acute Current Visit: No (9) Afib, Atrial fibrillation SNOMED Code(s): 48239991 Code(s): I48.91 - UNSPECIFIED ATRIAL FIBRILLATION Status: Chronic Current Visit: No (10) CHF, Congestive heart failure SNOMED Code(s): 62720614 Code(s): I50.9 - HEART FAILURE, UNSPECIFIED Status: Chronic Current Visit: No (11) Hypertension SNOMED Code(s): 93121273 Code(s): I10 - ESSENTIAL (PRIMARY) HYPERTENSION Status: Chronic Current Visit: No - Problem List Review Problem List Initiated/Reviewed/Updated: Yes - My Orders Last 24 Hours: My Active Orders 10/26/20 07:27 Daily Weight [Height and Weight] [RC] DAILY 10/26/20 10:51 Potassium Chloride [Potassium Chloride] 20 meq PO DAILY PRN 10/26/20 10:53 Acetaminophen [TylenoL] 650 mg PO Q6H PRN 10/26/20 Lunch Fluid Restriction [DIET] 10/26/20 13:00 Digoxin [Lanoxin] 125 mcg PO DAILY Sertraline [Zoloft] 25 mg PO DAILY 10/26/20 21:00 Prednisolone Acetate/Pf [Prednisolone Acet 1% Eye Drop] 1 drop EYEBOTH BID - Plan Plan:: UTI- Meropenem, Vancomycin, cultures pending Acute CHF exacerbation-fluid restrict 1800 mL, Lasix as needed, strict I&O, daily weight. Restrict IV fluids. Resume metoprolol and digoxin. TONEY- creatinine 1.7, previous creatinine levels have been between 0.91.1. Will avoid nephrotoxic agents. Holding IV fluids as patient is currently having acute CHF exacerbation.
[2020-10-26] MEDS: Meropenem Premix 50 ML IV SCH (11:44)
[2020-10-26] MEDS: Acetaminophen 325 MG Tab PO PRN (11:53)
[2020-10-26] MEDS: Sertraline 25 MG Tab PO SCH (12:11)
[2020-10-26] MEDS: Digoxin 125 MCG Tab PO SCH (13:29)
[2020-10-26] MEDS: Prednisolone Acetate/Pf [Prednisolone Acet 1% Eye Drop] EYEBOTH SCH (20:44)
[2020-10-27] MEDS: Meropenem Premix 50 ML IV SCH ×2 (00:02→13:33)
[2020-10-27 05:53] LABS: CARBON DIOXIDE,CO2 26.3 mmol/L (21.0-32.0)
[2020-10-27] MEDS: Dorzolamide/Timolol 2%-0.5% Ophth Soln 10 ML Bottle EYEBOTH SCH (06:30)
[2020-10-27] MEDS ORDERED: Magnesium Sulfate/Water 2 GM/50 ML BAG IV ONE (07:31)
[2020-10-27] MEDS: Sertraline 25 MG Tab PO SCH (08:28)
[2020-10-27] MEDS: Digoxin 125 MCG Tab PO SCH (08:30)
[2020-10-27] MEDS: Metoprolol Tartrate 50 MG Tab PO SCH ×2 (08:30→20:26)
[2020-10-27] MEDS: Prednisolone Acetate/Pf [Prednisolone Acet 1% Eye Drop] EYEBOTH SCH ×2 (08:31→20:27)
[2020-10-27] MEDS ORDERED: Warfarin 5 MG Tab PO SCH (10:15)
--- NOTE | 2020-10-27 11:17 | PCM.PN ---
- General Info Date of Service: 10/27/20 Subjective Update: Patient states she feels fine. Denies chest pain, shortness of breath, fever, chills, nausea. States mild lower back pain due to sitting for long periods. - Review of Systems General: Denies: Fever, Chills Pulmonary: Denies: Shortness of Breath, Cough Cardiovascular: Denies: Chest Pain, Palpitations, Lightheadedness Gastrointestinal: Denies: Abdominal Pain, Nausea, Vomiting Genitourinary: Denies: Dysuria, Urgency Musculoskeletal: Reports: Back Pain (while seated for long periods) Neurological: Denies: Confusion, Dizziness Psychiatric: Denies: Confusion - Patient Data Vitals - Most Recent: Last Vital Signs Temp 98.9 F 10/27/20 08:13 Pulse 101 H 10/27/20 08:30 Resp 19 10/27/20 08:13 BP 121/69 10/27/20 08:30 Pulse Ox 92 L 10/27/20 08:13 Weight - Most Recent: 121 lb 1.6 oz I&O - Last 24 Hours: Intake & Output 10/26/20 10/27/20 10/27/20 22:59 06:59 14:59 Intake Total 900 200 Output Total 900 400 Balance 0 -200 Lab Results Last 24 Hours: Laboratory Results - last 24 hr 10/27/20 10/27/20 Range/Units 04:45 04:45 WBC 17.24 H (4.0-11.0) K/uL RBC 4.30 (4.30-5.90) M/uL Hgb 13.2 (12.0-16.0) g/dL Hct 38.3 (36.0-46.0) % MCV 89.1 (80.0-98.0) fL MCH 30.7 (27.0-32.0) pg MCHC 34.5 (31.0-37.0) g/dL RDW Std Deviation 47.5 (28.0-62.0) fl RDW Coeff of Dg 15 (11.0-15.0) % Plt Count 166 (150-400) K/uL MPV 11.70 (7.40-12.00) fL Neut % (Auto) 88.8 H (48.0-80.0) % Lymph % (Auto) 3.1 L (16.0-40.0) % [place] % (Auto) 8.0 (0.0-15.0) % Eos % (Auto) 0.0 (0.0-7.0) % Baso % (Auto) 0.1 (0.0-1.5) % Neut # (Auto) 15.3 H (1.4-5.7) K/uL Lymph # (Auto) 0.5 L (0.6-2.4) K/uL [place] # (Auto) 1.4 H (0.0-0.8) K/uL Eos # (Auto) 0.0 (0.0-0.7) K/uL Baso # (Auto) 0.0 (0.0-0.1) K/uL Nucleated RBC % 0.0 /100WBC Nucleated RBCs # 0 K/uL Sodium 129 L (136-145) mmol/L Potassium 4.0 (3.5-5.1) mmol/L Chloride 96 L (98-107) mmol/L Carbon Dioxide 26.3 (21.0-32.0) mmol/L BUN 35 H (7.0-18.0) mg/dL Creatinine 1.3 H (0.6-1.0) mg/dL Est Cr Clr Drug Dosing 25.44 mL/min Estimated GFR (MDRD) 38.6 ml/min Glucose 106 (74-106) mg/dL Calcium 8.8 (8.5-10.1) mg/dL Magnesium 1.6 L (1.8-2.4) mg/dL Armando Results Last 24 Hours: Microbiology 10/25/20 17:48 Aerobic Blood Culture - Final Blood - Venous Escherichia Coli Anaerobic Blood Culture - Final 10/25/20 17:53 Aerobic Blood Culture - Final Blood - Venous - Lab Draw Anaerobic Blood Culture - Final 10/25/20 17:40 Urine Culture - Final Urine, Catheterized Escherichia Coli Med Orders - Current: Current Medications Acetaminophen (Acetaminophen 325 Mg Tab) 650 mg PO Q6H PRN PRN Reason: Pain Last Admin: 10/26/20 11:53 Dose: 650 mg Documented by: Digoxin (Digoxin 125 Mcg Tab) 125 mcg PO DAILY ADAM Last Admin: 10/27/20 08:30 Dose: 125 mcg Documented by: Meropenem/Sodium Chloride (Meropenem In Ns 1 Gm/50 Ml) 50 mls @ 100 mls/hr IV Q12H [facility] Last Admin: 10/27/20 00:02 Dose: 100 mls/hr Documented by: Vancomycin HCl 1 gm/ Sodium (Chloride) 250 mls @ 166.667 mls/hr IV Q48H [facility] Metoprolol Tartrate (Metoprolol Tartrate 50 Mg Tab) 50 mg PO BID [facility] Last Admin: 10/27/20 08:30 Dose: 50 mg Documented by: Prednisolone Acetate /Pf [Prednisolone Acet 1% Eye Drop] 1 each EYEBOTH BID [facility] Last Admin: 10/27/20 08:31 Dose: 1 each Documented by: Dorzolamide/Timolol 2%-0.5% Ophth Soln 10 Ml Bottle 0 each EYEBOTH ACBREAKFAST [facility] Last Admin: 10/27/20 06:30 Dose: 1 each Documented by: Potassium Chloride (Potassium Chloride 20 Meq Tab.Er) 20 meq PO DAILY PRN PRN Reason: WITH LASIX Sertraline HCl (Sertraline 25 Mg Tab) 25 mg PO DAILY [facility] Last Admin: 10/27/20 08:28 Dose: 25 mg Documented by: Sodium Chloride (Sodium Chloride 0.9% 10 Ml Syringe) 10 ml FLUSH ASDIRECTED PRN PRN Reason: Keep Vein Open Last Admin: 10/25/20 16:24 Dose: 10 ml Documented by: Sodium Chloride (Sodium Chloride 0.9% 2.5 Ml Syringe) 2.5 ml FLUSH ASDIRECTED PRN PRN Reason: Keep Vein Open Last Admin: 10/25/20 16:24 Dose: 2.5 ml Documented by: Vancomycin HCl (Pharmacy To Dose - Vancomycin) 1 dose .XX ASDIRECTED [facility] Warfarin Sodium (Warfarin Ask Dosing) 1 each PO Q24H [facility] Discontinued Medications Aspirin (Aspirin 81 Mg Tab.Chew) 324 mg PO ONETIME ONE Stop: 10/25/20 17:19 Last Admin: 10/25/20 17:41 Dose: 324 mg Documented by: Furosemide (Furosemide 40 Mg/4 Ml Vial) 20 mg IVPUSH NOW ONE Stop: 10/25/20 19:46 Last Admin: 10/25/20 20:33 Dose: Not Given Documented by: Sodium Chloride (Normal Saline) 1,000 mls @ 999 mls/hr IV STAT ONE Stop: 10/25/20 18:00 Last Admin: 10/25/20 17:41 Dose: 999 mls/hr Documented by: Meropenem 1 gm/ Sodium (Chloride) 100 mls @ 200 mls/hr IV ONETIME ONE Stop: 10/25/20 17:32 Last Admin: 10/25/20 17:42 Dose: Not Given Documented by: Vancomycin HCl 1 gm/ Sodium (Chloride) 250 mls @ 166 mls/hr IV ONETIME ONE Stop: 10/25/20 18:33 Last Admin: 10/25/20 17:41 Dose: 166 mls/hr Documented by: Meropenem/Sodium Chloride 1 gm (/ Premix) 50 mls @ 100 mls/hr IV ONETIME ONE Stop: 10/25/20 17:32 Last Admin: 10/25/20 17:41 Dose: 100 mls/hr Documented by: Meropenem/Sodium Chloride (Meropenem In Ns 1 Gm/50 Ml) 50 mls @ 100 mls/hr IV Q8H [facility] Last Admin: 10/26/20 00:41 Dose: Not Given Documented by: Meropenem/Sodium Chloride (Meropenem In Ns 1 Gm/50 Ml) 50 mls @ 100 mls/hr IV Q8H [facility] Last Admin: 10/26/20 00:30 Dose: 100 mls/hr Documented by: Magnesium Sulfate (Magnesium Sulfate In Water 2 Gm/50 Ml) 2 gm in 50 mls @ 50 mls/hr IV ONETIME ONE Stop: 10/27/20 08:30 Last Admin: 10/27/20 08:00 Dose: 50 mls/hr Documented by: Iodixanol (Iodixanol 652 Mg/Ml 100 Ml Bottle) 85 ml IVPUSH ONETIME ONE Stop: 10/25/20 18:42 Last Admin: 10/25/20 18:43 Dose: 85 ml Documented by: - Exam General: Alert, Oriented Lungs: Clear to Auscultation, Normal Respiratory Effort Cardiovascular: Regular Rate, Irregular Rhythm GI/Abdominal Exam: Normal Bowel Sounds, Soft, Non-Tender Back Exam: Normal Inspection Extremities: No Pedal Edema Psy/Mental Status: Alert - Patient Data Lab Results Last 24 hrs: Laboratory Results - last 24 hr 10/27/20 10/27/20 Range/Units 04:45 04:45 WBC 17.24 H (4.0-11.0) K/uL RBC 4.30 (4.30-5.90) M/uL Hgb 13.2 (12.0-16.0) g/dL Hct 38.3 (36.0-46.0) % MCV 89.1 (80.0-98.0) fL MCH 30.7 (27.0-32.0) pg MCHC 34.5 (31.0-37.0) g/dL RDW Std Deviation 47.5 (28.0-62.0) fl RDW Coeff of Dg 15 (11.0-15.0) % Plt Count 166 (150-400) K/uL MPV 11.70 (7.40-12.00) fL Neut % (Auto) 88.8 H (48.0-80.0) % Lymph % (Auto) 3.1 L (16.0-40.0) % [place] % (Auto) 8.0 (0.0-15.0) % Eos % (Auto) 0.0 (0.0-7.0) % Baso % (Auto) 0.1 (0.0-1.5) % Neut # (Auto) 15.3 H (1.4-5.7) K/uL Lymph # (Auto) 0.5 L (0.6-2.4) K/uL [place] # (Auto) 1.4 H (0.0-0.8) K/uL Eos # (Auto) 0.0 (0.0-0.7) K/uL Baso # (Auto) 0.0 (0.0-0.1) K/uL Nucleated RBC % 0.0 /100WBC Nucleated RBCs # 0 K/uL Sodium 129 L (136-145) mmol/L Potassium 4.0 (3.5-5.1) mmol/L Chloride 96 L (98-107) mmol/L Carbon Dioxide 26.3 (21.0-32.0) mmol/L BUN 35 H (7.0-18.0) mg/dL Creatinine 1.3 H (0.6-1.0) mg/dL Est Cr Clr Drug Dosing 25.44 mL/min Estimated GFR (MDRD) 38.6 ml/min Glucose 106 (74-106) mg/dL Calcium 8.8 (8.5-10.1) mg/dL Magnesium 1.6 L (1.8-2.4) mg/dL Result Diagrams: 10/27/20 04:45 10/27/20 04:45 Armando Results Last 24 hrs: Microbiology 10/25/20 17:48 Aerobic Blood Culture - Final Blood - Venous Escherichia Coli Anaerobic Blood Culture - Final 10/25/20 17:53 Aerobic Blood Culture - Final Blood - Venous - Lab Draw Anaerobic Blood Culture - Final 10/25/20 17:40 Urine Culture - Final Urine, Catheterized Escherichia Coli Sepsis Event Note - Evaluation Sepsis Screening Result: No Definite Risk - Focused Exam Vital Signs: Vital Signs Temp Pulse Pulse Resp BP BP Pulse Ox 10/27/20 08:30 101 H 121/69 10/27/20 08:13 98.9 F 101 H 19 121/69 92 L 10/27/20 03:00 98 F 73 14 124/66 90 L - Problem List & Annotations (1) Palliative care status SNOMED Code(s): 368996826 Code(s): Z51.5 - ENCOUNTER FOR PALLIATIVE CARE Status: Acute Current Vis it: Yes (2) Acute on chronic congestive heart failure SNOMED Code(s): 938554045, 81693311757263 Code(s): I50.9 - HEART FAILURE, UNSPECIFIED Status: Acute Current Visit: Yes Qualifiers: Heart failure type: unspecified Qualified Code(s): I50.9 - Heart failure, unspecified (3) Sepsis SNOMED Code(s): 51616485 Code(s): A41.9 - SEPSIS, UNSPECIFIED ORGANISM Status: Acute Current Visit: Yes Qualifiers: Sepsis type: sepsis due to unspecified organism Sepsis acute organ dysfunction status: with acute organ dysfunction Severe sepsis acute organ dysfunction type: acute renal failure Acute renal failure type: unspecified Severe sepsis shock status: unspecified Qualified Code(s): A41.9 - Sepsis, unspecified organism; R65.20 - Severe sepsis without septic shock; N17.9 - Acute kidney failure, unspecified (4) Acute CHF (congestive heart failure) SNOMED Code(s): 79537256 Code(s): I50.9 - HEART FAILURE, UNSPECIFIED Status: Acute Current Visit: No Qualifiers: Heart failure type: diastolic Qualified Code(s): I50.31 - Acute diastolic (congestive) heart failure (5) Acute respiratory failure with hypoxia SNOMED Code(s): 91425107, 337399160 Code(s): J96.01 - ACUTE RESPIRATORY FAILURE WITH HYPOXIA Status: Acute Current Visit: No (6) Anticoagulant long-term use SNOMED Code(s): 450600510 Code(s): Z79.01 - [employer] (CURRENT) USE OF ANTICOAGULANTS Status: Acute Current Visit: No (7) Hypoxia SNOMED Code(s): 360492579 Code(s): R09.02 - HYPOXEMIA Status: Acute Current Visit: No (8) UTI, Urinary tract infectious disease SNOMED Code(s): 05808593 Code(s): N39.0 - URINARY TRACT INFECTION, SITE NOT SPECIFIED Status: Acute Current Visit: No (9) Afib, Atrial fibrillation SNOMED Code(s): 37113569 Code(s): I48.91 - UNSPECIFIED ATRIAL FIBRILLATION Status: Chronic Current Visit: No (10) CHF, Congestive heart failure SNOMED Code(s): 55664079 Code(s): I50.9 - HEART FAILURE, UNSPECIFIED Status: Chronic Current V isit: No (11) Hypertension SNOMED Code(s): 60557445 Code(s): I10 - ESSENTIAL (PRIMARY) HYPERTENSION Status: Chronic Current Visit: No - Problem List Review Problem List Initiated/Reviewed/Updated: Yes - My Orders Last 24 Hours: My Active Orders 10/26/20 10:51 Potassium Chloride [Klor-Con M20] 20 meq PO DAILY PRN 10/26/20 10:53 Acetaminophen [TylenoL] 650 mg PO Q6H PRN 10/26/20 Lunch Fluid Restriction [DIET] 10/26/20 13:00 Digoxin [Lanoxin] 125 mcg PO DAILY Sertraline [Zoloft] 25 mg PO DAILY 10/26/20 21:00 Patient's Own Medication [Ptom] 1 each EYEBOTH BID 10/27/20 07:30 Patient's Own Medication [Ptom] 0 each EYEBOTH ACBREAKFAST 10/27/20 09:57 Consult to Physical Therapy [PT Evaluation and Treatment] [CONS] Routine 10/28/20 05:11 INR,PT,PROTHROMBIN TIME [COAG] AM 10/29/20 05:11 INR,PT,PROTHROMBIN TIME [COAG] AM 03/28/21 05:11 INR,PT,PROTHROMBIN TIME [COAG] AM - Plan Plan:: UTI- Urine culture positive for Ecoli, resume Meropenem, Vancomycin Bacteriemia- Blood culture positive for Ecoli, resume meropenem, vancomycin Acute CHF exacerbation-fluid restrict 1800 mL, Lasix as needed, strict I&O, daily weight. Restrict IV fluids. Resume metoprolol and digoxin. TONEY- resolving creatinine 1.3, previous creatinine levels have been between 0.91.1. Will avoid nephrotoxic agents.
[2020-10-28] MEDS: Meropenem Premix 50 ML IV SCH (00:10)
[2020-10-28 06:01] LABS: CARBON DIOXIDE,CO2 27.2 mmol/L (21.0-32.0); POTASSIUM,K 3.6 mmol/L (3.5-5.1)
[2020-10-28] MEDS: Dorzolamide/Timolol 2%-0.5% Ophth Soln 10 ML Bottle EYEBOTH SCH (06:40)
[2020-10-28] MEDS: Potassium Chloride 20 MEQ Tab.ER PO SCH (09:07)
[2020-10-28] MEDS: Metoprolol Tartrate 50 MG Tab PO SCH ×2 (09:08→20:47)
[2020-10-28] MEDS: Digoxin 125 MCG Tab PO SCH (09:08)
[2020-10-28] MEDS: Sertraline 25 MG Tab PO SCH (09:09)
[2020-10-28] MEDS: Furosemide 40 MG Tab PO SCH (09:09)
[2020-10-28] MEDS: Prednisolone Acetate/Pf [Prednisolone Acet 1% Eye Drop] EYEBOTH SCH ×2 (09:10→20:51)
--- NOTE | 2020-10-28 12:18 | PCM.PN ---
<Papo Babin - Last Filed: 10/28/20 13:40> - General Info Date of Service: 10/28/20 Subjective Update: Patient states he feels is fine this morning but would like to nap little bit longer. Denies fever, chills, nausea, vomiting, chest pain, shortness of breath. States that she has been able to complete exercise with physical therapy. - Review of Systems General: Denies: Fever, Chills Pulmonary: Denies: Shortness of Breath Cardiovascular: Denies: Chest Pain Gastrointestinal: Denies: Abdominal Pain, Nausea, Vomiting Neurological: Denies: Confusion, Dizziness Psychiatric: Denies: Confusion - Patient Data Vitals - Most Recent: Last Vital Signs Temp 98.6 F 10/28/20 08:04 Pulse 86 10/28/20 09:08 Resp 17 10/28/20 08:04 BP 133/73 10/28/20 09:08 Pulse Ox 93 L 10/28/20 08:04 Weight - Most Recent: 55.4 kg I&O - Last 24 Hours: Intake & Output 10/27/20 10/28/20 10/28/20 22:59 06:59 14:59 Intake Total 936 900 Output Total 630 520 Balance 306 380 Lab Results Last 24 Hours: Laboratory Results - last 24 hr 10/27/20 10/27/20 10/28/20 Range/Units 15:11 17:28 05:36 WBC (4.0-11.0) K/uL RBC (4.30-5.90) M/uL Hgb (12.0-16.0) g/dL Hct (36.0-46.0) % MCV (80.0-98.0) fL MCH (27.0-32.0) pg MCHC (31.0-37.0) g/dL RDW Std Deviation (28.0-62.0) fl RDW Coeff of Dg (11.0-15.0) % Plt Count (150-400) K/uL MPV (7.40-12.00) fL Neut % (Auto) (48.0-80.0) % Lymph % (Auto) (16.0-40.0) % [place] % (Auto) (0.0-15.0) % Eos % (Auto) (0.0-7.0) % Baso % (Auto) (0.0-1.5) % Neut # (Auto) (1.4-5.7) K/uL Lymph # (Auto) (0.6-2.4) K/uL [place] # (Auto) (0.0-0.8) K/uL Eos # (Auto) (0.0-0.7) K/uL Baso # (Auto) (0.0-0.1) K/uL Nucleated RBC % /100WBC Nucleated RBCs # K/uL INR 4.18 4.15 Sodium (136-145) mmol/L Potassium (3.5-5.1) mmol/L Chloride (98-107) mmol/L Carbon Dioxide (21.0-32.0) mmol/L BUN (7.0-18.0) mg/dL Creatinine (0.6-1.0) mg/dL Est Cr Clr Drug Dosing mL/min Estimated GFR (MDRD) ml/min Glucose (74-106) mg/dL Calcium (8.5-10.1) mg/dL Magnesium (1.8-2.4) mg/dL Random Vancomycin 4.6 ug/mL 10/28/20 10/28/20 Range/Units 05:36 05:36 WBC 12.17 H (4.0-11.0) K/uL RBC 4.07 L (4.30-5.90) M/uL Hgb 12.6 (12.0-16.0) g/dL Hct 36.0 (36.0-46.0) % MCV 88.5 (80.0-98.0) fL MCH 31.0 (27.0-32.0) pg MCHC 35.0 (31.0-37.0) g/dL RDW Std Deviation 47.4 (28.0-62.0) fl RDW Coeff of Dg 15 (11.0-15.0) % Plt Count 130 L (150-400) K/uL MPV 10.70 (7.40-12.00) fL Neut % (Auto) 85.2 H (48.0-80.0) % Lymph % (Auto) 6.9 L (16.0-40.0) % [place] % (Auto) 7.5 (0.0-15.0) % Eos % (Auto) 0.2 (0.0-7.0) % Baso % (Auto) 0.2 (0.0-1.5) % Neut # (Auto) 10.4 H (1.4-5.7) K/uL Lymph # (Auto) 0.8 (0.6-2.4) K/uL [place] # (Auto) 0.9 H (0.0-0.8) K/uL Eos # (Auto) 0.0 (0.0-0.7) K/uL Baso # (Auto) 0.0 (0.0-0.1) K/uL Nucleated RBC % 0.0 /100WBC Nucleated RBCs # 0 K/uL INR Sodium 129 L (136-145) mmol/L Potassium 3.6 (3.5-5.1) mmol/L Chloride 97 L (98-107) mmol/L Carbon Dioxide 27.2 (21.0-32.0) mmol/L BUN 27 H (7.0-18.0) mg/dL Creatinine 0.9 (0.6-1.0) mg/dL Est Cr Clr Drug Dosing 36.75 mL/min Estimated GFR (MDRD) 59.0 ml/min Glucose 106 (74-106) mg/dL Calcium 8.7 (8.5-10.1) mg/dL Magnesium 2.0 (1.8-2.4) mg/dL Random Vancomycin ug/mL Armando Results Last 24 Hours: Microbiology 10/25/20 17:48 Aerobic Blood Culture - Final Blood - Venous Escherichia Coli Anaerobic Blood Culture - Final 10/25/20 17:53 Aerobic Blood Culture - Final Blood - Venous - Lab Draw Anaerobic Blood Culture - Final Med Orders - Current: Current Medications Acetaminophen (Acetaminophen 325 Mg Tab) 650 mg PO Q6H PRN PRN Reason: Pain Last Admin: 10/26/20 11:53 Dose: 650 mg Documented by: Digoxin (Digoxin 125 Mcg Tab) 125 mcg PO DAILY [facility] Last Admin: 10/28/20 09:08 Dose: 125 mcg Documented by: Furosemide (Furosemide 40 Mg Tab) 40 mg PO DAILY [facility] Last Admin: 10/28/20 09:09 Dose: 40 mg Documented by: Vancomycin HCl 1 gm/ Sodium (Chloride) 250 mls @ 166.667 mls/hr IV Q24H [facility] Last Admin: 10/27/20 20:27 Dose: 166.667 mls/hr Documented by: Meropenem/Sodium Chloride 1 gm (/ Premix) 50 mls @ 100 mls/hr IV Q12H [facility] Metoprolol Tartrate (Metoprolol Tartrate 50 Mg Tab) 50 mg PO BID [facility] Last Admin: 10/28/20 09:08 Dose: 50 mg Documented by: Prednisolone Acetate /Pf [Prednisolone Acet 1% Eye Drop] 1 each EYEBOTH BID [facility] Last Admin: 10/28/20 09:10 Dose: 1 each Documented by: Dorzolamide/Timolol 2%-0.5% Ophth Soln 10 Ml Bottle 0 each EYEBOTH ACBREAKFAST [facility] Last Admin: 10/28/20 06:40 Dose: 1 each Documented by: Potassium Chloride (Potassium Chloride 20 Meq Tab.Er) 20 meq PO DAILY PRN PRN Reason: WITH LASIX Potassium Chloride (Potassium Chloride 20 Meq Tab.Er) 40 meq PO DAILY [facility] Last Admin: 10/28/20 09:07 Dose: 40 meq Documented by: Sertraline HCl (Sertraline 25 Mg Tab) 25 mg PO DAILY [facility] Last Admin: 10/28/20 09:09 Dose: 25 mg Documented by: Sodium Chloride (Sodium Chloride 0.9% 10 Ml Syringe) 10 ml FLUSH ASDIRECTED PRN PRN Reason: Keep Vein Open Last Admin: 10/25/20 16:24 Dose: 10 ml Documented by: Sodium Chloride (Sodium Chloride 0.9% 2.5 Ml Syringe) 2.5 ml FLUSH ASDIRECTED PRN PRN Reason: Keep Vein Open Last Admin: 10/25/20 16:24 Dose: 2.5 ml Documented by: Vancomycin HCl (Pharmacy To Dose - Vancomycin) 1 dose .XX ASDIRECTED [facility] Warfarin Sodium (Warfarin Ask Dosing) 1 each PO Q24H [facility] Last Admin: 10/27/20 16:13 Dose: Not Given Documented by: Discontinued Medications Aspirin (Aspirin 81 Mg Tab.Chew) 324 mg PO ONETIME ONE Stop: 10/25/20 17:19 Last Admin: 10/25/20 17:41 Dose: 324 mg Documented by: Furosemide (Furosemide 40 Mg/4 Ml Vial) 20 mg IVPUSH NOW ONE Stop: 10/25/20 19:46 Last Admin: 10/25/20 20:33 Dose: Not Given Documented by: Sodium Chloride (Normal Saline) 1,000 mls @ 999 mls/hr IV STAT ONE Stop: 10/25/20 18:00 Last Admin: 10/25/20 17:41 Dose: 999 mls/hr Documented by: Meropenem 1 gm/ Sodium (Chloride) 100 mls @ 200 mls/hr IV ONETIME ONE Stop: 10/25/20 17:32 Last Admin: 10/25/20 17:42 Dose: Not Given Documented by: Vancomycin HCl 1 gm/ Sodium (Chloride) 250 mls @ 166 mls/hr IV ONETIME ONE Stop: 10/25/20 18:33 Last Admin: 10/25/20 17:41 Dose: 166 mls/hr Documented by: Meropenem/Sodium Chloride 1 gm (/ Premix) 50 mls @ 100 mls/hr IV ONETIME ONE Stop: 10/25/20 17:32 Last Admin: 10/25/20 17:41 Dose: 100 mls/hr Documented by: Meropenem/Sodium Chloride (Meropenem In Ns 1 Gm/50 Ml) 50 mls @ 100 mls/hr IV Q8H [facility] Last Admin: 10/26/20 00:41 Dose: Not Given Documented by: Meropenem/Sodium Chloride (Meropenem In Ns 1 Gm/50 Ml) 50 mls @ 100 mls/hr IV Q8H [facility] Last Admin: 10/26/20 00:30 Dose: 100 mls/hr Documented by: Meropenem/Sodium Chloride (Meropenem In Ns 1 Gm/50 Ml) 50 mls @ 100 mls/hr IV Q12H [facility] Last Admin: 10/28/20 00:10 Dose: 100 mls/hr Documented by: Vancomycin HCl 1 gm/ Sodium (Chloride) 250 mls @ 166.667 mls/hr IV Q48H [facility] Last Admin: 10/27/20 21:12 Dose: Not Given Documented by: Magnesium Sulfate (Magnesium Sulfate In Water 2 Gm/50 Ml) 2 gm in 50 mls @ 50 mls/hr IV ONETIME ONE Stop: 10/27/20 08:30 Last Admin: 10/27/20 08:00 Dose: 50 mls/hr Documented by: Iodixanol (Iodixanol 652 Mg/Ml 100 Ml Bottle) 85 ml IVPUSH ONETIME ONE Stop: 10/25/20 18:42 Last Admin: 10/25/20 18:43 Dose: 85 ml Documented by: - Exam General: Alert, Oriented Lungs: Clear to Auscultation, Normal Respiratory Effort Cardiovascular: Regular Rate, Irregular Rhythm GI/Abdominal Exam: Normal Bowel Sounds, Soft, Non-Tender Extremities: No Pedal Edema - Patient Data Lab Results Last 24 hrs: Laboratory Results - last 24 hr 10/27/20 10/27/20 10/28/20 Range/Units 15:11 17:28 05:36 WBC (4.0-11.0) K/uL RBC (4.30-5.90) M/uL Hgb (12.0-16.0) g/dL Hct (36.0-46.0) % MCV (80.0-98.0) fL MCH (27.0-32.0) pg MCHC (31.0-37.0) g/dL RDW Std Deviation (28.0-62.0) fl RDW Coeff of Dg (11.0-15.0) % Plt Count (150-400) K/uL MPV (7.40-12.00) fL Neut % (Auto) (48.0-80.0) % Lymph % (Auto) (16.0-40.0) % [place] % (Auto) (0.0-15.0) % Eos % (Auto) (0.0-7.0) % Baso % (Auto) (0.0-1.5) % Neut # (Auto) (1.4-5.7) K/uL Lymph # (Auto) (0.6-2.4) K/uL [place] # (Auto) (0.0-0.8) K/uL Eos # (Auto) (0.0-0.7) K/uL Baso # (Auto) (0.0-0.1) K/uL Nucleated RBC % /100WBC Nucleated RBCs # K/uL INR 4.18 4.15 Sodium (136-145) mmol/L Potassium (3.5-5.1) mmol/L Chloride (98-107) mmol/L Carbon Dioxide (21.0-32.0) mmol/L BUN (7.0-18.0) mg/dL Creatinine (0.6-1.0) mg/dL Est Cr Clr Drug Dosing mL/min Estimated GFR (MDRD) ml/min Glucose (74-106) mg/dL Calcium (8.5-10.1) mg/dL Magnesium (1.8-2.4) mg/dL Random Vancomycin 4.6 ug/mL 10/28/20 10/28/20 Range/Units 05:36 05:36 WBC 12.17 H (4.0-11.0) K/uL RBC 4.07 L (4.30-5.90) M/uL Hgb 12.6 (12.0-16.0) g/dL Hct 36.0 (36.0-46.0) % MCV 88.5 (80.0-98.0) fL MCH 31.0 (27.0-32.0) pg MCHC 35.0 (31.0-37.0) g/dL RDW Std Deviation 47.4 (28.0-62.0) fl RDW Coeff of Dg 15 (11.0-15.0) % Plt Count 130 L (150-400) K/uL MPV 10.70 (7.40-12.00) fL Neut % (Auto) 85.2 H (48.0-80.0) % Lymph % (Auto) 6.9 L (16.0-40.0) % [place] % (Auto) 7.5 (0.0-15.0) % Eos % (Auto) 0.2 (0.0-7.0) % Baso % (Auto) 0.2 (0.0-1.5) % Neut # (Auto) 10.4 H (1.4-5.7) K/uL Lymph # (Auto) 0.8 (0.6-2.4) K/uL [place] # (Auto) 0.9 H (0.0-0.8) K/uL Eos # (Auto) 0.0 (0.0-0.7) K/uL Baso # (Auto) 0.0 (0.0-0.1) K/uL Nucleated RBC % 0.0 /100WBC Nucleated RBCs # 0 K/uL INR Sodium 129 L (136-145) mmol/L Potassium 3.6 (3.5-5.1) mmol/L Chloride 97 L (98-107) mmol/L Carbon Dioxide 27.2 (21.0-32.0) mmol/L BUN 27 H (7.0-18.0) mg/dL Creatinine 0.9 (0.6-1.0) mg/dL Est Cr Clr Drug Dosing 36.75 mL/min Estimated GFR (MDRD) 59.0 ml/min Glucose 106 (74-106) mg/dL Calcium 8.7 (8.5-10.1) mg/dL Magnesium 2.0 (1.8-2.4) mg/dL Random Vancomycin ug/mL Result Diagrams: 10/28/20 05:36 10/28/20 05:36 Armando Results Last 24 hrs: Microbiology 10/25/20 17:48 Aerobic Blood Culture - Final Blood - Venous Escherichia Coli Anaerobic Blood Culture - Final 10/25/20 17:53 Aerobic Blood Culture - Final Blood - Venous - Lab Draw Anaerobic Blood Culture - Final Sepsis Event Note - Evaluation Sepsis Screening Result: No Definite Risk - Focused Exam Vital Signs: Vital Signs Temp Pulse Pulse Resp BP BP BP 10/28/20 09:08 86 133/73 10/28/20 08:04 98.6 F 96 17 121/62 10/28/20 03:40 98.9 F 94 18 128/75 Pulse Ox 10/28/20 09:08 10/28/20 08:04 93 L 10/28/20 03:40 91 L - Problem List & Annotations (1) Palliative care status SNOMED Code(s): 209637779 Code(s): Z51.5 - ENCOUNTER FOR PALLIATIVE CARE Status: Acute Current Visit: Yes (2) Acute on chronic congestive heart failure SNOMED Code(s): 117453540, 77605539875835 Code(s): I50.9 - HEART FAILURE, UNSPECIFIED Status: Acute Current Visit: Yes Qualifiers: Heart failure type: unspecified Qualified Code(s): I50.9 - Heart failure, unspecified (3) Sepsis SNOMED Code(s): 90538743 Code(s): A41.9 - SEPSIS, UNSPECIFIED ORGANISM Status: Acute Current Visit: Yes Qualifiers: Sepsis type: sepsis due to unspecified organism Sepsis acute organ dysfunction status: with acute organ dysfunction Severe sepsis acute organ dysfunction type: acute renal failure Acute renal failure type: unspecified Severe sepsis shock status: unspecified Qualified Code(s): A41.9 - Sepsis, unspecified organism; R65.20 - Severe sepsis without septic shock; N17.9 - Acute kidney failure, unspecified (4) Acute CHF (congestive heart failure) SNOMED Code(s): 15071546 Code(s): I50.9 - HEART FAILURE, UNSPECIFIED Status: Acute Current Visit: No Qualifiers: Heart failure type: diastolic Qualified Code(s): I50.31 - Acute diastolic (congestive) heart failure (5) Acute respiratory failure with hypoxia SNOMED Code(s): 85471374, 294217647 Code(s): J96.01 - ACUTE RESPIRATORY FAILURE WITH HYPOXIA Status: Acute Current Visit: No (6) Anticoagulant long-term use SNOMED Code(s): 258835298 Code(s): Z79.01 - REGULATORY COORDINATOR (CURRENT) USE OF ANTICOAGULANTS Status: Acute Current Visit: No (7) Hypoxia SNOMED Code(s): 122485984 Code(s): R09.02 - HYPOXEMIA Status: Acute Current Visit: No (8) UTI, Urinary tract infectious disease SNOMED Code(s): 62731826 Code(s): N39.0 - URINARY TRACT INFECTION, SITE NOT SPECIFIED Status: Acute Current Visit: No (9) Afib, Atrial fibrillation SNOMED Code(s): 56995297 Code(s): I48.91 - UNSPECIFIED ATRIAL FIBRILLATION Status: Chronic Current Visit: No (10) CHF, Congestive heart failure SNOMED Code(s): 01608263 Code(s): I50.9 - HEART FAILURE, UNSPECIFIED Status: Chronic Current Visit: No (11) Hypertension SNOMED Code(s): 77995445 Code(s): I10 - ESSENTIAL (PRIMARY) HYPERTENSION Status: Chronic Current Visit: No - Problem List Review Problem List Initiated/Reviewed/Updated: Yes - My Orders Last 24 Hours: My Active Orders 10/28/20 09:00 Furosemide [Lasix] 40 mg PO DAILY Potassium Chloride [Klor-Con M20] 40 meq PO DAILY 10/29/20 05:11 INR,PT,PROTHROMBIN TIME [COAG] AM 10/30/20 05:11 INR,PT,PROTHROMBIN TIME [COAG] AM - Plan Plan:: UTI- Urine culture positive for Ecoli, switched antibiotic to ceftriaxone Bacteriemia- Blood culture positive for Ecoli, antibiotic changed to ceftriaxone Acute CHF exacerbation-fluid restrict 1800 mL, Resume home lasix dose, 40mg PO, strict I&O, daily weight, Resume metoprolol and digoxin. Warfarin for DVT prophylaxis, regular diet <Meme Diego - Last Filed: 10/28/20 23:03> - General Info Subjective Update: I have seen and evaluated the patient and agree with the residents note unless specified in my note - Patient Data Vitals - Most Recent: Last Vital Signs Temp 36.9 C 10/28/20 19:27 Pulse 93 10/28/20 20:47 Resp 17 10/28/20 19:27 BP 136/65 10/28/20 21:50 Pulse Ox 90 L 10/28/20 19:27 I&O - Last 24 Hours: Intake & Output 10/28/20 10/28/20 10/29/20 14:59 22:59 06:59 Intake Total 950 Output Total 950 Balance 0 Lab Results Last 24 Hours: Laboratory Results - last 24 hr 10/28/20 10/28/20 10/28/20 Range/Units 05:36 05:36 05:36 WBC 12.17 H (4.0-11.0) K/uL RBC 4.07 L (4.30-5.90) M/uL Hgb 12.6 (12.0-16.0) g/dL Hct 36.0 (36.0-46.0) % MCV 88.5 (80.0-98.0) fL MCH 31.0 (27.0-32.0) pg MCHC 35.0 (31.0-37.0) g/dL RDW Std Deviation 47.4 (28.0-62.0) fl RDW Coeff of Dg 15 (11.0-15.0) % Plt Count 130 L (150-400) K/uL MPV 10.70 (7.40-12.00) fL Neut % (Auto) 85.2 H (48.0-80.0) % Lymph % (Auto) 6.9 L (16.0-40.0) % [place] % (Auto) 7.5 (0.0-15.0) % Eos % (Auto) 0.2 (0.0-7.0) % Baso % (Auto) 0.2 (0.0-1.5) % Neut # (Auto) 10.4 H (1.4-5.7) K/uL Lymph # (Auto) 0.8 (0.6-2.4) K/uL [place] # (Auto) 0.9 H (0.0-0.8) K/uL Eos # (Auto) 0.0 (0.0-0.7) K/uL Baso # (Auto) 0.0 (0.0-0.1) K/uL Nucleated RBC % 0.0 /100WBC Nucleated RBCs # 0 K/uL INR 4.15 Sodium 129 L (136-145) mmol/L Potassium 3.6 (3.5-5.1) mmol/L Chloride 97 L (98-107) mmol/L Carbon Dioxide 27.2 (21.0-32.0) mmol/L BUN 27 H (7.0-18.0) mg/dL Creatinine 0.9 (0.6-1.0) mg/dL Est Cr Clr Drug Dosing 36.75 mL/min Estimated GFR (MDRD) 59.0 ml/min Glucose 106 (74-106) mg/dL Calcium 8.7 (8.5-10.1) mg/dL Magnesium 2.0 (1.8-2.4) mg/dL Med Orders - Current: Current Medications Acetaminophen (Acetaminophen 325 Mg Tab) 650 mg PO Q6H PRN PRN Reason: Pain Last Admin: 10/26/20 11:53 Dose: 650 mg Documented by: Digoxin (Digoxin 125 Mcg Tab) 125 mcg PO DAILY [facility] Last Admin: 10/28/20 09:08 Dose: 125 mcg Documented by: Furosemide (Furosemide 40 Mg Tab) 40 mg PO DAILY [facility] Last Admin: 10/28/20 09:09 Dose: 40 mg Documented by: Ceftriaxone Sodium/Dextrose 1 (gm/ Premix) 50 mls @ 100 mls/hr IV Q24H [facility] Last Admin: 10/28/20 12:43 Dose: 100 mls/hr Documented by: Metoprolol Tartrate (Metoprolol Tartrate 50 Mg Tab) 50 mg PO BID [facility] Last Admin: 10/28/20 20:47 Dose: 50 mg Documented by: Prednisolone Acetate /Pf [Prednisolone Acet 1% Eye Drop] 1 each EYEBOTH BID [facility] Last Admin: 10/28/20 20:51 Dose: 1 each Documented by: Dorzolamide/Timolol 2%-0.5% Ophth Soln 10 Ml Bottle 0 each EYEBOTH ACBREAKFAST [facility] Last Admin: 10/28/20 06:40 Dose: 1 each Documented by: Potassium Chloride (Potassium Chloride 20 Meq Tab.Er) 20 meq PO DAILY PRN PRN Reason: WITH LASIX Potassium Chloride (Potassium Chloride 20 Meq Tab.Er) 40 meq PO DAILY [facility] Last Admin: 10/28/20 09:07 Dose: 40 meq Documented by: Sertraline HCl (Sertraline 25 Mg Tab) 25 mg PO DAILY [facility] Last Admin: 10/28/20 09:09 Dose: 25 mg Documented by: Sodium Chloride (Sodium Chloride 0.9% 10 Ml Syringe) 10 ml FLUSH ASDIRECTED PRN PRN Reason: Keep Vein Open Last Admin: 10/25/20 16:24 Dose: 10 ml Documented by: Sodium Chloride (Sodium Chloride 0.9% 2.5 Ml Syringe) 2.5 ml FLUSH ASDIRECTED PRN PRN Reason: Keep Vein Open Last Admin: 10/25/20 16:24 Dose: 2.5 ml Documented by: Warfarin Sodium (Warfarin Ask Dosing) 1 each PO Q24H [facility] Last Admin: 10/28/20 15:00 Dose: Not Given Documented by: Discontinued Medications Aspirin (Aspirin 81 Mg Tab.Chew) 324 mg PO ONETIME ONE Stop: 10/25/20 17:19 Last Admin: 10/25/20 17:41 Dose: 324 mg Documented by: Furosemide (Furosemide 40 Mg/4 Ml Vial) 20 mg IVPUSH NOW ONE Stop: 10/25/20 19:46 Last Admin: 10/25/20 20:33 Dose: Not Given Documented by: Sodium Chloride (Normal Saline) 1,000 mls @ 999 mls/hr IV STAT ONE Stop: 10/25/20 18:00 Last Admin: 10/25/20 17:41 Dose: 999 mls/hr Documented by: Meropenem 1 gm/ Sodium (Chloride) 100 mls @ 200 mls/hr IV ONETIME ONE Stop: 10/25/20 17:32 Last Admin: 10/25/20 17:42 Dose: Not Given Documented by: Vancomycin HCl 1 gm/ Sodium (Chloride) 250 mls @ 166 mls/hr IV ONETIME ONE Stop: 10/25/20 18:33 Last Admin: 10/25/20 17:41 Dose: 166 mls/hr Documented by: Meropenem/Sodium Chloride 1 gm (/ Premix) 50 mls @ 100 mls/hr IV ONETIME ONE Stop: 10/25/20 17:32 Last Admin: 10/25/20 17:41 Dose: 100 mls/hr Documented by: Meropenem/Sodium Chloride (Meropenem In Ns 1 Gm/50 Ml) 50 mls @ 100 mls/hr IV Q8H [facility] Last Admin: 10/26/20 00:41 Dose: Not Given Documented by: Meropenem/Sodium Chloride (Meropenem In Ns 1 Gm/50 Ml) 50 mls @ 100 mls/hr IV Q8H [facility] Last Admin: 10/26/20 00:30 Dose: 100 mls/hr Documented by: Meropenem/Sodium Chloride (Meropenem In Ns 1 Gm/50 Ml) 50 mls @ 100 mls/hr IV Q12H [facility] Last Admin: 10/28/20 00:10 Dose: 100 mls/hr Documented by: Vancomycin HCl 1 gm/ Sodium (Chloride) 250 mls @ 166.667 mls/hr IV Q48H [facility] Last Admin: 10/27/20 21:12 Dose: Not Given Documented by: Magnesium Sulfate (Magnesium Sulfate In Water 2 Gm/50 Ml) 2 gm in 50 mls @ 50 mls/hr IV ONETIME ONE Stop: 10/27/20 08:30 Last Admin: 10/27/20 08:00 Dose: 50 mls/hr Documented by: Vancomycin HCl 1 gm/ Sodium (Chloride) 250 mls @ 166.667 mls/hr IV Q24H [facility] Last Admin: 10/27/20 20:27 Dose: 166.667 mls/hr Documented by: Meropenem/Sodium Chloride 1 gm (/ Premix) 50 mls @ 100 mls/hr IV Q12H [facility] Iodixanol (Iodixanol 652 Mg/Ml 100 Ml Bottle) 85 ml IVPUSH ONETIME ONE Stop: 10/25/20 18:42 Last Admin: 10/25/20 18:43 Dose: 85 ml Documented by: Vancomycin HCl (Pharmacy To Dose - Vancomycin) 1 dose .XX ASDIRECTED [facility] - Patient Data Lab Results Last 24 hrs: Laboratory Results - last 24 hr 10/28/20 10/28/20 10/28/20 Range/Units 05:36 05:36 05:36 WBC 12.17 H (4.0-11.0) K/uL RBC 4.07 L (4.30-5.90) M/uL Hgb 12.6 (12.0-16.0) g/dL Hct 36.0 (36.0-46.0) % MCV 88.5 (80.0-98.0) fL MCH 31.0 (27.0-32.0) pg MCHC 35.0 (31.0-37.0) g/dL RDW Std Deviation 47.4 (28.0-62.0) fl RDW Coeff of Gd 15 (11.0-15.0) % Plt Count 130 L (150-400) K/uL MPV 10.70 (7.40-12.00) fL Neut % (Auto) 85.2 H (48.0-80.0) % Lymph % (Auto) 6.9 L (16.0-40.0) % [place] % (Auto) 7.5 (0.0-15.0) % Eos % (Auto) 0.2 (0.0-7.0) % Baso % (Auto) 0.2 (0.0-1.5) % Neut # (Auto) 10.4 H (1.4-5.7) K/uL Lymph # (Auto) 0.8 (0.6-2.4) K/uL [place] # (Auto) 0.9 H (0.0-0.8) K/uL Eos # (Auto) 0.0 (0.0-0.7) K/uL Baso # (Auto) 0.0 (0.0-0.1) K/uL Nucleated RBC % 0.0 /100WBC Nucleated RBCs # 0 K/uL INR 4.15 Sodium 129 L (136-145) mmol/L Potassium 3.6 (3.5-5.1) mmol/L Chloride 97 L (98-107) mmol/L Carbon Dioxide 27.2 (21.0-32.0) mmol/L BUN 27 H (7.0-18.0) mg/dL Creatinine 0.9 (0.6-1.0) mg/dL Est Cr Clr Drug Dosing 36.75 mL/min Estimated GFR (MDRD) 59.0 ml/min Glucose 106 (74-106) mg/dL Calcium 8.7 (8.5-10.1) mg/dL Magnesium 2.0 (1.8-2.4) mg/dL Result Diagrams: 10/28/20 05:36 10/28/20 05:36 Sepsis Event Note - Focused Exam Vital Signs: Vital Signs Temp Pulse Pulse Resp BP BP BP 10/28/20 21:50 136/65 10/28/20 20:47 93 138/64 10/28/20 19:27 36.9 C 97 17 156/81 H 10/28/20 16:00 36.2 C 88 16 113/66 10/28/20 12:00 36.6 C 86 16 141/72 H Pulse Ox 10/28/20 21:50 10/28/20 20:47 10/28/20 19:27 90 L 10/28/20 16:00 94 L 10/28/20 12:00 93 L
[2020-10-28] MEDS ORDERED: Meropenem Premix 1 GM in Premix Bag 1 BAG IV SCH (12:30)
[2020-10-28] MEDS: cefTRIAXone 1 GM in Premix Bag 1 BAG IV SCH (12:43)
[2020-10-29 06:13] LABS: BLOOD UREA NITROGEN,BUN 20 mg/dL (7.0-18.0); CARBON DIOXIDE,CO2 28.6 mmol/L (21.0-32.0); CHLORIDE,CL 95 mmol/L (98-107); GLUCOSE RANDOM 101 mg/dL (74-106); SODIUM,NA 130 mmol/L (136-145)
[2020-10-29] MEDS: Dorzolamide/Timolol 2%-0.5% Ophth Soln 10 ML Bottle EYEBOTH SCH (07:42)
[2020-10-29] MEDS ORDERED: Magnesium Sulfate/Water 2 GM/50 ML BAG IV ONE (07:59)
[2020-10-29] MEDS: Sertraline 25 MG Tab PO SCH (09:05)
[2020-10-29] MEDS: Metoprolol Tartrate 50 MG Tab PO SCH ×2 (09:06→20:10)
[2020-10-29] MEDS: Furosemide 40 MG Tab PO SCH (09:07)
[2020-10-29] MEDS: Digoxin 125 MCG Tab PO SCH (09:07)
[2020-10-29] MEDS: Potassium Chloride 20 MEQ Tab.ER PO SCH (09:07)
[2020-10-29] MEDS: Prednisolone Acetate/Pf [Prednisolone Acet 1% Eye Drop] EYEBOTH SCH ×2 (09:08→20:22)
--- NOTE | 2020-10-29 12:34 | PCM.PN ---
<Papo Babin - Last Filed: 10/29/20 12:31> - General Info Date of Service: 10/29/20 Subjective Update: Patient states she feels fine today denies chest pain, shortness of breath, fever, chills, nausea, vomiting. Patient does state that she feels warm due to elevated temperature in the room. - Review of Systems General: Denies: Fever, Chills Pulmonary: Denies: Shortness of Breath, Cough Cardiovascular: Denies: Chest Pain, Palpitations Gastrointestinal: Denies: Abdominal Pain, Nausea, Vomiting Neurological: Denies: Confusion, Dizziness Psychiatric: Denies: Confusion - Patient Data Vitals - Most Recent: Last Vital Signs Temp 99.0 F 10/29/20 08:55 Pulse 110 H 10/29/20 09:07 Resp 15 10/29/20 08:55 BP 118/66 10/29/20 09:06 Pulse Ox 92 L 10/29/20 08:55 Weight - Most Recent: 55.4 kg I&O - Last 24 Hours: Intake & Output 10/28/20 10/29/20 10/29/20 22:59 06:59 14:59 Intake Total 950 650 Output Total 950 500 Balance 0 150 Lab Results Last 24 Hours: Laboratory Results - last 24 hr 10/29/20 10/29/20 10/29/20 Range/Units 05:01 05:01 05:01 WBC 12.29 H (4.0-11.0) K/uL RBC 4.58 (4.30-5.90) M/uL Hgb 13.9 (12.0-16.0) g/dL Hct 40.5 (36.0-46.0) % MCV 88.4 (80.0-98.0) fL MCH 30.3 (27.0-32.0) pg MCHC 34.3 (31.0-37.0) g/dL RDW Std Deviation 47.4 (28.0-62.0) fl RDW Coeff of Dg 15 (11.0-15.0) % Plt Count 129 L (150-400) K/uL MPV 11.30 (7.40-12.00) fL Neut % (Auto) 74.0 (48.0-80.0) % Lymph % (Auto) 7.4 L (16.0-40.0) % Har[place]on % (Auto) 18.2 H (0.0-15.0) % Eos % (Auto) 0.2 (0.0-7.0) % Baso % (Auto) 0.2 (0.0-1.5) % Neut # (Auto) 9.1 H (1.4-5.7) K/uL Lymph # (Auto) 0.9 (0.6-2.4) K/uL Har[place]on # (Auto) 2.2 H (0.0-0.8) K/uL Eos # (Auto) 0.0 (0.0-0.7) K/uL Baso # (Auto) 0.0 (0.0-0.1) K/uL Nucleated RBC % 0.0 /100WBC Nucleated RBCs # 0 K/uL INR 4.48 Sodium 130 L (136-145) mmol/L Potassium 4.0 (3.5-5.1) mmol/L Chloride 95 L (98-107) mmol/L Carbon Dioxide 28.6 (21.0-32.0) mmol/L BUN 20 H (7.0-18.0) mg/dL Creatinine 0.8 (0.6-1.0) mg/dL Est Cr Clr Drug Dosing 41.69 mL/min Estimated GFR (MDRD) > 60.0 ml/min Glucose 101 (74-106) mg/dL Calcium 8.6 (8.5-10.1) mg/dL Magnesium 1.6 L (1.8-2.4) mg/dL Total Bilirubin 0.8 (0.2-1.0) mg/dL AST 20 (15-37) IU/L ALT 20 (14-63) IU/L Alkaline Phosphatase 114 (46-116) U/L Total Protein 5.5 L (6.4-8.2) g/dL Albumin 2.2 L (3.4-5.0) g/dL Globulin 3.3 (2.6-4.0) g/dL Albumin/Globulin Ratio 0.7 L (0.9-1.6) Med Orders - Current: Current Medications Acetaminophen (Acetaminophen 325 Mg Tab) 650 mg PO Q6H PRN PRN Reason: Pain Last Admin: 10/26/20 11:53 Dose: 650 mg Documented by: Digoxin (Digoxin 125 Mcg Tab) 125 mcg PO DAILY [facility] Last Admin: 10/29/20 09:07 Dose: 125 mcg Documented by: Furosemide (Furosemide 40 Mg Tab) 40 mg PO DAILY [facility] Last Admin: 10/29/20 09:07 Dose: 40 mg Documented by: Ceftriaxone Sodium/Dextrose 1 (gm/ Premix) 50 mls @ 100 mls/hr IV Q24H [facility] Last Admin: 10/28/20 12:43 Dose: 100 mls/hr Documented by: Metoprolol Tartrate (Metoprolol Tartrate 50 Mg Tab) 50 mg PO BID [facility] Last Admin: 10/29/20 09:06 Dose: 50 mg Documented by: Prednisolone Acetate /Pf [Prednisolone Acet 1% Eye Drop] 1 each EYEBOTH BID [facility] Last Admin: 10/29/20 09:08 Dose: 1 each Documented by: Dorzolamide/Timolol 2%-0.5% Ophth Soln 10 Ml Bottle 0 each EYEBOTH ACBREAKFAST [facility] Last Admin: 10/29/20 07:42 Dose: 1 each Documented by: Potassium Chloride (Potassium Chloride 20 Meq Tab.Er) 20 meq PO DAILY PRN PRN Reason: WITH LASIX Potassium Chloride (Potassium Chloride 20 Meq Tab.Er) 40 meq PO DAILY [facility] Last Admin: 10/29/20 09:07 Dose: 40 meq Documented by: Sertraline HCl (Sertraline 25 Mg Tab) 25 mg PO DAILY [facility] Last Admin: 10/29/20 09:05 Dose: 25 mg Documented by: Sodium Chloride (Sodium Chloride 0.9% 10 Ml Syringe) 10 ml FLUSH ASDIRECTED PRN PRN Reason: Keep Vein Open Last Admin: 10/25/20 16:24 Dose: 10 ml Documented by: Sodium Chloride (Sodium Chloride 0.9% 2.5 Ml Syringe) 2.5 ml FLUSH ASDIRECTED PRN PRN Reason: Keep Vein Open Last Admin: 10/25/20 16:24 Dose: 2.5 ml Documented by: Warfarin Sodium (Warfarin Ask Dosing) 1 each PO Q24H [facility] Last Admin: 10/28/20 15:00 Dose: Not Given Documented by: Discontinued Medications Aspirin (Aspirin 81 Mg Tab.Chew) 324 mg PO ONETIME ONE Stop: 10/25/20 17:19 Last Admin: 10/25/20 17:41 Dose: 324 mg Documented by: Furosemide (Furosemide 40 Mg/4 Ml Vial) 20 mg IVPUSH NOW ONE Stop: 10/25/20 19:46 Last Admin: 10/25/20 20:33 Dose: Not Given Documented by: Sodium Chloride (Normal Saline) 1,000 mls @ 999 mls/hr IV STAT ONE Stop: 10/25/20 18:00 Last Admin: 10/25/20 17:41 Dose: 999 mls/hr Documented by: Meropenem 1 gm/ Sodium (Chloride) 100 mls @ 200 mls/hr IV ONETIME ONE Stop: 10/25/20 17:32 Last Admin: 10/25/20 17:42 Dose: Not Given Documented by: Vancomycin HCl 1 gm/ Sodium (Chloride) 250 mls @ 166 mls/hr IV ONETIME ONE Stop: 10/25/20 18:33 Last Admin: 10/25/20 17:41 Dose: 166 mls/hr Documented by: Meropenem/Sodium Chloride 1 gm (/ Premix) 50 mls @ 100 mls/hr IV ONETIME ONE Stop: 10/25/20 17:32 Last Admin: 10/25/20 17:41 Dose: 100 mls/hr Documented by: Meropenem/Sodium Chloride (Meropenem In Ns 1 Gm/50 Ml) 50 mls @ 100 mls/hr IV Q8H [facility] Last Admin: 10/26/20 00:41 Dose: Not Given Documented by: Meropenem/Sodium Chloride (Meropenem In Ns 1 Gm/50 Ml) 50 mls @ 100 mls/hr IV Q8H [facility] Last Admin: 10/26/20 00:30 Dose: 100 mls/hr Documented by: Meropenem/Sodium Chloride (Meropenem In Ns 1 Gm/50 Ml) 50 mls @ 100 mls/hr IV Q12H [facility] Last Admin: 10/28/20 00:10 Dose: 100 mls/hr Documented by: Vancomycin HCl 1 gm/ Sodium (Chloride) 250 mls @ 166.667 mls/hr IV Q48H [facility] Last Admin: 10/27/20 21:12 Dose: Not Given Documented by: Magnesium Sulfate (Magnesium Sulfate In Water 2 Gm/50 Ml) 2 gm in 50 mls @ 50 mls/hr IV ONETIME ONE Stop: 10/27/20 08:30 Last Admin: 10/27/20 08:00 Dose: 50 mls/hr Documented by: Vancomycin HCl 1 gm/ Sodium (Chloride) 250 mls @ 166.667 mls/hr IV Q24H [facility] Last Admin: 10/27/20 20:27 Dose: 166.667 mls/hr Documented by: Meropenem/Sodium Chloride 1 gm (/ Premix) 50 mls @ 100 mls/hr IV Q12H [facility] Magnesium Sulfate (Magnesium Sulfate In Water 2 Gm/50 Ml) 2 gm in 50 mls @ 50 mls/hr IV ONETIME ONE Stop: 10/29/20 08:58 Last Admin: 10/29/20 08:58 Dose: 50 mls/hr Documented by: Iodixanol (Iodixanol 652 Mg/Ml 100 Ml Bottle) 85 ml IVPUSH ONETIME ONE Stop: 10/25/20 18:42 Last Admin: 10/25/20 18:43 Dose: 85 ml Documented by: Vancomycin HCl (Pharmacy To Dose - Vancomycin) 1 dose .XX ASDIRECTED [facility] - Exam General: Alert, Oriented Lungs: Clear to Auscultation, Normal Respiratory Effort Cardiovascular: Regular Rate, Irregular Rhythm GI/Abdominal Exam: Soft, Non-Tender Extremities: No Pedal Edema Psy/Mental Status: Alert - Patient Data Lab Results Last 24 hrs: Laboratory Results - last 24 hr 10/29/20 10/29/20 10/29/20 Range/Units 05:01 05:01 05:01 WBC 12.29 H (4.0-11.0) K/uL RBC 4.58 (4.30-5.90) M/uL Hgb 13.9 (12.0-16.0) g/dL Hct 40.5 (36.0-46.0) % MCV 88.4 (80.0-98.0) fL MCH 30.3 (27.0-32.0) pg MCHC 34.3 (31.0-37.0) g/dL RDW Std Deviation 47.4 (28.0-62.0) fl RDW Coeff of Dg 15 (11.0-15.0) % Plt Count 129 L (150-400) K/uL MPV 11.30 (7.40-12.00) fL Neut % (Auto) 74.0 (48.0-80.0) % Lymph % (Auto) 7.4 L (16.0-40.0) % [place] % (Auto) 18.2 H (0.0-15.0) % Eos % (Auto) 0.2 (0.0-7.0) % Baso % (Auto) 0.2 (0.0-1.5) % Neut # (Auto) 9.1 H (1.4-5.7) K/uL Lymph # (Auto) 0.9 (0.6-2.4) K/uL Har[place]on # (Auto) 2.2 H (0.0-0.8) K/uL Eos # (Auto) 0.0 (0.0-0.7) K/uL Baso # (Auto) 0.0 (0.0-0.1) K/uL Nucleated RBC % 0.0 /100WBC Nucleated RBCs # 0 K/uL INR 4.48 Sodium 130 L (136-145) mmol/L Potassium 4.0 (3.5-5.1) mmol/L Chloride 95 L (98-107) mmol/L Carbon Dioxide 28.6 (21.0-32.0) mmol/L BUN 20 H (7.0-18.0) mg/dL Creatinine 0.8 (0.6-1.0) mg/dL Est Cr Clr Drug Dosing 41.69 mL/min Estimated GFR (MDRD) > 60.0 ml/min Glucose 101 (74-106) mg/dL Calcium 8.6 (8.5-10.1) mg/dL Magnesium 1.6 L (1.8-2.4) mg/dL Total Bilirubin 0.8 (0.2-1.0) mg/dL AST 20 (15-37) IU/L ALT 20 (14-63) IU/L Alkaline Phosphatase 114 (46-116) U/L Total Protein 5.5 L (6.4-8.2) g/dL Albumin 2.2 L (3.4-5.0) g/dL Globulin 3.3 (2.6-4.0) g/dL Albumin/Globulin Ratio 0.7 L (0.9-1.6) Result Diagrams: 10/29/20 05:01 10/29/20 05:01 Sepsis Event Note - Evaluation Sepsis Screening Result: No Definite Risk - Focused Exam Vital Signs: Vital Signs Temp Pulse Pulse Resp BP BP Pulse Ox 10/29/20 09:07 110 H 10/29/20 09:06 110 H 118/66 10/29/20 08:55 99.0 F 110 H 15 118/66 92 L 10/29/20 03:26 97.6 F 94 17 154/89 H 94 L - Problem List & Annotations (1) Palliative care status SNOMED Code(s): 161742258 Code(s): Z51.5 - ENCOUNTER FOR PALLIATIVE CARE Status: Acute Current Visit: Yes (2) Acute on chronic congestive heart failure SNOMED Code(s): 012793181, 12705312597350 Code(s): I50.9 - HEART FAILURE, UNSPECIFIED Status: Acute Current Visit: Yes Qualifiers: Heart failure type: unspecified Qualified Code(s): I50.9 - Heart failure, unspecified (3) Sepsis SNOMED Code(s): 83534623 Code(s): A41.9 - SEPSIS, UNSPECIFIED ORGANISM Status: Acute Current Visit: Yes Qualifiers: Sepsis type: sepsis due to unspecified organism Sepsis acute organ dysfunction status: with acute organ dysfunction Severe sepsis acute organ dysfunction type: acute renal failure Acute renal failure type: unspecified Severe sepsis shock status: unspecified Qualified Code(s): A41.9 - Sepsis, unspecified organism; R65.20 - Severe sepsis without septic shock; N17.9 - Acute kidney failure, unspecified (4) Acute CHF (congestive heart failure) SNOMED Code(s): 58898781 Code(s): I50.9 - HEART FAILURE, UNSPECIFIED Status: Acute Current Visit: No Qualifiers: Heart failure type: diastolic Qualified Code(s): I50.31 - Acute diastolic (congestive) heart failure (5) Acute respiratory failure with hypoxia SNOMED Code(s): 47185112, 489710942 Code(s): J96.01 - ACUTE RESPIRATORY FAILURE WITH HYPOXIA Status: Acute Current Visit: No (6) Anticoagulant long-term use SNOMED Code(s): 961187943 Code(s): Z79.01 - INTERMEDIATE (CURRENT) USE OF ANTICOAGULANTS Status: Acute Current Visit: No (7) Hypoxia SNOMED Code(s): 414793227 Code(s): R09.02 - HYPOXEMIA Status: Acute Current Visit: No (8) UTI, Urinary tract infectious disease SNOMED Code(s): 27622231 Code(s): N39.0 - URINARY TRACT INFECTION, SITE NOT SPECIFIED Status: Acute Current Visit: No (9) Afib, Atrial fibrillation SNOMED Code(s): 35587377 Code(s): I48.91 - UNSPECIFIED ATRIAL FIBRILLATION Status: Chronic Current Visit: No (10) CHF, Congestive heart failure SNOMED Code(s): 23223334 Code(s): I50.9 - HEART FAILURE, UNSPECIFIED Status: Chronic Current Visit: No (11) Hypertension SNOMED Code(s): 62043644 Code(s): I10 - ESSENTIAL (PRIMARY) HYPERTENSION Status: Chronic Current Visit: No - Problem List Review Problem List Initiated/Reviewed/Updated: Yes - My Orders Last 24 Hours: My Active Orders 10/28/20 12:30 [email or web address] [Rocephin in Dextrose,Iso-Osm 1 GM/50 ML] 1 gm Premix Bag 1 bag IV Q24H 10/29/20 07:24 Echo Comp wo Cont [US] Routine 10/30/20 05:11 INR,PT,PROTHROMBIN TIME [COAG] AM - Plan Plan:: UTI-continue ceftriaxone Bacteriemia-continue ceftriaxone Acute CHF exacerbation-fluid restrict 1800 mL, Resume home lasix dose, 40mg PO, strict I&O, daily weight, Resume metoprolol and digoxin. Warfarin for DVT prophylaxis, regular diet Physical therapy evaluationpatient has mobility with four-wheel walker. Patient set to be discharged to [facility] this coming Saturday short- term for physical therapy strengthening <Meme Diego - Last Filed: 10/30/20 12:36> - General Info Subjective Update: I have seen and evaluated the patient and agree with the residents note unless specified in my note - Patient Data Vitals - Most Recent: Last Vital Signs Temp 37.2 C 10/30/20 09:16 Pulse 84 10/30/20 09:39 Resp 16 10/30/20 09:16 BP 133/79 10/30/20 09:39 Pulse Ox 92 L 10/30/20 04:20 I&O - Last 24 Hours: Intake & Output 10/29/20 10/30/20 10/30/20 22:59 06:59 14:59 Intake Total 1150 400 Output Total 650 550 Balance 500 -150 Lab Results Last 24 Hours: Laboratory Results - last 24 hr 10/30/20 10/30/20 10/30/20 Range/Units 05:58 05:58 05:58 WBC 13.46 H (4.0-11.0) K/uL RBC 4.26 L (4.30-5.90) M/uL Hgb 13.0 (12.0-16.0) g/dL Hct 37.3 (36.0-46.0) % MCV 87.6 (80.0-98.0) fL MCH 30.5 (27.0-32.0) pg MCHC 34.9 (31.0-37.0) g/dL RDW Std Deviation 46.3 (28.0-62.0) fl RDW Coeff of Dg 14 (11.0-15.0) % Plt Count 130 L (150-400) K/uL MPV 10.70 (7.40-12.00) fL Add Manual Diff YES Neutrophils % (Manual) 63 (48.0-80.0) % Band Neutrophils % 7 % Lymphocytes % (Manual) 10 L (16.0-40.0) % Monocytes % (Manual) 18 H (0.0-15.0) % Eosinophils % (Manual) 1 (0.0-7.0) % Basophils % (Manual) 1 (0.0-1.5) % Nucleated RBC % 0.0 /100WBC Absolute Seg Neuts 8.5 H (1.4-5.7) Band Neutrophils # 0.9 Lymphocytes # (Manual) 1.3 (0.6-2.4) Monocytes # (Manual) 2.4 H (0.0-0.8) Eosinophils # (Manual) 0.1 (0.0-0.7) Basophils # (Manual) 0.1 (0.0-0.1) Nucleated RBCs # 0 K/uL INR 2.42 Sodium 130 L (136-145) mmol/L Potassium 4.0 (3.5-5.1) mmol/L Chloride 94 L (98-107) mmol/L Carbon Dioxide 28.8 (21.0-32.0) mmol/L BUN 16 (7.0-18.0) mg/dL Creatinine 0.8 (0.6-1.0) mg/dL Est Cr Clr Drug Dosing 41.37 mL/min Estimated GFR (MDRD) > 60.0 ml/min Glucose 95 (74-106) mg/dL Calcium 8.2 L (8.5-10.1) mg/dL Magnesium 1.7 L (1.8-2.4) mg/dL Armando Results Last 24 Hours: Microbiology 10/29/20 09:41 Aerobic Blood Culture - Preliminary Blood - Venous - Lab Draw NO GROWTH AFTER 1 DAY Anaerobic Blood Culture - Preliminary NO GROWTH AFTER 1 DAY 10/29/20 09:31 Aerobic Blood Culture - Preliminary Blood - Venous NO GROWTH AFTER 1 DAY Anaerobic Blood Culture - Preliminary NO GROWTH AFTER 1 DAY Med Orders - Current: Current Medications Acetaminophen (Acetaminophen 325 Mg Tab) 650 mg PO Q6H PRN PRN Reason: Pain Last Admin: 10/26/20 11:53 Dose: 650 mg Documented by: Digoxin (Digoxin 125 Mcg Tab) 125 mcg PO DAILY [facility] Last Admin: 10/30/20 09:34 Dose: 125 mcg Documented by: Furosemide (Furosemide 40 Mg Tab) 40 mg PO DAILY [facility] Last Admin: 10/30/20 09:33 Dose: 40 mg Documented by: Ceftriaxone Sodium/Dextrose 1 (gm/ Premix) 50 mls @ 100 mls/hr IV Q24H [facility] Last Admin: 10/29/20 14:10 Dose: 100 mls/hr Documented by: Metoprolol Tartrate (Metoprolol Tartrate 50 Mg Tab) 50 mg PO BID [facility] Last Admin: 10/30/20 09:39 Dose: 50 mg Documented by: Prednisolone Acetate /Pf [Prednisolone Acet 1% Eye Drop] 1 each EYEBOTH BID [facility] Last Admin: 10/30/20 09:47 Dose: 1 each Documented by: Dorzolamide/Timolol 2%-0.5% Ophth Soln 10 Ml Bottle 0 each EYEBOTH ACBREAKFAST [facility] Last Admin: 10/30/20 06:56 Dose: 1 each Documented by: Potassium Chloride (Potassium Chloride 20 Meq Tab.Er) 20 meq PO DAILY PRN PRN Reason: WITH LASIX Potassium Chloride (Potassium Chloride 20 Meq Tab.Er) 40 meq PO DAILY [facility] Last Admin: 10/30/20 09:41 Dose: 40 meq Documented by: Sertraline HCl (Sertraline 25 Mg Tab) 25 mg PO DAILY [facility] Last Admin: 10/30/20 09:34 Dose: 25 mg Documented by: Sodium Chloride (Sodium Chloride 0.9% 10 Ml Syringe) 10 ml FLUSH ASDIRECTED PRN PRN Reason: Keep Vein Open Last Admin: 10/25/20 16:24 Dose: 10 ml Documented by: Sodium Chloride (Sodium Chloride 0.9% 2.5 Ml Syringe) 2.5 ml FLUSH ASDIRECTED PRN PRN Reason: Keep Vein Open Last Admin: 10/25/20 16:24 Dose: 2.5 ml Documented by: Warfarin Sodium (Warfarin Ask Dosing) 1 each PO Q24H [facility] Last Admin: 10/29/20 13:40 Dose: Not Given Documented by: Warfarin Sodium (Warfarin 2.5 Mg Tab) 2.5 mg PO DAILY@1400 [facility] Stop: 10/30/20 15:00 Discontinued Medications Aspirin (Aspirin 81 Mg Tab.Chew) 324 mg PO ONETIME ONE Stop: 10/25/20 17:19 Last Admin: 10/25/20 17:41 Dose: 324 mg Documented by: Furosemide (Furosemide 40 Mg/4 Ml Vial) 20 mg IVPUSH NOW ONE Stop: 10/25/20 19:46 Last Admin: 10/25/20 20:33 Dose: Not Given Documented by: Sodium Chloride (Normal Saline) 1,000 mls @ 999 mls/hr IV STAT ONE Stop: 10/25/20 18:00 Last Admin: 10/25/20 17:41 Dose: 999 mls/hr Documented by: Meropenem 1 gm/ Sodium (Chloride) 100 mls @ 200 mls/hr IV ONETIME ONE Stop: 10/25/20 17:32 Last Admin: 10/25/20 17:42 Dose: Not Given Documented by: Vancomycin HCl 1 gm/ Sodium (Chloride) 250 mls @ 166 mls/hr IV ONETIME ONE Stop: 10/25/20 18:33 Last Admin: 10/25/20 17:41 Dose: 166 mls/hr Documented by: Meropenem/Sodium Chloride 1 gm (/ Premix) 50 mls @ 100 mls/hr IV ONETIME ONE Stop: 10/25/20 17:32 Last Admin: 10/25/20 17:41 Dose: 100 mls/hr Documented by: Meropenem/Sodium Chloride (Meropenem In Ns 1 Gm/50 Ml) 50 mls @ 100 mls/hr IV Q8H [facility] Last Admin: 10/26/20 00:41 Dose: Not Given Documented by: Meropenem/Sodium Chloride (Meropenem In Ns 1 Gm/50 Ml) 50 mls @ 100 mls/hr IV Q8H [facility] Last Admin: 10/26/20 00:30 Dose: 100 mls/hr Documented by: Meropenem/Sodium Chloride (Meropenem In Ns 1 Gm/50 Ml) 50 mls @ 100 mls/hr IV Q12H [facility] Last Admin: 10/28/20 00:10 Dose: 100 mls/hr Documented by: Vancomycin HCl 1 gm/ Sodium (Chloride) 250 mls @ 166.667 mls/hr IV Q48H [facility] Last Admin: 10/27/20 21:12 Dose: Not Given Documented by: Magnesium Sulfate (Magnesium Sulfate In Water 2 Gm/50 Ml) 2 gm in 50 mls @ 50 mls/hr IV ONETIME ONE Stop: 10/27/20 08:30 Last Admin: 10/27/20 08:00 Dose: 50 mls/hr Documented by: Vancomycin HCl 1 gm/ Sodium (Chloride) 250 mls @ 166.667 mls/hr IV Q24H [facility] Last Admin: 10/27/20 20:27 Dose: 166.667 mls/hr Documented by: Meropenem/Sodium Chloride 1 gm (/ Premix) 50 mls @ 100 mls/hr IV Q12H [facility] Magnesium Sulfate (Magnesium Sulfate In Water 2 Gm/50 Ml) 2 gm in 50 mls @ 50 mls/hr IV ONETIME ONE Stop: 10/29/20 08:58 Last Admin: 10/29/20 08:58 Dose: 50 mls/hr Documented by: Iodixanol (Iodixanol 652 Mg/Ml 100 Ml Bottle) 85 ml IVPUSH ONETIME ONE Stop: 10/25/20 18:42 Last Admin: 10/25/20 18:43 Dose: 85 ml Documented by: Magnesium Oxide (Magnesium Oxide 400 Mg Tab) 800 mg PO ONETIME ONE Stop: 10/30/20 09:31 Last Admin: 10/30/20 09:48 Dose: 800 mg Documented by: Vancomycin HCl (Pharmacy To Dose - Vancomycin) 1 dose .XX ASDIRECTED [facility] - Patient Data Lab Results Last 24 hrs: Laboratory Results - last 24 hr 10/30/20 10/30/20 10/30/20 Range/Units 05:58 05:58 05:58 WBC 13.46 H (4.0-11.0) K/uL RBC 4.26 L (4.30-5.90) M/uL Hgb 13.0 (12.0-16.0) g/dL Hct 37.3 (36.0-46.0) % MCV 87.6 (80.0-98.0) fL MCH 30.5 (27.0-32.0) pg MCHC 34.9 (31.0-37.0) g/dL RDW Std Deviation 46.3 (28.0-62.0) fl RDW Coeff of Dg 14 (11.0-15.0) % Plt Count 130 L (150-400) K/uL MPV 10.70 (7.40-12.00) fL Add Manual Diff YES Neutrophils % (Manual) 63 (48.0-80.0) % Band Neutrophils % 7 % Lymphocytes % (Manual) 10 L (16.0-40.0) % Monocytes % (Manual) 18 H (0.0-15.0) % Eosinophils % (Manual) 1 (0.0-7.0) % Basophils % (Manual) 1 (0.0-1.5) % Nucleated RBC % 0.0 /100WBC Absolute Seg Neuts 8.5 H (1.4-5.7) Band Neutrophils # 0.9 Lymphocytes # (Manual) 1.3 (0.6-2.4) Monocytes # (Manual) 2.4 H (0.0-0.8) Eosinophils # (Manual) 0.1 (0.0-0.7) Basophils # (Manual) 0.1 (0.0-0.1) Nucleated RBCs # 0 K/uL INR 2.42 Sodium 130 L (136-145) mmol/L Potassium 4.0 (3.5-5.1) mmol/L Chloride 94 L (98-107) mmol/L Carbon Dioxide 28.8 (21.0-32.0) mmol/L BUN 16 (7.0-18.0) mg/dL Creatinine 0.8 (0.6-1.0) mg/dL Est Cr Clr Drug Dosing 41.37 mL/min Estimated GFR (MDRD) > 60.0 ml/min Glucose 95 (74-106) mg/dL Calcium 8.2 L (8.5-10.1) mg/dL Magnesium 1.7 L (1.8-2.4) mg/dL Result Diagrams: 10/30/20 05:58 10/30/20 05:58 Armando Results Last 24 hrs: Microbiology 10/29/20 09:41 Aerobic Blood Culture - Preliminary Blood - Venous - Lab Draw NO GROWTH AFTER 1 DAY Anaerobic Blood Culture - Preliminary NO GROWTH AFTER 1 DAY 10/29/20 09:31 Aerobic Blood Culture - Preliminary Blood - Venous NO GROWTH AFTER 1 DAY Anaerobic Blood Culture - Preliminary NO GROWTH AFTER 1 DAY Sepsis Event Note - Focused Exam Vital Signs: Vital Signs Temp Pulse Pulse Resp BP BP Pulse Ox 10/30/20 09:39 84 133/79 10/30/20 09:34 84 10/30/20 09:16 37.2 C 16 10/30/20 04:20 37.2 C 96 18 139/81 92 L
[2020-10-29] MEDS: cefTRIAXone 1 GM in Premix Bag 1 BAG IV SCH (14:10)
[2020-10-30 06:24] LABS: BLOOD UREA NITROGEN,BUN 16 mg/dL (7.0-18.0); CARBON DIOXIDE,CO2 28.8 mmol/L (21.0-32.0); CHLORIDE,CL 94 mmol/L (98-107); GLUCOSE RANDOM 95 mg/dL (74-106); SODIUM,NA 130 mmol/L (136-145)
[2020-10-30] MEDS: Dorzolamide/Timolol 2%-0.5% Ophth Soln 10 ML Bottle EYEBOTH SCH (06:56)
[2020-10-30] MEDS ORDERED: Magnesium Oxide 400 MG Tab PO ONE (09:30)
[2020-10-30] MEDS: Furosemide 40 MG Tab PO SCH (09:33)
[2020-10-30] MEDS: Sertraline 25 MG Tab PO SCH (09:34)
[2020-10-30] MEDS: Digoxin 125 MCG Tab PO SCH (09:34)
[2020-10-30] MEDS: Metoprolol Tartrate 50 MG Tab PO SCH ×2 (09:39→20:02)
[2020-10-30] MEDS: Potassium Chloride 20 MEQ Tab.ER PO SCH (09:41)
[2020-10-30] MEDS: Prednisolone Acetate/Pf [Prednisolone Acet 1% Eye Drop] EYEBOTH SCH ×2 (09:47→20:03)
--- NOTE | 2020-10-30 12:36 | PCM.PN ---
- General Info Date of Service: 10/30/20 Admission Dx/Problem (Free Text): Admission Diagnosis/Problem Admission Diagnosis/Problem Sepsis Subjective Update: Patient states she feels fine today denies chest pain, shortness of breath, fever, chills, nausea, vomiting. Having breakfast, still needing 1L of oxygen Functional Status: Reports: Pain Controlled, Tolerating Diet, Ambulating, Urinating - Review of Systems General: Denies: Fever, Weakness, Fatigue Pulmonary: Denies: Shortness of Breath, Pleuritic Chest Pain Cardiovascular: Denies: Chest Pain, Palpitations, Dyspnea on Exertion Gastrointestinal: Denies: Abdominal Pain, Constipation, Decreased Appetite Genitourinary: Denies: Dysuria, Frequency, Burning Musculoskeletal: Denies: Shoulder Pain, Hand Pain - Patient Data Vitals - Most Recent: Last Vital Signs Temp 37.2 C 10/30/20 09:16 Pulse 84 10/30/20 09:39 Resp 16 10/30/20 09:16 BP 133/79 10/30/20 09:39 Pulse Ox 92 L 10/30/20 04:20 Weight - Most Recent: 54.975 kg I&O - Last 24 Hours: Intake & Output 10/29/20 10/30/20 10/30/20 22:59 06:59 14:59 Intake Total 1150 400 Output Total 650 550 Balance 500 -150 Lab Results Last 24 Hours: Laboratory Results - last 24 hr 10/30/20 10/30/20 10/30/20 Range/Units 05:58 05:58 05:58 WBC 13.46 H (4.0-11.0) K/uL RBC 4.26 L (4.30-5.90) M/uL Hgb 13.0 (12.0-16.0) g/dL Hct 37.3 (36.0-46.0) % MCV 87.6 (80.0-98.0) fL MCH 30.5 (27.0-32.0) pg MCHC 34.9 (31.0-37.0) g/dL RDW Std Deviation 46.3 (28.0-62.0) fl RDW Coeff of Dg 14 (11.0-15.0) % Plt Count 130 L (150-400) K/uL MPV 10.70 (7.40-12.00) fL Add Manual Diff YES Neutrophils % (Manual) 63 (48.0-80.0) % Band Neutrophils % 7 % Lymphocytes % (Manual) 10 L (16.0-40.0) % Monocytes % (Manual) 18 H (0.0-15.0) % Eosinophils % (Manual) 1 (0.0-7.0) % Basophils % (Manual) 1 (0.0-1.5) % Nucleated RBC % 0.0 /100WBC Absolute Seg Neuts 8.5 H (1.4-5.7) Band Neutrophils # 0.9 Lymphocytes # (Manual) 1.3 (0.6-2.4) Monocytes # (Manual) 2.4 H (0.0-0.8) Eosinophils # (Manual) 0.1 (0.0-0.7) Basophils # (Manual) 0.1 (0.0-0.1) Nucleated RBCs # 0 K/uL INR 2.42 Sodium 130 L (136-145) mmol/L Potassium 4.0 (3.5-5.1) mmol/L Chloride 94 L (98-107) mmol/L Carbon Dioxide 28.8 (21.0-32.0) mmol/L BUN 16 (7.0-18.0) mg/dL Creatinine 0.8 (0.6-1.0) mg/dL Est Cr Clr Drug Dosing 41.37 mL/min Estimated GFR (MDRD) > 60.0 ml/min Glucose 95 (74-106) mg/dL Calcium 8.2 L (8.5-10.1) mg/dL Magnesium 1.7 L (1.8-2.4) mg/dL Armando Results Last 24 Hours: Microbiology 10/29/20 09:41 Aerobic Blood Culture - Preliminary Blood - Venous - Lab Draw NO GROWTH AFTER 1 DAY Anaerobic Blood Culture - Preliminary NO GROWTH AFTER 1 DAY 10/29/20 09:31 Aerobic Blood Culture - Preliminary Blood - Venous NO GROWTH AFTER 1 DAY Anaerobic Blood Culture - Preliminary NO GROWTH AFTER 1 DAY Med Orders - Current: Current Medications Acetaminophen (Acetaminophen 325 Mg Tab) 650 mg PO Q6H PRN PRN Reason: Pain Last Admin: 10/26/20 11:53 Dose: 650 mg Documented by: Digoxin (Digoxin 125 Mcg Tab) 125 mcg PO DAILY ADAM Last Admin: 10/30/20 09:34 Dose: 125 mcg Documented by: Furosemide (Furosemide 40 Mg Tab) 40 mg PO DAILY [facility] Last Admin: 10/30/20 09:33 Dose: 40 mg Documented by: Ceftriaxone Sodium/Dextrose 1 (gm/ Premix) 50 mls @ 100 mls/hr IV Q24H [facility] Last Admin: 10/29/20 14:10 Dose: 100 mls/hr Documented by: Metoprolol Tartrate (Metoprolol Tartrate 50 Mg Tab) 50 mg PO BID [facility] Last Admin: 10/30/20 09:39 Dose: 50 mg Documented by: Prednisolone Acetate /Pf [Prednisolone Acet 1% Eye Drop] 1 each EYEBOTH BID [facility] Last Admin: 10/30/20 09:47 Dose: 1 each Documented by: Dorzolamide/Timolol 2%-0.5% Ophth Soln 10 Ml Bottle 0 each EYEBOTH ACBREAKFAST [facility] Last Admin: 10/30/20 06:56 Dose: 1 each Documented by: Potassium Chloride (Potassium Chloride 20 Meq Tab.Er) 20 meq PO DAILY PRN PRN Reason: WITH LASIX Potassium Chloride (Potassium Chloride 20 Meq Tab.Er) 40 meq PO DAILY [facility] Last Admin: 10/30/20 09:41 Dose: 40 meq Documented by: Sertraline HCl (Sertraline 25 Mg Tab) 25 mg PO DAILY [facility] Last Admin: 10/30/20 09:34 Dose: 25 mg Documented by: Sodium Chloride (Sodium Chloride 0.9% 10 Ml Syringe) 10 ml FLUSH ASDIRECTED PRN PRN Reason: Keep Vein Open Last Admin: 10/25/20 16:24 Dose: 10 ml Documented by: Sodium Chloride (Sodium Chloride 0.9% 2.5 Ml Syringe) 2.5 ml FLUSH ASDIRECTED PRN PRN Reason: Keep Vein Open Last Admin: 10/25/20 16:24 Dose: 2.5 ml Documented by: Warfarin Sodium (Warfarin Ask Dosing) 1 each PO Q24H [facility] Last Admin: 10/29/20 13:40 Dose: Not Given Documented by: Warfarin Sodium (Warfarin 2.5 Mg Tab) 2.5 mg PO DAILY@1400 [facility] Stop: 10/30/20 15:00 Discontinued Medications Aspirin (Aspirin 81 Mg Tab.Chew) 324 mg PO ONETIME ONE Stop: 10/25/20 17:19 Last Admin: 10/25/20 17:41 Dose: 324 mg Documented by: Furosemide (Furosemide 40 Mg/4 Ml Vial) 20 mg IVPUSH NOW ONE Stop: 10/25/20 19:46 Last Admin: 10/25/20 20:33 Dose: Not Given Documented by: Sodium Chloride (Normal Saline) 1,000 mls @ 999 mls/hr IV STAT ONE Stop: 10/25/20 18:00 Last Admin: 10/25/20 17:41 Dose: 999 mls/hr Documented by: Meropenem 1 gm/ Sodium (Chloride) 100 mls @ 200 mls/hr IV ONETIME ONE Stop: 10/25/20 17:32 Last Admin: 10/25/20 17:42 Dose: Not Given Documented by: Vancomycin HCl 1 gm/ Sodium (Chloride) 250 mls @ 166 mls/hr IV ONETIME ONE Stop: 10/25/20 18:33 Last Admin: 10/25/20 17:41 Dose: 166 mls/hr Documented by: Meropenem/Sodium Chloride 1 gm (/ Premix) 50 mls @ 100 mls/hr IV ONETIME ONE Stop: 10/25/20 17:32 Last Admin: 10/25/20 17:41 Dose: 100 mls/hr Documented by: Meropenem/Sodium Chloride (Meropenem In Ns 1 Gm/50 Ml) 50 mls @ 100 mls/hr IV Q8H [facility] Last Admin: 10/26/20 00:41 Dose: Not Given Documented by: Meropenem/Sodium Chloride (Meropenem In Ns 1 Gm/50 Ml) 50 mls @ 100 mls/hr IV Q8H [facility] Last Admin: 10/26/20 00:30 Dose: 100 mls/hr Documented by: Meropenem/Sodium Chloride (Meropenem In Ns 1 Gm/50 Ml) 50 mls @ 100 mls/hr IV Q12H [facility] Last Admin: 10/28/20 00:10 Dose: 100 mls/hr Documented by: Vancomycin HCl 1 gm/ Sodium (Chloride) 250 mls @ 166.667 mls/hr IV Q48H [facility] Last Admin: 10/27/20 21:12 Dose: Not Given Documented by: Magnesium Sulfate (Magnesium Sulfate In Water 2 Gm/50 Ml) 2 gm in 50 mls @ 50 mls/hr IV ONETIME ONE Stop: 10/27/20 08:30 Last Admin: 10/27/20 08:00 Dose: 50 mls/hr Documented by: Vancomycin HCl 1 gm/ Sodium (Chloride) 250 mls @ 166.667 mls/hr IV Q24H ADAM Last Admin: 10/27/20 20:27 Dose: 166.667 mls/hr Documented by: Meropenem/Sodium Chloride 1 gm (/ Premix) 50 mls @ 100 mls/hr IV Q12H ADAM Magnesium Sulfate (Magnesium Sulfate In Water 2 Gm/50 Ml) 2 gm in 50 mls @ 50 mls/hr IV ONETIME ONE Stop: 10/29/20 08:58 Last Admin: 10/29/20 08:58 Dose: 50 mls/hr Documented by: Iodixanol (Iodixanol 652 Mg/Ml 100 Ml Bottle) 85 ml IVPUSH ONETIME ONE Stop: 10/25/20 18:42 Last Admin: 10/25/20 18:43 Dose: 85 ml Documented by: Magnesium Oxide (Magnesium Oxide 400 Mg Tab) 800 mg PO ONETIME ONE Stop: 10/30/20 09:31 Last Admin: 10/30/20 09:48 Dose: 800 mg Documented by: Vancomycin HCl (Pharmacy To Dose - Vancomycin) 1 dose .XX ASDIRECTED ADAM - Exam Quality Assessment: Supplemental Oxygen General: Alert, Oriented, Cooperative Neck: Supple, Trachea Midline Lungs: Clear to Auscultation, Normal Respiratory Effort Cardiovascular: Regular Rate, Regular Rhythm GI/Abdominal Exam: Normal Bowel Sounds, Soft, Non-Tender - Patient Data Lab Results Last 24 hrs: Laboratory Results - last 24 hr 10/30/20 10/30/20 10/30/20 Range/Units 05:58 05:58 05:58 WBC 13.46 H (4.0-11.0) K/uL RBC 4.26 L (4.30-5.90) M/uL Hgb 13.0 (12.0-16.0) g/dL Hct 37.3 (36.0-46.0) % MCV 87.6 (80.0-98.0) fL MCH 30.5 (27.0-32.0) pg MCHC 34.9 (31.0-37.0) g/dL RDW Std Deviation 46.3 (28.0-62.0) fl RDW Coeff of Dg 14 (11.0-15.0) % Plt Count 130 L (150-400) K/uL MPV 10.70 (7.40-12.00) fL Add Manual Diff YES Neutrophils % (Manual) 63 (48.0-80.0) % Band Neutrophils % 7 % Lymphocytes % (Manual) 10 L (16.0-40.0) % Monocytes % (Manual) 18 H (0.0-15.0) % Eosinophils % (Manual) 1 (0.0-7.0) % Basophils % (Manual) 1 (0.0-1.5) % Nucleated RBC % 0.0 /100WBC Absolute Seg Neuts 8.5 H (1.4-5.7) Band Neutrophils # 0.9 Lymphocytes # (Manual) 1.3 (0.6-2.4) Monocytes # (Manual) 2.4 H (0.0-0.8) Eosinophils # (Manual) 0.1 (0.0-0.7) Basophils # (Manual) 0.1 (0.0-0.1) Nucleated RBCs # 0 K/uL INR 2.42 Sodium 130 L (136-145) mmol/L Potassium 4.0 (3.5-5.1) mmol/L Chloride 94 L (98-107) mmol/L Carbon Dioxide 28.8 (21.0-32.0) mmol/L BUN 16 (7.0-18.0) mg/dL Creatinine 0.8 (0.6-1.0) mg/dL Est Cr Clr Drug Dosing 41.37 mL/min Estimated GFR (MDRD) > 60.0 ml/min Glucose 95 (74-106) mg/dL Calcium 8.2 L (8.5-10.1) mg/dL Magnesium 1.7 L (1.8-2.4) mg/dL Result Diagrams: 10/30/20 05:58 10/30/20 05:58 Armando Results Last 24 hrs: Microbiology 10/29/20 09:41 Aerobic Blood Culture - Preliminary Blood - Venous - Lab Draw NO GROWTH AFTER 1 DAY Anaerobic Blood Culture - Preliminary NO GROWTH AFTER 1 DAY 10/29/20 09:31 Aerobic Blood Culture - Preliminary Blood - Venous NO GROWTH AFTER 1 DAY Anaerobic Blood Culture - Preliminary NO GROWTH AFTER 1 DAY Sepsis Event Note - Evaluation Sepsis Screening Result: No Definite Risk - Focused Exam Vital Signs: Vital Signs Temp Pulse Pulse Resp BP BP Pulse Ox 10/30/20 09:39 84 133/79 10/30/20 09:34 84 10/30/20 09:16 37.2 C 16 10/30/20 04:20 37.2 C 96 18 139/81 92 L - Problem List Review Problem List Initiated/Reviewed/Updated: Yes - Plan Plan:: UTI-continue ceftriaxone Bacteriemia-continue ceftriaxone Acute CHF exacerbation-fluid restrict 1800 mL, Resume home lasix dose, 40mg PO, strict I&O, daily weight, Resume metoprolol and digoxin, wean of oxygen as able, was instructed to do IS more often Warfarin for DVT prophylaxis, regular diet Physical therapy evaluationpatient has mobility with four-wheel walker. Patient set to be discharged to [facility] this coming Saturday short- term for physical therapy strengthening
[2020-10-30] MEDS: cefTRIAXone 1 GM in Premix Bag 1 BAG IV SCH (12:55)
[2020-10-30] MEDS ORDERED: Warfarin 2.5 MG Tab PO SCH (14:00)
[2020-10-30] MEDS: Acetaminophen 325 MG Tab PO PRN (22:22)
[2020-10-31 06:10] LABS: BLOOD UREA NITROGEN,BUN 14 mg/dL (7.0-18.0); CARBON DIOXIDE,CO2 29.8 mmol/L (21.0-32.0); CHLORIDE,CL 95 mmol/L (98-107); GLUCOSE RANDOM 96 mg/dL (74-106); POTASSIUM,K 4.4 mmol/L (3.5-5.1); SODIUM,NA 128 mmol/L (136-145)
[2020-10-31] MEDS ORDERED: Magnesium Sulfate/Water 2 GM/50 ML BAG IV ONE ×2 (07:30→08:40)
[2020-10-31] MEDS: Dorzolamide/Timolol 2%-0.5% Ophth Soln 10 ML Bottle EYEBOTH SCH (07:57)
[2020-10-31] MEDS: Digoxin 125 MCG Tab PO SCH (08:47)
[2020-10-31] MEDS: Sertraline 25 MG Tab PO SCH (08:51)
[2020-10-31] MEDS: Metoprolol Tartrate 50 MG Tab PO SCH ×2 (08:51→21:16)
[2020-10-31] MEDS: Prednisolone Acetate/Pf [Prednisolone Acet 1% Eye Drop] EYEBOTH SCH ×2 (08:52→21:18)
[2020-10-31] MEDS: Potassium Chloride 20 MEQ Tab.ER PO SCH (08:52)
[2020-10-31] MEDS: Furosemide 40 MG Tab PO SCH (08:52)
[2020-10-31] MEDS ORDERED: Warfarin 2.5 MG Tab PO SCH (14:00)
[2020-10-31] MEDS: cefTRIAXone 1 GM in Premix Bag 1 BAG IV SCH (14:10)
--- NOTE | 2020-10-31 17:42 | PCM.PN ---
<Papo Babin - Last Filed: 10/31/20 17:40> - General Info Date of Service: 10/31/20 Subjective Update: Patient denies any concerns overnight or this morning. Patient denies fever, chills, nausea, vomiting, chest pain, shortness of breath. - Review of Systems General: Denies: Fever, Chills Pulmonary: Denies: Shortness of Breath Cardiovascular: Denies: Chest Pain, Orthopnea, Edema Gastrointestinal: Denies: Abdominal Pain, Nausea, Vomiting Neurological: Denies: Confusion Psychiatric: Denies: Confusion - Patient Data Vitals - Most Recent: Last Vital Signs Temp 97.8 F 10/31/20 11:52 Pulse 84 10/31/20 11:52 Resp 18 10/31/20 11:52 BP 139/80 10/31/20 11:52 Pulse Ox 94 L 10/31/20 11:52 Weight - Most Recent: 55.14 kg I&O - Last 24 Hours: Intake & Output 10/31/20 10/31/20 10/31/20 06:59 14:59 22:59 Intake Total 450 840 Output Total 450 1950 Balance 0 -1110 Lab Results Last 24 Hours: Laboratory Results - last 24 hr 10/31/20 10/31/20 10/31/20 Range/Units 05:40 05:40 05:40 WBC 11.23 H (4.0-11.0) K/uL RBC 4.21 L (4.30-5.90) M/uL Hgb 12.7 (12.0-16.0) g/dL Hct 36.6 (36.0-46.0) % MCV 86.9 (80.0-98.0) fL MCH 30.2 (27.0-32.0) pg MCHC 34.7 (31.0-37.0) g/dL RDW Std Deviation 45.6 (28.0-62.0) fl RDW Coeff of Dg 14 (11.0-15.0) % Plt Count 156 (150-400) K/uL MPV 11.10 (7.40-12.00) fL Add Manual Diff YES Neutrophils % (Manual) 58 (48.0-80.0) % Band Neutrophils % 8 % Lymphocytes % (Manual) 30 (16.0-40.0) % Monocytes % (Manual) 2 (0.0-15.0) % Eosinophils % (Manual) 1 (0.0-7.0) % Basophils % (Manual) 1 (0.0-1.5) % Nucleated RBC % 0.0 /100WBC Absolute Seg Neuts 6.5 H (1.4-5.7) Band Neutrophils # 0.9 Lymphocytes # (Manual) 3.4 H (0.6-2.4) Monocytes # (Manual) 0.2 (0.0-0.8) Eosinophils # (Manual) 0.1 (0.0-0.7) Basophils # (Manual) 0.1 (0.0-0.1) Nucleated RBCs # 0 K/uL Poikilocytosis 1+ SLIGHT INR 2.42 Sodium 128 L (136-145) mmol/L Potassium 4.4 (3.5-5.1) mmol/L Chloride 95 L (98-107) mmol/L Carbon Dioxide 29.8 (21.0-32.0) mmol/L BUN 14 (7.0-18.0) mg/dL Creatinine 0.7 (0.6-1.0) mg/dL Est Cr Clr Drug Dosing 47.28 mL/min Estimated GFR (MDRD) > 60.0 ml/min Glucose 96 (74-106) mg/dL Calcium 8.3 L (8.5-10.1) mg/dL Phosphorus 2.8 (2.6-4.7) mg/dL Magnesium 1.6 L (1.8-2.4) mg/dL Armando Results Last 24 Hours: Microbiology 10/29/20 09:41 Aerobic Blood Culture - Preliminary Blood - Venous - Lab Draw NO GROWTH AFTER 2 DAYS Anaerobic Blood Culture - Preliminary NO GROWTH AFTER 2 DAYS 10/29/20 09:31 Aerobic Blood Culture - Preliminary Blood - Venous NO GROWTH AFTER 2 DAYS Anaerobic Blood Culture - Preliminary NO GROWTH AFTER 2 DAYS Med Orders - Current: Current Medications Acetaminophen (Acetaminophen 325 Mg Tab) 650 mg PO Q6H PRN PRN Reason: Pain Last Admin: 10/30/20 22:22 Dose: 650 mg Documented by: Digoxin (Digoxin 125 Mcg Tab) 125 mcg PO DAILY [facility] Last Admin: 10/31/20 08:47 Dose: 125 mcg Documented by: Furosemide (Furosemide 40 Mg Tab) 40 mg PO DAILY [facility] Last Admin: 10/31/20 08:52 Dose: 40 mg Documented by: Ceftriaxone Sodium/Dextrose 1 (gm/ Premix) 50 mls @ 100 mls/hr IV Q24H [facility] Last Admin: 10/31/20 14:10 Dose: 100 mls/hr Documented by: Metoprolol Tartrate (Metoprolol Tartrate 50 Mg Tab) 50 mg PO BID [facility] Last Admin: 10/31/20 08:51 Dose: 50 mg Documented by: Prednisolone Acetate /Pf [Prednisolone Acet 1% Eye Drop] 1 each EYEBOTH BID [facility] Last Admin: 10/31/20 08:52 Dose: 1 each Documented by: Dorzolamide/Timolol 2%-0.5% Ophth Soln 10 Ml Bottle 0 each EYEBOTH ACBREAKFAST [facility] Last Admin: 10/31/20 07:57 Dose: 1 each Documented by: Potassium Chloride (Potassium Chloride 20 Meq Tab.Er) 20 meq PO DAILY PRN PRN Reason: WITH LASIX Potassium Chloride (Potassium Chloride 20 Meq Tab.Er) 40 meq PO DAILY [facility] Last Admin: 10/31/20 08:52 Dose: 40 meq Documented by: Sertraline HCl (Sertraline 25 Mg Tab) 25 mg PO DAILY [facility] Last Admin: 10/31/20 08:51 Dose: 25 mg Documented by: Sodium Chloride (Sodium Chloride 0.9% 10 Ml Syringe) 10 ml FLUSH ASDIRECTED PRN PRN Reason: Keep Vein Open Last Admin: 10/25/20 16:24 Dose: 10 ml Documented by: Sodium Chloride (Sodium Chloride 0.9% 2.5 Ml Syringe) 2.5 ml FLUSH ASDIRECTED PRN PRN Reason: Keep Vein Open Last Admin: 10/25/20 16:24 Dose: 2.5 ml Documented by: Warfarin Sodium (Warfarin Ask Dosing) 1 each PO Q24H [facility] Last Admin: 10/31/20 14:11 Dose: Not Given Documented by: Discontinued Medications Aspirin (Aspirin 81 Mg Tab.Chew) 324 mg PO ONETIME ONE Stop: 10/25/20 17:19 Last Admin: 10/25/20 17:41 Dose: 324 mg Documented by: Furosemide (Furosemide 40 Mg/4 Ml Vial) 20 mg IVPUSH NOW ONE Stop: 10/25/20 19:46 Last Admin: 10/25/20 20:33 Dose: Not Given Documented by: Sodium Chloride (Normal Saline) 1,000 mls @ 999 mls/hr IV STAT ONE Stop: 10/25/20 18:00 Last Admin: 10/25/20 17:41 Dose: 999 mls/hr Documented by: Meropenem 1 gm/ Sodium (Chloride) 100 mls @ 200 mls/hr IV ONETIME ONE Stop: 10/25/20 17:32 Last Admin: 10/25/20 17:42 Dose: Not Given Documented by: Vancomycin HCl 1 gm/ Sodium (Chloride) 250 mls @ 166 mls/hr IV ONETIME ONE Stop: 10/25/20 18:33 Last Admin: 10/25/20 17:41 Dose: 166 mls/hr Documented by: Meropenem/Sodium Chloride 1 gm (/ Premix) 50 mls @ 100 mls/hr IV ONETIME ONE Stop: 10/25/20 17:32 Last Admin: 10/25/20 17:41 Dose: 100 mls/hr Documented by: Meropenem/Sodium Chloride (Meropenem In Ns 1 Gm/50 Ml) 50 mls @ 100 mls/hr IV Q8H [facility] Last Admin: 10/26/20 00:41 Dose: Not Given Documented by: Meropenem/Sodium Chloride (Meropenem In Ns 1 Gm/50 Ml) 50 mls @ 100 mls/hr IV Q8H [facility] Last Admin: 10/26/20 00:30 Dose: 100 mls/hr Documented by: Meropenem/Sodium Chloride (Meropenem In Ns 1 Gm/50 Ml) 50 mls @ 100 mls/hr IV Q12H [facility] Last Admin: 10/28/20 00:10 Dose: 100 mls/hr Documented by: Vancomycin HCl 1 gm/ Sodium (Chloride) 250 mls @ 166.667 mls/hr IV Q48H [facility] Last Admin: 10/27/20 21:12 Dose: Not Given Documented by: Magnesium Sulfate (Magnesium Sulfate In Water 2 Gm/50 Ml) 2 gm in 50 mls @ 50 mls/hr IV ONETIME ONE Stop: 10/27/20 08:30 Last Admin: 10/27/20 08:00 Dose: 50 mls/hr Documented by: Vancomycin HCl 1 gm/ Sodium (Chloride) 250 mls @ 166.667 mls/hr IV Q24H [facility] Last Admin: 10/27/20 20:27 Dose: 166.667 mls/hr Documented by: Meropenem/Sodium Chloride 1 gm (/ Premix) 50 mls @ 100 mls/hr IV Q12H [facility] Magnesium Sulfate (Magnesium Sulfate In Water 2 Gm/50 Ml) 2 gm in 50 mls @ 50 mls/hr IV ONETIME ONE Stop: 10/29/20 08:58 Last Admin: 10/29/20 08:58 Dose: 50 mls/hr Documented by: Magnesium Sulfate (Magnesium Sulfate In Water 2 Gm/50 Ml) 2 gm in 50 mls @ 50 mls/hr IV ONETIME ONE Stop: 10/31/20 08:29 Last Admin: 10/31/20 07:57 Dose: 50 mls/hr Documented by: Iodixanol (Iodixanol 652 Mg/Ml 100 Ml Bottle) 85 ml IVPUSH ONETIME ONE Stop: 10/25/20 18:42 Last Admin: 10/25/20 18:43 Dose: 85 ml Documented by: Magnesium Oxide (Magnesium Oxide 400 Mg Tab) 800 mg PO ONETIME ONE Stop: 10/30/20 09:31 Last Admin: 10/30/20 09:48 Dose: 800 mg Documented by: Vancomycin HCl (Pharmacy To Dose - Vancomycin) 1 dose .XX ASDIRECTED [facility] Warfarin Sodium (Warfarin 2.5 Mg Tab) 2.5 mg PO DAILY@1400 [facility] Stop: 10/30/20 15:00 Last Admin: 10/30/20 14:27 Dose: 2.5 mg Documented by: Warfarin Sodium (Warfarin 2.5 Mg Tab) 2.5 mg PO DAILY@1400 [facility] Stop: 10/31/20 15:00 Last Admin: 10/31/20 14:11 Dose: 2.5 mg Documented by: - Exam General: Alert, Oriented Lungs: Clear to Auscultation Cardiovascular: Regular Rate, Irregular Rhythm GI/Abdominal Exam: Soft, Non-Tender Extremities: No Pedal Edema Psy/Mental Status: Alert - Patient Data Lab Results Last 24 hrs: Laboratory Results - last 24 hr 10/31/20 10/31/20 10/31/20 Range/Units 05:40 05:40 05:40 WBC 11.23 H (4.0-11.0) K/uL RBC 4.21 L (4.30-5.90) M/uL Hgb 12.7 (12.0-16.0) g/dL Hct 36.6 (36.0-46.0) % MCV 86.9 (80.0-98.0) fL MCH 30.2 (27.0-32.0) pg MCHC 34.7 (31.0-37.0) g/dL RDW Std Deviation 45.6 (28.0-62.0) fl RDW Coeff of Dg 14 (11.0-15.0) % Plt Count 156 (150-400) K/uL MPV 11.10 (7.40-12.00) fL Add Manual Diff YES Neutrophils % (Manual) 58 (48.0-80.0) % Band Neutrophils % 8 % Lymphocytes % (Manual) 30 (16.0-40.0) % Monocytes % (Manual) 2 (0.0-15.0) % Eosinophils % (Manual) 1 (0.0-7.0) % Basophils % (Manual) 1 (0.0-1.5) % Nucleated RBC % 0.0 /100WBC Absolute Seg Neuts 6.5 H (1.4-5.7) Band Neutrophils # 0.9 Lymphocytes # (Manual) 3.4 H (0.6-2.4) Monocytes # (Manual) 0.2 (0.0-0.8) Eosinophils # (Manual) 0.1 (0.0-0.7) Basophils # (Manual) 0.1 (0.0-0.1) Nucleated RBCs # 0 K/uL Poikilocytosis 1+ SLIGHT INR 2.42 Sodium 128 L (136-145) mmol/L Potassium 4.4 (3.5-5.1) mmol/L Chloride 95 L (98-107) mmol/L Carbon Dioxide 29.8 (21.0-32.0) mmol/L BUN 14 (7.0-18.0) mg/dL Creatinine 0.7 (0.6-1.0) mg/dL Est Cr Clr Drug Dosing 47.28 mL/min Estimated GFR (MDRD) > 60.0 ml/min Glucose 96 (74-106) mg/dL Calcium 8.3 L (8.5-10.1) mg/dL Phosphorus 2.8 (2.6-4.7) mg/dL Magnesium 1.6 L (1.8-2.4) mg/dL Result Diagrams: 10/31/20 05:40 10/31/20 05:40 Armando Results Last 24 hrs: Microbiology 10/29/20 09:41 Aerobic Blood Culture - Preliminary Blood - Venous - Lab Draw NO GROWTH AFTER 2 DAYS Anaerobic Blood Culture - Preliminary NO GROWTH AFTER 2 DAYS 10/29/20 09:31 Aerobic Blood Culture - Preliminary Blood - Venous NO GROWTH AFTER 2 DAYS Anaerobic Blood Culture - Preliminary NO GROWTH AFTER 2 DAYS Sepsis Event Note - Evaluation Sepsis Screening Result: No Definite Risk - Focused Exam Vital Signs: Vital Signs Temp Pulse Pulse Resp BP BP Pulse Ox 10/31/20 11:52 97.8 F 84 18 139/80 94 L 10/31/20 08:51 94 141/81 H 10/31/20 08:47 94 10/31/20 07:35 97.7 F 90 18 155/86 H 93 L - Problem List & Annotations (1) Palliative care status SNOMED Code(s): 541085183 Code(s): Z51.5 - ENCOUNTER FOR PALLIATIVE CARE Status: Acute (2) Acute on chronic congestive heart failure SNOMED Code(s): 251468549, 37469131071002 Code(s): I50.9 - HEART FAILURE, UNSPECIFIED Status: Acute Qualifiers: Heart failure type: unspecified Qualified Code(s): I50.9 - Heart failure, unspecified (3) Sepsis SNOMED Code(s): 06380964 Code(s): A41.9 - SEPSIS, UNSPECIFIED ORGANISM Status: Acute Qualifiers: Sepsis type: sepsis due to unspecified organism Sepsis acute organ dysfunction status: with acute organ dysfunction Severe sepsis acute organ dysfunction type: acute renal failure Acute renal failure type: unspecified Severe sepsis shock status: unspecified Qualified Code(s): A41.9 - Sepsis, unspecified organism; R65.20 - Severe sepsis without septic shock; N17.9 - Acute kidney failure, unspecified (4) Acute CHF (congestive heart failure) SNOMED Code(s): 30601251 Code(s): I50.9 - HEART FAILURE, UNSPECIFIED Status: Acute Qualifiers: Heart failure type: diastolic Qualified Code(s): I50.31 - Acute diastolic (congestive) heart failure (5) Acute respiratory failure with hypoxia SNOMED Code(s): 06588709, 010052347 Code(s): J96.01 - ACUTE RESPIRATORY FAILURE WITH HYPOXIA Status: Acute (6) Anticoagulant long-term use SNOMED Code(s): 778405220 Code(s): Z79.01 - GROUP HOME (CURRENT) USE OF ANTICOAGULANTS Status: Acute (7) Hypoxia SNOMED Code(s): 196128679 Code(s): R09.02 - HYPOXEMIA Status: Acute (8) UTI, Urinary tract infectious disease SNOMED Code(s): 22320681 Code(s): N39.0 - URINARY TRACT INFECTION, SITE NOT SPECIFIED Status: Acute (9) Afib, Atrial fibrillation SNOMED Code(s): 47536981 Code(s): I48.91 - UNSPECIFIED ATRIAL FIBRILLATION Status: Chronic (10) CHF, Congestive heart failure SNOMED Code(s): 83677833 Code(s): I50.9 - HEART FAILURE, UNSPECIFIED Status: Chronic (11) Hypertension SNOMED Code(s): 66220182 Code(s): I10 - ESSENTIAL (PRIMARY) HYPERTENSION Status: Chronic - Problem List Review Problem List Initiated/Reviewed/Updated: Yes - My Orders Last 24 Hours: My Active Orders 10/31/20 07:24 Echo Comp wo Cont [US] Routine 10/31/20 09:12 Incentive Spirometry [RT Incentive Spirometry] [] Q2HWA 10/31/20 17:12 CORONAVIRUS COVID-19 RAPID [MOLEC] Routine - Plan Plan:: UTI-continue ceftriaxone Bacteriemia-continue ceftriaxone Acute CHF exacerbation-fluid restrict 1800 mL, Resume home lasix dose, 40mg PO, strict I&O, daily weight, Resume metoprolol and digoxin, wean of oxygen as able, was instructed to do IS more often Warfarin for DVT prophylaxis, regular diet Physical therapy evaluationpatient has mobility with four-wheel walker. Patient set to be discharged to [facility] this tomorrow for short-term physical therapy strengthening <Meme Diego - Last Filed: 11/01/20 22:46> - General Info Subjective Update: I have seen and evaluated the patient and agree with the residents note unless specified in my note - Patient Data Vitals - Most Recent: Last Vital Signs Temp 36.5 C 11/01/20 11:14 Pulse 85 11/01/20 11:14 Resp 18 11/01/20 11:14 BP 126/79 11/01/20 11:14 Pulse Ox 96 11/01/20 11:14 I&O - Last 24 Hours: Intake & Output 11/01/20 11/01/20 11/01/20 06:59 14:59 22:59 Intake Total 535 660 Output Total 1100 450 Balance -565 210 Lab Results Last 24 Hours: Laboratory Results - last 24 hr 11/01/20 11/01/20 11/01/20 Range/Units 05:01 05:01 05:01 WBC 10.93 (4.0-11.0) K/uL RBC 4.39 (4.30-5.90) M/uL Hgb 13.5 (12.0-16.0) g/dL Hct 37.8 (36.0-46.0) % MCV 86.1 (80.0-98.0) fL MCH 30.8 (27.0-32.0) pg MCHC 35.7 (31.0-37.0) g/dL RDW Std Deviation 44.3 (28.0-62.0) fl RDW Coeff of Dg 14 (11.0-15.0) % Plt Count 202 (150-400) K/uL MPV 10.20 (7.40-12.00) fL Add Manual Diff YES Neutrophils % (Manual) 60 (48.0-80.0) % Band Neutrophils % 7 % Lymphocytes % (Manual) 18 (16.0-40.0) % Monocytes % (Manual) 13 (0.0-15.0) % Eosinophils % (Manual) 2 (0.0-7.0) % Nucleated RBC % 0.0 /100WBC Absolute Seg Neuts 6.6 H (1.4-5.7) Band Neutrophils # 0.8 Lymphocytes # (Manual) 2.0 (0.6-2.4) Monocytes # (Manual) 1.4 H (0.0-0.8) Eosinophils # (Manual) 0.2 (0.0-0.7) Nucleated RBCs # 0 K/uL INR 2.98 Sodium 128 L (136-145) mmol/L Potassium 4.3 (3.5-5.1) mmol/L Chloride 94 L (98-107) mmol/L Carbon Dioxide 30.2 (21.0-32.0) mmol/L BUN 13 (7.0-18.0) mg/dL Creatinine 0.7 (0.6-1.0) mg/dL Est Cr Clr Drug Dosing 46.54 mL/min Estimated GFR (MDRD) > 60.0 ml/min Glucose 97 (74-106) mg/dL Calcium 8.4 L (8.5-10.1) mg/dL Magnesium 1.8 (1.8-2.4) mg/dL Armnado Results Last 24 Hours: Microbiology 10/29/20 09:41 Aerobic Blood Culture - Preliminary Blood - Venous - Lab Draw NO GROWTH AFTER 3 DAYS Anaerobic Blood Culture - Preliminary NO GROWTH AFTER 3 DAYS 10/29/20 09:31 Aerobic Blood Culture - Preliminary Blood - Venous NO GROWTH AFTER 3 DAYS Anaerobic Blood Culture - Preliminary NO GROWTH AFTER 3 DAYS Med Orders - Current: Current Medications Discontinued Medications Acetaminophen (Acetaminophen 325 Mg Tab) 650 mg PO Q6H PRN PRN Reason: Pain Last Admin: 10/31/20 21:22 Dose: 650 mg Documented by: Aspirin (Aspirin 81 Mg Tab.Chew) 324 mg PO ONETIME ONE Stop: 10/25/20 17:19 Last Admin: 10/25/20 17:41 Dose: 324 mg Documented by: Digoxin (Digoxin 125 Mcg Tab) 125 mcg PO DAILY [facility] Last Admin: 11/01/20 09:55 Dose: 125 mcg Documented by: Furosemide (Furosemide 40 Mg/4 Ml Vial) 20 mg IVPUSH NOW ONE Stop: 10/25/20 19:46 Last Admin: 10/25/20 20:33 Dose: Not Given Documented by: Furosemide (Furosemide 40 Mg Tab) 40 mg PO DAILY [facility] Last Admin: 11/01/20 09:56 Dose: 40 mg Documented by: Sodium Chloride (Normal Saline) 1,000 mls @ 999 mls/hr IV STAT ONE Stop: 10/25/20 18:00 Last Admin: 10/25/20 17:41 Dose: 999 mls/hr Documented by: Meropenem 1 gm/ Sodium (Chloride) 100 mls @ 200 mls/hr IV ONETIME ONE Stop: 10/25/20 17:32 Last Admin: 10/25/20 17:42 Dose: Not Given Documented by: Vancomycin HCl 1 gm/ Sodium (Chloride) 250 mls @ 166 mls/hr IV ONETIME ONE Stop: 10/25/20 18:33 Last Admin: 10/25/20 17:41 Dose: 166 mls/hr Documented by: Meropenem/Sodium Chloride 1 gm (/ Premix) 50 mls @ 100 mls/hr IV ONETIME ONE Stop: 10/25/20 17:32 Last Admin: 10/25/20 17:41 Dose: 100 mls/hr Documented by: Meropenem/Sodium Chloride (Meropenem In Ns 1 Gm/50 Ml) 50 mls @ 100 mls/hr IV Q8H [facility] Last Admin: 10/26/20 00:41 Dose: Not Given Documented by: Meropenem/Sodium Chloride (Meropenem In Ns 1 Gm/50 Ml) 50 mls @ 100 mls/hr IV Q8H [facility] Last Admin: 10/26/20 00:30 Dose: 100 mls/hr Documented by: Meropenem/Sodium Chloride (Meropenem In Ns 1 Gm/50 Ml) 50 mls @ 100 mls/hr IV Q12H [facility] Last Admin: 10/28/20 00:10 Dose: 100 mls/hr Documented by: Vancomycin HCl 1 gm/ Sodium (Chloride) 250 mls @ 166.667 mls/hr IV Q48H [facility] Last Admin: 10/27/20 21:12 Dose: Not Given Documented by: Magnesium Sulfate (Magnesium Sulfate In Water 2 Gm/50 Ml) 2 gm in 50 mls @ 50 mls/hr IV ONETIME ONE Stop: 10/27/20 08:30 Last Admin: 10/27/20 08:00 Dose: 50 mls/hr Documented by: Vancomycin HCl 1 gm/ Sodium (Chloride) 250 mls @ 166.667 mls/hr IV Q24H [facility] Last Admin: 10/27/20 20:27 Dose: 166.667 mls/hr Documented by: Meropenem/Sodium Chloride 1 gm (/ Premix) 50 mls @ 100 mls/hr IV Q12H [facility] Ceftriaxone Sodium/Dextrose 1 (gm/ Premix) 50 mls @ 100 mls/hr IV Q24H [facility] Last Admin: 10/31/20 14:10 Dose: 100 mls/hr Documented by: Magnesium Sulfate (Magnesium Sulfate In Water 2 Gm/50 Ml) 2 gm in 50 mls @ 50 mls/hr IV ONETIME ONE Stop: 10/29/20 08:58 Last Admin: 10/29/20 08:58 Dose: 50 mls/hr Documented by: Magnesium Sulfate (Magnesium Sulfate In Water 2 Gm/50 Ml) 2 gm in 50 mls @ 50 mls/hr IV ONETIME ONE Stop: 10/31/20 08:29 Last Admin: 10/31/20 07:57 Dose: 50 mls/hr Documented by: Pantoprazole Sodium 40 mg/ (Sodium Chloride) 10 mls @ 300 mls/hr IV DAILY [facility] Last Admin: 11/01/20 10:02 Dose: 300 mls/hr Documented by: Ceftriaxone Sodium/Dextrose 1 (gm/ Premix) 50 mls @ 100 mls/hr IV Q24H [facility] Last Admin: 11/01/20 08:55 Dose: 100 mls/hr Documented by: Iodixanol (Iodixanol 652 Mg/Ml 100 Ml Bottle) 85 ml IVPUSH ONETIME ONE Stop: 10/25/20 18:42 Last Admin: 10/25/20 18:43 Dose: 85 ml Documented by: Magnesium Oxide (Magnesium Oxide 400 Mg Tab) 800 mg PO ONETIME ONE Stop: 10/30/20 09:31 Last Admin: 10/30/20 09:48 Dose: 800 mg Documented by: Metoprolol Tartrate (Metoprolol Tartrate 50 Mg Tab) 50 mg PO BID [facility] Last Admin: 11/01/20 09:57 Dose: 50 mg Documented by: Prednisolone Acetate /Pf [Prednisolone Acet 1% Eye Drop] 1 each EYEBOTH BID [facility] Last Admin: 11/01/20 09:59 Dose: 1 each Documented by: Dorzolamide/Timolol 2%-0.5% Ophth Soln 10 Ml Bottle 0 each EYEBOTH ACBREAKFAST [facility] Last Admin: 11/01/20 06:43 Dose: 1 each Documented by: Potassium Chloride (Potassium Chloride 20 Meq Tab.Er) 20 meq PO DAILY PRN PRN Reason: WITH LASIX Potassium Chloride (Potassium Chloride 20 Meq Tab.Er) 40 meq PO DAILY [facility] Last Admin: 11/01/20 09:58 Dose: 40 meq Documented by: Sertraline HCl (Sertraline 25 Mg Tab) 25 mg PO DAILY [facility] Last Admin: 11/01/20 09:55 Dose: 25 mg Documented by: Sodium Chloride (Sodium Chloride 0.9% 10 Ml Syringe) 10 ml FLUSH ASDIRECTED PRN PRN Reason: Keep Vein Open Last Admin: 10/25/20 16:24 Dose: 10 ml Documented by: Sodium Chloride (Sodium Chloride 0.9% 2.5 Ml Syringe) 2.5 ml FLUSH ASDIRECTED PRN PRN Reason: Keep Vein Open Last Admin: 10/25/20 16:24 Dose: 2.5 ml Documented by: Vancomycin HCl (Pharmacy To Dose - Vancomycin) 1 dose .XX ASDIRECTED [facility] Warfarin Sodium (Warfarin Ask Dosing) 1 each PO Q24H [facility] Last Admin: 10/31/20 14:11 Dose: Not Given Documented by: Warfarin Sodium (Warfarin 2.5 Mg Tab) 2.5 mg PO DAILY@1400 [facility] Stop: 10/30/20 15:00 Last Admin: 10/30/20 14:27 Dose: 2.5 mg Documented by: Warfarin Sodium (Warfarin 2.5 Mg Tab) 2.5 mg PO DAILY@1400 [facility] Stop: 10/31/20 15:00 Last Admin: 10/31/20 14:11 Dose: 2.5 mg Documented by: Warfarin Sodium (Warfarin 2 Mg Tab) 2 mg PO DAILY@1400 [facility] Stop: 11/01/20 15:00 - Patient Data Lab Results Last 24 hrs: Laboratory Results - last 24 hr 11/01/20 11/01/20 11/01/20 Range/Units 05:01 05:01 05:01 WBC 10.93 (4.0-11.0) K/uL RBC 4.39 (4.30-5.90) M/uL Hgb 13.5 (12.0-16.0) g/dL Hct 37.8 (36.0-46.0) % MCV 86.1 (80.0-98.0) fL MCH 30.8 (27.0-32.0) pg MCHC 35.7 (31.0-37.0) g/dL RDW Std Deviation 44.3 (28.0-62.0) fl RDW Coeff of Dg 14 (11.0-15.0) % Plt Count 202 (150-400) K/uL MPV 10.20 (7.40-12.00) fL Add Manual Diff YES Neutrophils % (Manual) 60 (48.0-80.0) % Band Neutrophils % 7 % Lymphocytes % (Manual) 18 (16.0-40.0) % Monocytes % (Manual) 13 (0.0-15.0) % Eosinophils % (Manual) 2 (0.0-7.0) % Nucleated RBC % 0.0 /100WBC Absolute Seg Neuts 6.6 H (1.4-5.7) Band Neutrophils # 0.8 Lymphocytes # (Manual) 2.0 (0.6-2.4) Monocytes # (Manual) 1.4 H (0.0-0.8) Eosinophils # (Manual) 0.2 (0.0-0.7) Nucleated RBCs # 0 K/uL INR 2.98 Sodium 128 L (136-145) mmol/L Potassium 4.3 (3.5-5.1) mmol/L Chloride 94 L (98-107) mmol/L Carbon Dioxide 30.2 (21.0-32.0) mmol/L BUN 13 (7.0-18.0) mg/dL Creatinine 0.7 (0.6-1.0) mg/dL Est Cr Clr Drug Dosing 46.54 mL/min Estimated GFR (MDRD) > 60.0 ml/min Glucose 97 (74-106) mg/dL Calcium 8.4 L (8.5-10.1) mg/dL Magnesium 1.8 (1.8-2.4) mg/dL Result Diagrams: 11/01/20 05:01 11/01/20 05:01 Armando Results Last 24 hrs: Microbiology 10/29/20 09:41 Aerobic Blood Culture - Preliminary Blood - Venous - Lab Draw NO GROWTH AFTER 3 DAYS Anaerobic Blood Culture - Preliminary NO GROWTH AFTER 3 DAYS 10/29/20 09:31 Aerobic Blood Culture - Preliminary Blood - Venous NO GROWTH AFTER 3 DAYS Anaerobic Blood Culture - Preliminary NO GROWTH AFTER 3 DAYS Sepsis Event Note - Focused Exam Vital Signs: Vital Signs Temp Pulse Resp BP Pulse Ox 11/01/20 11:14 36.5 C 85 18 126/79 96
[2020-10-31] MEDS: Acetaminophen 325 MG Tab PO PRN (21:22)
[2020-11-01] MEDS: Pantoprazole 40 MG in Sodium Chloride 0.9% 10 ML IV SCH ×2 (01:20→10:02)
[2020-11-01 05:36] LABS: BLOOD UREA NITROGEN,BUN 13 mg/dL (7.0-18.0); CARBON DIOXIDE,CO2 30.2 mmol/L (21.0-32.0); CHLORIDE,CL 94 mmol/L (98-107); GLUCOSE RANDOM 97 mg/dL (74-106); POTASSIUM,K 4.3 mmol/L (3.5-5.1); SODIUM,NA 128 mmol/L (136-145)
[2020-11-01] MEDS: Dorzolamide/Timolol 2%-0.5% Ophth Soln 10 ML Bottle EYEBOTH SCH (06:43)
[2020-11-01] MEDS ORDERED: cefTRIAXone 1 GM in Premix Bag 1 BAG IV SCH (09:00)
[2020-11-01] MEDS: Sertraline 25 MG Tab PO SCH (09:55)
[2020-11-01] MEDS: Digoxin 125 MCG Tab PO SCH (09:55)
[2020-11-01] MEDS: Furosemide 40 MG Tab PO SCH (09:56)
[2020-11-01] MEDS: Metoprolol Tartrate 50 MG Tab PO SCH (09:57)
[2020-11-01] MEDS: Potassium Chloride 20 MEQ Tab.ER PO SCH (09:58)
[2020-11-01] MEDS: Prednisolone Acetate/Pf [Prednisolone Acet 1% Eye Drop] EYEBOTH SCH (09:59)
[2020-11-01] MEDS ORDERED: Warfarin 5 MG Tab PO SCH (10:02)
[2020-11-01 11:15] VITALS: BP 126/79; PULSE 85
--- NOTE | 2020-11-01 11:56 | PCM.DCSUM1 ---
<Papo Babin - Last Filed: 11/01/20 17:43> Discharge Summary - Hospital Course Free Text/Narrative:: 89 yo female with pmh of atrial fibrillation on warfarin, CHF, HTN, and asthma admitted for urosepsis, CHF exacerbation, TONEY. Patient presented to the ED with several day history of fevers, chills, malaise, myalgias and urinary frequency. Patient thought she had a UTI. She denies any chest pain or shortness of breath. In the ED she was noted to by hypoxic requiring 5 L NC to keep sats above 90%. Her blood pressure was in the 90s systolic. CT angio of chest was suggestive of fluid overload, Patient CT abdomen noted mild hepatomegaly, diverticulosis without diverticulitis, descending colon bladder without biliary obstruction or calcified gallstones. No hydronephrosis, cardiomegaly, bilateral lower lobe densities atelectasis versus infiltrates. Patient was treated in the emergency department with 1 liter of NS, vancomycin, meropenem, and lasix. Patient was admitted to the medical unit started on vancomycin and meropenem IV antibiotics, Lasix as needed, IV fluids restricted due to CHF exacerbation. Microbiology report showed bacteremia and urinary tract infection secondary to E. coli infection. Patient was then switched to ceftriaxone antibiotic for the rest of her hospital course. Patient's hospital course was extended due to awaiting placement at [facility], [place]. Patient discharged to [facility] [place] for short stay for physical therapy to improve strengthening and ambulation. Patient to continue 6 more days of IV ceftriaxone at [facility]. Patient given order for oxygen therapy up to 1 L with activity and sleep. Patient states she does not use home oxygen, goal would be to wean patient to room air while at [facility]. All home medications resumed, medication adjustments to be completed by physicians at [facility] [place]. - Discharge Data Discharge Date: 11/01/20 Discharge Disposition: DC/Tfer to SNF 03 Condition: Fair - Referral to Home Health Primary Care Physician: Mg Sung MD - Discharge Diagnosis/Problem(s) (1) Palliative care status SNOMED Code(s): 383792962 ICD Code: Z51.5 - ENCOUNTER FOR PALLIATIVE CARE Status: Acute (2) Acute on chronic congestive heart failure SNOMED Code(s): 060819537, 80489994909819 ICD Code: I50.9 - HEART FAILURE, UNSPECIFIED Status: Acute Qualifiers: Heart failure type: unspecified Qualified Code(s): I50.9 - Heart failure, unspecified (3) Sepsis SNOMED Code(s): 66639582 ICD Code: A41.9 - SEPSIS, UNSPECIFIED ORGANISM Status: Acute Qualifiers: Sepsis type: sepsis due to unspecified organism Sepsis acute organ dysfunction status: with acute organ dysfunction Severe sepsis acute organ dysfunction type: acute renal failure Acute renal failure type: unspecified Severe sepsis shock status: unspecified Qualified Code(s): A41.9 - Sepsis, unspecified organism; R65.20 - Severe sepsis without septic shock; N17.9 - Acute kidney failure, unspecified (4) Acute CHF (congestive heart failure) SNOMED Code(s): 52378239 ICD Code: I50.9 - HEART FAILURE, UNSPECIFIED Status: Acute Qualifiers: Heart failure type: diastolic Qualified Code(s): I50.31 - Acute diastolic (congestive) heart failure (5) Acute respiratory failure with hypoxia SNOMED Code(s): 99783309, 042588862 ICD Code: J96.01 - ACUTE RESPIRATORY FAILURE WITH HYPOXIA Status: Acute (6) Anticoagulant long-term use SNOMED Code(s): 225079240 ICD Code: Z79.01 - [facility]FP (CURRENT) USE OF ANTICOAGULANTS Status: Acute (7) Hypoxia SNOMED Code(s): 098847670 ICD Code: R09.02 - HYPOXEMIA Status: Acute (8) UTI, Urinary tract infectious disease SNOMED Code(s): 79041776 ICD Code: N39.0 - URINARY TRACT INFECTION, SITE NOT SPECIFIED Status: Acute (9) Afib, Atrial fibrillation SNOMED Code(s): 57756553 ICD Code: I48.91 - UNSPECIFIED ATRIAL FIBRILLATION Status: Chronic (10) CHF, Congestive heart failure SNOMED Code(s): 03966353 ICD Code: I50.9 - HEART FAILURE, UNSPECIFIED Status: Chronic (11) Hypertension SNOMED Code(s): 12926422 ICD Code: I10 - ESSENTIAL (PRIMARY) HYPERTENSION Status: Chronic - Patient Summary/Data Consults: Consultations 10/27/20 09:57 Consult to Physical Therapy [PT Evaluation and Treatment] [CONS] Routine - Patient Instructions Other/Special Instructions: PHYSICAL THERAPY AND OCCUPATIONAL THERAPY EVALUATION AND TREATMENT. PATIENT TO RECIEVE 6 MORE DAYS OF IV ROCEPHIN 1GM Q24H FOR UTI/BACTEREMIA. PATIENT REQUIRES UP TO 1L O2 SUPPORT WHILE SLEEPING AND WITH ACTIVITY. TITRATE OXYGEN TO MAINTAIN SATURATIONS AT 90% OR ABOVE. MAY BE WEENED DOWN IF POSSIBLE. - Discharge Plan Prescriptions/Med Rec: Losartan [Cozaar] 50 mg PO DAILY #30 tab cefTRIAXone [Rocephin in Dextrose,Iso-Osm 1 GM/50 ML] 1 gm IV Q24H #6 bag Home Medications: Home Meds ALPRAZolam [Xanax XR] 1 mg PO BEDTIME 03/12/20 [History] Calcium Carbonate [Calcium] 1 tab PO DAILY 03/12/20 [History] Digoxin [Lanoxin] 125 mcg PO DAILY 03/12/20 [History] Lutein/Minerals/Vit A,C & E [Ocuvite] 1 tab PO DAILY 03/12/20 [History] Multivitamin [Multi-Vitamin Daily] 1 tab PO DAILY 03/12/20 [History] Potassium Chloride 20 meq PO DAILY PRN 03/12/20 [History] Prednisolone Acetate/Pf [Prednisolone Acet 1% Eye Drop] 1 drop EYEBOTH BID 03/12/20 [History] amLODIPine [Norvasc] 10 mg PO DAILY 03/12/20 [History] Metoprolol Tartrate 50 mg PO BID 03/13/20 [History] Warfarin [Coumadin] 2.5 mg PO SUMOWETHFRSA 03/13/20 [History] Warfarin [Coumadin] 5 mg PO TU 03/13/20 [History] Oxybutynin 5 mg PO BID #60 tablet 03/15/20 [Rx] Dorzolamide/Timolol [Cosopt 2%-0.5% Ophth Soln] 1 drop EYEBOTH ACBREAKFAST 10/25/20 [History] Furosemide 40 mg PO DAILY 10/25/20 [History] Sertraline [Zoloft] 25 mg PO DAILY 10/25/20 [History] Losartan [Cozaar] 50 mg PO DAILY #30 tab 11/01/20 [Rx] cefTRIAXone [Rocephin in Dextrose,Iso-Osm 1 GM/50 ML] 1 gm IV Q24H #6 bag 11/01/20 [Rx] Forms: ED Department Discharge Referrals: Mg Sung MD [Primary Care Provider] - 11/08/20 3:30 pm - Discharge Summary/Plan Comment DC Time >30 min.: Yes - Review of Systems General: Denies: Fever, Chills Pulmonary: Denies: Shortness of Breath Cardiovascular: Denies: Chest Pain Gastrointestinal: Denies: Abdominal Pain, Nausea, Vomiting Neurological: Denies: Confusion, Dizziness Psychiatric: Denies: Confusion - Patient Data Vitals - Most Recent: Last Vital Signs Temp 97.7 F 11/01/20 11:14 Pulse 85 11/01/20 11:14 Resp 18 11/01/20 11:14 BP 126/79 11/01/20 11:14 Pulse Ox 96 11/01/20 11:14 Weight - Most Recent: 54.114 kg I&O - Last 24 hours: Intake & Output 10/31/20 11/01/20 11/01/20 22:59 06:59 14:59 Intake Total 840 535 Output Total 1950 1100 Balance -1110 -565 Lab Results - Last 24 hrs: Laboratory Results - last 24 hr 10/31/20 11/01/20 11/01/20 Range/Units 17:12 05:01 05:01 WBC 10.93 (4.0-11.0) K/uL RBC 4.39 (4.30-5.90) M/uL Hgb 13.5 (12.0-16.0) g/dL Hct 37.8 (36.0-46.0) % MCV 86.1 (80.0-98.0) fL MCH 30.8 (27.0-32.0) pg MCHC 35.7 (31.0-37.0) g/dL RDW Std Deviation 44.3 (28.0-62.0) fl RDW Coeff of Dg 14 (11.0-15.0) % Plt Count 202 (150-400) K/uL MPV 10.20 (7.40-12.00) fL Add Manual Diff YES Neutrophils % (Manual) 60 (48.0-80.0) % Band Neutrophils % 7 % Lymphocytes % (Manual) 18 (16.0-40.0) % Monocytes % (Manual) 13 (0.0-15.0) % Eosinophils % (Manual) 2 (0.0-7.0) % Nucleated RBC % 0.0 /100WBC Absolute Seg Neuts 6.6 H (1.4-5.7) Band Neutrophils # 0.8 Lymphocytes # (Manual) 2.0 (0.6-2.4) Monocytes # (Manual) 1.4 H (0.0-0.8) Eosinophils # (Manual) 0.2 (0.0-0.7) Nucleated RBCs # 0 K/uL INR Sodium 128 L (136-145) mmol/L Potassium 4.3 (3.5-5.1) mmol/L Chloride 94 L (98-107) mmol/L Carbon Dioxide 30.2 (21.0-32.0) mmol/L BUN 13 (7.0-18.0) mg/dL Creatinine 0.7 (0.6-1.0) mg/dL Est Cr Clr Drug Dosing 46.54 mL/min Estimated GFR (MDRD) > 60.0 ml/min Glucose 97 (74-106) mg/dL Calcium 8.4 L (8.5-10.1) mg/dL Magnesium 1.8 (1.8-2.4) mg/dL SARS CoV-2 RNA Rapid ACOSTA NEGATIVE (NEGATIVE) 11/01/20 Range/Units 05:01 WBC (4.0-11.0) K/uL RBC (4.30-5.90) M/uL Hgb (12.0-16.0) g/dL Hct (36.0-46.0) % MCV (80.0-98.0) fL MCH (27.0-32.0) pg MCHC (31.0-37.0) g/dL RDW Std Deviation (28.0-62.0) fl RDW Coeff of Dg (11.0-15.0) % Plt Count (150-400) K/uL MPV (7.40-12.00) fL Add Manual Diff Neutrophils % (Manual) (48.0-80.0) % Band Neutrophils % % Lymphocytes % (Manual) (16.0-40.0) % Monocytes % (Manual) (0.0-15.0) % Eosinophils % (Manual) (0.0-7.0) % Nucleated RBC % /100WBC Absolute Seg Neuts (1.4-5.7) Band Neutrophils # Lymphocytes # (Manual) (0.6-2.4) Monocytes # (Manual) (0.0-0.8) Eosinophils # (Manual) (0.0-0.7) Nucleated RBCs # K/uL INR 2.98 Sodium (136-145) mmol/L Potassium (3.5-5.1) mmol/L Chloride (98-107) mmol/L Carbon Dioxide (21.0-32.0) mmol/L BUN (7.0-18.0) mg/dL Creatinine (0.6-1.0) mg/dL Est Cr Clr Drug Dosing mL/min Estimated GFR (MDRD) ml/min Glucose (74-106) mg/dL Calcium (8.5-10.1) mg/dL Magnesium (1.8-2.4) mg/dL SARS CoV-2 RNA Rapid ACOSTA (NEGATIVE) PRADIP Results - Last 24 hrs: Microbiology 10/29/20 09:41 Aerobic Blood Culture - Preliminary Blood - Venous - Lab Draw NO GROWTH AFTER 3 DAYS Anaerobic Blood Culture - Preliminary NO GROWTH AFTER 3 DAYS 10/29/20 09:31 Aerobic Blood Culture - Preliminary Blood - Venous NO GROWTH AFTER 3 DAYS Anaerobic Blood Culture - Preliminary NO GROWTH AFTER 3 DAYS Med Orders - Current: Current Medications Acetaminophen (Acetaminophen 325 Mg Tab) 650 mg PO Q6H PRN PRN Reason: Pain Last Admin: 10/31/20 21:22 Dose: 650 mg Documented by: Digoxin (Digoxin 125 Mcg Tab) 125 mcg PO DAILY [facility] Last Admin: 11/01/20 09:55 Dose: 125 mcg Documented by: Furosemide (Furosemide 40 Mg Tab) 40 mg PO DAILY [facility] Last Admin: 11/01/20 09:56 Dose: 40 mg Documented by: Pantoprazole Sodium 40 mg/ (Sodium Chloride) 10 mls @ 300 mls/hr IV DAILY [facility] Last Admin: 11/01/20 10:02 Dose: 300 mls/hr Documented by: Ceftriaxone Sodium/Dextrose 1 (gm/ Premix) 50 mls @ 100 mls/hr IV Q24H [facility] Last Admin: 11/01/20 08:55 Dose: 100 mls/hr Documented by: Metoprolol Tartrate (Metoprolol Tartrate 50 Mg Tab) 50 mg PO BID [facility] Last Admin: 11/01/20 09:57 Dose: 50 mg Documented by: Prednisolone Acetate /Pf [Prednisolone Acet 1% Eye Drop] 1 each EYEBOTH BID [facility] Last Admin: 11/01/20 09:59 Dose: 1 each Documented by: Dorzolamide/Timolol 2%-0.5% Ophth Soln 10 Ml Bottle 0 each EYEBOTH ACBREAKFAST [facility] Last Admin: 11/01/20 06:43 Dose: 1 each Documented by: Potassium Chloride (Potassium Chloride 20 Meq Tab.Er) 20 meq PO DAILY PRN PRN Reason: WITH LASIX Potassium Chloride (Potassium Chloride 20 Meq Tab.Er) 40 meq PO DAILY [facility] Last Admin: 11/01/20 09:58 Dose: 40 meq Documented by: Sertraline HCl (Sertraline 25 Mg Tab) 25 mg PO DAILY [facility] Last Admin: 11/01/20 09:55 Dose: 25 mg Documented by: Sodium Chloride (Sodium Chloride 0.9% 10 Ml Syringe) 10 ml FLUSH ASDIRECTED PRN PRN Reason: Keep Vein Open Last Admin: 10/25/20 16:24 Dose: 10 ml Documented by: Sodium Chloride (Sodium Chloride 0.9% 2.5 Ml Syringe) 2.5 ml FLUSH ASDIRECTED PRN PRN Reason: Keep Vein Open Last Admin: 10/25/20 16:24 Dose: 2.5 ml Documented by: Warfarin Sodium (Warfarin Ask Dosing) 1 each PO Q24H [facility] Last Admin: 10/31/20 14:11 Dose: Not Given Documented by: Warfarin Sodium (Warfarin 2 Mg Tab) 2 mg PO DAILY@1400 [facility] Stop: 11/01/20 15:00 Discontinued Medications Aspirin (Aspirin 81 Mg Tab.Chew) 324 mg PO ONETIME ONE Stop: 10/25/20 17:19 Last Admin: 10/25/20 17:41 Dose: 324 mg Documented by: Furosemide (Furosemide 40 Mg/4 Ml Vial) 20 mg IVPUSH NOW ONE Stop: 10/25/20 19:46 Last Admin: 10/25/20 20:33 Dose: Not Given Documented by: Sodium Chloride (Normal Saline) 1,000 mls @ 999 mls/hr IV STAT ONE Stop: 10/25/20 18:00 Last Admin: 10/25/20 17:41 Dose: 999 mls/hr Documented by: Meropenem 1 gm/ Sodium (Chloride) 100 mls @ 200 mls/hr IV ONETIME ONE Stop: 10/25/20 17:32 Last Admin: 10/25/20 17:42 Dose: Not Given Documented by: Vancomycin HCl 1 gm/ Sodium (Chloride) 250 mls @ 166 mls/hr IV ONETIME ONE Stop: 10/25/20 18:33 Last Admin: 10/25/20 17:41 Dose: 166 mls/hr Documented by: Meropenem/Sodium Chloride 1 gm (/ Premix) 50 mls @ 100 mls/hr IV ONETIME ONE Stop: 10/25/20 17:32 Last Admin: 10/25/20 17:41 Dose: 100 mls/hr Documented by: Meropenem/Sodium Chloride (Meropenem In Ns 1 Gm/50 Ml) 50 mls @ 100 mls/hr IV Q8H [facility] Last Admin: 10/26/20 00:41 Dose: Not Given Documented by: Meropenem/Sodium Chloride (Meropenem In Ns 1 Gm/50 Ml) 50 mls @ 100 mls/hr IV Q8H [facility] Last Admin: 10/26/20 00:30 Dose: 100 mls/hr Documented by: Meropenem/Sodium Chloride (Meropenem In Ns 1 Gm/50 Ml) 50 mls @ 100 mls/hr IV Q12H [facility] Last Admin: 10/28/20 00:10 Dose: 100 mls/hr Documented by: Vancomycin HCl 1 gm/ Sodium (Chloride) 250 mls @ 166.667 mls/hr IV Q48H [facility] Last Admin: 10/27/20 21:12 Dose: Not Given Documented by: Magnesium Sulfate (Magnesium Sulfate In Water 2 Gm/50 Ml) 2 gm in 50 mls @ 50 mls/hr IV ONETIME ONE Stop: 10/27/20 08:30 Last Admin: 10/27/20 08:00 Dose: 50 mls/hr Documented by: Vancomycin HCl 1 gm/ Sodium (Chloride) 250 mls @ 166.667 mls/hr IV Q24H [facility] Last Admin: 10/27/20 20:27 Dose: 166.667 mls/hr Documented by: Meropenem/Sodium Chloride 1 gm (/ Premix) 50 mls @ 100 mls/hr IV Q12H [facility] Ceftriaxone Sodium/Dextrose 1 (gm/ Premix) 50 mls @ 100 mls/hr IV Q24H [facility] Last Admin: 10/31/20 14:10 Dose: 100 mls/hr Documented by: Magnesium Sulfate (Magnesium Sulfate In Water 2 Gm/50 Ml) 2 gm in 50 mls @ 50 mls/hr IV ONETIME ONE Stop: 10/29/20 08:58 Last Admin: 10/29/20 08:58 Dose: 50 mls/hr Documented by: Magnesium Sulfate (Magnesium Sulfate In Water 2 Gm/50 Ml) 2 gm in 50 mls @ 50 mls/hr IV ONETIME ONE Stop: 10/31/20 08:29 Last Admin: 10/31/20 07:57 Dose: 50 mls/hr Documented by: Iodixanol (Iodixanol 652 Mg/Ml 100 Ml Bottle) 85 ml IVPUSH ONETIME ONE Stop: 10/25/20 18:42 Last Admin: 10/25/20 18:43 Dose: 85 ml Documented by: Magnesium Oxide (Magnesium Oxide 400 Mg Tab) 800 mg PO ONETIME ONE Stop: 10/30/20 09:31 Last Admin: 10/30/20 09:48 Dose: 800 mg Documented by: Vancomycin HCl (Pharmacy To Dose - Vancomycin) 1 dose .XX ASDIRECTED [facility] Warfarin Sodium (Warfarin 2.5 Mg Tab) 2.5 mg PO DAILY@1400 [facility] Stop: 10/30/20 15:00 Last Admin: 10/30/20 14:27 Dose: 2.5 mg Documented by: Warfarin Sodium (Warfarin 2.5 Mg Tab) 2.5 mg PO DAILY@1400 [facility] Stop: 10/31/20 15:00 Last Admin: 10/31/20 14:11 Dose: 2.5 mg Documented by: - Exam General: Reports: Alert, Oriented Lungs: Reports: Clear to Auscultation, Normal Respiratory Effort Cardiovascular: Reports: Regular Rate, Irregular Rhythm GI/Abdominal Exam: Soft, Non-Tender Extremities: No Pedal Edema <Johnathon,Hooria - Last Filed: 11/01/20 22:43> Discharge Summary - Hospital Course Free Text/Narrative:: I have seen and evaluated the patient and agree with the residents note unless specified in my note - Referral to Home Health Primary Care Physician: Mg Sung MD - Patient Summary/Data Consults: Consultations 10/27/20 09:57 Consult to Physical Therapy [PT Evaluation and Treatment] [CONS] Routine - Patient Data Vitals - Most Recent: Last Vital Signs Temp 36.5 C 11/01/20 11:14 Pulse 85 11/01/20 11:14 Resp 18 11/01/20 11:14 BP 126/79 11/01/20 11:14 Pulse Ox 96 11/01/20 11:14 I&O - Last 24 hours: Intake & Output 11/01/20 11/01/20 11/01/20 06:59 14:59 22:59 Intake Total 535 660 Output Total 1100 450 Balance -565 210 Lab Results - Last 24 hrs: Laboratory Results - last 24 hr 11/01/20 11/01/20 11/01/20 Range/Units 05:01 05:01 05:01 WBC 10.93 (4.0-11.0) K/uL RBC 4.39 (4.30-5.90) M/uL Hgb 13.5 (12.0-16.0) g/dL Hct 37.8 (36.0-46.0) % MCV 86.1 (80.0-98.0) fL MCH 30.8 (27.0-32.0) pg MCHC 35.7 (31.0-37.0) g/dL RDW Std Deviation 44.3 (28.0-62.0) fl RDW Coeff of Dg 14 (11.0-15.0) % Plt Count 202 (150-400) K/uL MPV 10.20 (7.40-12.00) fL Add Manual Diff YES Neutrophils % (Manual) 60 (48.0-80.0) % Band Neutrophils % 7 % Lymphocytes % (Manual) 18 (16.0-40.0) % Monocytes % (Manual) 13 (0.0-15.0) % Eosinophils % (Manual) 2 (0.0-7.0) % Nucleated RBC % 0.0 /100WBC Absolute Seg Neuts 6.6 H (1.4-5.7) Band Neutrophils # 0.8 Lymphocytes # (Manual) 2.0 (0.6-2.4) Monocytes # (Manual) 1.4 H (0.0-0.8) Eosinophils # (Manual) 0.2 (0.0-0.7) Nucleated RBCs # 0 K/uL INR 2.98 Sodium 128 L (136-145) mmol/L Potassium 4.3 (3.5-5.1) mmol/L Chloride 94 L (98-107) mmol/L Carbon Dioxide 30.2 (21.0-32.0) mmol/L BUN 13 (7.0-18.0) mg/dL Creatinine 0.7 (0.6-1.0) mg/dL Est Cr Clr Drug Dosing 46.54 mL/min Estimated GFR (MDRD) > 60.0 ml/min Glucose 97 (74-106) mg/dL Calcium 8.4 L (8.5-10.1) mg/dL Magnesium 1.8 (1.8-2.4) mg/dL PRADIP Results - Last 24 hrs: Microbiology 10/29/20 09:41 Aerobic Blood Culture - Preliminary Blood - Venous - Lab Draw NO GROWTH AFTER 3 DAYS Anaerobic Blood Culture - Preliminary NO GROWTH AFTER 3 DAYS 10/29/20 09:31 Aerobic Blood Culture - Preliminary Blood - Venous NO GROWTH AFTER 3 DAYS Anaerobic Blood Culture - Preliminary NO GROWTH AFTER 3 DAYS Med Orders - Current: Current Medications Discontinued Medications Acetaminophen (Acetaminophen 325 Mg Tab) 650 mg PO Q6H PRN PRN Reason: Pain Last Admin: 10/31/20 21:22 Dose: 650 mg Documented by: Aspirin (Aspirin 81 Mg Tab.Chew) 324 mg PO ONETIME ONE Stop: 10/25/20 17:19 Last Admin: 10/25/20 17:41 Dose: 324 mg Documented by: Digoxin (Digoxin 125 Mcg Tab) 125 mcg PO DAILY [facility] Last Admin: 11/01/20 09:55 Dose: 125 mcg Documented by: Furosemide (Furosemide 40 Mg/4 Ml Vial) 20 mg IVPUSH NOW ONE Stop: 10/25/20 19:46 Last Admin: 10/25/20 20:33 Dose: Not Given Documented by: Furosemide (Furosemide 40 Mg Tab) 40 mg PO DAILY [facility] Last Admin: 11/01/20 09:56 Dose: 40 mg Documented by: Sodium Chloride (Normal Saline) 1,000 mls @ 999 mls/hr IV STAT ONE Stop: 10/25/20 18:00 Last Admin: 10/25/20 17:41 Dose: 999 mls/hr Documented by: Meropenem 1 gm/ Sodium (Chloride) 100 mls @ 200 mls/hr IV ONETIME ONE Stop: 10/25/20 17:32 Last Admin: 10/25/20 17:42 Dose: Not Given Documented by: Vancomycin HCl 1 gm/ Sodium (Chloride) 250 mls @ 166 mls/hr IV ONETIME ONE Stop: 10/25/20 18:33 Last Admin: 10/25/20 17:41 Dose: 166 mls/hr Documented by: Meropenem/Sodium Chloride 1 gm (/ Premix) 50 mls @ 100 mls/hr IV ONETIME ONE Stop: 10/25/20 17:32 Last Admin: 10/25/20 17:41 Dose: 100 mls/hr Documented by: Meropenem/Sodium Chloride (Meropenem In Ns 1 Gm/50 Ml) 50 mls @ 100 mls/hr IV Q8H [facility] Last Admin: 10/26/20 00:41 Dose: Not Given Documented by: Meropenem/Sodium Chloride (Meropenem In Ns 1 Gm/50 Ml) 50 mls @ 100 mls/hr IV Q8H [facility] Last Admin: 10/26/20 00:30 Dose: 100 mls/hr Documented by: Meropenem/Sodium Chloride (Meropenem In Ns 1 Gm/50 Ml) 50 mls @ 100 mls/hr IV Q12H [facility] Last Admin: 10/28/20 00:10 Dose: 100 mls/hr Documented by: Vancomycin HCl 1 gm/ Sodium (Chloride) 250 mls @ 166.667 mls/hr IV Q48H [facility] Last Admin: 10/27/20 21:12 Dose: Not Given Documented by: Magnesium Sulfate (Magnesium Sulfate In Water 2 Gm/50 Ml) 2 gm in 50 mls @ 50 mls/hr IV ONETIME ONE Stop: 10/27/20 08:30 Last Admin: 10/27/20 08:00 Dose: 50 mls/hr Documented by: Vancomycin HCl 1 gm/ Sodium (Chloride) 250 mls @ 166.667 mls/hr IV Q24H [facility] Last Admin: 10/27/20 20:27 Dose: 166.667 mls/hr Documented by: Meropenem/Sodium Chloride 1 gm (/ Premix) 50 mls @ 100 mls/hr IV Q12H [facility] Ceftriaxone Sodium/Dextrose 1 (gm/ Premix) 50 mls @ 100 mls/hr IV Q24H [facility] Last Admin: 10/31/20 14:10 Dose: 100 mls/hr Documented by: Magnesium Sulfate (Magnesium Sulfate In Water 2 Gm/50 Ml) 2 gm in 50 mls @ 50 mls/hr IV ONETIME ONE Stop: 10/29/20 08:58 Last Admin: 10/29/20 08:58 Dose: 50 mls/hr Documented by: Magnesium Sulfate (Magnesium Sulfate In Water 2 Gm/50 Ml) 2 gm in 50 mls @ 50 mls/hr IV ONETIME ONE Stop: 10/31/20 08:29 Last Admin: 10/31/20 07:57 Dose: 50 mls/hr Documented by: Pantoprazole Sodium 40 mg/ (Sodium Chloride) 10 mls @ 300 mls/hr IV DAILY [facility] Last Admin: 11/01/20 10:02 Dose: 300 mls/hr Documented by: Ceftriaxone Sodium/Dextrose 1 (gm/ Premix) 50 mls @ 100 mls/hr IV Q24H [facility] Last Admin: 11/01/20 08:55 Dose: 100 mls/hr Documented by: Iodixanol (Iodixanol 652 Mg/Ml 100 Ml Bottle) 85 ml IVPUSH ONETIME ONE Stop: 10/25/20 18:42 Last Admin: 10/25/20 18:43 Dose: 85 ml Documented by: Magnesium Oxide (Magnesium Oxide 400 Mg Tab) 800 mg PO ONETIME ONE Stop: 10/30/20 09:31 Last Admin: 10/30/20 09:48 Dose: 800 mg Documented by: Metoprolol Tartrate (Metoprolol Tartrate 50 Mg Tab) 50 mg PO BID [facility] Last Admin: 11/01/20 09:57 Dose: 50 mg Documented by: Prednisolone Acetate /Pf [Prednisolone Acet 1% Eye Drop] 1 each EYEBOTH BID [facility] Last Admin: 11/01/20 09:59 Dose: 1 each Documented by: Dorzolamide/Timolol 2%-0.5% Ophth Soln 10 Ml Bottle 0 each EYEBOTH ACBREAKFAST [facility] Last Admin: 11/01/20 06:43 Dose: 1 each Documented by: Potassium Chloride (Potassium Chloride 20 Meq Tab.Er) 20 meq PO DAILY PRN PRN Reason: WITH LASIX Potassium Chloride (Potassium Chloride 20 Meq Tab.Er) 40 meq PO DAILY [facility] Last Admin: 11/01/20 09:58 Dose: 40 meq Documented by: Sertraline HCl (Sertraline 25 Mg Tab) 25 mg PO DAILY [facility] Last Admin: 11/01/20 09:55 Dose: 25 mg Documented by: Sodium Chloride (Sodium Chloride 0.9% 10 Ml Syringe) 10 ml FLUSH ASDIRECTED PRN PRN Reason: Keep Vein Open Last Admin: 10/25/20 16:24 Dose: 10 ml Documented by: Sodium Chloride (Sodium Chloride 0.9% 2.5 Ml Syringe) 2.5 ml FLUSH ASDIRECTED PRN PRN Reason: Keep Vein Open Last Admin: 10/25/20 16:24 Dose: 2.5 ml Documented by: Vancomycin HCl (Pharmacy To Dose - Vancomycin) 1 dose .XX ASDIRECTED [facility] Warfarin Sodium (Warfarin Ask Dosing) 1 each PO Q24H [facility] Last Admin: 10/31/20 14:11 Dose: Not Given Documented by: Warfarin Sodium (Warfarin 2.5 Mg Tab) 2.5 mg PO DAILY@1400 [facility] Stop: 10/30/20 15:00 Last Admin: 10/30/20 14:27 Dose: 2.5 mg Documented by: Warfarin Sodium (Warfarin 2.5 Mg Tab) 2.5 mg PO DAILY@1400 [facility] Stop: 10/31/20 15:00 Last Admin: 10/31/20 14:11 Dose: 2.5 mg Documented by: Warfarin Sodium (Warfarin 2 Mg Tab) 2 mg PO DAILY@1400 [facility] Stop: 11/01/20 15:00
[2020-11-01] MEDS ORDERED: Warfarin 2 MG Tab PO SCH (14:00)
--- NOTE | 2020-11-02 16:28 | US ---
The ECHO report has been scanned into [facility] [facility] and can be seen in this patient's EMR (Electronic Medical Record) under the REPORTS section. The report has also been scanned into PACS. DES
== END 2020-11-01 13:28 | DRG 871 ==
LOC: MW.ED 15:21 → MW.MS 19:56
PROVIDERS: ADMIT Internal Medicine; ATTEND Internal Medicine
DX: A41.9 Sepsis, unspecified organism (principal); N30.01 Acute cystitis with hematuria; I50.9 Heart failure, unspecified; J96.01 Acute respiratory failure with hypoxia; R09.02 Hypoxemia; R77.8 Other specified abnormalities of plasma proteins; I50.33 Acute on chronic diastolic (congestive) heart failure; N39.0 Urinary tract infection, site not specified; N17.9 Acute kidney failure, unspecified; R65.20 Severe sepsis without septic shock; Z85.828 Personal history of other malignant neoplasm of skin; Z87.440 Personal history of urinary (tract) infections; Z88.2 Allergy status to sulfonamides; Z88.8 Allergy status to other drugs, medicaments and biological substances; Z79.01 Long term (current) use of anticoagulants; Z79.899 Other long term (current) drug therapy; I48.91 Unspecified atrial fibrillation; I11.0 Hypertensive heart disease with heart failure; J45.909 Unspecified asthma, uncomplicated; Z51.5 Encounter for palliative care; H54.7 Unspecified visual loss; H40.9 Unspecified glaucoma; Z20.822 Contact with and (suspected) exposure to COVID-19
CPT/HCPCS: 0240U; 36415; 71045; 71275; 74176; 80048; 80053; 80162; 80202; 81001; 82803; 83605; 83735; 83880; 84100; 84484; 85025; 85379; 85610; 85730; 87040; 87086; 87088; 87186; 93005; 93306; 96365; 96368; 97110; 97162; 97530; 99285; 93010; A9270-GY; C9113; J0696; J2185; J3370; J3475; J7030; J7050; U0002

== ENCOUNTER 2020-11-29 14:46 | Observation (INO) | payer MEDICARE, BC ==
--- NOTE | 2020-11-29 15:13 | EDM.PDOC ---
ED HPI GENERAL MEDICAL PROBLEM - General Chief Complaint: Respiratory Problem Stated Complaint: OXYGEN LEVEL LOW Time Seen by Provider: 11/29/20 14:50 Source of Information: Reports: Patient History Limitations: Reports: No Limitations - History of Present Illness INITIAL COMMENTS - FREE TEXT/NARRATIVE: Patient is an 89-year-old female who presents today for low oxygen saturation. Patient was working with her physical therapist at home when she went to the bathroom and came back he checked her pulse ox and it was 81% on room air. Patient that time did not have any symptoms. Patient arrived here approximately was still around 82% on room air. She was placed on 3 L nasal cannula oxygen level improved to 99% we down down treated to 1 L and her oxygen level remained greater than 95%. On exam patient denies any symptoms shortness of breath cough fever chills nausea vomiting. Patient was in the hospital a few days ago for a UTI. - Related Data Allergies Allergy/AdvReac Type Severity Reaction Status Date / Time enalapril maleate Allergy Rash Verified 11/29/20 15:01 [From Vasotec] enalaprilat dihydrate Allergy Rash Verified 11/29/20 15:01 [From Vasotec] Sulfa (Sulfonamide Allergy Other Verified 11/29/20 15:01 Antibiotics) Home Meds: Home Meds ALPRAZolam [Xanax XR] 1 mg PO BEDTIME 03/12/20 [History] Calcium Carbonate [Calcium] 1 tab PO DAILY 03/12/20 [History] Digoxin [Lanoxin] 125 mcg PO DAILY 03/12/20 [History] Lutein/Minerals/Vit A,C & E [Ocuvite] 1 tab PO DAILY 03/12/20 [History] Multivitamin [Multi-Vitamin Daily] 1 tab PO DAILY 03/12/20 [History] Potassium Chloride 20 meq PO DAILY PRN 03/12/20 [History] Prednisolone Acetate/Pf [Prednisolone Acet 1% Eye Drop] 1 drop EYEBOTH BID 03/12/20 [History] amLODIPine [Norvasc] 10 mg PO DAILY 03/12/20 [History] Metoprolol Tartrate 50 mg PO BID 03/13/20 [History] Warfarin [Coumadin] 2.5 mg PO SUMOWETHFRSA 03/13/20 [History] Warfarin [Coumadin] 5 mg PO TU 08/09/20 [History] Oxybutynin 5 mg PO BID #60 tablet 03/15/20 [Rx] Dorzolamide/Timolol [Cosopt 2%-0.5% Ophth Soln] 1 drop EYEBOTH ACBREAKFAST 10/25/20 [History] Furosemide 40 mg PO DAILY 10/25/20 [History] Sertraline [Zoloft] 25 mg PO DAILY 10/25/20 [History] Losartan [Cozaar] 50 mg PO DAILY #30 tab 11/01/20 [Rx] cefTRIAXone [Rocephin in Dextrose,Iso-Osm 1 GM/50 ML] 1 gm IV Q24H #6 bag 11/01/20 [Rx] Past Medical History HEENT History: Reports: Glaucoma, Impaired Vision Cardiovascular History: Reports: Afib, Heart Failure, Hypertension Respiratory History: Reports: None Gastrointestinal History: Reports: None Genitourinary History: Reports: UTI, Recurrent G[employer] BLASTING History: Reports: None Musculoskeletal History: Reports: None Neurological History: Reports: None Psychiatric History: Reports: None Endocrine/Metabolic History: Reports: None Hematologic History: Reports: None Immunologic History: Reports: None Oncologic (Cancer) History: Reports: Other (See Below) Other Oncologic History: 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 Dermatologic History: Reports: None - Infectious Disease History Infectious Disease History: Reports: Chicken Pox, Measles, Mumps - Past Surgical History Head Surgeries/Procedures: Reports: None HEENT Surgical History: Reports: None Cardiovascular Surgical History: Reports: None Respiratory Surgical History: Reports: None GI Surgical History: Reports: Appendectomy Female Surgical History: Reports: Section Endocrine Surgical History: Reports: None Neurological Surgical History: Reports: None Musculoskeletal Surgical History: Reports: None Oncologic Surgical History: Reports: None Dermatological Surgical History: Reports: None Social & Family History - Family History Family Medical History: No Pertinent Family History - Caffeine Use Caffeine Use: Reports: None - Recreational Drug Use Recreational Drug Use: No ED ROS GENERAL - Review of Systems Review Of Systems: See Below Constitutional: Reports: No Symptoms HEENT: Reports: No Symptoms Respiratory: Reports: No Symptoms Cardiovascular: Reports: No Symptoms Endocrine: Reports: No Symptoms GI/Abdominal: Reports: No Symptoms : Reports: No Symptoms Musculoskeletal: Reports: No Symptoms Skin: Reports: No Symptoms Neurological: Reports: No Symptoms Psychiatric: Reports: No Symptoms Hematologic/Lymphatic: Reports: No Symptoms Immunologic: Reports: No Symptoms ED EXAM, GENERAL - Physical Exam Exam: See Below Exam Limited By: No Limitations General Appearance: Alert, WD/WN, No Apparent Distress Throat/Mouth: Normal Gums Head: Atraumatic, Normocephalic Neck: Normal Inspection, Supple, Non-Tender, Full Range of Motion Respiratory/Chest: No Respiratory Distress, Lungs Clear, Normal Breath Sounds Cardiovascular: Normal Peripheral Pulses, Regular Rate, Rhythm GI/Abdominal: Normal Bowel Sounds, Soft, Non-Tender Back Exam: Normal Inspection, Full Range of Motion, NT Extremities: Normal Inspection, Normal Range of Motion, Non-Tender Neurological: Alert, Oriented, CN II-XII Intact, Normal Cognition, Normal Gait #1 Interpretation EKG Date: 11/22/20 Time: 15:24 Rhythm: A-Fib Rate (Beats/Min): 58 ST-T: Normal Course - Vital Signs Last Recorded V/S: Last Vital Signs Temp 97.9 F 11/29/20 14:57 Pulse 63 11/29/20 15:47 Resp 14 11/29/20 15:47 BP 111/51 L 11/29/20 15:47 Pulse Ox 92 L 11/29/20 15:56 - Orders/Labs/Meds Orders: Active Orders 24 hr Category Date Time Status Patient Status [ADT] Routine ADT 11/29/20 17:45 Ordered EKG Documentation Completion [RC] STAT Care 11/29/20 15:10 Active Oxygen Therapy Adult [Oxygen Therapy, ED] [RC] Care 11/29/20 15:00 Active ASDIRECTED ABG [BLOOD GAS ARTERIAL] [BG] Stat Lab 11/29/20 17:43 Ordered CORONAVIRUS COVID-19 ACOSTA [MOLEC] Stat Lab 11/29/20 17:18 Ordered INR,PT,PROTHROMBIN TIME [COAG] Stat Lab 11/29/20 17:42 Ordered PTT,PARTIAL THROMBOPLSTIN TIME [COAG] Stat Lab 11/29/20 17:42 Ordered Sodium Chloride 0.9% [Normal Saline] 1,000 ml Med 11/29/20 17:17 Active IV .Bolus Medication Orders Sodium Chloride (Normal Saline) 1,000 mls @ 1,000 mls/hr IV .Bolus ONE Stop: 11/29/20 18:16 Last Admin: 11/29/20 17:38 Dose: 1,000 mls/hr Documented by: ÓSCAR Labs: Laboratory Tests 11/29/20 11/29/20 11/29/20 Range/Units 15:21 15:21 15:21 WBC 6.54 (4.0-11.0) K/uL RBC 3.79 L (4.30-5.90) M/uL Hgb 11.3 L (12.0-16.0) g/dL Hct 32.4 L (36.0-46.0) % MCV 85.5 (80.0-98.0) fL MCH 29.8 (27.0-32.0) pg MCHC 34.9 (31.0-37.0) g/dL RDW Std Deviation 47.3 (28.0-62.0) fl RDW Coeff of Dg 16 H (11.0-15.0) % Plt Count 304 (150-400) K/uL MPV 9.70 (7.40-12.00) fL Neut % (Auto) 63.2 (48.0-80.0) % Lymph % (Auto) 20.3 (16.0-40.0) % [place] % (Auto) 12.8 (0.0-15.0) % Eos % (Auto) 2.8 (0.0-7.0) % Baso % (Auto) 0.9 (0.0-1.5) % Neut # (Auto) 4.1 (1.4-5.7) K/uL Lymph # (Auto) 1.3 (0.6-2.4) K/uL [place] # (Auto) 0.8 (0.0-0.8) K/uL Eos # (Auto) 0.2 (0.0-0.7) K/uL Baso # (Auto) 0.1 (0.0-0.1) K/uL Nucleated RBC % 0.0 /100WBC Nucleated RBCs # 0 K/uL D-Dimer, Quantitative 1.12 H (0.0-0.50) mg/L FEU Sodium 134 L (136-145) mmol/L Potassium 4.1 (3.5-5.1) mmol/L Chloride 99 (98-107) mmol/L Carbon Dioxide 28.5 (21.0-32.0) mmol/L BUN 24 H (7.0-18.0) mg/dL Creatinine 1.3 H (0.6-1.0) mg/dL Est Cr Clr Drug Dosing 24.79 mL/min Estimated GFR (MDRD) 38.6 ml/min Glucose 120 H (74-106) mg/dL Calcium 8.5 (8.5-10.1) mg/dL Total Bilirubin 0.5 (0.2-1.0) mg/dL AST 21 (15-37) IU/L ALT 19 (14-63) IU/L Alkaline Phosphatase 107 (46-116) U/L Troponin I < 0.050 (0.000-0.056) ng/mL Total Protein 6.2 L (6.4-8.2) g/dL Albumin 2.5 L (3.4-5.0) g/dL Globulin 3.7 (2.6-4.0) g/dL Albumin/Globulin Ratio 0.7 L (0.9-1.6) Lipase 138 (73-393) U/L Meds: Medications Generic Name Dose Route Start Last Admin Trade Name Freq PRN Reason Stop Dose Admin Sodium Chloride 1,000 mls @ 1,000 mls/hr 11/29/20 17:17 11/29/20 17:38 Normal Saline IV 11/29/20 18:16 1,000 mls/hr .Bolus ONE Administration Discontinued Medications Generic Name Dose Route Start Last Admin Trade Name Freq PRN Reason Stop Dose Admin Iopamidol 50 ml 11/29/20 17:25 11/29/20 17:26 Iopamidol 755 Mg/Ml 500 Ml Multipack Bottle IVPUSH 11/29/20 17:26 50 ml ONETIME STA Administration Departure - Departure Time of Disposition: 17:46 Disposition: Refer to Observation Condition: Good Clinical Impression: Hypoxia - Discharge Information *PRESCRIPTION DRUG MONITORING PROGRAM REVIEWED*: Not Applicable *COPY OF PRESCRIPTION DRUG MONITORING REPORT IN PATIENT KARL: Not Applicable Referrals: PCP,None [Primary Care Provider] - Forms: ED Department Discharge Sepsis Event Note (ED) - Evaluation Sepsis Screening Result: No Definite Risk - Focused Exam Vital Signs: Vital Signs Temp Pulse Resp BP Pulse Ox Pulse Ox 11/29/20 15:56 92 L 11/29/20 15:47 63 14 111/51 L 95 11/29/20 15:00 98 98 11/29/20 14:57 97.9 F 70 16 122/62 82 L - My Orders Last 24 Hours: My Active Orders 11/29/20 15:00 Oxygen Therapy Adult [Oxygen Therapy, ED] [RC] ASDIRECTED 11/29/20 15:10 EKG Documentation Completion [RC] STAT 11/29/20 17:17 Sodium Chloride 0.9% [Normal Saline] 1,000 ml IV .Bolus 11/29/20 17:18 CORONAVIRUS COVID-19 ACOSTA [MOLEC] Stat 11/29/20 17:42 INR,PT,PROTHROMBIN TIME [COAG] Stat PTT,PARTIAL THROMBOPLSTIN TIME [COAG] Stat 11/29/20 17:43 ABG [BLOOD GAS ARTERIAL] [BG] Stat 11/29/20 17:45 Patient Status [ADT] Routine - Assessment/Plan Last 24 Hours: My Active Orders 11/29/20 15:00 Oxygen Therapy Adult [Oxygen Therapy, ED] [RC] ASDIRECTED 11/29/20 15:10 EKG Documentation Completion [RC] STAT 11/29/20 17:17 Sodium Chloride 0.9% [Normal Saline] 1,000 ml IV .Bolus 11/29/20 17:18 CORONAVIRUS COVID-19 ACOSTA [MOLEC] Stat 11/29/20 17:42 INR,PT,PROTHROMBIN TIME [COAG] Stat PTT,PARTIAL THROMBOPLSTIN TIME [COAG] Stat 11/29/20 17:43 ABG [BLOOD GAS ARTERIAL] [BG] Stat 11/29/20 17:45 Patient Status [ADT] Routine Plan: Patient is 89-year-old female who presents today for low O2. Unclear reasons a low O2. Will obtain EKG labs x-ray and reassess patient.
[2020-11-29 16:01] LABS: BLOOD UREA NITROGEN,BUN 24 mg/dL (7.0-18.0); CARBON DIOXIDE,CO2 28.5 mmol/L (21.0-32.0); CHLORIDE,CL 99 mmol/L (98-107); GLUCOSE RANDOM 120 mg/dL (74-106); LIPASE 138 U/L (73-393); POTASSIUM,K 4.1 mmol/L (3.5-5.1); SODIUM,NA 134 mmol/L (136-145)
--- NOTE | 2020-11-29 16:23 | CR ---
HISTORY: Shortness of breath. Low O2 COMPARISON: Portable chest and CT of the abdomen and pelvis from 10/25/2020 FINDINGS: A portable erect AP view of the chest was obtained at 1536 hours. Again seen is moderate eventration of the right hemidiaphragm associated with patchy consolidation of the right lung base, probably atelectasis. Again seen are a tiny left pleural effusion and what is probably a small right pleural effusion. The rest of the chest remains clear. The heart remains top normal in size. The mediastinum is normal in appearance. Again seen is mild scoliosis of the lumbar spine convex towards the left. IMPRESSION: No change in mild linear consolidation of the right lung base associated with moderate eventration of the right hemidiaphragm. No change in small right and tiny left pleural effusions. Dictated by Mervin Mujica MD @ 11/29/2020 4:22:[address] Mervin Mujica @ Nov 29 2020 4:22PM
[2020-11-29] MEDS ORDERED: Sodium Chloride 0.9% 1,000 ML IV ONE (17:17)
[2020-11-29] MEDS ORDERED: Iopamidol 755 MG/ML 500 ML Multipack Bottle IVPUSH STA (17:25)
--- NOTE | 2020-11-29 17:38 | CT ---
INDICATION: Hypoxia, elevated D-dimer TECHNIQUE: CT chest pulmonary angiogram acquired with IV contrast. 50 cc Isovue 370 COMPARISON: 10/25/2020 FINDINGS: Cardiovascular structures: Normal vascular enhancement of the pulmonary arteries, no sign of pulmonary embolism. Cardiomegaly. No sign of aneurysm or dissection in the thoracic aorta. Mediastinum and ethel: Mediastinal adenopathy. Large hiatal hernia extending into the right hemithorax. Lungs: Unremarkable. Pleura and pericardium: Large right pleural effusion with adjacent atelectasis. Small left pleural effusion with adjacent atelectasis. Chest wall and axilla: No mass or adenopathy. Bones: Degenerative changes thoracic spine. Upper abdomen: Unremarkable. IMPRESSION: No evidence of pulmonary embolus. Large right and small left pleural effusions with adjacent atelectasis. Cardiomegaly. Large hiatal hernia extending into the right hemithorax. Please note that all CT scans at this facility use dose modulation, iterative reconstruction, and/or weight-based dosing when appropriate to reduce radiation dose to as low as reasonably achievable. Dictated by Nadir Vazquez MD @ 11/29/2020 5:36:[address] Nadir Vazquez @ Nov 29 2020 5:36PM
[2020-11-29] MEDS ORDERED: Metoprolol Succinate 50 MG Tab.ER PO ONE (17:49)
[2020-11-29] MEDS ORDERED: Furosemide 40 MG/4 ML VIAL IVPUSH ONE (18:24)
[2020-11-29] MEDS ORDERED: Ondansetron 4 MG/2 ML SDV IVPUSH PRN (18:25)
[2020-11-29] MEDS ORDERED: Albuterol/Ipratropium 3.0-0.5 MG/3 ML Neb Soln NEB PRN (18:25)
--- NOTE | 2020-11-29 19:13 | PCM.HP.2 ---
H&P History of Present Illness - General Date of Service: 11/29/20 Admit Problem/Dx: Admission Diagnosis/Problem Admission Diagnosis/Problem Hypoxia - History of Present Illness Initial Comments - Free Text/Narative: 89 yo female with pmh of atrial fibrillation on warfarin, CHF, HTN, and asthma admitted for low oxygen saturations while she was with PT at home. Patient was recently discharged from a rehab stay [place] after her hospitalization here for UTI. She was sent to [place] with oxygen for hypoxia where she was weaned off the oxygen eventfully. Patient has been doing well ever since has no active com plaints other than occasional dizziness. Patient states she was doing PT with home PT and they noticed her oxgen level was low on ambulation so she was bought in to the hospital, in the ER she was found to be beeding 1 to [address] chest showed right side large pleural effusion and right sides hiatal hernia extending into right hemithorax. Patient was admitted for further management. Upon my exam patient was resting comfortably, no acute distress or pain, i explained the findings on CT chest to the patient, she expressed that she is no interested in any sort of surgery for the hernia and "would like to leave it alone", about the large right pleural effusion, she says she will think about if she is willing to get it drained in future. - Related Data Allergies/Adverse Reactions: Allergies Allergy/AdvReac Type Severity Reaction Status Date / Time enalapril maleate Allergy Rash Verified 11/29/20 22:16 [From Vasotec] enalaprilat dihydrate Allergy Rash Verified 11/29/20 22:16 [From Vasotec] Sulfa (Sulfonamide Allergy Other Verified 11/29/20 22:16 Antibiotics) Home Medications: Home Meds ALPRAZolam [Xanax XR] 1 mg PO BEDTIME 03/12/20 [History] Calcium Carbonate [Calcium] 1 tab PO DAILY 03/12/20 [History] Digoxin [Lanoxin] 125 mcg PO DAILY 03/12/20 [History] Lutein/Minerals/Vit A,C & E [Ocuvite] 1 tab PO DAILY 03/12/20 [History] Multivitamin [Multi-Vitamin Daily] 1 tab PO DAILY 03/12/20 [History] Potassium Chloride 20 meq PO DAILY PRN 03/12/20 [History] Prednisolone Acetate/Pf [Prednisolone Acet 1% Eye Drop] 1 drop EYEBOTH BID 03/12/20 [History] amLODIPine [Norvasc] 10 mg PO DAILY 03/12/20 [History] Metoprolol Tartrate 50 mg PO BID 03/13/20 [History] Warfarin [Coumadin] 2.5 mg PO SUMOWETHFRSA 03/13/20 [History] Warfarin [Coumadin] 5 mg PO TU 03/13/20 [History] Oxybutynin 5 mg PO BID #60 tablet 03/15/20 [Rx] Dorzolamide/Timolol [Cosopt 2%-0.5% Ophth Soln] 1 drop EYEBOTH ACBREAKFAST 10/25/20 [History] Furosemide 40 mg PO DAILY 10/25/20 [History] Sertraline [Zoloft] 25 mg PO DAILY 10/25/20 [History] Losartan [Cozaar] 50 mg PO DAILY #30 tab 11/01/20 [Rx] cefTRIAXone [Rocephin in Dextrose,Iso-Osm 1 GM/50 ML] 1 gm IV Q24H #6 bag 11/01/20 [Rx] Past Medical History HEENT History: Reports: Glaucoma, Impaired Vision Cardiovascular History: Reports: Afib, Heart Failure, Hypertension Respiratory History: Reports: None Gastrointestinal History: Reports: None Genitourinary History: Reports: UTI, Recurrent [employer] History: Reports: None Musculoskeletal History: Reports: None Neurological History: Reports: None Psychiatric History: Reports: None Endocrine/Metabolic History: Reports: None Hematologic History: Reports: None Immunologic History: Reports: None Oncologic (Cancer) History: Reports: Other (See Below) Other Oncologic History: 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 Dermatologic History: Reports: None - Infectious Disease History Infectious Disease History: Reports: Chicken Pox, Measles, Mumps - Past Surgical History Head Surgeries/Procedures: Reports: None HEENT Surgical History: Reports: None Cardiovascular Surgical History: Reports: None Respiratory Surgical History: Reports: None GI Surgical History: Reports: Appendectomy Female Surgical History: Reports: Section Endocrine Surgical History: Reports: None Neurological Surgical History: Reports: None Musculoskeletal Surgical History: Reports: None Oncologic Surgical History: Reports: None Dermatological Surgical History: Reports: None Social & Family History - Family History Family Medical History: No Pertinent Family History - Caffeine Use Caffeine Use: Reports: None - Recreational Drug Use Recreational Drug Use: No H&P Review of Systems - Review of Systems: Review Of Systems: See Below General: Denies: Fever, Chills, Malaise Pulmonary: Denies: Shortness of Breath Cardiovascular: Reports: Lightheadedness. Denies: Chest Pain, Palpitations, Dyspnea on Exertion, Orthopnea, Syncope Gastrointestinal: Denies: Abdominal Pain, Anorexia, Black Stool, Distension Genitourinary: Denies: Dysuria, Frequency, Burning Musculoskeletal: Denies: Neck Pain, Shoulder Pain Skin: Denies: Cyanosis, Jaundice, Pallor Psychiatric: Denies: Confusion, Depression, Mood Lability Neurological: Denies: Confusion, Dizziness, Headache Exam - Exam Exam: See Below - Vital Signs Vital Signs: Last Vital Signs Temp 36.6 C 11/29/20 14:57 Pulse 71 11/29/20 17:47 Resp 14 11/29/20 17:47 BP 113/64 11/29/20 17:47 Pulse Ox 99 11/29/20 17:47 Weight: 53.524 kg - Exam Quality Assessment: Supplemental Oxygen General: Alert, Oriented Neck: Supple, Trachea Midline Lungs: Clear to Auscultation, Normal Respiratory Effort, Decreased Breath Sounds (right lung) Cardiovascular: Regular Rate, Regular Rhythm GI/Abdominal Exam: Normal Bowel Sounds, Soft, Non-Tender Extremities: Normal Inspection, Normal Range of Motion, Non-Tender - Patient Data Lab Results Last 24 hrs: Laboratory Results - last 24 hr 11/29/20 11/29/20 11/29/20 Range/Units 15:21 15:21 15:21 WBC 6.54 (4.0-11.0) K/uL RBC 3.79 L (4.30-5.90) M/uL Hgb 11.3 L (12.0-16.0) g/dL Hct 32.4 L (36.0-46.0) % MCV 85.5 (80.0-98.0) fL MCH 29.8 (27.0-32.0) pg MCHC 34.9 (31.0-37.0) g/dL RDW Std Deviation 47.3 (28.0-62.0) fl RDW Coeff of Dg 16 H (11.0-15.0) % Plt Count 304 (150-400) K/uL MPV 9.70 (7.40-12.00) fL Neut % (Auto) 63.2 (48.0-80.0) % Lymph % (Auto) 20.3 (16.0-40.0) % [place] % (Auto) 12.8 (0.0-15.0) % Eos % (Auto) 2.8 (0.0-7.0) % Baso % (Auto) 0.9 (0.0-1.5) % Neut # (Auto) 4.1 (1.4-5.7) K/uL Lymph # (Auto) 1.3 (0.6-2.4) K/uL [place] # (Auto) 0.8 (0.0-0.8) K/uL Eos # (Auto) 0.2 (0.0-0.7) K/uL Baso # (Auto) 0.1 (0.0-0.1) K/uL Nucleated RBC % 0.0 /100WBC Nucleated RBCs # 0 K/uL INR APTT (18.6-31.3) SEC D-Dimer, Quantitative 1.12 H (0.0-0.50) mg/L FEU ABG pH (7.35-7.45) ABG pCO2 (35-45) mmHG ABG pO2 (75-100) mmHG ABG HCO3 (22-26) mEq/L ABG Total CO2 ABG Base Excess (-2.0-2.0) Sodium 134 L (136-145) mmol/L Potassium 4.1 (3.5-5.1) mmol/L Chloride 99 (98-107) mmol/L Carbon Dioxide 28.5 (21.0-32.0) mmol/L BUN 24 H (7.0-18.0) mg/dL Creatinine 1.3 H (0.6-1.0) mg/dL Est Cr Clr Drug Dosing 24.79 mL/min Estimated GFR (MDRD) 38.6 ml/min Glucose 120 H (74-106) mg/dL Calcium 8.5 (8.5-10.1) mg/dL Total Bilirubin 0.5 (0.2-1.0) mg/dL AST 21 (15-37) IU/L ALT 19 (14-63) IU/L Alkaline Phosphatase 107 (46-116) U/L Troponin I < 0.050 (0.000-0.056) ng/mL Total Protein 6.2 L (6.4-8.2) g/dL Albumin 2.5 L (3.4-5.0) g/dL Globulin 3.7 (2.6-4.0) g/dL Albumin/Globulin Ratio 0.7 L (0.9-1.6) Lipase 138 (73-393) U/L SARS-CoV-2 RNA ([facility]) (NEGATIVE) 11/29/20 11/29/20 11/29/20 Range/Units 17:40 18:05 Unknown WBC (4.0-11.0) K/uL RBC (4.30-5.90) M/uL Hgb (12.0-16.0) g/dL Hct (36.0-46.0) % MCV (80.0-98.0) fL MCH (27.0-32.0) pg MCHC (31.0-37.0) g/dL RDW Std Deviation (28.0-62.0) fl RDW Coeff of Dg (11.0-15.0) % Plt Count (150-400) K/uL MPV (7.40-12.00) fL Neut % (Auto) (48.0-80.0) % Lymph % (Auto) (16.0-40.0) % [place] % (Auto) (0.0-15.0) % Eos % (Auto) (0.0-7.0) % Baso % (Auto) (0.0-1.5) % Neut # (Auto) (1.4-5.7) K/uL Lymph # (Auto) (0.6-2.4) K/uL [place] # (Auto) (0.0-0.8) K/uL Eos # (Auto) (0.0-0.7) K/uL Baso # (Auto) (0.0-0.1) K/uL Nucleated RBC % /100WBC Nucleated RBCs # K/uL INR 14.36 H* APTT 72.4 H (18.6-31.3) SEC D-Dimer, Quantitative (0.0-0.50) mg/L FEU ABG pH 7.409 (7.35-7.45) ABG pCO2 42 (35-45) mmHG ABG pO2 79 (75-100) mmHG ABG HCO3 27 H (22-26) mEq/L ABG Total CO2 24.8 ABG Base Excess 1.9 (-2.0-2.0) Sodium (136-145) mmol/L Potassium (3.5-5.1) mmol/L Chloride (98-107) mmol/L Carbon Dioxide (21.0-32.0) mmol/L BUN (7.0-18.0) mg/dL Creatinine (0.6-1.0) mg/dL Est Cr Clr Drug Dosing mL/min Estimated GFR (MDRD) ml/min Glucose (74-106) mg/dL Calcium (8.5-10.1) mg/dL Total Bilirubin (0.2-1.0) mg/dL AST (15-37) IU/L ALT (14-63) IU/L Alkaline Phosphatase (46-116) U/L Troponin I (0.000-0.056) ng/mL Total Protein (6.4-8.2) g/dL Albumin (3.4-5.0) g/dL Globulin (2.6-4.0) g/dL Albumin/Globulin Ratio (0.9-1.6) Lipase (73-393) U/L SARS-CoV-2 RNA ([facility]) NEGATIVE (NEGATIVE) Result Diagrams: 11/29/20 15:21 11/29/20 15:21 Sepsis Event Note - Evaluation Sepsis Screening Result: No Definite Risk - Focused Exam Vital Signs: Vital Signs Temp Pulse Resp BP Pulse Ox Pulse Ox 11/29/20 17:47 71 14 113/64 99 11/29/20 15:56 92 L 11/29/20 15:47 63 14 111/51 L 95 11/29/20 15:00 98 98 11/29/20 14:57 36.6 C 70 16 122/62 82 L - Problem List (1) Hypoxic SNOMED Code(s): 026542361 ICD Code: R09.02 - HYPOXEMIA Status: Acute Current Visit: Yes (2) Acute respiratory failure with hypoxia SNOMED Code(s): 93572207, 397261483 ICD Code: J96.01 - ACUTE RESPIRATORY FAILURE WITH HYPOXIA Status: Acute Current Visit: No (3) Anticoagulant long-term use SNOMED Code(s): 756248954 ICD Code: Z79.01 - M[facility] (CURRENT) USE OF ANTICOAGULANTS Status: Acute Current Visit: No (4) CHF, Congestive heart failure SNOMED Code(s): 61812420 ICD Code: I50.9 - HEART FAILURE, UNSPECIFIED Status: Chronic Current Visit: No (5) History of atrial fibrillation SNOMED Code(s): 253981451 ICD Code: Z86.79 - PERSONAL HISTORY OF OTHER DISEASES OF THE CIRCULATORY SYSTEM Status: Chronic Current Visit: No (6) Hypertension SNOMED Code(s): 26893234 ICD Code: I10 - ESSENTIAL (PRIMARY) HYPERTENSION Status: Chronic Current Visit: No (7) Hiatal hernia SNOMED Code(s): 54873461 ICD Code: K44.9 - DIAPHRAGMATIC HERNIA WITHOUT OBSTRUCTION OR GANGRENE Status: Acute Current Visit: Yes Problem List Initiated/Reviewed/Updated: Yes Orders Last 24hrs: Active Orders 24 hr Category Date Time Status Patient Status [ADT] Routine ADT 11/29/20 17:45 Active Ambulate [RC] ASDIRECTED Care 11/29/20 18:25 Active Antiembolic Devices [RC] PER UNIT ROUTINE Care 11/29/20 18:26 Active EKG Documentation Completion [RC] STAT Care 11/29/20 15:10 Active Oxygen Therapy Adult [Oxygen Therapy, ED] [RC] Care 11/29/20 15:00 Active ASDIRECTED Oxygen Therapy [RC] PRN Care 11/29/20 18:25 Active RT Aerosol Therapy [RC] ASDIRECTED Care 11/29/20 18:26 Active RT Incentive Spirometry [RC] Q2HWA Care 11/29/20 18:27 Active VTE/DVT Education [RC] PER UNIT ROUTINE Care 11/29/20 18:25 Active Vital Signs [RC] Q4H Care 11/29/20 18:25 Active Heart Healthy Diet [DIET] Diet 11/29/20 Dinner Active INR,PT,PROTHROMBIN TIME [COAG] AM Lab 12/01/20 05:11 Ordered INR,PT,PROTHROMBIN TIME [COAG] AM Lab 12/02/20 05:11 Ordered INR,PT,PROTHROMBIN TIME [COAG] AM Lab 12/03/20 05:11 Ordered INR,PT,PROTHROMBIN TIME [COAG] AM Lab 12/04/20 05:11 Ordered ALPRAZolam [Xanax XR] Med 11/29/20 21:00 Active 1 mg PO BEDTIME Acetaminophen [TylenoL] Med 11/29/20 18:25 Active 650 mg PO Q4H PRN Albuterol/Ipratropium [DuoNeb 3.0-0.5 MG/3 ML] Med 11/29/20 18:25 Active 3 ml NEB Q4HRRT PRN Digoxin [Lanoxin] Med 11/30/20 09:00 Active 125 mcg PO DAILY Dorzolamide/Timolol [Cosopt 2%-0.5% Ophth Soln] Med 11/30/20 07:30 Ordered DOSE ml EYEBOTH ACBREAKFAST Metoprolol Tartrate [Lopressor] Med 11/29/20 21:00 Active 50 mg PO BID Ondansetron [Zofran] Med 11/29/20 18:25 Active 4 mg IVPUSH Q4H PRN Oxybutynin Med 11/29/20 21:00 Active 5 mg PO BID Prednisolone Acetate/Pf [Prednisolone Acet 1% Eye Drop] Med 11/29/20 21:00 Active 1 drop EYEBOTH BID Sertraline [Zoloft] Med 11/30/20 09:00 Active 25 mg PO DAILY amLODIPine [Norvasc] Med 11/30/20 09:00 Active 10 mg PO DAILY Sequential Compression Device [OM.PC] Per Unit Routine Oth 11/29/20 18:25 Ordered Medication Orders Acetaminophen (Acetaminophen 325 Mg Tab) 650 mg PO Q4H PRN PRN Reason: Pain (Mild 1-3)/fever Albuterol/Ipratropium (Albuterol/Ipratropium 3.0-0.5 Mg/3 Ml Neb Soln) 3 ml NEB Q4HRRT PRN PRN Reason: Shortness Of Breath/wheezing Amlodipine Besylate (Amlodipine 5 Mg Tab) 10 mg PO DAILY ADAM Digoxin (Digoxin 125 Mcg Tab) 125 mcg PO DAILY ADAM Dorzolamide/Timolol (Dorzolamide/Timolol 2%-0.5% Ophth Soln 10 Ml Bottle) ml EYEBOTH ACBREAKFAST ADAM Metoprolol Tartrate (Metoprolol Tartrate 50 Mg Tab) 50 mg PO BID ADAM Non-Formulary Medication (Alprazolam [Xanax Xr]) 1 mg PO BEDTIME ADAM Non-Formulary Medication (Prednisolone Acetate/Pf [Prednisolone Acet 1% Eye Drop]) 1 drop EYEBOTH BID DAAM Ondansetron HCl (Ondansetron 4 Mg/2 Ml Sdv) 4 mg IVPUSH Q4H PRN PRN Reason: Nausea/Vomiting Oxybutynin Chloride (Oxybutynin 5 Mg Tab) 5 mg PO BID ADAM Sertraline HCl (Sertraline 25 Mg Tab) 25 mg PO DAILY [facility] Assessment/Plan Comment:: Patient is a 89 y/o F admitted for hypoxic respiratory failre due to right large pleural effusion and large right hiatal hernia in right hemithorax start oxygen to keep pulse oxy>92% DuoNeb as needed IS q1h when awake SCD for dvt ppx Vit k oral for supratherapeutic INR, recheck INR daily, hold Coumadin for now Resume home meds as appropriate, hold B brii due to bradycardia May needs IV Lasix as required Patient is DNR/DNI Surgery consulted in ER, patient not interested in any surgical intervention of hernia but will decided on drainage of the pleural effusion when and if needed in future , will await surhery recs regarding the pleural effusin Patient will likely need home oxygen upon dc
[2020-11-29] MEDS ORDERED: ALPRAZOLAM 1 MG PO SCH (21:00)
[2020-11-29] MEDS ORDERED: Non-Formulary Medication 1 Each (Prednisolone Acetate/Pf [Prednisolone Acet 1% Eye Drop] 5 EYEBOTH SCH (21:00)
[2020-11-29] MEDS: Oxybutynin 5 MG Tab PO SCH (22:07)
[2020-11-29] MEDS: Metoprolol Tartrate 50 MG Tab PO SCH (23:18)
[2020-11-29] MEDS: ALPRAZolam 0.5 MG Tab PO SCH (23:56)
[2020-11-30 05:45] LABS: CARBON DIOXIDE,CO2 29.1 mmol/L (21.0-32.0); POTASSIUM,K 4.1 mmol/L (3.5-5.1)
[2020-11-30] MEDS ORDERED: Dorzolamide/Timolol 2%-0.5% Ophth Soln 10 ML Bottle EYEBOTH SCH (07:30)
[2020-11-30] MEDS: Metoprolol Tartrate 50 MG Tab PO SCH ×2 (08:54→20:38)
[2020-11-30] MEDS: amLODIPine 5 MG Tab PO SCH (08:54)
[2020-11-30] MEDS: Oxybutynin 5 MG Tab PO SCH ×2 (08:54→20:42)
[2020-11-30] MEDS: Digoxin 125 MCG Tab PO SCH (08:54)
[2020-11-30] MEDS: Sertraline 25 MG Tab PO SCH (08:54)
[2020-11-30] MEDS: Dorzolamide/Timolol 2%-0.5% Ophth Soln 10 ML Bottle EYEBOTH SCH ×2 (08:55→09:01)
[2020-11-30] MEDS: prednisoLONE Acetate 1% Ophth Susp 5 ML Bottle EYEBOTH SCH ×2 (09:02→20:43)
[2020-11-30] MEDS: Acetaminophen 325 MG Tab PO PRN ×2 (09:47→20:37)
[2020-11-30] MEDS ORDERED: Magnesium Sulfate/Water 2 GM/50 ML BAG IV ONE (11:00)
--- NOTE | 2020-11-30 11:59 | PCM.SN.2 ---
- Free Text/Narrative Note: Case discussed with Dr. Diego last night, and Mrs. Olson today. I did review the CT scan this morning. She certainly has a very large hiatal hernia with much of her stomach in the right chest. This is compressing the right lower lobe, thus, in part, explaining her hypoxia. If she is interested in pursuing decompression of the right pleural effusion that would most safely be done by interventional radiology. Given her age and underlying comorbidities a very conservative approach is appropriate. If she should develop an upper GI bleed, this could represent compromise of the blood supply to the stomach and that she would need transfer to a larger institution. I did not formally see the patient. Please let me know if you would like me to physically examine her.
--- NOTE | 2020-11-30 15:21 | PCM.PN ---
- General Info Date of Service: 11/30/20 Admission Dx/Problem (Free Text): Admission Diagnosis/Problem Admission Diagnosis/Problem Hypoxia Subjective Update: patient seen at bedside, this AM started needing increasing oxygen but patient in no acute distress, comfortable, spoke to family ( son Alphonse) , goals of care were discussed, patient and family after a through discussion made the decision not to pursue any surgical intervention or IR guided paracentesis. Patient states she prefers to be leaning towards more comfort/palliative care. Family is requesting to talk to Hospice to decided between home hospice vs [facility]. - Review of Systems General: Reports: Weakness. Denies: Fever, Fatigue, Malaise Pulmonary: Denies: Shortness of Breath, Pleuritic Chest Pain, Cough Cardiovascular: Denies: Chest Pain, Palpitations Gastrointestinal: Denies: Abdominal Pain, Constipation Genitourinary: Denies: Dysuria, Frequency, Burning Musculoskeletal: Denies: Neck Pain, Shoulder Pain Skin: Denies: Cyanosis, Jaundice, Mottled - Patient Data Vitals - Most Recent: Last Vital Signs Temp 36.9 C 11/30/20 12:00 Pulse 72 11/30/20 12:00 Resp 18 11/30/20 12:00 BP 110/50 L 11/30/20 12:00 Pulse Ox 91 L 11/30/20 12:00 Weight - Most Recent: 55.157 kg I&O - Last 24 Hours: Intake & Output 11/30/20 11/30/20 11/30/20 06:59 14:59 22:59 Intake Total 300 500 Output Total 1150 400 Balance -850 100 Lab Results Last 24 Hours: Laboratory Results - last 24 hr 11/29/20 11/29/20 11/29/20 Range/Units 15:21 15:21 15:21 WBC 6.54 (4.0-11.0) K/uL RBC 3.79 L (4.30-5.90) M/uL Hgb 11.3 L (12.0-16.0) g/dL Hct 32.4 L (36.0-46.0) % MCV 85.5 (80.0-98.0) fL MCH 29.8 (27.0-32.0) pg MCHC 34.9 (31.0-37.0) g/dL RDW Std Deviation 47.3 (28.0-62.0) fl RDW Coeff of Dg 16 H (11.0-15.0) % Plt Count 304 (150-400) K/uL MPV 9.70 (7.40-12.00) fL Neut % (Auto) 63.2 (48.0-80.0) % Lymph % (Auto) 20.3 (16.0-40.0) % Casey % (Auto) 12.8 (0.0-15.0) % Eos % (Auto) 2.8 (0.0-7.0) % Baso % (Auto) 0.9 (0.0-1.5) % Neut # (Auto) 4.1 (1.4-5.7) K/uL Lymph # (Auto) 1.3 (0.6-2.4) K/uL Casey # (Auto) 0.8 (0.0-0.8) K/uL Eos # (Auto) 0.2 (0.0-0.7) K/uL Baso # (Auto) 0.1 (0.0-0.1) K/uL Nucleated RBC % 0.0 /100WBC Nucleated RBCs # 0 K/uL INR APTT (18.6-31.3) SEC D-Dimer, Quantitative 1.12 H (0.0-0.50) mg/L FEU ABG pH (7.35-7.45) ABG pCO2 (35-45) mmHG ABG pO2 (75-100) mmHG ABG HCO3 (22-26) mEq/L ABG Total CO2 ABG Base Excess (-2.0-2.0) Sodium 134 L (136-145) mmol/L Potassium 4.1 (3.5-5.1) mmol/L Chloride 99 (98-107) mmol/L Carbon Dioxide 28.5 (21.0-32.0) mmol/L BUN 24 H (7.0-18.0) mg/dL Creatinine 1.3 H (0.6-1.0) mg/dL Est Cr Clr Drug Dosing 24.79 mL/min Estimated GFR (MDRD) 38.6 ml/min Glucose 120 H (74-106) mg/dL Calcium 8.5 (8.5-10.1) mg/dL Phosphorus (2.6-4.7) mg/dL Magnesium (1.8-2.4) mg/dL Total Bilirubin 0.5 (0.2-1.0) mg/dL AST 21 (15-37) IU/L ALT 19 (14-63) IU/L Alkaline Phosphatase 107 (46-116) U/L Troponin I < 0.050 (0.000-0.056) ng/mL Total Protein 6.2 L (6.4-8.2) g/dL Albumin 2.5 L (3.4-5.0) g/dL Globulin 3.7 (2.6-4.0) g/dL Albumin/Globulin Ratio 0.7 L (0.9-1.6) Lipase 138 (73-393) U/L SARS-CoV-2 RNA ([facility]) (NEGATIVE) 11/29/20 11/29/20 11/29/20 Range/Units 17:40 18:05 Unknown WBC (4.0-11.0) K/uL RBC (4.30-5.90) M/uL Hgb (12.0-16.0) g/dL Hct (36.0-46.0) % MCV (80.0-98.0) fL MCH (27.0-32.0) pg MCHC (31.0-37.0) g/dL RDW Std Deviation (28.0-62.0) fl RDW Coeff of Dg (11.0-15.0) % Plt Count (150-400) K/uL MPV (7.40-12.00) fL Neut % (Auto) (48.0-80.0) % Lymph % (Auto) (16.0-40.0) % Casey % (Auto) (0.0-15.0) % Eos % (Auto) (0.0-7.0) % Baso % (Auto) (0.0-1.5) % Neut # (Auto) (1.4-5.7) K/uL Lymph # (Auto) (0.6-2.4) K/uL Casey # (Auto) (0.0-0.8) K/uL Eos # (Auto) (0.0-0.7) K/uL Baso # (Auto) (0.0-0.1) K/uL Nucleated RBC % /100WBC Nucleated RBCs # K/uL INR 14.36 H* APTT 72.4 H (18.6-31.3) SEC D-Dimer, Quantitative (0.0-0.50) mg/L FEU ABG pH 7.409 (7.35-7.45) ABG pCO2 42 (35-45) mmHG ABG pO2 79 (75-100) mmHG ABG HCO3 27 H (22-26) mEq/L ABG Total CO2 24.8 ABG Base Excess 1.9 (-2.0-2.0) Sodium (136-145) mmol/L Potassium (3.5-5.1) mmol/L Chloride (98-107) mmol/L Carbon Dioxide (21.0-32.0) mmol/L BUN (7.0-18.0) mg/dL Creatinine (0.6-1.0) mg/dL Est Cr Clr Drug Dosing mL/min Estimated GFR (MDRD) ml/min Glucose (74-106) mg/dL Calcium (8.5-10.1) mg/dL Phosphorus (2.6-4.7) mg/dL Magnesium (1.8-2.4) mg/dL Total Bilirubin (0.2-1.0) mg/dL AST (15-37) IU/L ALT (14-63) IU/L Alkaline Phosphatase (46-116) U/L Troponin I (0.000-0.056) ng/mL Total Protein (6.4-8.2) g/dL Albumin (3.4-5.0) g/dL Globulin (2.6-4.0) g/dL Albumin/Globulin Ratio (0.9-1.6) Lipase (73-393) U/L SARS-CoV-2 RNA ([facility]) NEGATIVE (NEGATIVE) 11/30/20 11/30/20 11/30/20 Range/Units 05:00 05:00 07:54 WBC 7.15 (4.0-11.0) K/uL RBC 3.71 L (4.30-5.90) M/uL Hgb 11.0 L (12.0-16.0) g/dL Hct 31.9 L (36.0-46.0) % MCV 86.0 (80.0-98.0) fL MCH 29.6 (27.0-32.0) pg MCHC 34.5 (31.0-37.0) g/dL RDW Std Deviation 48.0 (28.0-62.0) fl RDW Coeff of Dg 16 H (11.0-15.0) % Plt Count 287 (150-400) K/uL MPV 9.40 (7.40-12.00) fL Neut % (Auto) 67.9 (48.0-80.0) % Lymph % (Auto) 16.4 (16.0-40.0) % Casey % (Auto) 12.2 (0.0-15.0) % Eos % (Auto) 2.9 (0.0-7.0) % Baso % (Auto) 0.6 (0.0-1.5) % Neut # (Auto) 4.9 (1.4-5.7) K/uL Lymph # (Auto) 1.2 (0.6-2.4) K/uL Casey # (Auto) 0.9 H (0.0-0.8) K/uL Eos # (Auto) 0.2 (0.0-0.7) K/uL Baso # (Auto) 0.0 (0.0-0.1) K/uL Nucleated RBC % 0.0 /100WBC Nucleated RBCs # 0 K/uL INR 9.30 H* APTT (18.6-31.3) SEC D-Dimer, Quantitative (0.0-0.50) mg/L FEU ABG pH (7.35-7.45) ABG pCO2 (35-45) mmHG ABG pO2 (75-100) mmHG ABG HCO3 (22-26) mEq/L ABG Total CO2 ABG Base Excess (-2.0-2.0) Sodium 137 (136-145) mmol/L Potassium 4.1 (3.5-5.1) mmol/L Chloride 102 (98-107) mmol/L Carbon Dioxide 29.1 (21.0-32.0) mmol/L BUN 20 H (7.0-18.0) mg/dL Creatinine 1.2 H (0.6-1.0) mg/dL Est Cr Clr Drug Dosing 28.13 mL/min Estimated GFR (MDRD) 42.3 ml/min Glucose 78 (74-106) mg/dL Calcium 7.7 L (8.5-10.1) mg/dL Phosphorus 4.0 (2.6-4.7) mg/dL Magnesium 1.5 L (1.8-2.4) mg/dL Total Bilirubin (0.2-1.0) mg/dL AST (15-37) IU/L ALT (14-63) IU/L Alkaline Phosphatase (46-116) U/L Troponin I (0.000-0.056) ng/mL Total Protein (6.4-8.2) g/dL Albumin (3.4-5.0) g/dL Globulin (2.6-4.0) g/dL Albumin/Globulin Ratio (0.9-1.6) Lipase (73-393) U/L SARS-CoV-2 RNA ([facility]) (NEGATIVE) Med Orders - Current: Current Medications Acetaminophen (Acetaminophen 325 Mg Tab) 650 mg PO Q4H PRN PRN Reason: Pain (Mild 1-3)/fever Last Admin: 11/30/20 09:47 Dose: 650 mg Documented by: Albuterol/Ipratropium (Albuterol/Ipratropium 3.0-0.5 Mg/3 Ml Neb Soln) 3 ml NEB Q4HRRT PRN PRN Reason: Shortness Of Breath/wheezing Last Admin: 11/30/20 14:08 Dose: 3 ml Documented by: Alprazolam (Alprazolam 0.5 Mg Tab) 0.5 mg PO BEDTIME [facility] Last Admin: 11/29/20 23:56 Dose: 0.5 mg Documented by: Amlodipine Besylate (Amlodipine 5 Mg Tab) 10 mg PO DAILY [facility] Last Admin: 11/30/20 08:54 Dose: 10 mg Documented by: Digoxin (Digoxin 125 Mcg Tab) 125 mcg PO DAILY [facility] Last Admin: 11/30/20 08:54 Dose: 125 mcg Documented by: Metoprolol Tartrate (Metoprolol Tartrate 50 Mg Tab) 50 mg PO BID [facility] Last Admin: 11/30/20 08:54 Dose: 50 mg Documented by: Ondansetron HCl (Ondansetron 4 Mg/2 Ml Sdv) 4 mg IVPUSH Q4H PRN PRN Reason: Nausea/Vomiting Oxybutynin Chloride (Oxybutynin 5 Mg Tab) 5 mg PO BID [facility] Last Admin: 11/30/20 08:54 Dose: 5 mg Documented by: Dorzolamide/Timolol 2%-0.5% Ophth Soln 10 Ml Bottle 0 each EYEBOTH ACBREAKFAST [facility] Last Admin: 11/30/20 09:01 Dose: 1 each Documented by: Prednisolone Acetate (Prednisolone Acetate 1% Ophth Susp 5 Ml Bottle) 1 ml EYEB OTH BID [facility] Last Admin: 11/30/20 09:02 Dose: 1 drop Documented by: Sertraline HCl (Sertraline 25 Mg Tab) 25 mg PO DAILY [facility] Last Admin: 11/30/20 08:54 Dose: 25 mg Documented by: Discontinued Medications Alprazolam (Alprazolam 0.5 Mg Tab) 0.5 mg PO BEDTIME [facility] Dorzolamide/Timolol (Dorzolamide/Timolol 2%-0.5% Ophth Soln 10 Ml Bottle) 0 ml EYEBOTH ACBREAKFAST [facility] Last Admin: 11/30/20 09:23 Dose: Not Given Documented by: Furosemide (Furosemide 40 Mg/4 Ml Vial) 20 mg IVPUSH NOW ONE Stop: 11/29/20 18:25 Last Admin: 11/29/20 19:38 Dose: 20 mg Documented by: Sodium Chloride (Normal Saline) 1,000 mls @ 1,000 mls/hr IV .Bolus ONE Stop: 11/29/20 18:16 Last Admin: 11/29/20 17:38 Dose: 1,000 mls/hr Documented by: Magnesium Sulfate (Magnesium Sulfate In Water 2 Gm/50 Ml) 2 gm in 50 mls @ 50 mls/hr IV ONETIME ONE Stop: 11/30/20 11:59 Last Admin: 11/30/20 11:16 Dose: 50 mls/hr Documented by: Iopamidol (Iopamidol 755 Mg/Ml 500 Ml Multipack Bottle) 50 ml IVPUSH ONETIME STA Stop: 11/29/20 17:26 Last Admin: 11/29/20 17:26 Dose: 50 ml Documented by: Metoprolol Succinate (Metoprolol Succinate 50 Mg Tab.Er) 50 mg PO ONETIME ONE Stop: 11/29/20 17:50 Last Admin: 11/29/20 18:15 Dose: Not Given Documented by: Non-Formulary Medication (Alprazolam [Xanax Xr]) 1 mg PO BEDTIME [facility] Last Admin: 11/30/20 02:45 Dose: Not Given Documented by: Non-Formulary Medication (Prednisolone Acetate/Pf [Prednisolone Acet 1% Eye Drop]) 1 drop EYEBOTH BID [facility] Last Admin: 11/30/20 00:48 Dose: Not Given Documented by: Phytonadione (Phytonadione 10 Mg/1 Ml Amp) 2.5 mg PO ONETIME ONE Stop: 11/29/20 19:11 Last Admin: 11/29/20 21:56 Dose: Not Given Documented by: Phytonadione (Phytonadione 10 Mg/1 Ml Amp) 2.5 mg PO ONETIME ONE Stop: 11/29/20 21:31 Last Admin: 11/29/20 22:07 Dose: 2.5 mg Documented by: Phytonadione (Phytonadione 10 Mg/1 Ml Amp) 5 mg PO ONETIME ONE Stop: 11/30/20 09:41 Last Admin: 11/30/20 09:42 Dose: 5 mg Documented by: Warfarin Sodium (Warfarin Ask Dosing) 0 each PO ONETIME ONE Stop: 11/29/20 19:13 Last Admin: 11/30/20 00:47 Dose: Not Given Documented by: - Exam Quality Assessment: Supplemental Oxygen General: Alert, Oriented, Cooperative, No Acute Distress Neck: Supple Lungs: Clear to Auscultation, Normal Respiratory Effort Cardiovascular: Regular Rate, Regular Rhythm GI/Abdominal Exam: Normal Bowel Sounds, Soft, Non-Tender - Patient Data Lab Results Last 24 hrs: Laboratory Results - last 24 hr 11/29/20 11/29/20 11/29/20 Range/Units 15:21 15:21 15:21 WBC 6.54 (4.0-11.0) K/uL RBC 3.79 L (4.30-5.90) M/uL Hgb 11.3 L (12.0-16.0) g/dL Hct 32.4 L (36.0-46.0) % MCV 85.5 (80.0-98.0) fL MCH 29.8 (27.0-32.0) pg MCHC 34.9 (31.0-37.0) g/dL RDW Std Deviation 47.3 (28.0-62.0) fl RDW Coeff of Dg 16 H (11.0-15.0) % Plt Count 304 (150-400) K/uL MPV 9.70 (7.40-12.00) fL Neut % (Auto) 63.2 (48.0-80.0) % Lymph % (Auto) 20.3 (16.0-40.0) % Casey % (Auto) 12.8 (0.0-15.0) % Eos % (Auto) 2.8 (0.0-7.0) % Baso % (Auto) 0.9 (0.0-1.5) % Neut # (Auto) 4.1 (1.4-5.7) K/uL Lymph # (Auto) 1.3 (0.6-2.4) K/uL Casey # (Auto) 0.8 (0.0-0.8) K/uL Eos # (Auto) 0.2 (0.0-0.7) K/uL Baso # (Auto) 0.1 (0.0-0.1) K/uL Nucleated RBC % 0.0 /100WBC Nucleated RBCs # 0 K/uL INR APTT (18.6-31.3) SEC D-Dimer, Quantitative 1.12 H (0.0-0.50) mg/L FEU ABG pH (7.35-7.45) ABG pCO2 (35-45) mmHG ABG pO2 (75-100) mmHG ABG HCO3 (22-26) mEq/L ABG Total CO2 ABG Base Excess (-2.0-2.0) Sodium 134 L (136-145) mmol/L Potassium 4.1 (3.5-5.1) mmol/L Chloride 99 (98-107) mmol/L Carbon Dioxide 28.5 (21.0-32.0) mmol/L BUN 24 H (7.0-18.0) mg/dL Creatinine 1.3 H (0.6-1.0) mg/dL Est Cr Clr Drug Dosing 24.79 mL/min Estimated GFR (MDRD) 38.6 ml/min Glucose 120 H (74-106) mg/dL Calcium 8.5 (8.5-10.1) mg/dL Phosphorus (2.6-4.7) mg/dL Magnesium (1.8-2.4) mg/dL Total Bilirubin 0.5 (0.2-1.0) mg/dL AST 21 (15-37) IU/L ALT 19 (14-63) IU/L Alkaline Phosphatase 107 (46-116) U/L Troponin I < 0.050 (0.000-0.056) ng/mL Total Protein 6.2 L (6.4-8.2) g/dL Albumin 2.5 L (3.4-5.0) g/dL Globulin 3.7 (2.6-4.0) g/dL Albumin/Globulin Ratio 0.7 L (0.9-1.6) Lipase 138 (73-393) U/L SARS-CoV-2 RNA ([facility]) (NEGATIVE) 11/29/20 11/29/20 11/29/20 Range/Units 17:40 18:05 Unknown WBC (4.0-11.0) K/uL RBC (4.30-5.90) M/uL Hgb (12.0-16.0) g/dL Hct (36.0-46.0) % MCV (80.0-98.0) fL MCH (27.0-32.0) pg MCHC (31.0-37.0) g/dL RDW Std Deviation (28.0-62.0) fl RDW Coeff of Dg (11.0-15.0) % Plt Count (150-400) K/uL MPV (7.40-12.00) fL Neut % (Auto) (48.0-80.0) % Lymph % (Auto) (16.0-40.0) % Casey % (Auto) (0.0-15.0) % Eos % (Auto) (0.0-7.0) % Baso % (Auto) (0.0-1.5) % Neut # (Auto) (1.4-5.7) K/uL Lymph # (Auto) (0.6-2.4) K/uL Casey # (Auto) (0.0-0.8) K/uL Eos # (Auto) (0.0-0.7) K/uL Baso # (Auto) (0.0-0.1) K/uL Nucleated RBC % /100WBC Nucleated RBCs # K/uL INR 14.36 H* APTT 72.4 H (18.6-31.3) SEC D-Dimer, Quantitative (0.0-0.50) mg/L FEU ABG pH 7.409 (7.35-7.45) ABG pCO2 42 (35-45) mmHG ABG pO2 79 (75-100) mmHG ABG HCO3 27 H (22-26) mEq/L ABG Total CO2 24.8 ABG Base Excess 1.9 (-2.0-2.0) Sodium (136-145) mmol/L Potassium (3.5-5.1) mmol/L Chloride (98-107) mmol/L Carbon Dioxide (21.0-32.0) mmol/L BUN (7.0-18.0) mg/dL Creatinine (0.6-1.0) mg/dL Est Cr Clr Drug Dosing mL/min Estimated GFR (MDRD) ml/min Glucose (74-106) mg/dL Calcium (8.5-10.1) mg/dL Phosphorus (2.6-4.7) mg/dL Magnesium (1.8-2.4) mg/dL Total Bilirubin (0.2-1.0) mg/dL AST (15-37) IU/L ALT (14-63) IU/L Alkaline Phosphatase (46-116) U/L Troponin I (0.000-0.056) ng/mL Total Protein (6.4-8.2) g/dL Albumin (3.4-5.0) g/dL Globulin (2.6-4.0) g/dL Albumin/Globulin Ratio (0.9-1.6) Lipase (73-393) U/L SARS-CoV-2 RNA ([facility]) NEGATIVE (NEGATIVE) 11/30/20 11/30/20 11/30/20 Range/Units 05:00 05:00 07:54 WBC 7.15 (4.0-11.0) K/uL RBC 3.71 L (4.30-5.90) M/uL Hgb 11.0 L (12.0-16.0) g/dL Hct 31.9 L (36.0-46.0) % MCV 86.0 (80.0-98.0) fL MCH 29.6 (27.0-32.0) pg MCHC 34.5 (31.0-37.0) g/dL RDW Std Deviation 48.0 (28.0-62.0) fl RDW Coeff of Dg 16 H (11.0-15.0) % Plt Count 287 (150-400) K/uL MPV 9.40 (7.40-12.00) fL Neut % (Auto) 67.9 (48.0-80.0) % Lymph % (Auto) 16.4 (16.0-40.0) % Casey % (Auto) 12.2 (0.0-15.0) % Eos % (Auto) 2.9 (0.0-7.0) % Baso % (Auto) 0.6 (0.0-1.5) % Neut # (Auto) 4.9 (1.4-5.7) K/uL Lymph # (Auto) 1.2 (0.6-2.4) K/uL Casey # (Auto) 0.9 H (0.0-0.8) K/uL Eos # (Auto) 0.2 (0.0-0.7) K/uL Baso # (Auto) 0.0 (0.0-0.1) K/uL Nucleated RBC % 0.0 /100WBC Nucleated RBCs # 0 K/uL INR 9.30 H* APTT (18.6-31.3) SEC D-Dimer, Quantitative (0.0-0.50) mg/L FEU ABG pH (7.35-7.45) ABG pCO2 (35-45) mmHG ABG pO2 (75-100) mmHG ABG HCO3 (22-26) mEq/L ABG Total CO2 ABG Base Excess (-2.0-2.0) Sodium 137 (136-145) mmol/L Potassium 4.1 (3.5-5.1) mmol/L Chloride 102 (98-107) mmol/L Carbon Dioxide 29.1 (21.0-32.0) mmol/L BUN 20 H (7.0-18.0) mg/dL Creatinine 1.2 H (0.6-1.0) mg/dL Est Cr Clr Drug Dosing 28.13 mL/min Estimated GFR (MDRD) 42.3 ml/min Glucose 78 (74-106) mg/dL Calcium 7.7 L (8.5-10.1) mg/dL Phosphorus 4.0 (2.6-4.7) mg/dL Magnesium 1.5 L (1.8-2.4) mg/dL Total Bilirubin (0.2-1.0) mg/dL AST (15-37) IU/L ALT (14-63) IU/L Alkaline Phosphatase (46-116) U/L Troponin I (0.000-0.056) ng/mL Total Protein (6.4-8.2) g/dL Albumin (3.4-5.0) g/dL Globulin (2.6-4.0) g/dL Albumin/Globulin Ratio (0.9-1.6) Lipase (73-393) U/L SARS-CoV-2 RNA ([facility]) (NEGATIVE) Result Diagrams: 11/30/20 05:00 11/30/20 05:00 Sepsis Event Note - Evaluation Sepsis Screening Result: No Definite Risk - Focused Exam Vital Signs: Vital Signs Temp Pulse Pulse Resp BP BP Pulse Ox 11/30/20 12:00 36.9 C 72 18 110/50 L 91 L 11/30/20 08:54 104 H 122/53 L 11/30/20 08:53 36.4 C 104 H 16 122/53 L 94 L 11/30/20 03:33 36.3 C 85 16 113/61 91 L - Problem List & Annotations (1) Hypoxic SNOMED Code(s): 021845225 Code(s): R09.02 - HYPOXEMIA Status: Acute Current Visit: Yes (2) Acute respiratory failure with hypoxia SNOMED Code(s): 64926528, 900483666 Code(s): J96.01 - ACUTE RESPIRATORY FAILURE WITH HYPOXIA Status: Acute Current Visit: No (3) Anticoagulant long-term use SNOMED Code(s): 386930488 Code(s): Z79.01 - PHYSICAL THERAPY SUPERVISOR (CURRENT) USE OF ANTICOAGULANTS Status: Acute Current Visit: No (4) CHF, Congestive heart failure SNOMED Code(s): 47871341 Code(s): I50.9 - HEART FAILURE, UNSPECIFIED Status: Chronic Current Visit: No (5) History of atrial fibrillation SNOMED Code(s): 011519341 Code(s): Z86.79 - PERSONAL HISTORY OF OTHER DISEASES OF THE CIRCULATORY SYSTEM Status: Chronic Current Visit: No (6) Hypertension SNOMED Code(s): 82658918 Code(s): I10 - ESSENTIAL (PRIMARY) HYPERTENSION Status: Chronic Current Visit: No (7) Hiatal hernia SNOMED Code(s): 39666868 Code(s): K44.9 - DIAPHRAGMATIC HERNIA WITHOUT OBSTRUCTION OR GANGRENE Status: Acute Current Visit: Yes - Problem List Review Problem List Initiated/Reviewed/Updated: Yes - My Orders Last 24 Hours: My Active Orders 11/29/20 18:25 Ambulate [RC] ASDIRECTED Oxygen Therapy [RC] PRN VTE/DVT Education [RC] PER UNIT ROUTINE Vital Signs [RC] Q4H Acetaminophen [TylenoL] 650 mg PO Q4H PRN Albuterol/Ipratropium [DuoNeb 3.0-0.5 MG/3 ML] 3 ml NEB Q4HRRT PRN Ondansetron [Zofran] 4 mg IVPUSH Q4H PRN Sequential Compression Device [OM.PC] Per Unit Routine 11/29/20 18:26 Antiembolic Devices [RC] Q12H RT Aerosol Therapy [RC] ASDIRECTED 11/29/20 18:27 RT Incentive Spirometry [RC] Q2HWA 11/29/20 19:13 Consult to Physician [CONS] Routine 11/29/20 19:14 Notify Provider Consults [RC] ASDIRECTED 11/29/20 20:15 Telemetry Monitoring [Cardiac Monitoring] [RC] Q8H 11/29/20 21:00 Metoprolol Tartrate [Lopressor] 50 mg PO BID Oxybutynin 5 mg PO BID 11/29/20 23:37 ALPRAZolam [Xanax] 0.5 mg PO BEDTIME 11/30/20 09:00 Digoxin [Lanoxin] 125 mcg PO DAILY Patient's Own Medication [Ptom] 0 each EYEBOTH ACBREAKFAST Sertraline [Zoloft] 25 mg PO DAILY amLODIPine [Norvasc] 10 mg PO DAILY prednisoLONE acetate [Pred Forte 1% Ophth Susp] 1 ml EYEBOTH BID 11/30/20 15:20 Resuscitation Status Routine 11/30/20 Dinner Soft Diet [DIET] 12/01/20 05:11 BMP [BASIC METABOLIC PANEL,BMP] [CHEM] AM CBC WITH AUTO DIFF [HEME] AM INR,PT,PROTHROMBIN TIME [COAG] AM MAGNESIUM [CHEM] AM PHOSPHORUS [CHEM] AM 12/02/20 05:11 INR,PT,PROTHROMBIN TIME [COAG] AM 12/03/20 05:11 INR,PT,PROTHROMBIN TIME [COAG] AM 12/04/20 05:11 INR,PT,PROTHROMBIN TIME [COAG] AM - Plan Plan:: Patient is a 89 y/o F admitted for hypoxic respiratory failure due to right large pleural effusion and large right hiatal hernia in right hemithorax cont oxygen to keep pulse oxy>92%, currently needing face mask, 6-7 lts/min, no acute distress DuoNeb as needed IS q1h when awake SCD for dvt ppx Repeat dosing of Vit k oral for supratherapeutic INR, recheck INR daily, hold Coumadin for now Resume home meds as appropriate, hold B brii due to bradycardia May needs IV Lasix as required Patient is DNR/DNI, possible transition to comfort measures should she deteriorate further per families request, they want to be notified in that event. patient not interested in any surgical intervention of hernia or drainage of the pleural effusion , surgery feedback appreciated Patient will likely be going home with home hospice vs [facility], family will decide in AM
[2020-11-30] MEDS: ALPRAZolam 0.5 MG Tab PO SCH (20:38)
[2020-11-30] MEDS ORDERED: ALPRAZolam 0.5 MG Tab PO SCH (23:30)
[2020-12-01 06:33] LABS: CARBON DIOXIDE,CO2 27.7 mmol/L (21.0-32.0); POTASSIUM,K 4.3 mmol/L (3.5-5.1)
[2020-12-01] MEDS: amLODIPine 5 MG Tab PO SCH (08:52)
[2020-12-01] MEDS: Sertraline 25 MG Tab PO SCH (08:52)
[2020-12-01] MEDS: Dorzolamide/Timolol 2%-0.5% Ophth Soln 10 ML Bottle EYEBOTH SCH (08:53)
[2020-12-01] MEDS: Oxybutynin 5 MG Tab PO SCH ×2 (08:53→20:03)
[2020-12-01] MEDS: Digoxin 125 MCG Tab PO SCH (08:53)
[2020-12-01] MEDS: Metoprolol Tartrate 50 MG Tab PO SCH ×2 (08:53→20:03)
[2020-12-01] MEDS: prednisoLONE Acetate 1% Ophth Susp 5 ML Bottle EYEBOTH SCH ×2 (08:54→20:07)
[2020-12-01] MEDS ORDERED: LORazepam 2 MG/ML SDV IVPUSH PRN (10:38)
[2020-12-01] MEDS ORDERED: Morphine 2 MG/ML SYRINGE IVPUSH PRN (10:38)
--- NOTE | 2020-12-01 12:49 | PCM.PN ---
- General Info Date of Service: 12/01/20 Admission Dx/Problem (Free Text): Admission Diagnosis/Problem Admission Diagnosis/Problem Hypoxia Subjective Update: patient seen at bedside, comfortable in her chair, family at bedside, decided on home hospice, ready to transition to comfort care measures as required Functional Status: Reports: Tolerating Diet, Urinating. Denies: Ambulating - Review of Systems General: Reports: Weakness, Fatigue. Denies: Fever Pulmonary: Denies: Shortness of Breath, Cough Cardiovascular: Denies: Chest Pain, Palpitations Gastrointestinal: Denies: Abdominal Pain, Constipation, Decreased Appetite Genitourinary: Denies: Frequency, Burning, Pain Musculoskeletal: Denies: Shoulder Pain, Arm Pain, Hand Pain - Patient Data Vitals - Most Recent: Last Vital Signs Temp 36.5 C 12/01/20 11:51 Pulse 55 L 12/01/20 11:51 Resp 14 12/01/20 11:51 BP 97/44 L 12/01/20 11:51 Pulse Ox 94 L 12/01/20 11:51 Weight - Most Recent: 55.157 kg I&O - Last 24 Hours: Intake & Output 11/30/20 12/01/20 12/01/20 22:59 06:59 14:59 Intake Total 500 350 Output Total 400 275 Balance 100 75 Lab Results Last 24 Hours: Laboratory Results - last 24 hr 12/01/20 12/01/20 12/01/20 Range/Units 05:40 05:40 05:40 WBC 8.63 (4.0-11.0) K/uL RBC 3.55 L (4.30-5.90) M/uL Hgb 10.4 L (12.0-16.0) g/dL Hct 30.4 L (36.0-46.0) % MCV 85.6 (80.0-98.0) fL MCH 29.3 (27.0-32.0) pg MCHC 34.2 (31.0-37.0) g/dL RDW Std Deviation 48.8 (28.0-62.0) fl RDW Coeff of Dg 16 H (11.0-15.0) % Plt Count 268 (150-400) K/uL MPV 9.60 (7.40-12.00) fL Neut % (Auto) 69.9 (48.0-80.0) % Lymph % (Auto) 14.4 L (16.0-40.0) % [place] % (Auto) 13.2 (0.0-15.0) % Eos % (Auto) 2.2 (0.0-7.0) % Baso % (Auto) 0.3 (0.0-1.5) % Neut # (Auto) 6.0 H (1.4-5.7) K/uL Lymph # (Auto) 1.2 (0.6-2.4) K/uL [place] # (Auto) 1.1 H (0.0-0.8) K/uL Eos # (Auto) 0.2 (0.0-0.7) K/uL Baso # (Auto) 0.0 (0.0-0.1) K/uL Nucleated RBC % 0.0 /100WBC Nucleated RBCs # 0 K/uL INR 1.45 Sodium 132 L (136-145) mmol/L Potassium 4.3 (3.5-5.1) mmol/L Chloride 98 (98-107) mmol/L Carbon Dioxide 27.7 (21.0-32.0) mmol/L BUN 17 (7.0-18.0) mg/dL Creatinine 1.0 (0.6-1.0) mg/dL Est Cr Clr Drug Dosing 33.21 mL/min Estimated GFR (MDRD) 52.2 ml/min Glucose 77 (74-106) mg/dL Calcium 8.3 L (8.5-10.1) mg/dL Phosphorus 3.7 (2.6-4.7) mg/dL Magnesium 2.1 (1.8-2.4) mg/dL Med Orders - Current: Current Medications Acetaminophen (Acetaminophen 325 Mg Tab) 650 mg PO Q4H PRN PRN Reason: Pain (Mild 1-3)/fever Last Admin: 11/30/20 20:37 Dose: 650 mg Documented by: Albuterol/Ipratropium (Albuterol/Ipratropium 3.0-0.5 Mg/3 Ml Neb Soln) 3 ml NEB Q4HRRT PRN PRN Reason: Shortness Of Breath/wheezing Last Admin: 11/30/20 14:08 Dose: 3 ml Documented by: Alprazolam (Alprazolam 0.5 Mg Tab) 0.5 mg PO BEDTIME [facility] Last Admin: 11/30/20 20:38 Dose: 0.5 mg Documented by: Amlodipine Besylate (Amlodipine 5 Mg Tab) 10 mg PO DAILY [facility] Last Admin: 12/01/20 08:52 Dose: 10 mg Documented by: Digoxin (Digoxin 125 Mcg Tab) 125 mcg PO DAILY [facility] Last Admin: 12/01/20 08:53 Dose: 125 mcg Documented by: Lorazepam (Lorazepam 2 Mg/Ml Sdv) 0.5 mg IVPUSH Q4H PRN PRN Reason: agitation/anxiety Metoprolol Tartrate (Metoprolol Tartrate 50 Mg Tab) 50 mg PO BID [facility] Last Admin: 12/01/20 08:53 Dose: 50 mg Documented by: Morphine Sulfate (Morphine 2 Mg/Ml Syringe) 1 mg IVPUSH Q4H PRN PRN Reason: SOB/pain/agitation Ondansetron HCl (Ondansetron 4 Mg/2 Ml Sdv) 4 mg IVPUSH Q4H PRN PRN Reason: Nausea/Vomiting Oxybutynin Chloride (Oxybutynin 5 Mg Tab) 5 mg PO BID [facility] Last Admin: 12/01/20 08:53 Dose: 5 mg Documented by: Dorzolamide/Timolol 2%-0.5% Ophth Soln 10 Ml Bottle 0 each EYEBOTH ACBREAKFAST [facility] Last Admin: 12/01/20 08:53 Dose: 1 each Documented by: Prednisolone Acetate (Prednisolone Acetate 1% Ophth Susp 5 Ml Bottle) 1 ml EYEBOTH BID [facility] Last Admin: 12/01/20 08:54 Dose: 1 drop Documented by: Sertraline HCl (Sertraline 25 Mg Tab) 25 mg PO DAILY [facility] Last Admin: 12/01/20 08:52 Dose: 25 mg Documented by: Discontinued Medications Alprazolam (Alprazolam 0.5 Mg Tab) 0.5 mg PO BEDTIME [facility] Dorzolamide/Timolol (Dorzolamide/Timolol 2%-0.5% Ophth Soln 10 Ml Bottle) 0 ml EYEBOTH ACBREAKFAST [facility] Last Admin: 11/30/20 09:23 Dose: Not Given Documented by: Furosemide (Furosemide 40 Mg/4 Ml Vial) 20 mg IVPUSH NOW ONE Stop: 11/29/20 18:25 Last Admin: 11/29/20 19:38 Dose: 20 mg Documented by: Sodium Chloride (Normal Saline) 1,000 mls @ 1,000 mls/hr IV .Bolus ONE Stop: 11/29/20 18:16 Last Admin: 11/29/20 17:38 Dose: 1,000 mls/hr Documented by: Magnesium Sulfate (Magnesium Sulfate In Water 2 Gm/50 Ml) 2 gm in 50 mls @ 50 mls/hr IV ONETIME ONE Stop: 11/30/20 11:59 Last Admin: 11/30/20 11:16 Dose: 50 mls/hr Documented by: Iopamidol (Iopamidol 755 Mg/Ml 500 Ml Multipack Bottle) 50 ml IVPUSH ONETIME STA Stop: 11/29/20 17:26 Last Admin: 11/29/20 17:26 Dose: 50 ml Documented by: Metoprolol Succinate (Metoprolol Succinate 50 Mg Tab.Er) 50 mg PO ONETIME ONE Stop: 11/29/20 17:50 Last Admin: 11/29/20 18:15 Dose: Not Given Documented by: Non-Formulary Medication (Alprazolam [Xanax Xr]) 1 mg PO BEDTIME [facility] Last Admin: 11/30/20 02:45 Dose: Not Given Documented by: Non-Formulary Medication (Prednisolone Acetate/Pf [Prednisolone Acet 1% Eye Drop]) 1 drop EYEBOTH BID [facility] Last Admin: 11/30/20 00:48 Dose: Not Given Documented by: Phytonadione (Phytonadione 10 Mg/1 Ml Amp) 2.5 mg PO ONETIME ONE Stop: 11/29/20 19:11 Last Admin: 11/29/20 21:56 Dose: Not Given Documented by: Phytonadione (Phytonadione 10 Mg/1 Ml Amp) 2.5 mg PO ONETIME ONE Stop: 11/29/20 21:31 Last Admin: 11/29/20 22:07 Dose: 2.5 mg Documented by: Phytonadione (Phytonadione 10 Mg/1 Ml Amp) 5 mg PO ONETIME ONE Stop: 11/30/20 09:41 Last Admin: 11/30/20 09:42 Dose: 5 mg Documented by: Warfarin Sodium (Warfarin Ask Dosing) 0 each PO ONETIME ONE Stop: 11/29/20 19:13 Last Admin: 11/30/20 00:47 Dose: Not Given Documented by: - Exam Quality Assessment: Supplemental Oxygen General: Alert, Oriented, No Acute Distress Neck: Supple Lungs: Decreased Breath Sounds, Crackles Cardiovascular: Regular Rate, Irregular Rhythm - Patient Data Lab Results Last 24 hrs: Laboratory Results - last 24 hr 12/01/20 12/01/20 12/01/20 Range/Units 05:40 05:40 05:40 WBC 8.63 (4.0-11.0) K/uL RBC 3.55 L (4.30-5.90) M/uL Hgb 10.4 L (12.0-16.0) g/dL Hct 30.4 L (36.0-46.0) % MCV 85.6 (80.0-98.0) fL MCH 29.3 (27.0-32.0) pg MCHC 34.2 (31.0-37.0) g/dL RDW Std Deviation 48.8 (28.0-62.0) fl RDW Coeff of Dg 16 H (11.0-15.0) % Plt Count 268 (150-400) K/uL MPV 9.60 (7.40-12.00) fL Neut % (Auto) 69.9 (48.0-80.0) % Lymph % (Auto) 14.4 L (16.0-40.0) % [place] % (Auto) 13.2 (0.0-15.0) % Eos % (Auto) 2.2 (0.0-7.0) % Baso % (Auto) 0.3 (0.0-1.5) % Neut # (Auto) 6.0 H (1.4-5.7) K/uL Lymph # (Auto) 1.2 (0.6-2.4) K/uL [place] # (Auto) 1.1 H (0.0-0.8) K/uL Eos # (Auto) 0.2 (0.0-0.7) K/uL Baso # (Auto) 0.0 (0.0-0.1) K/uL Nucleated RBC % 0.0 /100WBC Nucleated RBCs # 0 K/uL INR 1.45 Sodium 132 L (136-145) mmol/L Potassium 4.3 (3.5-5.1) mmol/L Chloride 98 (98-107) mmol/L Carbon Dioxide 27.7 (21.0-32.0) mmol/L BUN 17 (7.0-18.0) mg/dL Creatinine 1.0 (0.6-1.0) mg/dL Est Cr Clr Drug Dosing 33.21 mL/min Estimated GFR (MDRD) 52.2 ml/min Glucose 77 (74-106) mg/dL Calcium 8.3 L (8.5-10.1) mg/dL Phosphorus 3.7 (2.6-4.7) mg/dL Magnesium 2.1 (1.8-2.4) mg/dL Result Diagrams: 12/01/20 05:40 12/01/20 05:40 Sepsis Event Note - Evaluation Sepsis Screening Result: No Definite Risk - Focused Exam Vital Signs: Vital Signs Temp Pulse Pulse Resp BP BP Pulse Ox 12/01/20 11:51 36.5 C 55 L 14 97/44 L 94 L 12/01/20 08:53 76 108/54 L 12/01/20 08:52 108/54 L 12/01/20 08:00 36.8 C 76 14 108/54 L 94 L 12/01/20 04:23 36.6 C 65 18 105/58 L 94 L 12/01/20 01:12 36.8 C 73 18 101/52 L 92 L - Problem List & Annotations (1) Hypoxic SNOMED Code(s): 535694649 Code(s): R09.02 - HYPOXEMIA Status: Acute Current Visit: Yes (2) Acute respiratory failure with hypoxia SNOMED Code(s): 99379288, 150305135 Code(s): J96.01 - ACUTE RESPIRATORY FAILURE WITH HYPOXIA Status: Acute Current Visit: No (3) Anticoagulant long-term use SNOMED Code(s): 873894830 Code(s): Z79.01 - USP (CURRENT) USE OF ANTICOAGULANTS Status: Acute Current Visit: No (4) CHF, Congestive heart failure SNOMED Code(s): 73953474 Code(s): I50.9 - HEART FAILURE, UNSPECIFIED Status: Chronic Current Visit: No (5) History of atrial fibrillation SNOMED Code(s): 079444552 Code(s): Z86.79 - PERSONAL HISTORY OF OTHER DISEASES OF THE CIRCULATORY SYSTEM Status: Chronic Current Visit: No (6) Hypertension SNOMED Code(s): 02145945 Code(s): I10 - ESSENTIAL (PRIMARY) HYPERTENSION Status: Chronic Current Visit: No (7) Hiatal hernia SNOMED Code(s): 05306230 Code(s): K44.9 - DIAPHRAGMATIC HERNIA WITHOUT OBSTRUCTION OR GANGRENE Status: Acute Current Visit: Yes - Problem List Review Problem List Initiated/Reviewed/Updated: Yes - My Orders Last 24 Hours: My Active Orders 11/30/20 Dinner Soft Diet [DIET] - Plan Plan:: Patient is a 89 y/o F admitted for hypoxic respiratory failure due to right large pleural effusion and large right hiatal hernia in right hemithorax patient has been started on comfort care measures per patient and family request, going home in AM with home hospice cont supportive care
[2020-12-01] MEDS: Acetaminophen 325 MG Tab PO PRN ×2 (14:40→20:03)
[2020-12-01] MEDS: Cephalexin 500 MG Cap PO SCH ×2 (14:41→20:03)
[2020-12-01] MEDS: ALPRAZolam 0.5 MG Tab PO SCH (20:02)
[2020-12-02] MEDS: Dorzolamide/Timolol 2%-0.5% Ophth Soln 10 ML Bottle EYEBOTH SCH (09:22)
[2020-12-02] MEDS: amLODIPine 5 MG Tab PO SCH (09:24)
[2020-12-02] MEDS: Cephalexin 500 MG Cap PO SCH (09:24)
[2020-12-02] MEDS: Sertraline 25 MG Tab PO SCH (09:25)
[2020-12-02] MEDS: Oxybutynin 5 MG Tab PO SCH (09:25)
[2020-12-02] MEDS: Metoprolol Tartrate 50 MG Tab PO SCH (09:25)
[2020-12-02] MEDS: Digoxin 125 MCG Tab PO SCH (09:26)
[2020-12-02] MEDS: Acetaminophen 325 MG Tab PO PRN (09:27)
[2020-12-02 09:31] VITALS: BP 116/59; PULSE 65
[2020-12-02] MEDS: prednisoLONE Acetate 1% Ophth Susp 5 ML Bottle EYEBOTH SCH (09:32)
--- NOTE | 2020-12-02 13:13 | PCM.DCSUM1 ---
Discharge Summary - Hospital Course Diagnosis: Stroke: No - Discharge Data Discharge Disposition: DC/Tfer to Hospice - Home 51 Condition: Stable - Referral to Home Health Primary Care Physician: PCP None - Discharge Diagnosis/Problem(s) (1) Hypoxic SNOMED Code(s): 772102749 ICD Code: R09.02 - HYPOXEMIA Status: Acute Current Visit: Yes (2) Acute respiratory failure with hypoxia SNOMED Code(s): 58194487, 593517823 ICD Code: J96.01 - ACUTE RESPIRATORY FAILURE WITH HYPOXIA Status: Acute Current Visit: No (3) Anticoagulant long-term use SNOMED Code(s): 194054526 ICD Code: Z79.01 - SHELTER (CURRENT) USE OF ANTICOAGULANTS Status: Acute Current Visit: No (4) CHF, Congestive heart failure SNOMED Code(s): 23112293 ICD Code: I50.9 - HEART FAILURE, UNSPECIFIED Status: Chronic Current Visit: No (5) History of atrial fibrillation SNOMED Code(s): 105930922 ICD Code: Z86.79 - PERSONAL HISTORY OF OTHER DISEASES OF THE CIRCULATORY SYSTEM Status: Chronic Current Visit: No (6) Hypertension SNOMED Code(s): 81100485 ICD Code: I10 - ESSENTIAL (PRIMARY) HYPERTENSION Status: Chronic Current Visit: No (7) Hiatal hernia SNOMED Code(s): 41087681 ICD Code: K44.9 - DIAPHRAGMATIC HERNIA WITHOUT OBSTRUCTION OR GANGRENE Status: Acute Current Visit: Yes - Patient Summary/Data Consults: Consultations 11/29/20 19:13 Consult to Physician [CONS] Routine 11/30/20 11:17 Consult to Hospice [CONS] Routine - Patient Instructions Diet: Regular Diet as Tolerated Activity: As Tolerated Showering/Bathing: May Shower Notify Provider of: Fever, Increased Pain, Swelling and Redness, Drainage, Nausea and/or Vomiting Other/Special Instructions: Hospice to admit once discharged from Hospital - Discharge Plan *PRESCRIPTION DRUG MONITORING PROGRAM REVIEWED*: Not Applicable *COPY OF PRESCRIPTION DRUG MONITORING REPORT IN PATIENT KARL: Not Applicable Prescriptions/Med Rec: cephALEXin [Keflex] 500 mg PO Q12HR 4 Days #8 cap Home Medications: Home Meds ALPRAZolam [Xanax XR] 1 mg PO BEDTIME 03/12/20 [History] Calcium Carbonate [Calcium] 1 tab PO DAILY 03/12/20 [History] Digoxin [Lanoxin] 125 mcg PO DAILY 03/12/20 [History] Lutein/Minerals/Vit A,C & E [Ocuvite] 1 tab PO DAILY 03/12/20 [History] Multivitamin [Multi-Vitamin Daily] 1 tab PO DAILY 03/12/20 [History] Potassium Chloride 20 meq PO DAILY PRN 03/12/20 [History] Prednisolone Acetate/Pf [Prednisolone Acet 1% Eye Drop] 1 drop EYEBOTH BID 03/12/20 [History] amLODIPine [Norvasc] 10 mg PO DAILY 03/12/20 [History] Metoprolol Tartrate 50 mg PO BID 03/13/20 [History] Oxybutynin 5 mg PO BID #60 tablet 03/15/20 [Rx] Dorzolamide/Timolol [Cosopt 2%-0.5% Ophth Soln] 1 drop EYEBOTH ACBREAKFAST [History] Furosemide 40 mg PO DAILY 10/25/20 [History] Sertraline [Zoloft] 25 mg PO DAILY 10/25/20 [History] Losartan [Cozaar] 50 mg PO DAILY #30 tab 11/01/20 [Rx] cephALEXin [Keflex] 500 mg PO Q12HR 4 Days #8 cap 12/02/20 [Rx] Oxygen Therapy Mode: Nasal Cannula Patient Handouts: Cephalexin Tablets or Capsules Referrals: Mg Sung MD [Physician] - 12/07/20 11:00 am - Patient Data Vitals - Most Recent: Last Vital Signs Temp 36.6 C 12/02/20 07:00 Pulse 65 12/02/20 09:26 Resp 17 12/02/20 09:30 BP 116/59 L 12/02/20 09:30 Pulse Ox 97 12/02/20 09:30 Weight - Most Recent: 55.157 kg I&O - Last 24 hours: Intake & Output 12/01/20 12/02/20 12/02/20 22:59 06:59 14:59 Intake Total 750 300 200 Output Total 250 225 Balance 500 75 200 Lab Results - Last 24 hrs: Laboratory Results - last 24 hr 12/01/20 Range/Units 12:50 Urine Color YELLOW Urine Appearance CLOUDY Urine pH 6.0 (5.0-8.0) Ur Specific [place] 1.025 (1.001-1.035) Urine Protein 100 H (NEGATIVE) mg/dL Urine Glucose (UA) NEGATIVE (NEGATIVE) mg/dL Urine Ketones NEGATIVE (NEGATIVE) mg/dL Urine Occult Blood MODERATE H (NEGATIVE) Urine Nitrite NEGATIVE (NEGATIVE) Urine Bilirubin NEGATIVE (NEGATIVE) Urine Urobilinogen 0.2 (<2.0) EU/dL Ur Leukocyte Esterase LARGE H (NEGATIVE) Urine RBC 1-2 (0-2/HPF) Urine WBC TO NUMEROUS TO COUNT H (0-5/HPF) Ur Epithelial Cells RARE (NONE-FEW) Amorphous Sediment RARE (NEGATIVE) Urine Bacteria 1+ H (NEGATIVE) Urine Mucus RARE (NONE-MOD) Med Orders - Current: Current Medications Acetaminophen (Acetaminophen 325 Mg Tab) 650 mg PO Q4H PRN PRN Reason: Pain (Mild 1-3)/fever Last Admin: 12/02/20 09:27 Dose: 650 mg Documented by: Albuterol/Ipratropium (Albuterol/Ipratropium 3.0-0.5 Mg/3 Ml Neb Soln) 3 ml NEB Q4HRRT PRN PRN Reason: Shortness Of Breath/wheezing Last Admin: 11/30/20 14:08 Dose: 3 ml Documented by: Alprazolam (Alprazolam 0.5 Mg Tab) 0.5 mg PO BEDTIME [facility] Last Admin: 12/01/20 20:02 Dose: 0.5 mg Documented by: Amlodipine Besylate (Amlodipine 5 Mg Tab) 10 mg PO DAILY [facility] Last Admin: 12/02/20 09:24 Dose: 10 mg Documented by: Cephalexin (Cephalexin 500 Mg Cap) 500 mg PO Q12HR [facility] Last Admin: 12/02/20 09:24 Dose: 500 mg Documented by: Digoxin (Digoxin 125 Mcg Tab) 125 mcg PO DAILY [facility] Last Admin: 12/02/20 09:26 Dose: 125 mcg Documented by: Lorazepam (Lorazepam 2 Mg/Ml Sdv) 0.5 mg IVPUSH Q4H PRN PRN Reason: agitation/anxiety Metoprolol Tartrate (Metoprolol Tartrate 50 Mg Tab) 50 mg PO BID [facility] Last Admin: 12/02/20 09:25 Dose: 50 mg Documented by: Morphine Sulfate (Morphine 2 Mg/Ml Syringe) 1 mg IVPUSH Q4H PRN PRN Reason: SOB/pain/agitation Ondansetron HCl (Ondansetron 4 Mg/2 Ml Sdv) 4 mg IVPUSH Q4H PRN PRN Reason: Nausea/Vomiting Oxybutynin Chloride (Oxybutynin 5 Mg Tab) 5 mg PO BID [facility] Last Admin: 12/02/20 09:25 Dose: 5 mg Documented by: Dorzolamide/Timolol 2%-0.5% Ophth Soln 10 Ml Bottle 0 each EYEBOTH ACBREAKFAST [facility] Last Admin: 12/02/20 09:22 Dose: 1 each Documented by: Prednisolone Acetate (Prednisolone Acetate 1% Ophth Susp 5 Ml Bottle) 1 ml EYEBOTH BID [facility] Last Admin: 12/02/20 09:32 Dose: 1 drop Documented by: Sertraline HCl (Sertraline 25 Mg Tab) 25 mg PO DAILY [facility] Last Admin: 12/02/20 09:25 Dose: 25 mg Documented by: Discontinued Medications Alprazolam (Alprazolam 0.5 Mg Tab) 0.5 mg PO BEDTIME [facility] Dorzolamide/Timolol (Dorzolamide/Timolol 2%-0.5% Ophth Soln 10 Ml Bottle) 0 ml EYEBOTH ACBREAKFAST [facility] Last Admin: 11/30/20 09:23 Dose: Not Given Documented by: Furosemide (Furosemide 40 Mg/4 Ml Vial) 20 mg IVPUSH NOW ONE Stop: 11/29/20 18:25 Last Admin: 11/29/20 19:38 Dose: 20 mg Documented by: Sodium Chloride (Normal Saline) 1,000 mls @ 1,000 mls/hr IV .Bolus ONE Stop: 11/29/20 18:16 Last Admin: 11/29/20 17:38 Dose: 1,000 mls/hr Documented by: Magnesium Sulfate (Magnesium Sulfate In Water 2 Gm/50 Ml) 2 gm in 50 mls @ 50 mls/hr IV ONETIME ONE Stop: 11/30/20 11:59 Last Admin: 11/30/20 11:16 Dose: 50 mls/hr Documented by: Iopamidol (Iopamidol 755 Mg/Ml 500 Ml Multipack Bottle) 50 ml IVPUSH ONETIME STA Stop: 11/29/20 17:26 Last Admin: 11/29/20 17:26 Dose: 50 ml Documented by: Metoprolol Succinate (Metoprolol Succinate 50 Mg Tab.Er) 50 mg PO ONETIME ONE Stop: 11/29/20 17:50 Last Admin: 11/29/20 18:15 Dose: Not Given Documented by: Non-Formulary Medication (Alprazolam [Xanax Xr]) 1 mg PO BEDTIME [facility] Last Admin: 11/30/20 02:45 Dose: Not Given Documented by: Non-Formulary Medication (Prednisolone Acetate/Pf [Prednisolone Acet 1% Eye Drop]) 1 drop EYEBOTH BID [facility] Last Admin: 11/30/20 00:48 Dose: Not Given Documented by: Phytonadione (Phytonadione 10 Mg/1 Ml Amp) 2.5 mg PO ONETIME ONE Stop: 11/29/20 19:11 Last Admin: 11/29/20 21:56 Dose: Not Given Documented by: Phytonadione (Phytonadione 10 Mg/1 Ml Amp) 2.5 mg PO ONETIME ONE Stop: 11/29/20 21:31 Last Admin: 11/29/20 22:07 Dose: 2.5 mg Documented by: Phytonadione (Phytonadione 10 Mg/1 Ml Amp) 5 mg PO ONETIME ONE Stop: 11/30/20 09:41 Last Admin: 11/30/20 09:42 Dose: 5 mg Documented by: Warfarin Sodium (Warfarin Ask Dosing) 0 each PO ONETIME ONE Stop: 11/29/20 19:13 Last Admin: 11/30/20 00:47 Dose: Not Given Documented by:
--- NOTE | 2020-12-05 08:54 | PCM.SN.2 ---
- Free Text/Narrative Note: Nurses informed me of urine culture result that came back after patient was discharged. Patient is growing out pseudomonas aeruginosa. Patient was discharged on Keflex. I called Hospice nurse and family and patient are still wanting treatment for UTI. They also report that patient has had muscle aches with Keflex in past. I informed hospice nurse that I will call in prescription of Ciprofloxacin 500mg BID for five days.
== END 2020-12-02 11:53 | disposition hospice, home (50) ==
LOC: MW.ED 14:46 → MW.MS 17:45
PROVIDERS: ADMIT Student in an Organized Health Care Education/Training Program; ATTEND Student in an Organized Health Care Education/Training Program
DX: J96.01 Acute respiratory failure with hypoxia (principal); J90 Pleural effusion, not elsewhere classified; I11.0 Hypertensive heart disease with heart failure; I50.9 Heart failure, unspecified; K44.9 Diaphragmatic hernia without obstruction or gangrene; R79.1 Abnormal coagulation profile; J45.909 Unspecified asthma, uncomplicated; Z88.2 Allergy status to sulfonamides; Z79.01 Long term (current) use of anticoagulants; Z86.79 Personal history of other diseases of the circulatory system; Z20.822 Contact with and (suspected) exposure to COVID-19; Z99.81 Dependence on supplemental oxygen; Z79.899 Other long term (current) drug therapy
CPT/HCPCS: 36415; 36600; 71045; 71275; 80048; 80053; 81001; 82803; 83690; 83735; 84100; 84484; 85025; 85379; 85610; 85730; 87086; 87088; 87186; 93005; A9270; J1940; J3430; J3475; J7030; Q9967; U0002; J7620-GY